=== PATIENT | female | born 2000 | race Caucasian/White ===

== ENCOUNTER 2021-04-12 18:26 | Emergency (ER) | payer OTHER, SELFPAY ==
[2021-04-12 18:43] VITALS: BP 138/94; PULSE 104; RESP 18; TEMP 37.1; O2SAT 100; BMI 45.7
[2021-04-12 19:12] LABS: Glucose Urine UA NEG (NEG); Leukocyte Esterase Urine NEG (NEG); Nitrite Urine NEG (NEG); Specific Gravity - Urine >= 1.030 (1.005-1.025); UACC Culture Trigger NO; Urine Blood 1+ (NEG); Urine Ketones NEG (NEG); Urine Protein NEG (NEG-TRACE)
[2021-04-12 19:13] LABS: Appearance Urine CLEAR; Color Urine YELLOW
[2021-04-12 19:19] LABS: Bacteria Urine 1+ /LPF; RBC Urine 0-2 /HPF (0); Squamous Epithelial Cell Urine 1+ /LPF; WBC Urine 0 /HPF (0-4)
[2021-04-12 21:01] VITALS: BP 130/96; PULSE 105; RESP 20; TEMP 37.3; O2SAT 99
--- NOTE | 2021-04-12 21:04 | ED.ABDPAIN ---
HPI - Abdominal Pain General Chief Complaint: Abdominal Pain Stated Complaint: nausea, stomach pain, dizziness Time Seen by Provider: 04/12/21 20:45 Source: patient Mode of arrival: ambulatory Limitations: no limitations History of Present Illness HPI narrative: 21-year-old female who presents emergency department for evaluation of abdominal pain, nausea and diarrhea. The patient's symptoms started 3 days prior. She states she has a constant aching pain in her upper abdomen with an intermittent stabbing pain. She states that the pain is 5/10 at its worst. The patient has had constant nausea with no vomiting. She states that she has had multiple episodes of diarrheal stool per day with having up to 12 episodes of diarrhea today. She states that the diarrhea is knee on yellow colored with mucus and occasional blood when she wipes. She has had associated chills but no fever. She feels lightheaded, dizzy and weak. The patient has not traveled out of the country, she has not gone camping and she has not been on antibiotics recently. She states that she had similar symptoms in the past and was worked up approximately 1 year prior by Gastroenterology and was diagnosed with IBS. 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 The patient has not had a COVID-19 infection during this pandemic. She was vaccinated with the 2 shot Pfizer vaccine with her last vaccination being in October 2020 Related Data Allergies Allergy/AdvReac Type Severity Reaction Status Date / Time latex [LATEX] Allergy Severe SWELLING/HI Verified 04/12/21 18:43 VES banana [BANANA] Allergy Intermediate ANAPHYLAXIS Verified 04/12/21 18:43 cefuroxime [From CEFTIN] Allergy Intermediate HIVES Verified 04/12/21 18:43 Sulfa (Sulfonamide Allergy Intermediate HIVES Verified 04/12/21 18:43 Antibiotics) [SULFA (SULFONAMIDE ANTIBIOTICS)] sulfacetamide Allergy Intermediate Hives Verified 04/12/21 18:43 Review of Systems Review of Systems Yes all other systems are reviewed and are negative Physical Exam Vital Signs: Vital Signs: Last Vital Signs Temp 98.2 F 04/12/21 22:30 Pulse 98 04/12/21 22:30 Resp 16 04/12/21 22:30 BP 130/81 04/12/21 22:30 Pulse Ox 100 04/12/21 22:30 Body Mass Index 45.7 Const: Other: Very pleasant, cooperative female, does not appear to be in distress , answers all questions appropriately HENMT: Head: Yes normal to inspection, Yes normocephalic and Yes atraumatic Ears: external ears normal General nose exam: Normal external nose present Face and sinus: Yes normal facial exam Mouth: Normal oral and palatal mucosa present Throat: Yes posterior oropharynx normal Eyes: Periorbital: periorbital findings normal Eyelids: Yes eyelids normal Conjunctivae: conjunctivae normal Sclerae: sclerae normal Corneas: corneas normal Pupils: Equal, round and reactive pupils present Direct Ophthalmoscopy: normal light reflex Neck: Neck: Yes full ROM, Yes no lymphadenopathy, Yes no meningeal signs, Yes trachea midline and Yes supple Chest: Chest palpation & inspection: normal inspection of the chest and normal palpation of entire chest wall Resp: Effort & Inspection: normal respiratory effort and able to speak in complete sentences Auscultation: clear to auscultation bilaterally Cardio: Rate: regular rate Rhythm: regular rhythm Heart sounds: S1 normal heart sound present, S2 normal heart sound present and no murmurs GI: Inspection: Yes normal to inspection Palpation (GI): Soft to palpation, Tenderness to palpation present (GI) in the epigastrum (Moderate), no guarding, not rigid and No hepatosplenomegaly present : General: Yes no CVA tenderness Back/Spine/Pelvis: Back: no CVA tenderness Cervical Spine: normal cervical lordosis Thoracic/Lumbar Spine: thoracic and lumbar spine normal to inspection Skin: Lesions: no lesions Rashes: no rashes Wounds: no wounds Neuro: General: no meningeal signs Cranial nerves: Yes CN's II-XII intact bilaterally and Yes Equal, round and reactive pupils present Cognition (Neuro): normal cognition Motor exam (neuro): 5/5 motor strength present throughout Extrem: General: Yes normal to inspection and Yes full ROM Psych: Appearance: well kempt Mental Status: mental status grossly normal Speech and movement: Normal speech and movement present Affect: normal affect Attitude: cooperative Thought process: Normal thought process present Thought content: Normal thought content present Course Course Course Narrative: 21-year-old female who presents emergency department for evaluation of epigastric abdominal pain, nausea, diarrhea x3 days. Vital signs revealed elevated blood pressure of 138/94 and tachycardia with a pulse of 108 otherwise were unremarkable. Examination did reveal tenderness with palpation of the epigastric area of her abdomen otherwise was unremarkable. I did order a CBC, CMP, lipase, urinalysis, urine test, COVID-19. Patient will be treated with normal saline IV x2 L, Zofran 4 mg IV for nausea and Toradol 15 mg IV for pain. I will obtain a stool sample for C diff and stool culture. 2357: The patient's laboratory evaluation was unremarkable. The patient did get significant improvement with the above treatment. She was able to eat saltine crackers and drink 10 drill without vomiting. The patient will be discharged home with a prescription for Zofran 4 mg every 6-8 hours as needed for nausea and vomiting. Patient is scheduled to follow-up with her professor of social work for further evaluation and treatment of her IBS. MDM - Abdominal Pain Lab Data Result diagrams: 04/12/21 21:26 04/12/21 23:21 Labs: Lab Results 04/12/21 04/12/21 04/12/21 Range/Units 18:58 21:26 21:26 WBC 11.3 H (4.8-10.8) X10*3/uL RBC 5.15 (4.20-5.50) X10*6/uL Hgb 13.3 (12.0-16.0) g/dl Hct 40.1 (37-47) % MCV 77.9 L (80-98) fL MCH 25.8 L (27.0-33.0) pg MCHC 33.2 (31.0-35.0) g/dl RDW 14.5 (11.0-16.0) % Plt Count 373 (160-400) X10*3/uL MPV 8.7 L (9.4-12.3) fL Immature Gran % (Auto) 0.4 (0.0-0.4) % Neut % (Auto) 54.5 (45-73) % Lymph % (Auto) 34.8 (20-40) % [place] % (Auto) 9.1 (2-11) % Eos % (Auto) 0.8 (0-4) % Baso % (Auto) 0.4 (0-2) % Lymph # (Auto) 3.9 (1.2-4.9) X10*3/uL [place] # (Auto) 1.0 (0.1-1.2) X10*3/uL Eos # (Auto) 0.1 (0.0-0.4) X10*3/uL Baso # (Auto) 0.0 (0.0-0.2) X10*3/uL Abs Immat Gran (auto) 0.04 H (0.00-0.03) X10*3/uL Absolute Neuts (auto) 6.1 (2.0-8.3) X10*3/uL Absolute Nucleated RBC 0.000 (0.0-0.012) X10*3/uL Nucleated RBC % (auto) 0.0 (0.0-0.2) /100WBC Sodium (135-145) mmol/L Potassium (3.3-5.1) mmol/L Chloride (96-108) mmol/L Carbon Dioxide (22-29) mmol/L Anion Gap (12-20) BUN (9-16) mg/dL Creatinine (0.5-1.4) mg/dL Estim Creat Clear Calc Estimated GFR Random Glucose (60-115) mg/dL Calcium (8.4-10.2) mg/dL Total Bilirubin (0.0-1.0) mg/dL AST (5-31) U/L ALT (0-31) U/L Alkaline Phosphatase (39-117) U/L Total Protein (6.5-8.0) g/dL Albumin (3.5-5.0) g/dL Lipase (8-78) U/L Urine Color YELLOW Urine Appearance CLEAR Urine pH 6.0 (5.0-8.0) Ur Specific [place] >= 1.030 H (1.005-1.025) Urine Protein NEG (NEG-TRACE) MG/DL Urine Glucose (UA) NEG (NEG) MG/DL Urine Ketones NEG (NEG) MG/DL Urine Blood 1+ H (NEG) Urine Nitrite NEG (NEG) Ur Leukocyte Esterase NEG (NEG) Urine RBC 0-2 (0) /HPF Urine WBC 0 (0-4) /HPF Ur Squamous Epith Cells 1+ /LPF Urine Bacteria 1+ /LPF COVID-19 ([facility]) Negative (Negative) COVID-19 Clin Com See Note 04/12/21 Range/Units 23:21 WBC (4.8-10.8) X10*3/uL RBC (4.20-5.50) X10*6/uL Hgb (12.0-16.0) g/dl Hct (37-47) % MCV (80-98) fL MCH (27.0-33.0) pg MCHC (31.0-35.0) g/dl RDW (11.0-16.0) % Plt Count (160-400) X10*3/uL MPV (9.4-12.3) fL Immature Gran % (Auto) (0.0-0.4) % Neut % (Auto) (45-73) % Lymph % (Auto) (20-40) % [place] % (Auto) (2-11) % Eos % (Auto) (0-4) % Baso % (Auto) (0-2) % Lymph # (Auto) (1.2-4.9) X10*3/uL [place] # (Auto) (0.1-1.2) X10*3/uL Eos # (Auto) (0.0-0.4) X10*3/uL Baso # (Auto) (0.0-0.2) X10*3/uL Abs Immat Gran (auto) (0.00-0.03) X10*3/uL Absolute Neuts (auto) (2.0-8.3) X10*3/uL Absolute Nucleated RBC (0.0-0.012) X10*3/uL Nucleated RBC % (auto) (0.0-0.2) /100WBC Sodium 140 (135-145) mmol/L Potassium 4.8 (3.3-5.1) mmol/L Chloride 110 H (96-108) mmol/L Carbon Dioxide 21 L (22-29) mmol/L Anion Gap 14 (12-20) BUN 7 L (9-16) mg/dL Creatinine 0.66 (0.5-1.4) mg/dL Estim Creat Clear Calc 159.1 Estimated GFR > 60 Random Glucose 87 (60-115) mg/dL Calcium 8.5 (8.4-10.2) mg/dL Total Bilirubin < 0.2 (0.0-1.0) mg/dL AST 35 H (5-31) U/L ALT 23 (0-31) U/L Alkaline Phosphatase 67 (39-117) U/L Total Protein 6.6 (6.5-8.0) g/dL Albumin 3.4 L (3.5-5.0) g/dL Lipase 24 (8-78) U/L Urine Color Urine Appearance Urine pH (5.0-8.0) Ur Specific [place] (1.005-1.025) Urine Protein (NEG-TRACE) MG/DL Urine Glucose (UA) (NEG) MG/DL Urine Ketones (NEG) MG/DL Urine Blood (NEG) Urine Nitrite (NEG) Ur Leukocyte Esterase (NEG) Urine RBC (0) /HPF Urine WBC (0-4) /HPF Ur Squamous Epith Cells /LPF Urine Bacteria /LPF COVID-19 ([facility]) (Negative) COVID-19 Clin Com Discharge Plan Discharge Clinical Impression: Nausea Abdominal pain Qualifiers: Abdominal location: epigastric Qualified Code(s): R10.13 - Epigastric pain Irritable bowel syndrome Qualifiers: Irritable bowel syndrome type: with diarrhea Qualified Code(s): K58.0 - Irritable bowel syndrome with diarrhea Diarrhea Qualifiers: Diarrhea type: unspecified type Qualified Code(s): R19.7 - Diarrhea, unspecified Patient Disposition: Home, Self-Care Additional Instructions: Your laboratory evaluation was unremarkable, this is reassuring. Your symptoms are consistent with either a viral infection or your your double bowel syndrome. For nausea or vomiting take Zofran (ondansetron) oral dissolvable tablets, 1 pill dissolved in your mouth every 6-8 hours as needed. Take ibuprofen 200 mg pills, 3 pills every 6 hours as needed for pain. Take Tylenol (acetaminophen) 500 mg pills, 2 pills every 4 to 6 hours as needed for pain. Take Imodium AC 2 mg pills, 1 pill every 2 hours up to 4 pills a day as needed for diarrhea. Follow-up with your doctor in 2 days. Please return to the emergency department if your symptoms get worse or if you develop any symptoms that are concerning to you. [facility] Past Medical History [facility] Narrative: Past surgical history: The patient had a cholecystectomy 04/2019. Social history: The patient denies tobacco use, she occasionally drinks alcohol, she denies drug use. Medical History Airway malacia Anxiety Costochondritis Depression GERD (gastroesophageal reflux disease) OCD (obsessive compulsive disorder) Vocal cord dysfunction Surgical History H/O adenoidectomy History of tonsillectomy Previous back surgery Social History Social History Advance Directives: No Advance Directives Information Provided: Yes Patient : No
[2021-04-12] MEDS: Ketorolac Tromethamine 15 MG/ML VIAL IVPUSH (21:32)
[2021-04-12] MEDS: 0.9 % Sodium Chloride 1,000 ML 999 ML IV ×2 (21:32)
[2021-04-12 21:41] LABS: MANUAL DIFF FLAG NO
[2021-04-12 21:44] LABS: Basophils Percent Auto 0.4 % (0-2); Eosinophils Absolute Auto 0.1 X10*3/uL (0.0-0.4); Eosinophils Percent Auto 0.8 % (0-4); Hematocrit 40.1 % (37-47); Hemoglobin 13.3 g/dl (12.0-16.0); Imm Gran Abs Auto 0.04 X10*3/uL (0.00-0.03); Imm Gran Pct Auto 0.4 % (0.0-0.4); Lymphocytes Absolute Auto 3.9 X10*3/uL (1.2-4.9); Lymphocytes Percent Auto 34.8 % (20-40); Mean Corpuscular HGB Conc 33.2 g/dl (31.0-35.0); Mean Corpuscular Hemoglobin 25.8 pg (27.0-33.0); Mean Corpuscular Volume 77.9 fL (80-98); Mean Platelet Volume 8.7 fL (9.4-12.3); Monocytes Percent Auto 9.1 % (2-11); Neutrophils Absolute Auto 6.1 X10*3/uL (2.0-8.3); Neutrophils Percent Auto 54.5 % (45-73); Platelet Count 373 X10*3/uL (160-400); Red Blood Count 5.15 X10*6/uL (4.20-5.50); Red Cell Distribution Width 14.5 % (11.0-16.0); White Blood Count 11.3 X10*3/uL (4.8-10.8)
[2021-04-12 21:56] LABS: COVID-19 Test Negative (Negative); IDNOW Serial# 9DD0AD1C
[2021-04-12 22:30] VITALS: BP 130/81; PULSE 98; RESP 16; TEMP 36.8; O2SAT 100
[2021-04-12 23:50] LABS: Alanine Aminotransferase 23 U/L (0-31); Albumin Level 3.4 g/dL (3.5-5.0); Alkaline Phosphatase 67 U/L (39-117); Anion Gap 14 (12-20); Aspartate Amino Transferase 35 U/L (5-31); Bilirubin Total < 0.2 mg/dL (0.0-1.0); Blood Urea Nitrogen 7 mg/dL (9-16); Calcium 8.5 mg/dL (8.4-10.2); Carbon Dioxide 21 mmol/L (22-29); Chloride 110 mmol/L (96-108); Creatinine Clr Calc Pharmacy 159.1; Estimated Glomerular Filt Rate > 60; Glucose Random 87 mg/dL (60-115); Lipase 24 U/L (8-78); Potassium 4.8 mmol/L (3.3-5.1); Sodium 140 mmol/L (135-145); Total Protein 6.6 g/dL (6.5-8.0)
== END 2021-04-13 00:14 | disposition home or self-care (01) ==
PROVIDERS: Emergency Provider Emergency Medicine Emergency Medical Services; PCP Internal Medicine
DX: K58.0 Irritable bowel syndrome with diarrhea (principal); R10.13 Epigastric pain; Z20.822 Contact with and (suspected) exposure to COVID-19; R53.1 Weakness
CPT/HCPCS: 36415; 80053; 81001; 83690; 85025; 87635; 96361; 96374; 96375; 99284; J1885; J2405

== ENCOUNTER 2021-05-08 13:26 | Outpatient (REF) | payer OTHER, SELFPAY ==
--- NOTE | ~2021-05-08 | CT_ITS ---
EXAMINATION: CT ENTEROGRAPHY ABDOMEN AND PELVIS WITH CONTRAST CLINICAL INFORMATION: Periumbilical pain COMPARISON: Previous CT of the abdomen and pelvis October 2019 TECHNIQUE: Study performed with oral VoLumen (1350 mL) and 480 mL of water to distend the abdomen. The patient was injected with 85 mL Omnipaque 350 intravenous contrast which was administered without adverse effect. Coronal and sagittal reformatted images were obtained at the technologist's workstation. This CT examination was performed using dose optimization techniques as appropriate, variously including the following: *Automated exposure control *Adjustment of mA and/or kV according to patient size (this includes techniques or standardized protocols for targeted exams where dose is matched to indication/reason for exam; i.e. extremities or head) *Use of iterative reconstruction technique DLP: 1118 mGy-cm FINDINGS: GASTROINTESTINAL FINDINGS: Stomach: Well-distended and normal in appearance. Small intestine: Satisfactorily distended and normal in appearance. Large intestine: Well-distended and normal in appearance. No perirectal changes demonstrated. The appendix is normal. Additional findings: No abnormal enhancement of the vasa recta or significant mesenteric or retroperitoneal lymphadenopathy is seen. No abdominal abscess or fistulous tract demonstrated. ABDOMINAL AND PELVIC CT FINDINGS: Liver, gallbladder, biliary tract: Fatty liver. Postcholecystectomy. No focal liver lesion or biliary duct dilatation. Pancreas: Normal Spleen: Normal Adrenal glands and kidneys: Normal Ureters and bladder: Normal Lymphovascular structures: Normal Pelvic structures: Normal Small umbilical hernia containing fat. Bones: Normal Lung bases: Normal CT/CT enterography IMPRESSION: Small umbilical hernia containing fat otherwise unremarkable exam.
[2021-05-08] MEDS: iohexoL 350 MG/ML 100 ML INFUS..BTL IV (15:44)
[2021-05-08] MEDS: Sorbitol/Mannit/Xanth Imaging 500 ML LIQUID 1500 ML PO (15:45)
== END 2021-05-08 13:27 | disposition home or self-care (01) ==
LOC: HO.US 13:26
PROVIDERS: PCP Internal Medicine; Visit Provider Internal Medicine Gastroenterology
DX: R10.33 Periumbilical pain (principal)
CPT/HCPCS: 74177; Q9967

== ENCOUNTER → 2021-06-12 13:49 | Outpatient (BNVA) | payer OTHER, SELFPAY | PROVIDERS: PCP Internal Medicine; Visit Provider Internal Medicine Gastroenterology ==

== ENCOUNTER → 2021-08-14 07:44 | Outpatient (REF) | payer OTHER, SELFPAY ==
--- NOTE | ~2021-08-14 | NM_ITS ---
EXAMINATION: MN RADIONUCLIDE SOLID FOOD GASTRIC EMPTYING 4-HOUR STUDY CLINICAL INFORMATION: Early satiety. COMPARISON: None TECHNIQUE: A standard meal consisting of 4 oz of Egg Beaters brand tagged with 0.699 microcuries Tc-99m Sulfur Colloid, 8 oz water and 2 slices of toast with jelly was administered orally to the patient. Images were obtained using a dual head gamma camera in the anterior and posterior projections over of the stomach immediately post ingestion and at hourly intervals up to 4 hours post ingestion. The anterior and posterior counts at each time interval were averaged using the geometric mean and expressed as percentage of the immediate post ingestion counts. FINDINGS: There is good visualization of activity in the stomach immediately post ingestion. As the study progresses, there is good clearance of activity from the stomach and visualization of progressively increasing small bowel activity. By the end of the study, there is almost no retention noted in the stomach. Retention in the stomach at each time interval was: 1 hour 75% (normal 37%-90%) 2 hours 52% (normal 30%-60%) 3 hours 37% 4 hours 12% (normal 0%-10%) MN/MN gastric emptying study IMPRESSION: Abnormal 4-hour solid food gastric emptying study with 12% retention.
== END ==
LOC: HO.NUCMED 07:44
PROVIDERS: PCP Internal Medicine; Visit Provider Internal Medicine Gastroenterology
DX: R10.13 Epigastric pain (principal); R68.81 Early satiety
CPT/HCPCS: 78264; A9541

== ENCOUNTER → 2021-09-19 10:10 | Outpatient (BNVA) | payer OTHER, SELFPAY | PROVIDERS: PCP Internal Medicine; Visit Provider Physician Assistant Medical | DX: M54.42 Lumbago with sciatica, left side (principal); Z91.81 History of falling | CPT/HCPCS: 99202 ==

== ENCOUNTER 2021-09-19 23:04 | Emergency (ER) | payer OTHER, SELFPAY ==
[2021-09-19 23:54] VITALS: BP 151/100; PULSE 128; RESP 18; TEMP 36.5; O2SAT 98; BMI 48.8
--- NOTE | 2021-09-20 00:17 | ED.FALL ---
HPI - Fall General Chief Complaint: Fall Stated Complaint: fall @ work, lower back and L foot pain Time Seen by Provider: 09/20/21 00:16 Source: patient Mode of arrival: ambulatory Limitations: no limitations History of Present Illness HPI Narrative: 21 y/o female with history of obesity, gastroparesis, and history of L4-L5 discectomy in January 2018 who presents to the ER with left lower back pain after a fall this morning. Patient works as a [employer] and fell while walking up the stairs today. She reports she had immediate pain in her left lower back that radiates down into the buttock and left lower leg. She reports her left foot being numb. She went to work connection was prescribed Valium. She has taken the medication twice with minimal relief. She states the pain is severe and shooting. She denies any bladder or bowel incontinence. She denies any saddle paresthesias. She reports the pain is worse when she lifts her leg up off the bed and when she tries to walk. She denies any fevers. She denies falling onto her buttocks and there was no direct trauma to her back. Her diskectomy was in the setting of being slammed into a door frame and a traumatic disc bulge. Her neurosurgeon is at [facility]. complaint: fall Onset (ago): hour(s) Fall from: standing Fall witnessed: no Place fall occurred: work Prolonged down time: no Symptoms prior to fall: none Context: tripped/slipped Severity: severe Severity scale (1-10): 9 Quality: sharp and stabbing Associated symptoms (after fall): denies Related Data Home Medications Medication Instructions Recorded Confirmed cholecalciferol (vitamin D3) 50 50 mcg PO DAILY 06/12/21 mcg (2,000 unit) capsule duloxetine 60 mg capsule,delayed 60 mg PO DAILY 06/12/21 release norethindrone 1 mg-ethinyl 1 tab PO DAILY 06/12/21 estradiol 35 mcg tablet (Nortrel) sumatriptan succinate 100 mg tablet 100 mg PO DIRECTED 06/12/21 Previous Rx's Medication Instructions Recorded omeprazole 40 mg capsule,delayed 40 mg PO DAILY #60 cap 06/12/21 release dicyclomine 10 mg capsule 10 mg PO BID #60 cap 08/07/21 budesonide 3 mg 9 mg PO DAILY 30 Days #90 ea 08/21/21 capsule,delayed,extended release ondansetron 4 mg disintegrating 4 mg PO Q8H PRN #30 tab 08/23/21 tablet colesevelam 625 mg tablet 1,250 mg PO BID #60 tab 09/11/21 ibuprofen 800 mg tablet 800 mg PO Q8H PRN #20 tab 09/20/21 oxycodone 5 mg tablet 5 mg PO Q6H PRN #10 tab 09/20/21 prednisone 20 mg tablet 40 mg PO DAILY #10 tab 09/20/21 Allergies Allergy/AdvReac Type Severity Reaction Status Date / Time latex [LATEX] Allergy Severe SWELLING/HI Verified 04/12/21 18:43 VES banana [BANANA] Allergy Intermediate ANAPHYLAXIS Verified 04/12/21 18:43 cefuroxime [From CEFTIN] Allergy Intermediate HIVES Verified 04/12/21 18:43 Sulfa (Sulfonamide Allergy Intermediate HIVES Verified 04/12/21 18:43 Antibiotics) [SULFA (SULFONAMIDE ANTIBIOTICS)] sulfacetamide Allergy Intermediate Hives Verified 04/12/21 18:43 Review of Systems Review of Systems: Constitutional: No Fever, No Chills Cardiovascular: No Chest Pain, No SOB Gastrointestinal: No Nausea, No Vomiting, No Diarrhea, No abdominal Pain Genitourinary: No Dysuria, No Urinary Frequency, No Hematuria Musculoskeletal: + joint pain, No Myalgias Skin: No Skin Lesions, No rash Neuro: No Weakness, + Numbness, No Dizziness, No Headache Psych: No Anxiety/Panic, No Depression Heme/Lymph: No Bruising PMFSH Past Medical History Medical History (Updated 09/20/21 @ 00:54 by BOYD Griffin) Airway malacia Anxiety Costochondritis Depression GERD (gastroesophageal reflux disease) OCD (obsessive compulsive disorder) Vocal cord dysfunction Surgical History (Updated 06/12/21 @ 13:52 by ESEQUIEL Mackey) H/O adenoidectomy History of esophagogastroduodenoscopy (EGD) History of tonsillectomy Hx of colonoscopy Previous back surgery Social History Social History Advance Directives: No Patient : No Physical Exam Vital Signs: Vital Signs: Last Vital Signs Temp 98.8 F 09/20/21 00:20 Pulse 117 H 09/20/21 00:20 Resp 18 09/20/21 00:20 BP 132/87 09/20/21 00:20 Pulse Ox 98 09/20/21 00:20 BMI result Body Mass Index 48.8 Appearance: Alert. Oriented X3. No acute distress. HEENT: normal inspection CVS: Normal heart rate and rhythm. Pulses normal. Respiratory: No respiratory distress. Skin: Skin warm and dry. Normal skin color. Normal skin turgor. No rashes. Back: tenderness of the left low lumbar area and SI joint, +straight leg raise at 30 degrees Extremities: atraumatic x4, normal ROM. Neuro: Oriented X 3. No motor deficit. No sensory deficit. Ambulates with slow but steady gait Course Course Course Narrative: 21-year-old female with history of traumatic disc bulge back in 2018 with a diskectomy of L4-L5 who presents to the ER with left low back pain that radiates into her left buttock and down her left leg that started after a fall this morning. Pain is worse with movement and palpation. Minimal relief with muscle relaxer. She has no red flag symptoms of low back pain. Her exam and clinical presentation are consistent with compression of the sciatic nerve and sciatica. She also probably has lumbar strain and spasm. Will treat with p.o. oxycodone and IM Toradol and reassess. Reevaluation(s) Reevaluation #1: Patient's pain is improved. At this time she is stable for discharge home with pain control and follow-up with her neurosurgeon at [facility]. If her symptoms persist she will need an MRI. No need for emergent MRI at this time. Discharge Plan Discharge Clinical Impression: Sciatica of left side, Acute lumbar myofascial strain Patient Disposition: Home, Self-Care Instructions: Sciatica (ED), Acute Low Back Pain (ED) Additional Instructions: No bending, lifting or twisting. Use ice several times per day for 20 minutes at a time for the next 48 hours and then change to heat. Take medications as prescribed to help with pain and discomfort. Follow up with your Primary Care Doctor this week. If your pain worsens, if you develop new numbness, tingling, weakness, loss of function or incontinence call 911 or come back to the ER right away for evaluation. Prescriptions: New oxycodone 5 mg tablet 5 mg PO Q6H PRN (Reason: pain) Qty: 10 RF: 0 ibuprofen 800 mg tablet 800 mg PO Q8H PRN (Reason: pain) Qty: 20 RF: 0 prednisone 20 mg tablet 40 mg PO DAILY Qty: 10 RF: 0 No Action dicyclomine 10 mg capsule 10 mg PO BID Qty: 60 RF: 0 budesonide 3 mg capsule,delayed,extend.release 9 mg PO DAILY 30 Days Qty: 90 RF: 2 ondansetron 4 mg tablet,disintegrating 4 mg PO Q8H PRN (Reason: nausea and vomiting) Qty: 30 RF: 0 colesevelam 625 mg tablet 1,250 mg PO BID Qty: 60 RF: 0 Nortrel 1/35 (28) 1-35 mg-mcg tablet 1 tab PO DAILY RF: 0 duloxetine 60 mg capsule,delayed release(DR/EC) 60 mg PO DAILY RF: 0 sumatriptan succinate 100 mg tablet 100 mg PO DIRECTED RF: 0 cholecalciferol (vitamin D3) 50 mcg (2,000 unit) capsule 50 mcg PO DAILY RF: 0 omeprazole 40 mg capsule,delayed release(DR/EC) 40 mg PO DAILY Qty: 60 RF: 1 Referrals: Kailey Camacho MD [Primary Care Provider] - 2 days (Low back pain consistent with sciatica.) Stand Alone Forms: Work/School Release
[2021-09-20 00:20] VITALS: BP 132/87; PULSE 117; RESP 18; TEMP 37.1; O2SAT 98
[2021-09-20] MEDS: predniSONE 10 MG TABLET 50 MG PO (00:34)
[2021-09-20] MEDS: oxyCODONE HCl Immed Release 5 MG TABLET PO (00:34)
[2021-09-20] MEDS: Ketorolac Tromethamine 30 MG/ML VIAL IM (00:34)
== END 2021-09-20 01:16 | disposition home or self-care (01) ==
PROVIDERS: Emergency Provider Emergency Medicine Emergency Medical Services; PCP Internal Medicine
DX: S39.012A Strain of muscle, fascia and tendon of lower back, initial encounter (principal); M54.32 Sciatica, left side; W10.9XXA Fall (on) (from) unspecified stairs and steps, initial encounter; Y93.9 Activity, unspecified; Y92.89 Other specified places as the place of occurrence of the external cause; Y99.0 Civilian activity done for income or pay
CPT/HCPCS: 96372; 99284; J1885

== ENCOUNTER 2021-09-24 06:27 | Emergency (ER) | payer OTHER, SELFPAY ==
--- NOTE | ~2021-09-24 | US_ITS ---
EXAMINATION: LEFT LOWER EXTREMITY DEEP VENOUS ULTRASOUND CLINICAL INFORMATION: Left lower extremity pain. Calf tenderness. COMPARISON: None. TECHNIQUE: Duplex Doppler imaging with compression maneuvers were performed of the left lower extremity deep venous system. Today's examination is limited secondary to patient body habitus. FINDINGS: The visualized common femoral, femoral and popliteal veins demonstrate normal compressibility and color flow without evidence of venous thrombosis. Visualized portions of the calf veins demonstrate normal color fill-in suggesting patency. There is no evidence of a Camacho's cyst. US/US venous duplex LE LT IMPRESSION: No evidence of deep venous thrombosis involving the left lower extremity.
[2021-09-24 06:46] VITALS: BP 167/104; PULSE 130; RESP 20; TEMP 36.7; O2SAT 97; BMI 48.8
--- NOTE | 2021-09-24 09:26 | ED.GENADULT ---
HPI - General Adult General Chief complaint: General Medical Stated complaint: unable to move foot Time Seen by Provider: 09/24/21 09:26 Source: patient Mode of arrival: ambulatory Limitations: no limitations History of Present Illness HPI narrative: 21-year-old female no known medical history presents to the emergency department with complaints of lower back pain and numbness and tingling to her left foot she also complains of left calf pain X4 days . She tells me she had a fall on September 16, 2021 at work she landed on all fours on her hands in her knees, she she has a workman's comp case on this, she was seen by the were connection who prescribed her Valium and Tylenol for pain/discomfort she tells me this is not helping. She tells me that the paperwork told her to return with new or worsening symptoms so she is here today to be re-evaluated because her pain meds are not working. She reports that her foot feels like it has been sitting and snow for a few days. . Patient tells me she is unable to walk however she ambulated from the waiting room to her bed. Patient is not an IV drug user. She has had previous back surgery on L4-L5. Onset (ago): day(s) (4) Location: back Radiation: other (left lower extremity) Severity: severe Quality: burning, aching and constant Pain Consistency: constant Relieving factors: immobilization Exacerbating factors: movement Associated symptoms: denies other symptoms Treatments prior to arrival: other (Valium and Tylenol without relief) Related Data Home Medications Medication Instructions Recorded Confirmed cholecalciferol (vitamin D3) 50 50 mcg PO DAILY 06/12/21 mcg (2,000 unit) capsule duloxetine 60 mg capsule,delayed 60 mg PO DAILY 06/12/21 release norethindrone 1 mg-ethinyl 1 tab PO DAILY 06/12/21 estradiol 35 mcg tablet (Nortrel) sumatriptan succinate 100 mg tablet 100 mg PO DIRECTED 06/12/21 Previous Rx's Medication Instructions Recorded omeprazole 40 mg capsule,delayed 40 mg PO DAILY #60 cap 06/12/21 release dicyclomine 10 mg capsule 10 mg PO BID #60 cap 08/07/21 budesonide 3 mg 9 mg PO DAILY 30 Days #90 ea 08/21/21 capsule,delayed,extended release ondansetron 4 mg disintegrating 4 mg PO Q8H PRN #30 tab 08/23/21 tablet colesevelam 625 mg tablet 1,250 mg PO BID #60 tab 09/11/21 ibuprofen 800 mg tablet 800 mg PO Q8H PRN #20 tab 09/20/21 oxycodone 5 mg tablet 5 mg PO Q6H PRN #10 tab 09/20/21 prednisone 20 mg tablet 40 mg PO DAILY #10 tab 09/20/21 lidocaine 5 % topical patch 1 patch TOPICAL DAILY PRN #15 ea 09/24/21 Allergies Allergy/AdvReac Type Severity Reaction Status Date / Time latex [LATEX] Allergy Severe SWELLING/HI Verified 04/12/21 18:43 VES banana [BANANA] Allergy Intermediate ANAPHYLAXIS Verified 04/12/21 18:43 cefuroxime [From CEFTIN] Allergy Intermediate HIVES Verified 04/12/21 18:43 Sulfa (Sulfonamide Allergy Intermediate HIVES Verified 04/12/21 18:43 Antibiotics) [SULFA (SULFONAMIDE ANTIBIOTICS)] sulfacetamide Allergy Intermediate Hives Verified 04/12/21 18:43 Review of Systems Review of Systems: Constitutional : No Weight loss, No Fever, No Chills, No Fatigue, No Malaise ENT/Mouth : No sore throat, No Rhinorrhea Eyes: No Eye Pain, No Swelling, No Redness Cardiovascular : No Chest Pain, No SOB, No Dyspnea on Exertion, No Orthopnea, No Edema, No Palpitations Respiratory : No Cough, No Sputum, No Wheezing Gastrointestinal : No Nausea, No Vomiting, No Diarrhea, No Constipation, No abdominal Pain, No Hematochezia, No Melena Genitourinary : No Dysuria, No Urinary Frequency, No Hematuria, Musculoskeletal : No joint pain, No Myalgias, No Joint Swelling, + calf pain, +back pain Skin : No Skin Lesions, No rash Neuro : No Weakness, No Numbness, No Dizziness, No Headache Psych : No Anxiety/Panic, No Depression All other systems reviewed and are negative Yes all other systems are reviewed and are negative [facility] Past Medical History Attestation statement: The following information was validated with the patient. Source: old records reviewed and nursing notes reviewed Medical History (Updated 09/24/21 @ 09:46 by BOYD Yates) Airway malacia Anxiety Costochondritis Depression GERD (gastroesophageal reflux disease) OCD (obsessive compulsive disorder) Vocal cord dysfunction Surgical History (Updated 06/12/21 @ 13:52 by ESEQUIEL Mackey) H/O adenoidectomy History of esophagogastroduodenoscopy (EGD) History of tonsillectomy Hx of colonoscopy Previous back surgery Social History Social History Advance Directives: No Advance Directives Information Provided: Yes Physical Exam Vital Signs: Vital Signs: Last Vital Signs Temp 98.0 F 09/24/21 06:46 Pulse 130 H 09/24/21 06:46 Resp 20 09/24/21 06:46 BP 167/104 H 09/24/21 06:46 Pulse Ox 97 09/24/21 06:46 BMI result Body Mass Index 48.8 Patient is noted to be hypertensive and tachycardic will repeat vitals at a later time Appearance: Alert.? Oriented X3.? No acute distress.? Head: Normocephalic, atraumatic, no step-offs or deformities Eyes: Pupils equal, round and reactive to light.? ENT: Pharynx normal.? Neck: Normal inspection.? Neck supple.? CVS: Normal heart rate and rhythm.? Pulses normal.? Respiratory: No respiratory distress.? Breath sounds normal.? Abdomen: Soft and nontender.? Skin: Skin warm and dry.? Normal skin color.? Normal skin turgor.? Extremities: No lower extremity edema.? + calf ttp to left negative on right. 5/5 strength to bilateral upper and lower extremities. Bilateral lower extremities with 2+ pulses equal bilateral, verified with the Doppler at the bedside. 2+ reflex equal and b/l to lower extremities (patellar) Back: No midline tenderness, no C-spine tenderness, full range of motion, no CVA tenderness bilaterally Neuro: Oriented X 3.? No motor deficit.? No sensory deficit. Ambulating with a steady gait. No saddle paresthesia sensory and motor intact upper and lower extremities. Proprioception intact to bilateral lower extremities to point extinction intact in bilateral lower extremities. Course Reevaluation(s) Reevaluation #1: Us negative for DVT patient reports pain still will give toradol. I have advised her to follow-up with or connection. Comfortable with discharge home no DVT. No shortness of breath. Vital signs improved from initial Time: 10:24 Medical Decision Making MDM Narrative Medical decision making narrative: [id number] 21 yo F presents to the ED w/ back pain since 09/19/2021 s/p falling going up the stairs at work, currently followed by work connection. Reports pain to lower back radiating to left leg also reprots left calf tendernss. No red flag symptoms no saddle paresthesia, no sensory or motor deficit,no midline tenderness,no weakness, no urinary/bowel incontinence or retention. PE Benign. Plan LLE US. Based off patient history and physical examination this is likely sciatic all or lumbar radiculopathy. Unlikely epidural abscess or cauda equina. Unlikely a blood clot however patient would like an ultrasound done to confirm. Unlikely arterial occlusion bilateral lower extremities free of pain, pallor normal proprioception, sensory and motor intact normal capillary refill. Medical Records Medical records reviewed: Yes I reviewed the patient's medical records. Lab Data Lab results reviewed: Yes I reviewed the patient's lab results. Critical Care Time Critical Care Time Critical Care Time: No Discharge Plan Discharge Clinical Impression: Lumbar radiculopathy Patient Disposition: Home, Self-Care Instructions: Lumbar Radiculopathy (ED) Additional Instructions: Take your medications as prescribed. If you were prescribed antibiotics today, it is important that you take your medication to their entirety, do not skip any doses, do not finish them early. Follow-up with your primary care provider this week. Return to the emergency department with new or worsening symptoms. Such as urinary/bowel incontinence, fevers, chills, nausea, vomiting, weakness. In case of emergency call 911 Prescriptions: New lidocaine 5 % adhesive patch,medicated 1 patch topical DAILY PRN (Reason: pain) Qty: 15 RF: 0 No Action dicyclomine 10 mg capsule 10 mg PO BID Qty: 60 RF: 0 budesonide 3 mg capsule,delayed,extend.release 9 mg PO DAILY 30 Days Qty: 90 RF: 2 ondansetron 4 mg tablet,disintegrating 4 mg PO Q8H PRN (Reason: nausea and vomiting) Qty: 30 RF: 0 colesevelam 625 mg tablet 1,250 mg PO BID Qty: 60 RF: 0 oxycodone 5 mg tablet 5 mg PO Q6H PRN (Reason: pain) Qty: 10 RF: 0 ibuprofen 800 mg tablet 800 mg PO Q8H PRN (Reason: pain) Qty: 20 RF: 0 prednisone 20 mg tablet 40 mg PO DAILY Qty: 10 RF: 0 Nortrel 1/35 (28) 1-35 mg-mcg tablet 1 tab PO DAILY RF: 0 duloxetine 60 mg capsule,delayed release(DR/EC) 60 mg PO DAILY RF: 0 sumatriptan succinate 100 mg tablet 100 mg PO DIRECTED RF: 0 cholecalciferol (vitamin D3) 50 mcg (2,000 unit) capsule 50 mcg PO DAILY RF: 0 omeprazole 40 mg capsule,delayed release(DR/EC) 40 mg PO DAILY Qty: 60 RF: 1 Referrals: Kailey Camacho MD [Primary Care Provider] - 2 days
[2021-09-24 10:26] VITALS: BP 148/105; PULSE 118; RESP 16; O2SAT 96
[2021-09-24] MEDS: Ketorolac Tromethamine 30 MG/ML VIAL IM (10:31)
== END 2021-09-24 10:39 | disposition home or self-care (01) ==
PROVIDERS: Emergency Provider Internal Medicine; PCP Internal Medicine
DX: M54.16 Radiculopathy, lumbar region (principal); R60.0 Localized edema; Z79.899 Other long term (current) drug therapy
CPT/HCPCS: 93971; 96372; 99284; J1885

== ENCOUNTER → 2021-09-28 07:56 | Outpatient (BNVA) | payer OTHER, SELFPAY | PROVIDERS: PCP Internal Medicine; Visit Provider Internal Medicine | DX: M54.42 Lumbago with sciatica, left side (principal) | CPT/HCPCS: 99213 ==

== ENCOUNTER → 2021-10-03 08:50 | Outpatient (BNVA) | payer OTHER, SELFPAY | PROVIDERS: PCP Internal Medicine; Visit Provider Internal Medicine | DX: M54.42 Lumbago with sciatica, left side (principal) | CPT/HCPCS: 99213 ==

== ENCOUNTER → 2021-12-22 10:17 | Outpatient (BNVA) | payer OTHER, SELFPAY | PROVIDERS: PCP Internal Medicine; Visit Provider Internal Medicine Gastroenterology | DX: Z13.89 Encounter for screening for other disorder (principal) ==

== ENCOUNTER 2022-06-18 10:51 | Outpatient (REF) | payer OTHER, SELFPAY ==
[2022-06-18 11:36] LABS: MANUAL DIFF FLAG NO
[2022-06-18 11:59] LABS: Basophils Absolute Auto 0.1 X10*3/uL (0.0-0.2); Basophils Percent Auto 0.4 % (0-2); Eosinophils Absolute Auto 0.1 X10*3/uL (0.0-0.4); Eosinophils Percent Auto 1.1 % (0-4); Hematocrit 40.9 % (37.0-47.0); Hemoglobin 12.9 g/dl (12.0-16.0); Imm Gran Abs Auto 0.07 X10*3/uL (0.00-0.03); Imm Gran Pct Auto 0.6 % (0.0-0.4); Lymphocytes Absolute Auto 2.9 X10*3/uL (1.2-4.9); Lymphocytes Percent Auto 23.6 % (20-40); Mean Corpuscular HGB Conc 31.5 g/dl (31.0-35.0); Mean Corpuscular Hemoglobin 24.4 pg (27.0-33.0); Mean Corpuscular Volume 77.3 fL (80.0-98.0); Mean Platelet Volume 8.6 fL (9.4-12.3); Monocytes Absolute Auto 0.7 X10*3/uL (0.1-1.2); Monocytes Percent Auto 5.4 % (2-11); Neutrophils Absolute Auto 8.5 x10*3/uL (2.0-8.3); Neutrophils Percent Auto 68.9 % (45-73); Platelet Count 464 X10*3/uL (160-400); Red Blood Count 5.29 X10*6/uL (4.20-5.50); Red Cell Distribution Width 15.3 % (11.0-16.0); White Blood Count 12.4 X10*3/uL (4.8-10.8)
[2022-06-18 12:46] LABS: Alanine Aminotransferase 49 U/L (0-31); Albumin Level 4.1 g/dL (3.5-5.0); Alkaline Phosphatase 105 U/L (39-117); Anion Gap 15 (12-20); Aspartate Amino Transferase 35 U/L (5-31); Bilirubin Total 0.3 mg/dL (0.0-1.0); Blood Urea Nitrogen 10 mg/dL (9-16); C Reactive Protein 4.25 mg/dL (< or = 0.50); Calcium 9.9 mg/dL (8.4-10.2); Carbon Dioxide 26 mmol/L (22-29); Chloride 103 mmol/L (96-108); Estimated Glomerular Filt Rate > 60; Glucose Random 106 mg/dL (60-115); Potassium 4.4 mmol/L (3.3-5.1); Sodium 140 mmol/L (135-145)
== END 2022-06-18 10:52 | disposition home or self-care (01) ==
LOC: HO.LAB 10:51
PROVIDERS: PCP Internal Medicine; Visit Provider Internal Medicine Gastroenterology
DX: K75.81 Nonalcoholic steatohepatitis (NASH) (principal); R10.13 Epigastric pain; R19.7 Diarrhea, unspecified
CPT/HCPCS: 36415; 80053; 85025; 86140

== ENCOUNTER → 2022-10-19 08:56 | Outpatient (BNVA) | payer OTHER, SELFPAY | PROVIDERS: PCP Internal Medicine; Visit Provider Internal Medicine Gastroenterology | DX: Z13.89 Encounter for screening for other disorder (principal) ==

== ENCOUNTER 2023-01-24 11:16 | Outpatient (REF) | payer OTHER, SELFPAY ==
[2023-01-24 11:27] LABS: MANUAL DIFF FLAG NO
[2023-01-24 12:37] LABS: Basophils Absolute Auto 0.1 X10*3/uL (0.0-0.2); Basophils Percent Auto 0.4 % (0-2); Eosinophils Absolute Auto 0.2 X10*3/uL (0.0-0.4); Eosinophils Percent Auto 1.3 % (0-4); Hemoglobin 12.8 g/dl (12.0-16.0); Imm Gran Abs Auto 0.08 X10*3/uL (0.00-0.03); Imm Gran Pct Auto 0.5 % (0.0-0.4); Lymphocytes Absolute Auto 4.1 X10*3/uL (1.2-4.9); Lymphocytes Percent Auto 26.4 % (20-40); Mean Corpuscular HGB Conc 31.2 g/dl (31.0-35.0); Mean Corpuscular Volume 73.6 fL (80.0-98.0); Mean Platelet Volume 8.7 fL (9.4-12.3); Monocytes Absolute Auto 0.8 X10*3/uL (0.1-1.2); Monocytes Percent Auto 4.9 % (2-11); Neutrophils Absolute Auto 10.4 x10*3/uL (2.0-8.3); Neutrophils Percent Auto 66.5 % (45-73); Platelet Count 506 X10*3/uL (160-400); Red Blood Count 5.57 X10*6/uL (4.20-5.50); Red Cell Distribution Width 16.8 % (11.0-16.0); White Blood Count 15.6 X10*3/uL (4.8-10.8)
[2023-01-24 13:16] LABS: Alanine Aminotransferase 44 U/L (0-31); Albumin Level 3.8 g/dL (3.5-5.0); Alkaline Phosphatase 120 U/L (39-117); Anion Gap 12 (12-20); Aspartate Amino Transferase 23 U/L (5-31); Bilirubin Total 0.3 mg/dL (0.0-1.0); Blood Urea Nitrogen 8 mg/dL (9-16); C Reactive Protein 5.28 mg/dL (< or = 0.50); Calcium 9.6 mg/dL (8.4-10.2); Carbon Dioxide 28 mmol/L (22-29); Chloride 104 mmol/L (96-108); Estimated Glomerular Filt Rate > 60; Glucose Random 125 mg/dL (60-115); Potassium 4.2 mmol/L (3.3-5.1); Sodium 140 mmol/L (135-145); Total Protein 6.9 g/dL (6.5-8.0)
== END 2023-01-24 11:17 | disposition home or self-care (01) ==
LOC: HO.LAB 11:16
PROVIDERS: PCP Internal Medicine; Visit Provider Internal Medicine Gastroenterology
DX: R10.13 Epigastric pain (principal); K75.81 Nonalcoholic steatohepatitis (NASH); R19.7 Diarrhea, unspecified
CPT/HCPCS: 36415; 80053; 85025; 86140

== ENCOUNTER → 2023-02-18 09:05 | Outpatient (BNVA) | payer OTHER, SELFPAY | PROVIDERS: PCP Internal Medicine; Visit Provider Internal Medicine Gastroenterology ==

== ENCOUNTER 2023-02-26 12:13 | Outpatient (REF) | payer OTHER, SELFPAY ==
[2023-02-26 12:30] LABS: MANUAL DIFF FLAG NO
[2023-02-26 13:02] LABS: Basophils Absolute Auto 0.1 X10*3/uL (0.0-0.2); Basophils Percent Auto 0.3 % (0-2); Eosinophils Absolute Auto 0.2 X10*3/uL (0.0-0.4); Eosinophils Percent Auto 1.1 % (0-4); Hematocrit 38.5 % (37.0-47.0); Hemoglobin 12.1 g/dl (12.0-16.0); Imm Gran Abs Auto 0.07 X10*3/uL (0.00-0.03); Imm Gran Pct Auto 0.5 % (0.0-0.4); Lymphocytes Absolute Auto 3.5 X10*3/uL (1.2-4.9); Mean Corpuscular HGB Conc 31.4 g/dl (31.0-35.0); Mean Corpuscular Volume 73.3 fL (80.0-98.0); Mean Platelet Volume 8.6 fL (9.4-12.3); Monocytes Absolute Auto 0.6 X10*3/uL (0.1-1.2); Monocytes Percent Auto 4.3 % (2-11); Neutrophils Absolute Auto 10.6 x10*3/uL (2.0-8.3); Neutrophils Percent Auto 70.8 % (45-73); Platelet Count 516 X10*3/uL (160-400); Red Blood Count 5.25 X10*6/uL (4.20-5.50); Red Cell Distribution Width 17.2 % (11.0-16.0)
[2023-02-26 13:42] LABS: Erythrocyte Sedimentation Rate 40 MM/HR (0-20)
[2023-02-26 13:48] LABS: Alanine Aminotransferase 34 U/L (0-31); Albumin Level 3.8 g/dL (3.5-5.0); Alkaline Phosphatase 90 U/L (39-117); Anion Gap 15 (12-20); Aspartate Amino Transferase 22 U/L (5-31); Bilirubin Total 0.4 mg/dL (0.0-1.0); Blood Urea Nitrogen 9 mg/dL (9-16); C Reactive Protein 4.43 mg/dL (< or = 0.50); Calcium 9.5 mg/dL (8.4-10.2); Carbon Dioxide 23 mmol/L (22-29); Chloride 105 mmol/L (96-108); Estimated Glomerular Filt Rate > 60; Glucose Random 98 mg/dL (60-115); Sodium 139 mmol/L (135-145); Total Protein 7.3 g/dL (6.5-8.0)
[2023-02-26 14:08] LABS: Ferritin 25 ng/mL (10-122); Vitamin D 25-OH Total 43.1 ng/mL (>30)
[2023-02-26 14:15] LABS: Folate 11.9 ng/mL (> or = 4.0); Vitamin B12 289 pg/mL (200-900)
[2023-02-27 07:52] LABS: HBS Num1 > 1000.00 mIU/mL (0-7.99); HBc Num1 0.09 S/CO (0.00-0.79); HBsAGNum1 0.24 S/CO (0.00-0.99); Hepatitis A Antibody IgM 0.18 Index (0-0.79); Hepatitis B Core Antibody Nonreactive (Nonreactive); Hepatitis B Surface Antigen Negative (Negative); ~HepC Num1 0.06 S/CO (0.00-0.79); ~Hepatitis A Antibody IgM Nonreactive (Nonreactive); ~Hepatitis B Surface Antibody REACTIVE (Nonreactive); ~Hepatitis C Antibody Nonreactive (Nonreactive)
[2023-02-28 23:38] LABS: TS Negative Control Passed; TS Panel A 0; TS Panel B 0; TS Positive Control Passed; TSpotTB Negative (Negative)
[2023-03-01 11:43] LABS: Mitochondrial Antibodies NEGATIVE (NEGATIVE)
[2023-03-02 05:47] LABS: Alk.Phos Iso. Macrohepatic 0 % (<=0); Alk.Phos Isoenzymes Bone 39 % (28-66); Alk.Phos Isoenzymes Intest 10 % (1-24); Alk.Phos Isoenzymes Liver 51 % (25-69); Alk.Phos Isoenzymes Placental 0 % (<=0); Alk.Phos Isoenzymes Total 82 U/L (31-125)
== END 2023-02-26 12:14 | disposition home or self-care (01) ==
LOC: HO.LAB 12:13
PROVIDERS: PCP Internal Medicine; Visit Provider Internal Medicine Gastroenterology
DX: K50.90 Crohn's disease, unspecified, without complications (principal); R10.13 Epigastric pain; R19.7 Diarrhea, unspecified; R74.8 Abnormal levels of other serum enzymes; R79.89 Other specified abnormal findings of blood chemistry; E83.52 Hypercalcemia; K75.81 Nonalcoholic steatohepatitis (NASH)
CPT/HCPCS: 36415; 80053; 82306; 82550; 82607; 82728; 82746; 84080; 84590; 85025; 85652; 86140; 86255; 86256; 86481; 86704; 86706; 86709; 86803; 87340

== ENCOUNTER 2023-02-28 10:51 | Outpatient (REF) | payer OTHER, SELFPAY ==
[2023-03-06 01:49] LABS: Vitamin A 60 mcg/dL (38-98)
== END 2023-02-28 10:52 | disposition home or self-care (01) ==
LOC: HO.LAB 10:51
PROVIDERS: Internal Medicine Gastroenterology; PCP Internal Medicine; Visit Provider Student in an Organized Health Care Education/Training Program
DX: R10.13 Epigastric pain (principal); R19.7 Diarrhea, unspecified; R74.8 Abnormal levels of other serum enzymes; K50.90 Crohn's disease, unspecified, without complications
CPT/HCPCS: 36415; 84590

== ENCOUNTER 2023-03-07 09:29 | Outpatient (REF) | payer OTHER, SELFPAY ==
--- NOTE | ~2023-03-07 | US_ITS ---
EXAMINATION: US ABDOMEN LIMITED WITH LIVER ELASTOGRAPHY CLINICAL INFORMATION: Fatty liver COMPARISON: Previous CT of the abdomen and pelvis April 2021 TECHNIQUE: Real-time imaging of the abdominal viscera. Noninvasive ultrasound liver fibrosis assessment is performed using Jennifer ElastPQ point quantification shear wave elastography (2D-SWE) with a C5-2 MHz transducer. Multiple elastography samples are obtained. FINDINGS: PANCREAS: The head of the pancreas is normal-appearing. The remainder of the pancreas is obscured from visualization by the overlying bowel gas. LIVER: Liver echotexture is increased probably representing fatty infiltration. There are 2 hypoechoic areas measuring 1 cm and 0.9 x 1.3 x 1 cm in the left lobe of the liver and one hypoechoic lesion in the right lobe measuring 1.1 x 0.8 x 1.1 cm. Appearance is questionable for areas of focal fatty sparing versus a true liver lesion. No focal liver lesion is appreciated on CT of the abdomen and pelvis April 2021. Liver contour is normal. The liver is slightly enlarged. There is no biliary duct dilatation. The right lobe measures 19 cm in length. The left lobe measures 14 cm in length. Portal flow is normal/hepatopedal Shear wave liver elastography median stiffness is 1.8 m/s (reference: normal median stiffness is 1.3 m/s or less). IQR/median stiffness to assess sampling precision is 0.8 (reference: good quality data set is IQR/median stiffness of 0.15 or less). GALLBLADDER: Surgically removed COMMON BILE DUCT: Normal in caliber measuring 0.6 cm in diameter. RIGHT KIDNEY: Normal. No hydronephrosis. No renal calculi or focal parenchymal lesions. The kidney measures 11.4 cm in maximum dimension. FREE FLUID: None. US/US abdomen valenzuela w elastography IMPRESSION: 1. Impression largest echogenic liver suggestive of fatty infiltration. 3 hypoechoic areas liver questionable for areas of focal fatty sparing versus liver lesion. Follow-up liver MRI recommended. Limited visualization of the pancreas. 2. Liver elastography: Adequate liver sampling. Increased liver stiffness suggestive of compensated advanced chronic liver disease but need further test for confirmation. REFERENCE: Society of Radiologists in Ultrasound Liver Stiffness Thresholds (2020): LIVER STIFFNESS THRESHOLDS: *Liver Stiffness equal or less than 1.3 m/s: High probability of being normal. *Liver Stiffness less than 1.7 m/s: In the absence of other known clinical signs, rules out compensated advanced chronic liver disease. *Liver Stiffness 1.7-2.1 m/s: Suggestive of compensated advanced chronic liver disease but need further test for confirmation. *Liver Stiffness over 2.1 m/s: Rules in compensated advanced chronic liver disease. *Liver Stiffness over 2.4 m/s: Suggestive of clinically significant portal hypertension. QUALITY OF DATA SET: *IQR/Median value equal or less than 0.15 implies a quality data set. *IQR/Median value over 0.15 implies a poor quality data set. SIGNIFICANT CHANGE FROM PRIOR EXAM: Significant change if liver stiffness measurement is 10% or greater from prior exam. OTHER CONSIDERATIONS: The stage of liver fibrosis may be overestimated in the setting of acute hepatitis, liver inflammation, elevated liver function tests, hepatic vascular congestion, obstructive cholestasis, non-fasting state, and infiltrative diseases such as amyloidosis and lymphoma. In some patients with NAFLD, the liver stiffness thresholds for compensated advanced chronic liver disease may be lower. In causes other than viral hepatitis and NAFLD, liver stiffness thresholds are not well established.
== END 2023-03-07 09:30 | disposition home or self-care (01) ==
LOC: HO.US 09:29
PROVIDERS: PCP Internal Medicine; Visit Provider Internal Medicine Gastroenterology
DX: K50.90 Crohn's disease, unspecified, without complications (principal); K74.60 Unspecified cirrhosis of liver; K75.81 Nonalcoholic steatohepatitis (NASH); R10.13 Epigastric pain; R19.7 Diarrhea, unspecified; R74.8 Abnormal levels of other serum enzymes
CPT/HCPCS: 76705; 76981

== ENCOUNTER 2023-04-15 17:00 | Outpatient (REF) | payer OTHER, SELFPAY ==
--- NOTE | ~2023-04-15 | MR_ITS ---
EXAMINATION: MR ABDOMEN WITHOUT AND WITH CONTRAST CLINICAL INFORMATION: Liver disease COMPARISON: Abdominal ultrasound 03/07/2023 TECHNIQUE: MRI of the abdomen before and after the IV administration of 10 mL of Gadavist was obtained using routine sequences. FINDINGS: LUNG BASES: The visualized lung bases are unremarkable. KIDNEYS AND URETERS: Unremarkable. GALLBLADDER: Status post cholecystectomy. LIVER AND BILIARY TREE: Liver is enlarged measuring 20.6 cm in span. Heterogeneous loss of signal on opposed phase imaging compatible with hepatic steatosis. A 6 mm arterially hyperenhancing liver lesion in the hepatic dome too small to definitively characterize. No intra or extrahepatic biliary duct dilatation. PANCREAS: Unremarkable SPLEEN: Unremarkable ADRENAL GLANDS: Unremarkable GASTROINTESTINAL TRACT: Unremarkable. LYMPH NODES: No lymphadenopathy. VASCULAR: Unremarkable ABDOMINAL WALL: Unremarkable. OSSEOUS STRUCTURES: Unremarkable. MR/MR abdomen wo/w con IMPRESSION: Hepatomegaly and hepatic steatosis. A 6 mm arterially hyperenhancing liver lesion in the hepatic dome too small to definitively characterize, possibly a small FNH or flash filling hemangioma. Given background of liver disease, recommend 3-6 month follow-up MR to assess stability.
== END 2023-04-15 17:01 | disposition home or self-care (01) ==
LOC: HO.MRI 17:00
PROVIDERS: PCP Internal Medicine; Visit Provider Internal Medicine Gastroenterology
DX: K76.9 Liver disease, unspecified (principal)
CPT/HCPCS: 74183; A9585

== ENCOUNTER 2023-07-12 10:37 | Emergency (ER) | payer OTHER, SELFPAY ==
--- NOTE | ~2023-07-12 | CT_ITS ---
EXAMINATION: CT ABDOMEN AND PELVIS WITH CONTRAST CLINICAL INFORMATION: Right lower quadrant pain. COMPARISON: 11/11/2019. TECHNIQUE: Multidetector volumetric images were obtained from the superior aspect of the liver through the pubic symphysis following administration 85 mL of Omnipaque 350 intravenous contrast. Sagittal and coronal reformatted images were obtained on the technologist's workstation. Oral contrast: No This CT examination was performed using dose optimization techniques as appropriate, variously including the following: *Automated exposure control *Adjustment of mA and/or kV according to patient size (this includes techniques or standardized protocols for targeted exams where dose is matched to indication/reason for exam; i.e. extremities or head) *Use of iterative reconstruction technique DLP: 1189 mGy-cm FINDINGS: LUNG BASES: The visualized lung bases are unremarkable. LIVER, GALLBLADDER, AND BILIARY TREE: The liver is of diminished attenuation. No focal liver lesions are seen. There is no intrahepatic biliary duct dilatation. There has been a prior cholecystectomy. PANCREAS: Unremarkable. SPLEEN: Unremarkable. ADRENAL GLANDS: Unremarkable. KIDNEYS AND URETERS: The kidneys are normal in size, shape, and attenuation. No hydronephrosis, hydroureter, or calculi seen. No perinephric stranding. BLADDER: Unremarkable. GASTROINTESTINAL TRACT: The small and large bowel are unremarkable. The appendix is grossly within normal limits. ABDOMINAL WALL: No significant hernia is appreciated. LYMPH NODES: Normal. VASCULAR: Unremarkable. PELVIC VISCERA: Unremarkable. OSSEOUS STRUCTURES: There appears to be a central L4-L5 disc herniation narrowing the spinal canal. There is mild L4-L5 disc degenerative change with loss of disc space, endplate change and posterior osteophytes. CT/CT abdomen pelvis w IV con IMPRESSION: The appendix is visualized and appears to be within normal limits. Fatty infiltration of the liver. L4-L5 disc degenerative change with an apparent central disc herniation. Correlation for significance is needed. Fleischner guidelines were followed.
[2023-07-12 10:42] VITALS: BP 157/101; PULSE 128; RESP 22; TEMP 35.6; O2SAT 98; BMI 50.0
--- NOTE | 2023-07-12 10:55 | ED_ITS ---
HPI - Abdominal Pain General Chief Complaint: Abdominal Pain Stated Complaint: Sever pain on right side, referred by Dr Kauffman Seen by Provider: 07/12/23 10:47 Source: patient Mode of arrival: ambulatory Limitations: no limitations History of Present Illness HPI narrative: 23 yo female with history of Crohn's disease on Entyvio, history of morbid obesity, fatty liver, history of cholecystectomy who presents to the ER for evaluation of acute onset of abdominal pain that started at 4am today. She states the pain started in her suprapubic area, she went to urinate and had no pain w/ urination and no blood. She immediately started to get dizzy and had tunnel vision. She laid on the floor and reports passing out. When she came to she had ongoing abdominal pain, it had migrated to the RLQ. She reports dry heaving several times. Last BM last night and had fatty residue which she has had all week. She had her Entyvio infusion 07/04 and follows w/ Dr. Monteiro. Pain remains 5/10 and she feels foggy. No history of syncopal events in the past. No chest pain or SOB. MD elicited complaint: abdominal pain Pertinent past history: other (IBD) Onset (ago): hour(s) (7) Pain Consistency: constant Location: RLQ Severity: moderate Pain scale (0-10): 5 Quality: stabbing Radiation: RUQ and suprapubic Migration to: RLQ Exacerbating factors: nothing Relieving factors: nothing Associated symptoms: nausea Related Data Home Medications Medication Instructions Recorded Confirmed cholecalciferol (vitamin D3) 50 50 mcg PO DAILY 06/12/21 mcg (2,000 unit) capsule duloxetine 60 mg capsule,delayed 60 mg PO DAILY 06/12/21 release levonorgestrel 0.15 mg-ethinyl 1 tab PO DAILY 06/18/22 estradiol 30 mcg tablets,3 mos pack(91) Previous Rx's Medication Instructions Recorded ibuprofen 800 mg tablet 800 mg PO Q8H PRN pain #20 tabs 09/20/21 dicyclomine 10 mg capsule 10 mg PO BID #60 caps 12/22/21 ondansetron 4 mg disintegrating 4 mg PO Q8H PRN nausea and 06/18/22 tablet vomiting #30 tabs budesonide 3 mg 9 mg (3 x 3 mg) PO DAILY 30 days 10/17/22 capsule,delayed,extended release #90 ea vedolizumab 300 mg intravenous 300 mg IV Q8W #1 ea 03/06/23 solution (Entyvio) colesevelam 625 mg tablet 1,250 mg (2 x 625 mg) PO BID #360 05/16/23 tabs omeprazole 40 mg capsule,delayed 40 mg PO DAILY #90 caps 06/17/23 release dicyclomine 10 mg capsule 10 mg PO QID PRN abdominal pain 07/12/23 #14 caps nitrofurantoin 100 mg PO Q12H 5 days #10 caps 07/12/23 monohydrate/macrocrystals 100 mg capsule (Macrobid) ondansetron 4 mg disintegrating 4 mg PO Q8H PRN nausea and 07/12/23 tablet vomiting #7 tabs Allergies Allergy/AdvReac Type Severity Reaction Status Date / Time latex [LATEX] Allergy Severe SWELLING/HI Verified 10/19/22 09:02 VES banana [BANANA] Allergy Intermediate ANAPHYLAXIS Verified 10/19/22 09:02 cefuroxime [From CEFTIN] Allergy Intermediate HIVES Verified 10/19/22 09:02 Sulfa (Sulfonamide Allergy Intermediate HIVES Verified 10/19/22 09:02 Antibiotics) [SULFA (SULFONAMIDE ANTIBIOTICS)] sulfacetamide Allergy Intermediate Hives Verified 10/19/22 09:02 Review of Systems Review of Systems Yes all other systems are reviewed and are negative PMFSH Past Medical History Medical History Airway malacia Anxiety Costochondritis Depression GERD (gastroesophageal reflux disease) OCD (obsessive compulsive disorder) Vocal cord dysfunction Surgical History H/O adenoidectomy History of back surgery History of esophagogastroduodenoscopy (EGD) History of tonsillectomy Hx of colonoscopy Previous back surgery Social History Social History Smoked in Last 30 Days: No Advance Directives: Yes Advance Directives Information Provided: Yes Advance Directives on File: No Physical Exam ED Vital Signs: Vital Signs - 24 hr 07/12/23 10:42 07/12/23 11:13 07/12/23 12:37 Temperature 96.0 F L Pulse Rate 128 H 120 H 110 H Respiratory Rate 22 H 20 26 H Blood Pressure 157/101 H 146/90 H 130/77 Pulse Oximetry 98 95 99 Oxygen Delivery Method Room Air Room Air Room Air 07/12/23 13:47 07/12/23 15:41 Temperature 98.2 F Pulse Rate 108 H 110 H Respiratory Rate 16 16 Blood Pressure 109/67 111/71 Pulse Oximetry 98 98 Oxygen Delivery Method Room Air Room Air BMI result Body Mass Index 50.0 Appearance: Alert. Oriented X3. pale, appears uncomfortable Head: normocephalic, atraumatic. Eyes: Pupils equal, round and reactive to light. ENT: Pharynx normal. No tonsillar swelling or exudate. Neck: Normal inspection. Neck supple. CVS: Normal heart rate and rhythm. Pulses normal. Respiratory: No respiratory distress. Breath sounds normal. Abdomen: morbily obese, Soft with RLQ tenderness and guarding, no rebound, decreased but present +BS x4 Skin: Skin warm and dry. Normal skin color. Normal skin turgor. No rashes. Extremities: No lower extremity edema. No joint swelling. Neuro/psych: Oriented X 3. No motor deficit. No sensory deficit. CN II-XII intact. Normal speech and cognition. Medical Decision Making Medical Decision Making MDM Narrative: 23 yo female with history of Crohn's disease on Entyvio, history of morbid obesity, fatty liver, history of cholecystectomy who presents to the ER for evaluation of acute onset of RLQ abdominal pain that started at 4am today and a syncopal event. Tachycardic and in pain on arrival. Tender RLQ on exam so CT scan was done which was unremarkable for any acute findings. UA with possible infection. Labs showing a leukocytosis but this appears to be chronic. She was given 2L IVF, 2 doses of morphine with improvement in her pain, minimal upon re-evaluation. Case d/w Dr. Monteiro - question treating the +UA. she has no urinary symptoms however her pain started in the suprapubic area. will start PO abx, zofran, bentyl. she is tolerating PO and feeling better comfortable w/ discharge home. we discussed results, plan and return precautions. Differential Diagnosis Differential Diagnoses: The differential diagnosis associated with the presentation includes Crohn's flare, acute appendicitis, colitis, TOA, ovarian cyst, ovarian torsion, kidney stone Admission/Observation Consideration of admission/observation: Escalation of care including admission/observation considered Consult Healthcare Provider Management of the patient was discussed with: Agricultural Adviser Dr. Monteiro Lab Data MDM Lab Attestation statement: I reviewed the patient's lab results. leukocytosis, chronic appearing. 07/12/23 11:07 07/12/23 11:07 Labs: Lab Results 07/12/23 07/12/23 Range/Units 11:07 12:39 WBC 17.7 H (4.8-10.8) X10*3/uL RBC 5.15 (4.20-5.50) X10*6/uL Hgb 11.8 L (12.0-16.0) g/dl Hct 37.3 (37.0-47.0) % MCV 72.4 L (80.0-98.0) fL MCH 22.9 L (27.0-33.0) pg MCHC 31.6 (31.0-35.0) g/dl RDW 16.9 H (11.0-16.0) % Plt Count 483 H (160-400) X10*3/uL MPV 8.4 L (9.4-12.3) fL Immature Gran % (Auto) 0.4 (0.0-0.4) % Neut % (Auto) 75.4 H (45-73) % Lymph % (Auto) 20.2 (20-40) % Arthur % (Auto) 3.2 (2-11) % Eos % (Auto) 0.6 (0-4) % Baso % (Auto) 0.2 (0-2) % Lymph # (Auto) 3.6 (1.2-4.9) X10*3/uL Arthur # (Auto) 0.6 (0.1-1.2) X10*3/uL Eos # (Auto) 0.1 (0.0-0.4) X10*3/uL Baso # (Auto) 0.0 (0.0-0.2) X10*3/uL Abs Immat Gran (auto) 0.07 H (0.00-0.03) X10*3/uL Absolute Neuts (auto) 13.3 H (2.0-8.3) x10*3/uL Absolute Nucleated RBC 0.000 (0.0-0.012) X10*3/uL Nucleated RBC % (auto) 0.0 (0.0-0.2) /100WBC Sodium 136 (135-145) mmol/L Potassium 3.7 (3.3-5.1) mmol/L Chloride 105 (96-108) mmol/L Carbon Dioxide 20 L (22-29) mmol/L Anion Gap 15 (12-20) BUN 8 L (9-16) mg/dL Creatinine 0.65 (0.5-1.4) mg/dL Estim Creat Clear Calc 174.1 Estimated GFR > 60 Random Glucose 154 H (60-115) mg/dL Calcium 9.7 (8.4-10.2) mg/dL Magnesium 2.1 (1.6-2.6) mg/dL Total Bilirubin 0.3 (0.0-1.0) mg/dL Direct Bilirubin 0.1 (0.0-0.5) mg/dL AST 30 (5-31) U/L ALT 39 H (0-31) U/L Alkaline Phosphatase 96 (39-117) U/L Total Protein 7.3 (6.5-8.0) g/dL Albumin 3.8 (3.5-5.0) g/dL Lipase 13 (8-78) U/L Urine Color Yellow Urine Appearance Clear Urine pH 6.0 (5.0-9.0) Ur Specific Doucette 1.015 (1.005-1.025) Urine Protein Negative (Neg-Trace) mg/dL Urine Glucose (UA) Negative (Negative) mg/dL Urine Ketones Negative (Negative) mg/dL Urine Blood Moderate (2+) H (Negative) Urine Nitrite Negative (Negative) Ur Leukocyte Esterase Small (1+) H (Negative) Urine RBC 3-5 H (0-2) /HPF Urine WBC 6-10 H (0-5) /HPF Ur Squamous Epith Cells 6-10 (0-2) /HPF Urine Bacteria Trace (None Seen) Hyaline Casts 0-2 (0-2) /LPF Urine Test NEGATIVE (NEGATIVE) Independent Interpretation I performed an independent interpretation of an: EKG and CT Scan Interpretation: ekg w/ sinus tachycardia, HR 119, normal MS interval and QRS, no ST segment elevations or depressions CT scan without acute appendicitis, no bowel obstructive pattern, no colonic stranding or inflammation appreciated - agree w/ radiology read Radiology Impression Discussion of test interpretation with radiology: I have reviewed the radiologist's reading. Radiologist Impression: EXAMINATION: CT ABDOMEN AND PELVIS WITH CONTRAST CLINICAL INFORMATION: Right lower quadrant pain. COMPARISON: 11/11/2019. TECHNIQUE: Multidetector volumetric images were obtained from the superior aspect of the liver through the pubic symphysis following administration 85 mL of Omnipaque 350 intravenous contrast. Sagittal and coronal reformatted images were obtained on the technologist's workstation. Oral contrast: No This CT examination was performed using dose optimization techniques as appropriate, variously including the following: *Automated exposure control *Adjustment of mA and/or kV according to patient size (this includes techniques or standardized protocols for targeted exams where dose is matched to indication/reason for exam; i.e. extremities or head) *Use of iterative reconstruction technique DLP: 1189 mGy-cm FINDINGS: LUNG BASES: The visualized lung bases are unremarkable. LIVER, GALLBLADDER, AND BILIARY TREE: The liver is of diminished attenuation. No focal liver lesions are seen. There is no intrahepatic biliary duct dilatation. There has been a prior cholecystectomy. PANCREAS: Unremarkable. SPLEEN: Unremarkable. ADRENAL GLANDS: Unremarkable. KIDNEYS AND URETERS: The kidneys are normal in size, shape, and attenuation. No hydronephrosis, hydroureter, or calculi seen. No perinephric stranding. BLADDER: Unremarkable. GASTROINTESTINAL TRACT: The small and large bowel are unremarkable. The appendix is grossly within normal limits. ABDOMINAL WALL: No significant hernia is appreciated. LYMPH NODES: Normal. VASCULAR: Unremarkable. PELVIC VISCERA: Unremarkable. OSSEOUS STRUCTURES: There appears to be a central L4-L5 disc herniation narrowing the spinal canal. There is mild L4-L5 disc degenerative change with loss of disc space, endplate change and posterior osteophytes. CT/CT abdomen pelvis w IV con IMPRESSION: The appendix is visualized and appears to be within normal limits. Fatty infiltration of the liver. L4-L5 disc degenerative change with an apparent central disc herniation. Correlation for significance is needed. Independent Historian Clinical information obtained from an independent historian. History obtained from or confirmed by: Spouse External Record Review External record reviewed: Office record, Outpatient record, Prior outpatient labs and Prior outpatient radiology Prescription Management I considered prescription management with: Pain Medication Chronic Conditions Patient?s care impacted by: Other (Crohn's) Medications Administered Discontinued Medications Generic Name Dose Route Start Last Admin Trade Name Alessandro PRN Reason Stop Dose Admin Sodium Chloride 1,000 mls @ 999 mls/hr 07/12/23 11:15 07/12/23 12:33 Ns IVCONT 07/12/23 12:15 Infused .Q1H1M DULCE MARIA Infusion Sodium Chloride 1,000 mls @ 999 mls/hr 07/12/23 13:45 07/12/23 14:52 Ns IV 07/12/23 14:45 Infused .Q1H1M DULCE MARIA Infusion Iohexol 100 ml 07/12/23 13:17 07/12/23 13:17 Iohexol 350 Mg/Ml 100 Ml Infus..Btl IV 07/12/23 13:18 85 ml ONCE ONE Administration Morphine Sulfate 4 mg 07/12/23 11:06 07/12/23 11:14 Morphine Sulfate 4 Mg/Ml Cartridge IVPUSH 07/12/23 11:07 4 mg ONCE ONE Administration Protocol Morphine Sulfate 4 mg 07/12/23 13:35 07/12/23 13:54 Morphine Sulfate 4 Mg/Ml Cartridge IVPUSH 07/12/23 13:36 4 mg ONCE ONE Administration Protocol Ondansetron HCl 4 mg 07/12/23 11:06 07/12/23 11:14 Ondansetron Hcl 4 Mg/2 Ml Vial IVPUSH 07/12/23 11:07 4 mg ONCE ONE Administration Critical Care Time Critical Care Time Critical Care Time: Yes Total Critical Care Time: 32 Attestation: I have personally provided critical care time exclusive of time spent on separately billable procedures. Time includes review of lab data, radiology results, discussion with consultants, reevaluation of VS and cardiopulmonary status after multiple doses of IV narcotics and monitoring for potential decompensation. Intervention performed as documented. Discharge Plan Discharge Clinical Impression: Abdominal pain Qualifiers: Abdominal location: right lower quadrant Qualified Code(s): R10.31 - Right lower quadrant pain Patient Disposition: Home, Self-Care Instructions: Abdominal Pain (ED) Additional Instructions: Your lab workup today was reassuring Your CT scan did not show any acute abnormalities Your urine test may show an early UTI. Take the prescribed antibiotics as directed, complete the entire course and do not miss any doses Take the prescribed medications as directed Follow up with your doctor and your GI provider If you develop new or worsening symptoms call 911 or come back to the ER for further evaluation. Prescriptions: New ondansetron 4 mg tablet,disintegrating 4 mg PO Q8H PRN (Reason: nausea and vomiting) Qty: 7 0RF dicyclomine 10 mg capsule 10 mg PO QID PRN (Reason: abdominal pain) Qty: 14 0RF nitrofurantoin monohyd/m-cryst [Macrobid] 100 mg capsule 100 mg PO Q12H 5 Days Qty: 10 0RF Rx Instructions: must administer with a meal/food No Action budesonide 3 mg capsule,delayed,extend.release 9 mg PO DAILY 30 Days Qty: 90 2RF Entyvio 300 mg recon soln 300 mg IV Q8W Qty: 1 7RF Rx Instructions: administer 300mg IV at week 0, 2 and 6 and every 8 weeks thereafter administer over 30 mins colesevelam 625 mg tablet 1,250 mg PO BID Qty: 360 1RF omeprazole 40 mg capsule,delayed release(DR/EC) 40 mg PO DAILY Qty: 90 3RF ibuprofen 800 mg tablet 800 mg PO Q8H PRN (Reason: pain) Qty: 20 0RF duloxetine 60 mg capsule,delayed release(DR/EC) 60 mg PO DAILY cholecalciferol (vitamin D3) 50 mcg (2,000 unit) capsule 50 mcg PO DAILY dicyclomine 10 mg capsule 10 mg PO BID Qty: 60 0RF levonorgestrel-ethinyl estrad 0.15 mg-30 mcg (91) tablets,dose pack,3 month 1 tab PO DAILY ondansetron 4 mg tablet,disintegrating 4 mg PO Q8H PRN (Reason: nausea and vomiting) Qty: 30 2RF [place] [facility] [place] [facility] [place]] Kailey Camacho MD [Primary Care Provider] -
--- NOTE | 2023-07-12 11:06 | ECG_ITS ---
Test Reason : syncope Blood Pressure : / mmHG Vent. Rate : 119 BPM Atrial Rate : 119 BPM P-R Int : 140 ms QRS Dur : 080 ms QT Int : 338 ms P-R-T Axes : 039 012 023 degrees QTc Int : 475 ms Sinus tachycardia Minimal voltage criteria for LVH, may be normal variant ( R in aVL ) Nonspecific T wave abnormality Abnormal ECG No previous ECGs available Referred By: Alejandra Valles Electronically Signed By:SUNDAY CASANOVA MD
[2023-07-12 11:10] LABS: MANUAL DIFF FLAG NO
[2023-07-12 11:12] LABS: Basophils Percent Auto 0.2 % (0-2); Eosinophils Absolute Auto 0.1 X10*3/uL (0.0-0.4); Eosinophils Percent Auto 0.6 % (0-4); Hematocrit 37.3 % (37.0-47.0); Hemoglobin 11.8 g/dl (12.0-16.0); Imm Gran Abs Auto 0.07 X10*3/uL (0.00-0.03); Imm Gran Pct Auto 0.4 % (0.0-0.4); Lymphocytes Absolute Auto 3.6 X10*3/uL (1.2-4.9); Lymphocytes Percent Auto 20.2 % (20-40); Mean Corpuscular HGB Conc 31.6 g/dl (31.0-35.0); Mean Corpuscular Hemoglobin 22.9 pg (27.0-33.0); Mean Corpuscular Volume 72.4 fL (80.0-98.0); Mean Platelet Volume 8.4 fL (9.4-12.3); Monocytes Absolute Auto 0.6 X10*3/uL (0.1-1.2); Monocytes Percent Auto 3.2 % (2-11); Neutrophils Absolute Auto 13.3 x10*3/uL (2.0-8.3); Neutrophils Percent Auto 75.4 % (45-73); Platelet Count 483 X10*3/uL (160-400); Red Blood Count 5.15 X10*6/uL (4.20-5.50); Red Cell Distribution Width 16.9 % (11.0-16.0); White Blood Count 17.7 X10*3/uL (4.8-10.8)
[2023-07-12 11:13] VITALS: BP 146/90; PULSE 120; RESP 20; O2SAT 95
[2023-07-12] MEDS: ondansetron HCL 4 MG/2 ML VIAL IVPUSH (11:14)
[2023-07-12] MEDS: 0.9 % Sodium Chloride 1,000 ML 999 ML IVCONT (11:14)
[2023-07-12] MEDS: Morphine Sulfate 4 MG/ML CARTRIDGE IVPUSH ×2 (11:14→13:54)
[2023-07-12 11:28] LABS: Alanine Aminotransferase 39 U/L (0-31); Albumin Level 3.8 g/dL (3.5-5.0); Alkaline Phosphatase 96 U/L (39-117); Anion Gap 15 (12-20); Aspartate Amino Transferase 30 U/L (5-31); Bilirubin Direct 0.1 mg/dL (0.0-0.5); Bilirubin Total 0.3 mg/dL (0.0-1.0); Blood Urea Nitrogen 8 mg/dL (9-16); Calcium 9.7 mg/dL (8.4-10.2); Carbon Dioxide 20 mmol/L (22-29); Chloride 105 mmol/L (96-108); Creatinine Clr Calc Pharmacy 174.1; Estimated Glomerular Filt Rate > 60; Glucose Random 154 mg/dL (60-115); Lipase 13 U/L (8-78); Magnesium 2.1 mg/dL (1.6-2.6); Potassium 3.7 mmol/L (3.3-5.1); Sodium 136 mmol/L (135-145); Total Protein 7.3 g/dL (6.5-8.0)
[2023-07-12 12:37] VITALS: BP 130/77; PULSE 110; RESP 26; O2SAT 99
[2023-07-12 12:50] LABS: Appearance Urine Clear; Color Urine Yellow; Glucose Urine UA Negative (Negative); Leukocyte Esterase Urine Small (1+) (Negative); Nitrite Urine Negative (Negative); Specific Gravity - Urine 1.015 (1.005-1.025); UMIC TRIGGER UACC YES; Urine Blood Moderate (2+) (Negative); Urine Ketones Negative (Negative); Urine Protein Negative (Neg-Trace)
[2023-07-12 12:52] LABS: UPreg QC Valid YES; Urine Pregnancy NEGATIVE (NEGATIVE)
[2023-07-12 13:01] LABS: Bacteria Urine Trace (None Seen); Hyaline Casts Urine 0-2 /LPF (0-2); UACC Culture Trigger YES
[2023-07-12] MEDS: iohexoL 350 MG/ML 100 ML INFUS..BTL IV (13:17)
[2023-07-12 13:47] VITALS: BP 109/67; PULSE 108; RESP 16; O2SAT 98
[2023-07-12] MEDS: 0.9 % Sodium Chloride 1,000 ML 999 ML IV (13:54)
[2023-07-12 15:41] VITALS: BP 111/71; PULSE 110; RESP 16; TEMP 36.8; O2SAT 98
--- NOTE | 2023-07-12 15:42 | PC.NURSE ---
pt reports that her abdominal pain is coming back, ambulating to bathroom at this time
[2023-07-12] MEDS: Magnesium Hydrox/Alum Hydrox 30 ML ORAL.SUSP PO (16:37)
[2023-07-12] MEDS: PHENobarb/Hyoscy/Atropine/Scop 10 ML ELIXIR PO (16:37)
[2023-07-12] MEDS: Lidocaine HCl Viscous 2 % 15 ML SOLUTION MUCOUS MEM (16:38)
[2023-07-18 23:58] LABS: Porphyrins, Total Plasma 1.6 mcg/L (1.0-5.6)
== END 2023-07-12 16:48 | disposition home or self-care (01) ==
PROVIDERS: Internal Medicine Gastroenterology; Physician Assistant; Emergency Provider Emergency Medicine Emergency Medical Services; PCP Internal Medicine
DX: R10.31 Right lower quadrant pain (principal); K76.0 Fatty (change of) liver, not elsewhere classified; K50.90 Crohn's disease, unspecified, without complications; E66.01 Morbid (severe) obesity due to excess calories; Z68.43 Body mass index [BMI] 50.0-59.9, adult; Z90.49 Acquired absence of other specified parts of digestive tract; Z79.899 Other long term (current) drug therapy
CPT/HCPCS: 36415; 74177; 80048; 80076; 81001; 81025; 82542; 83690; 83735; 84120; 85025; 87086; 93005; 96361; 96374; 96375; 96376; 99284; 99285; J2270; J2405; Q9967

== ENCOUNTER 2023-07-14 11:48 | Emergency (ER) | payer OTHER, SELFPAY ==
--- NOTE | ~2023-07-14 | CT_ITS ---
EXAMINATION: CT ABDOMEN AND PELVIS WITH CONTRAST CLINICAL INFORMATION: Abdominal pain. History of Crohn disease. COMPARISON: Abdomen CT from 07/12/2023. Abdomen MRI from 0 04/15 2023. TECHNIQUE: Multidetector volumetric images were obtained from the superior aspect of the liver through the pubic symphysis following administration 100 mL of Omnipaque 350 intravenous contrast. Sagittal and coronal reformatted images were obtained on the technologist's workstation. Oral contrast is given. This CT examination was performed using dose optimization techniques as appropriate, variously including the following: *Automated exposure control *Adjustment of mA and/or kV according to patient size (this includes techniques or standardized protocols for targeted exams where dose is matched to indication/reason for exam; i.e. extremities or head) *Use of iterative reconstruction technique DLP: 1315 mGy-cm FINDINGS: LOCALIZER IMAGES: Obese body habitus. Cholecystectomy clips in right upper quadrant of abdomen. Normal bowel gas pattern. LUNG BASES: Normal. No pulmonary consolidation or pleural effusion. HEPATOBILIARY: Again noted is hepatomegaly and diffuse hepatic steatosis. Gallbladder is surgically absent. No dilated bile ducts. PANCREAS: Normal. No edema, pancreatic ductal dilatation or mass. SPLEEN: Normal. ADRENAL GLANDS: Normal. KIDNEYS AND URETERS: The kidneys have normal size and cortical thickness. No perinephric fluid collection. No urolithiasis or hydroureteronephrosis. BLADDER: Normal. No calculi or wall thickening. BOWEL AND PERITONEUM: Stomach and small bowel, including terminal ileum, have a normal appearance. No dilated loops of bowel. The appendix is normal. No overt bowel wall thickening or mesenteric fat stranding. No free fluid or pneumoperitoneum. ABDOMINAL WALL: Obese body habitus. Minimal herniation of fat into the umbilicus. VASCULATURE: Normal. LYMPH NODES: No pathologic sized lymph nodes in the abdomen or pelvis. No inguinal lymphadenopathy. PELVIC VISCERA: No evidence of uterine or adnexal mass. No pelvic free fluid. MUSCULOSKELETAL: Small osteophytes, mild degenerative narrowing of disc space and vacuum disc phenomenon at L4-L5. No suspicious bone lesions. CT/CT abdomen pelvis w IV con IMPRESSION: * No acute imaging abnormalities in the abdomen or pelvis compared to 07/12/2023. * No evidence of inflammatory bowel disease. * Obese body habitus with hepatosplenomegaly and diffuse hepatic steatosis.
[2023-07-14 11:58] VITALS: BP 141/86; PULSE 113; RESP 19; TEMP 36.6; O2SAT 98; BMI 51.4
--- NOTE | 2023-07-14 11:58 | ED.GENADULT ---
HPI - General Adult General Chief complaint: Abdominal Pain Stated complaint: abd pain Time Seen by Provider: 07/14/23 16:10 Source: patient Mode of arrival: ambulatory Limitations: no limitations History of Present Illness HPI narrative: Patient is a 23-year-old female who presents emergency department for evaluation of persistent abdominal pain. She was seen in the emergency department 2 days ago 07/12/2023 for evaluation of abdominal pain that was reportedly initially suprapubic in nature, she states that she had a CT scan done which was normal, and was advised that she may have a urinary tract infection and was given a prescription for Macrobid and Bentyl. She states in the past Bentyl has typically been helpful in managing abdominal pain associated with her Crohn's flares. She states that since being discharged pain has radiated to the right lower quadrant and moved upwards to the right upper, epigastric, and left upper quadrant. She has associated nausea and poor p.o. intake but no vomiting. She has been experiencing increased loose stools with fatty residue that has been ongoing for the past week. Overall she does feel as though this is consistent with her prior Crohn's flares, but typically does not radiate to the upper regions. She is not having any genitourinary symptoms, she states she is currently spotting, she on OCP, denies pelvic pain, abnormal vaginal discharge, or concern for STI, denies possibility of . Related Data Home Medications Medication Instructions Recorded Confirmed cholecalciferol (vitamin D3) 50 50 mcg PO DAILY 06/12/21 mcg (2,000 unit) capsule duloxetine 60 mg capsule,delayed 60 mg PO DAILY 06/12/21 release levonorgestrel 0.15 mg-ethinyl 1 tab PO DAILY 06/18/22 estradiol 30 mcg tablets,3 mos pack(91) Previous Rx's Medication Instructions Recorded ibuprofen 800 mg tablet 800 mg PO Q8H PRN pain #20 tabs 09/20/21 dicyclomine 10 mg capsule 10 mg PO BID #60 caps 12/22/21 ondansetron 4 mg disintegrating 4 mg PO Q8H PRN nausea and 06/18/22 tablet vomiting #30 tabs budesonide 3 mg 9 mg (3 x 3 mg) PO DAILY 30 days 10/17/22 capsule,delayed,extended release #90 ea vedolizumab 300 mg intravenous 300 mg IV Q8W #1 ea 03/06/23 solution (Entyvio) colesevelam 625 mg tablet 1,250 mg (2 x 625 mg) PO BID #360 05/16/23 tabs omeprazole 40 mg capsule,delayed 40 mg PO DAILY #90 caps 06/17/23 release dicyclomine 10 mg capsule 10 mg PO QID PRN abdominal pain 07/12/23 #14 caps nitrofurantoin 100 mg PO Q12H 5 days #10 caps 07/12/23 monohydrate/macrocrystals 100 mg capsule (Macrobid) ondansetron 4 mg disintegrating 4 mg PO Q8H PRN nausea and 07/12/23 tablet vomiting #7 tabs Allergies Allergy/AdvReac Type Severity Reaction Status Date / Time latex [LATEX] Allergy Severe SWELLING/HI Verified 07/14/23 11:58 VES banana [BANANA] Allergy Intermediate ANAPHYLAXIS Verified 07/14/23 11:58 cefuroxime [From CEFTIN] Allergy Intermediate HIVES Verified 07/14/23 11:58 Sulfa (Sulfonamide Allergy Intermediate HIVES Verified 07/14/23 11:58 Antibiotics) [SULFA (SULFONAMIDE ANTIBIOTICS)] sulfacetamide Allergy Intermediate Hives Verified 07/14/23 11:58 Review of Systems Review of Systems: Yes all other systems are reviewed and are negative PMFSH Past Medical History Attestation statement: The following information was validated with the patient. Source: old records reviewed Medical History GERD (gastroesophageal reflux disease) Depression OCD (obsessive compulsive disorder) Anxiety Costochondritis Vocal cord dysfunction Airway malacia Surgical History History of back surgery Hx of colonoscopy History of esophagogastroduodenoscopy (EGD) Previous back surgery H/O adenoidectomy History of tonsillectomy Social History Social History Smoked in Last 30 Days: No Use of substances other than those prescribed or required for medical reasons: No Advance Directives: No Advance Directives Information Provided: No Patient : No Physical Exam ED Vital Signs: Vital Signs - 24 hr 07/14/23 15:59 07/14/23 18:00 07/14/23 20:06 Temperature 98.1 F 98.3 F Pulse Rate 109 H 100 100 Respiratory Rate 18 16 17 Blood Pressure 143/97 H 152/97 H 156/81 H Pulse Oximetry 100 98 99 Oxygen Delivery Method Room Air Room Air Room Air BMI result Body Mass Index 51.4 Appearance: Alert.?Oriented to person, place and time. No acute distress.?Normal affect. Eyes: Pupils equal, round and reactive to light.? ENT: Pharynx normal.?? Neck: Normal inspection.? Neck supple.?? CVS: Heart sounds normal. Normal heart rate and rhythm.? Pulses normal.?? Respiratory: No respiratory distress.? Lung sounds clear to auscultation bilaterally?? Abdomen: Soft with notable tenderness upon palpation around the umbilicus, right lower quadrant tenderness as well but no guarding, upper abdomen is without tenderness upon palpation. No distention. No rebound tenderness. Normoactive bowel sounds. No pulsatile mass.?? Skin: Skin warm and dry.? Normal skin color.? Extremities: No lower extremity edema.? Neuro: Moves all extremities spontaneously. Sensation intact bilaterally. Ambulates with normal steady gait. Course Course Course Narrative: This is an RME: Additional HPI, ROS, PE not included below will be deferred to primary provider. 23 yo female with history of Crohn's disease on Entyvio, history of morbid obesity, fatty liver, history of cholecystectomy who presents to the ER for evaluation of abd pain X 1 week worsening. Recently dx w/ UTI per patient. Now having R flank pain, nausea as well. No fevers, chills, cp, sob, changes in bowel habits. Plan- labs, urine. Patient was seen here on 07/12/23 per chart review at that time ? UTI normal CT Reevaluation(s) Reevaluation #1: CT reveals no acute intra-abdominal abnormality, no evidence of inflammatory bowel disease. I reviewed these findings with patient. Tolerating oral intake. Recommended outpatient follow-up with PCP/Gastroenterology. Discussed worrisome signs and symptoms that would warrant re-evaluation emergency department. All questions were answered. At this time she is stable for discharge. Time: 22:09 Medications Administered Discontinued Medications Generic Name Dose Route Start Last Admin Trade Name Freq PRN Reason Stop Dose Admin Diatrizoate Meglum/Diatrizoate Sod 30 ml 07/14/23 20:15 07/14/23 20:16 Diatrizoate Meglumine, Sodium 30 Ml Solution PO 07/14/23 20:16 30 ml ONCE ONE Administration Dicyclomine HCl 20 mg 07/14/23 19:55 07/14/23 20:03 Dicyclomine Hcl 10 Mg Capsule PO 07/14/23 19:56 20 mg ONCE ONE Administration Sodium Chloride 1,000 mls @ 999 mls/hr 07/14/23 17:00 07/14/23 18:10 Ns IV 07/14/23 18:00 Infused .Q1H1M DULCE MARIA Infusion Iohexol 100 ml 07/14/23 20:15 07/14/23 20:15 Iohexol 350 Mg/Ml 100 Ml Infus..Btl IV 07/14/23 20:16 100 ml ONCE ONE Administration Lorazepam 0.5 mg 07/14/23 19:55 07/14/23 20:03 Lorazepam 2 Mg/Ml Vial IVPUSH 07/14/23 19:56 0.5 mg ONCE ONE Administration Morphine Sulfate 4 mg 07/14/23 16:49 07/14/23 17:06 Morphine Sulfate 4 Mg/Ml Cartridge IVPUSH 07/14/23 16:50 4 mg ONCE ONE Administration Protocol Ondansetron HCl 4 mg 07/14/23 16:49 07/14/23 17:06 Ondansetron Hcl 4 Mg/2 Ml Vial IVPUSH 07/14/23 16:50 4 mg ONCE ONE Administration Medical Decision Making Medical Decision Making MDM Narrative: Patient is a 23-year-old female with past medical history of Crohn's disease on Entyvio, morbid obesity, fatty liver, history of cholecystectomy presenting to emergency department for evaluation of persistent abdominal pain, primarily right lower quadrant radiating diffusely across the upper abdomen, nausea without vomiting, poor p.o. tolerance, notable periumbilical tenderness upon palpation in right lower quadrant tenderness upon palpation. She was evaluated in the emergency department on 07/12/2023, she had similar symptoms at that time, CT of the abdomen and pelvis was unremarkable for acute etiology, case was discussed with patient's care management specialist, Dr. Gillette at that time, decision was made to treat possible early urinary tract infection for which she wrist received a prescription for Macrobid in addition to Bentyl, she reports no improvement in her symptoms. She denies dysuria, urinary frequency/hesitancy/urgency, I reviewed her urine culture which is consistent with likely urogenital contamination, hematuria is present, but she is currently spotting, and testing is negative. She had labs obtained prior to my assumption of care, leukocytosis is with improvement previously was 17.7, now down to 13.8. Elevated inflammatory markers with ESR of 44 and CRP 4.39, CMP is overall unremarkable. She is noted to be tachycardic but I think that this is secondary to pain, concern for acute Crohn's flare, lower concern for infectious etiology at this time, she is afebrile. Patient received 1 L normal saline IV fluid, morphine IV for pain, Zofran IV for nausea. I will consult with Gastroenterology for further recommendations Differential Diagnosis Differential Diagnoses: The differential diagnosis associated with the presentation includes (Crohn's flare, bowel obstruction, appendicitis, colitis, nephrolithiasis, ovarian cyst, ovarian torsion) Admission/Observation Consideration of admission/observation: Escalation of care including admission/observation considered (See course narrative for further detail) Consult Healthcare Provider Management of the patient was discussed with: Director Multimedia (Printing Sign Machine Operator; Dr. Monteiro) Lab Data MDM Lab Attestation statement: I reviewed the patient's lab results. (Seen at of above for further detail) 07/14/23 12:25 07/14/23 12:25 Labs: Lab Results 07/14/23 07/14/23 Range/Units 12:19 12:25 WBC 13.8 H (4.8-10.8) X10*3/uL RBC 5.35 (4.20-5.50) X10*6/uL Hgb 12.1 (12.0-16.0) g/dl Hct 38.8 (37.0-47.0) % MCV 72.5 L (80.0-98.0) fL MCH 22.6 L (27.0-33.0) pg MCHC 31.2 (31.0-35.0) g/dl RDW 16.8 H (11.0-16.0) % Plt Count 507 H (160-400) X10*3/uL MPV 8.3 L (9.4-12.3) fL Immature Gran % (Auto) 0.5 H (0.0-0.4) % Neut % (Auto) 64.4 (45-73) % Lymph % (Auto) 28.3 (20-40) % [place] % (Auto) 5.4 (2-11) % Eos % (Auto) 1.2 (0-4) % Baso % (Auto) 0.2 (0-2) % Lymph # (Auto) 3.9 (1.2-4.9) X10*3/uL [place] # (Auto) 0.8 (0.1-1.2) X10*3/uL Eos # (Auto) 0.2 (0.0-0.4) X10*3/uL Baso # (Auto) 0.0 (0.0-0.2) X10*3/uL Abs Immat Gran (auto) 0.07 H (0.00-0.03) X10*3/uL Absolute Neuts (auto) 8.9 H (2.0-8.3) x10*3/uL Absolute Nucleated RBC 0.000 (0.0-0.012) X10*3/uL Nucleated RBC % (auto) 0.0 (0.0-0.2) /100WBC ESR 44 H (0-20) MM/HR Sodium 138 (135-145) mmol/L Potassium 3.9 (3.3-5.1) mmol/L Chloride 105 (96-108) mmol/L Carbon Dioxide 22 (22-29) mmol/L Anion Gap 15 (12-20) BUN 7 L (9-16) mg/dL Creatinine 0.63 (0.5-1.4) mg/dL Estim Creat Clear Calc 176.1 Estimated GFR > 60 Random Glucose 101 (60-115) mg/dL Calcium 10.1 (8.4-10.2) mg/dL Magnesium 2.2 (1.6-2.6) mg/dL Total Bilirubin 0.2 (0.0-1.0) mg/dL AST 28 (5-31) U/L ALT 53 H (0-31) U/L Alkaline Phosphatase 102 (39-117) U/L C-Reactive Protein 4.39 H (< or = 0.50) mg/dL Total Protein 7.7 (6.5-8.0) g/dL Albumin 4.0 (3.5-5.0) g/dL Urine Color Dark Yellow Urine Appearance Clear Urine pH 6.0 (5.0-9.0) Ur Specific [place] 1.020 (1.005-1.025) Urine Protein Trace (Neg-Trace) mg/dL Urine Glucose (UA) Negative (Negative) mg/dL Urine Ketones Negative (Negative) mg/dL Urine Blood Large (3+) H (Negative) Urine Nitrite Negative (Negative) Ur Leukocyte Esterase Moderate (2+) H (Negative) Urine RBC >20 H (0-2) /HPF Urine WBC 21-50 H (0-5) /HPF Ur Squamous Epith Cells 11-20 (0-2) /HPF Urine Bacteria 1+ (None Seen) Hyaline Casts 0-2 (0-2) /LPF Urine Test NEGATIVE (NEGATIVE) Independent Interpretation I performed an independent interpretation of an: CT Scan Radiology Impression Discussion of test interpretation with radiology: I have reviewed the radiologist's reading. Radiologist Impression: CT/CT abdomen pelvis w IV con IMPRESSION: * No acute imaging abnormalities in the abdomen or pelvis compared to 07/12/2023. * No evidence of inflammatory bowel disease. * Obese body habitus with hepatosplenomegaly and diffuse hepatic steatosis. Independent Historian Clinical information obtained from an independent historian. History obtained from or confirmed by: Spouse (Present at bedside who confirms history) External Record Review External record reviewed: Outpatient record and Prior outpatient labs Critical Care Time Critical Care Time Critical Care Time: Yes Total Critical Care Time: 35 Attestation: I personally attest to this critical care time spent taking care of the patient exclusive of all other billable procedures was approximately 35 minutes including initial evaluation of patient, ordering tests, x-ray interpretation, EKG interpretation, medical consultation, documentation, re-evaluation. Discharge Plan Discharge Clinical Impression: Abdominal pain Patient Disposition: Home, Self-Care Instructions: Abdominal Pain (ED) Prescriptions: No Action budesonide 3 mg capsule,delayed,extend.release 9 mg PO DAILY 30 Days Qty: 90 2RF Entyvio 300 mg recon soln 300 mg IV Q8W Qty: 1 7RF Rx Instructions: administer 300mg IV at week 0, 2 and 6 and every 8 weeks thereafter administer over 30 mins colesevelam 625 mg tablet 1,250 mg PO BID Qty: 360 1RF omeprazole 40 mg capsule,delayed release(DR/EC) 40 mg PO DAILY Qty: 90 3RF ibuprofen 800 mg tablet 800 mg PO Q8H PRN (Reason: pain) Qty: 20 0RF ondansetron 4 mg tablet,disintegrating 4 mg PO Q8H PRN (Reason: nausea and vomiting) Qty: 7 0RF dicyclomine 10 mg capsule 10 mg PO QID PRN (Reason: abdominal pain) Qty: 14 0RF nitrofurantoin monohyd/m-cryst [Macrobid] 100 mg capsule 100 mg PO Q12H 5 Days Qty: 10 0RF Rx Instructions: must administer with a meal/food duloxetine 60 mg capsule,delayed release(DR/EC) 60 mg PO DAILY cholecalciferol (vitamin D3) 50 mcg (2,000 unit) capsule 50 mcg PO DAILY dicyclomine 10 mg capsule 10 mg PO BID Qty: 60 0RF levonorgestrel-ethinyl estrad 0.15 mg-30 mcg (91) tablets,dose pack,3 month 1 tab PO DAILY ondansetron 4 mg tablet,disintegrating 4 mg PO Q8H PRN (Reason: nausea and vomiting) Qty: 30 2RF Referrals: Kailey Camacho MD [Primary Care Provider] - Ephraim Monteiro MD [Physician] - Stand Alone Forms: Work/School Release Interventions: ED Discharge Assessment Last Done: 07/14/23 22:20 Discharge Date/Time: 07/14/23 22:30
[2023-07-14 12:32] LABS: MANUAL DIFF FLAG NO
[2023-07-14 12:35] LABS: Basophils Percent Auto 0.2 % (0-2); Eosinophils Absolute Auto 0.2 X10*3/uL (0.0-0.4); Eosinophils Percent Auto 1.2 % (0-4); Hematocrit 38.8 % (37.0-47.0); Hemoglobin 12.1 g/dl (12.0-16.0); Imm Gran Abs Auto 0.07 X10*3/uL (0.00-0.03); Imm Gran Pct Auto 0.5 % (0.0-0.4); Lymphocytes Absolute Auto 3.9 X10*3/uL (1.2-4.9); Lymphocytes Percent Auto 28.3 % (20-40); Mean Corpuscular HGB Conc 31.2 g/dl (31.0-35.0); Mean Corpuscular Hemoglobin 22.6 pg (27.0-33.0); Mean Corpuscular Volume 72.5 fL (80.0-98.0); Mean Platelet Volume 8.3 fL (9.4-12.3); Monocytes Absolute Auto 0.8 X10*3/uL (0.1-1.2); Monocytes Percent Auto 5.4 % (2-11); Neutrophils Absolute Auto 8.9 x10*3/uL (2.0-8.3); Neutrophils Percent Auto 64.4 % (45-73); Platelet Count 507 X10*3/uL (160-400); Red Blood Count 5.35 X10*6/uL (4.20-5.50); Red Cell Distribution Width 16.8 % (11.0-16.0); White Blood Count 13.8 X10*3/uL (4.8-10.8)
[2023-07-14 12:37] LABS: Appearance Urine Clear; Color Urine Dark Yellow; Glucose Urine UA Negative (Negative); Leukocyte Esterase Urine Moderate (2+) (Negative); Nitrite Urine Negative (Negative); UMIC TRIGGER UACC YES; UPreg QC Valid YES; Urine Blood Large (3+) (Negative); Urine Ketones Negative (Negative); Urine Pregnancy NEGATIVE (NEGATIVE); Urine Protein Trace mg/dL (Neg-Trace)
[2023-07-14 12:40] LABS: Bacteria Urine 1+ (None Seen); Hyaline Casts Urine 0-2 /LPF (0-2); RBC Urine >20 /HPF (0-2); UACC Culture Trigger YES; WBC Urine 21-50 /HPF (0-5)
[2023-07-14 12:48] LABS: Alanine Aminotransferase 53 U/L (0-31); Alkaline Phosphatase 102 U/L (39-117); Anion Gap 15 (12-20); Aspartate Amino Transferase 28 U/L (5-31); Bilirubin Total 0.2 mg/dL (0.0-1.0); Blood Urea Nitrogen 7 mg/dL (9-16); C Reactive Protein 4.39 mg/dL (< or = 0.50); Calcium 10.1 mg/dL (8.4-10.2); Carbon Dioxide 22 mmol/L (22-29); Chloride 105 mmol/L (96-108); Creatinine Clr Calc Pharmacy 176.1; Estimated Glomerular Filt Rate > 60; Glucose Random 101 mg/dL (60-115); Magnesium 2.2 mg/dL (1.6-2.6); Potassium 3.9 mmol/L (3.3-5.1); Sodium 138 mmol/L (135-145); Total Protein 7.7 g/dL (6.5-8.0)
[2023-07-14 13:14] LABS: Erythrocyte Sedimentation Rate 44 MM/HR (0-20)
[2023-07-14 15:59] VITALS: BP 143/97; PULSE 109; RESP 18; TEMP 36.7; O2SAT 100
--- NOTE | 2023-07-14 16:08 | PC.NURSE ---
a&ox3, vss and up to date aside from being tachycardic. pt had labs drawn and urine obtained in triage. pt currently c/o 5/10 sharp pain that radiates across entire abdomen. abdomen tender upon palpation. pt verbalizes nausea and loose stools for the past week. pt states she was here last week d/t same issue and returned d/t increase in pain. 20gIV placed in left AC w/o complications. respirations even and unlabored. partner bedside for support. call gannon placed within reach.
[2023-07-14] MEDS: Morphine Sulfate 4 MG/ML CARTRIDGE IVPUSH (17:06)
[2023-07-14] MEDS: ondansetron HCL 4 MG/2 ML VIAL IVPUSH (17:06)
[2023-07-14] MEDS: 0.9 % Sodium Chloride 1,000 ML 999 ML IV (17:07)
--- NOTE | 2023-07-14 17:13 | PC.NURSE ---
medication administered per provider order. will reassess pain level shortly. family bedside. call gannon placed within reach.
[2023-07-14 18:00] VITALS: BP 152/97; PULSE 100; RESP 16; TEMP 36.8; O2SAT 98
--- NOTE | 2023-07-14 18:12 | PC.NURSE ---
pt's pain level reassessed. pt states pain decreased to a 2/10 at this time. pt resting comfortably in no apparent distress/playing chess w/ partner. pt aware of plan of care at this time. respirations remain even and unlabored. call gannon placed within reach.
[2023-07-14] MEDS: Dicyclomine HCl 10 MG CAPSULE 20 MG PO (20:03)
[2023-07-14] MEDS: LORazepam 2 MG/ML VIAL 0.5 MG IVPUSH (20:03)
[2023-07-14 20:06] VITALS: BP 156/81; PULSE 100; RESP 17; O2SAT 99
[2023-07-14] MEDS: iohexoL 350 MG/ML 100 ML INFUS..BTL IV (20:15)
[2023-07-14] MEDS: Diatrizoate Meglumine, Sodium 30 ML SOLUTION PO (20:16)
== END 2023-07-14 22:30 | disposition home or self-care (01) ==
PROVIDERS: Physician Assistant; Emergency Provider Internal Medicine; PCP Internal Medicine
DX: R10.30 Lower abdominal pain, unspecified (principal); Z79.899 Other long term (current) drug therapy
CPT/HCPCS: 36415; 74177; 80053; 81001; 81025; 83735; 85025; 85652; 86140; 99284; 99285; J2060; J2270; J2405; Q9967

== ENCOUNTER 2023-08-01 13:52 | Outpatient (REF) | payer OTHER, SELFPAY ==
--- NOTE | ~2023-08-01 | US_ITS ---
EXAMINATION: US PELVIS CLINICAL INFORMATION: Pelvic pain; the last menstrual period was one week prior. COMPARISON: None available. TECHNIQUE: Ultrasound of the pelvis is performed using both transabdominal and transvaginal transducers along with Doppler. Transvaginal imaging is performed due to inadequate visualization transabdominally. FINDINGS: Uterus: The uterus is anteverted and measures 7.5 x 3.2 x 4.4 cm. The double wall endometrial thickness is 0.4 mm. The uterus is smooth in contour and has normal myometrial echogenicity. No visible fibroid. Adnexa: Both ovaries are visualized. There is normal color flow to the adnexa. There is no ovarian torsion. There is no pelvic ascites or fluid collection. Right ovary measures 2.3 x 2.4 x 2.2 cm, volume 6.5 mL. Left ovary measures 3.1 x 2.3 x 2.4 cm, volume 8.8 mL. US/US pelvic and transvaginal IMPRESSION: Unremarkable examination.
== END 2023-08-01 13:53 | disposition home or self-care (01) ==
LOC: HO.US 13:52
PROVIDERS: PCP Internal Medicine; Visit Provider Internal Medicine Gastroenterology
DX: R10.2 Pelvic and perineal pain (principal)
CPT/HCPCS: 76830; 76856

== ENCOUNTER 2023-08-02 10:26 | Outpatient (AMB) | payer OTHER, SELFPAY ==
--- NOTE | 2023-08-02 10:34 | A.OFFVIS_ITS ---
Intake Vital Signs 08/02/23 10:35 Height 5 ft 2 in Weight 280 lb BMI 51.2 BP 144/82 H Blood Pressure Location Lt brachial Position Sitting Pulse 113 H Intake Visit Reasons: abdominal pain Intake Note: Patient follow up from ED due chronic abdominal pain. Patient feeling much better no complains for today. Ent Nurse Required: No Accompanied by: Self / Same As Patient Allergies latex [LATEX] Allergy (Severe, Verified 08/02/23 10:32) SWELLING/HIVES banana [BANANA] Allergy (Intermediate, Verified 08/02/23 10:32) ANAPHYLAXIS cefuroxime [From CEFTIN] Allergy (Intermediate, Verified 08/02/23 10:32) HIVES Sulfa (Sulfonamide Antibiotics) [SULFA (SULFONAMIDE ANTIBIOTICS)] Allergy (Intermediate, Verified 08/02/23 10:32) HIVES sulfacetamide Allergy (Intermediate, Verified 08/02/23 10:32) Hives HPI abdominal pain HPI Details 23 yr old f here for f/u RECAP: Index visit? 01/2019 ? She has had nausea, diarrhea and vomiting for 1? month ? came on suddenly ? appetite poor ? non bloody? emesis, and nausea can be worse w/ any type of food ? she also has? epigastric pain, 8/10 in severity at it peak ? can go down into lower? abd as well ? diarrhea usu post prandial, no bloody stools ? weight is stable ? skin rash spots on leg which are itchy ? has been checked for c diff and neg per her ? not sexually? active ? started sertraline recently before sx started. ?she? has chronic back pain from injury, not so bad at this time ?appetite is? poor, no idea why, no taste or smell issues ?sx seems to be worse? around menstruation as before ?she has specialist physicians, and takes OCP? which has helped her abdominal cramps ?referred to rheum but no? autoimmune dx found ? she had further admsision to ED for abdominal pain she had spinal surgery 10/2021 after fall LABS: neg fecal calp, neg celiac, only pos was? persistent raised CRP , has been persistently? raised tick borne serologies neg nml bill elastase ? Other data: EGD/colonoscopy--05/13/19--essentially? normal ?cholecystectomy for symptomatic gallstones? 05/15/19 ?VCE--normal ?CT 10/2019- stable small LN, fatty? liver ?CTe--small umbilical hernia, otherwise nml, no LN seen GES: --abn 12% at 4 hrs She had a presentation to ED with severe abdominal pain, 07/12 and 07/[address] imaging whihc was neg for acute process, had CRP and WCC elevation as before, attack was also similar to prior attacks Based on this I ordered prophyria screen and sent her trial of colchicine ?INTERIM: she repsonded well to colchcine, worked almost immediately, her chronic hip pain has improved with it looking back she feels she had sx of FMF sicne childhood with random fevers, pain and aches --also her niece has the same sx as her appetite is fair weight is stable no blood in stool EXAM: GENERAL: The patient is relaxed, high bmi VITAL SIGNS:see workflow HEENT: Nonicteric sclerae, PERRLA, EOMI. Oropharynx clear. Moist mucous membranes. Conjunctivae appear well perfused. No thyroid mass. CHEST: Chest wall is nontender. HEART: Regular rate and rhythm without murmurs. LUNGS: Clear to auscultation bilaterally. ABDOMEN: Soft, positive bowel sounds, nontender, no organomegaly.no flank tenderness SKIN: No rash, no excessive bruising, petechiae, or purpura. NEUROLOGIC: Cranial nerves II-XII intact without motor/sensory deficit. 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, on treatment with entyvio for possible crohns but still has raised CRP, WCC 2/ Mild gastroparesis PLAN: 1/ recheck labs in 2 weeks and double co lchicine 2/ awaiting FMF gene testing [facility] Medical History GERD (gastroesophageal reflux disease) Depression OCD (obsessive compulsive disorder) Anxiety Costochondritis Vocal cord dysfunction Airway malacia Surgical History History of back surgery Hx of colonoscopy History of esophagogastroduodenoscopy (EGD) Previous back surgery H/O adenoidectomy History of tonsillectomy Physical Exam Vital Signs: Last Vital Signs Pulse 113 H 08/02/23 10:35 BP 144/82 H 08/02/23 10:35 BMI result Body Mass Index 51.2 Assessment & Plan Assessment & Plan (1) Crohn's disease: Code(s): K50.90 - Crohn's disease, unspecified, without complications (2) Epigastric abdominal pain: Code(s): R10.13 - Epigastric pain Orders: Orders Lactoferrin, Fecal, Quant. 2 Weeks K51.50 - Left sided colitis without complications C Reactive Protein 2 Weeks K50.90 - Crohn's disease, unspecified, without complications, R10.13 - Epigastric pain Complete Blood Count Auto Diff Today K50.90 - Crohn's disease, unspecified, without complications, R10.13 - Epigastric pain Lactoferrin, Fecal, Quant. Today K51.50 - Left sided colitis without complications Medications: Discontinued budesonide ER Discontinued Reason: Patient Completed Course 9 mg (3 x 3 mg) PO DAILY 30 days 90 ea 2RF Coding Level of Care Code Est Pt Level 3 (56970) Diagnoses Crohn's disease K50.90 Epigastric abdominal pain R10.13
[2023-08-02 10:35] VITALS: BP 144/82; PULSE 113; BMI 51.2
== END 2023-08-02 10:59 | disposition home or self-care (01) ==
PROVIDERS: PCP Internal Medicine; Visit Provider Internal Medicine Gastroenterology
DX: K50.90 Crohn's disease, unspecified, without complications (principal); R10.13 Epigastric pain
CPT/HCPCS: 99213

== ENCOUNTER → 2023-08-02 10:26 | Outpatient (BNVA) | payer OTHER, SELFPAY | PROVIDERS: PCP Internal Medicine; Visit Provider Internal Medicine Gastroenterology ==

== ENCOUNTER 2023-08-09 00:05 | Emergency (ER) | payer OTHER, SELFPAY ==
--- NOTE | 2023-08-09 00:13 | ED_ITS ---
HPI - Abdominal Pain General Chief Complaint: Abdominal Pain Stated Complaint: left upper quadrant pain Time Seen by Provider: 08/09/23 00:07 History of Present Illness HPI narrative: 23-year-old female who presents emergency department for evaluation of left lower abdominal pain. The patient states she had some slight cramping earlier in the day as if she was going to have a bowel movement but these sensations were mild. At approximately 23:00 hours she developed sudden onset of bloating sensation in her lower abdomen. She then developed severe right lower quadrant pain which she describes as a knife-like pain which was constant. The pain was 10/10 and and she was brought to the emergency department by ambulance. On presentation the patient appear to be in severe pain and was crying. Patient was ordered to get morphine 4 mg IV and Zofran 4 mg IV. Patient had significant pain relief and was able to be examined. Patient had mild to moderate right lower quadrant and mild right-sided abdominal tenderness. The patient has been having episodes of abdominal pain for months. She had 2 emergency department visits on 07/10/2023 and on 07/12/2023 for similar abdominal pain. She had CT scans of the abdomen pelvis on both of these visits which revealed no acute findings. The patient is seen by our material controller, Dr. Monteiro who has done multiple studies on the patient without a clear etiology for her pain. I reviewed his office note on 08/02/2023 and he is considering for for porphyria and Familial Mediterranean Fever (FMF) as a possible cause of her symptoms. Patient was started on colchicine she states that the cultures in dose was recently increased to 1.2 mg twice a day with some improvement of her symptoms. She states however this medication is given her diarrhea. Related Data Home Medications Medication Instructions Recorded Confirmed cholecalciferol (vitamin D3) 50 50 mcg PO DAILY 06/12/21 mcg (2,000 unit) capsule duloxetine 60 mg capsule,delayed 60 mg PO DAILY 06/12/21 release levonorgestrel 0.15 mg-ethinyl 1 tab PO DAILY 06/18/22 estradiol 30 mcg tablets,3 mos pack(91) Previous Rx's Medication Instructions Recorded ibuprofen 800 mg tablet 800 mg PO Q8H PRN pain #20 tabs 09/20/21 dicyclomine 10 mg capsule 10 mg PO BID #60 caps 12/22/21 ondansetron 4 mg disintegrating 4 mg PO Q8H PRN nausea and 06/18/22 tablet vomiting #30 tabs vedolizumab 300 mg intravenous 300 mg IV Q8W #1 ea 03/06/23 solution (Entyvio) colesevelam 625 mg tablet 1,250 mg (2 x 625 mg) PO BID #360 05/16/23 tabs omeprazole 40 mg capsule,delayed 40 mg PO DAILY #90 caps 06/17/23 release dicyclomine 10 mg capsule 10 mg PO QID PRN abdominal pain 07/12/23 #14 caps nitrofurantoin 100 mg PO Q12H 5 days #10 caps 07/12/23 monohydrate/macrocrystals 100 mg capsule (Macrobid) ondansetron 4 mg disintegrating 4 mg PO Q8H PRN nausea and 07/12/23 tablet vomiting #7 tabs colchicine (gout) 0.6 mg capsule 0.6 mg PO BID #180 caps 07/18/23 Allergies Allergy/AdvReac Type Severity Reaction Status Date / Time latex [LATEX] Allergy Severe SWELLING/HI Verified 08/02/23 10:32 VES banana [BANANA] Allergy Intermediate ANAPHYLAXIS Verified 08/02/23 10:32 cefuroxime [From CEFTIN] Allergy Intermediate HIVES Verified 08/02/23 10:32 Sulfa (Sulfonamide Allergy Intermediate HIVES Verified 08/02/23 10:32 Antibiotics) [SULFA (SULFONAMIDE ANTIBIOTICS)] sulfacetamide Allergy Intermediate Hives Verified 08/02/23 10:32 Review of Systems Review of Systems Yes all other systems are reviewed and are negative PMFSH Past Medical History Medical History GERD (gastroesophageal reflux disease) Depression OCD (obsessive compulsive disorder) Anxiety Costochondritis Vocal cord dysfunction Airway malacia Surgical History History of back surgery Hx of colonoscopy History of esophagogastroduodenoscopy (EGD) Previous back surgery H/O adenoidectomy History of tonsillectomy Social History Smoked in Last 30 Days: No Use of substances other than those prescribed or required for medical reasons: No Advance Directives: No Advance Directives Information Provided: No Patient : No Physical Exam ED Vital Signs: Vital Signs - 24 hr 08/09/23 00:15 Temperature 98.1 F Pulse Rate 113 H Respiratory Rate 19 Blood Pressure 151/98 H Pulse Oximetry 99 Oxygen Delivery Method Room Air BMI result Body Mass Index 55.8 Vital signs revealed an elevated heart rate of 113 and elevated blood pressure of 151/98 Exam: General: Initially the patient was in severe distress secondary to her pain, after being medicated she was calm cooperative and able to answer questions without difficulty. Head: Normocephalic, atraumatic EENT: PERRL, Lids normal, sclera normal, conjunctiva normal, nose normal , ears normal, throat without erythema or exudates Lung: breath sounds symmetric, no wheezing, rales or rhonchi Heart: regular rate and rhythm, normal S1, S2 no murmurs or rubs Abdomen: soft, obese, mild to moderate right upper quadrant tenderness, moderate right lower quadrant tenderness , normal bowel sounds Neuro: Awake, alert, oriented, normal speech, moves all extremities symmetrically Psych: Pleasant, cooperative Medical Decision Making Medical Decision Making MDM Narrative: 23-year-old female presents emergency department for evaluation of right-sided abdominal which began at 23:00 hours and got progressively worse. On presentation the patient's pain was 10/10 in she appeared to be in severe distress secondary to her pain. Patient has been having abdominal pain intermittently times several months and is currently being evaluated by our material controller, Dr. Monteiro. Patient had 2 recent visits to the emergency department 07/10/2023 and 07/12/[address] scans of the abdomen pelvis on both visits. Patient was recently started on colchicine b.i.d. for possible FMF disease. After the patient was medicated with morphine 4 mg IV and Zofran 4 mg IV, she felt significantly better nerve exam did reveal right upper and right lower quadrant tenderness. Following evaluation was ordered: CBC, CMP, PT/INR, PTT, CRP, ESR, lactic acid, lipase, urine test Patient was treated with morphine 4 mg IV, Zofran 4 mg IV and normal saline x1 L. 02:14 Patient's laboratory evaluation was interpreted by me as follows: Elevated WBC [id number] has had similar elevations in the past. Elevated platelets 420, 000. Elevated ALT 33. ESR normal at 7. CRP elevated 1.34. Patient's evaluation was nonspecific she has had elevated WBCs and CRP in the past At this time I do not have a clear etiology for the patient's pain, she is significantly better but did require 2nd dose of morphine 4 mg IV. Patient was discharged home with printed and verbal instructions. She was advised to continue taking her cultures in in to discuss her diarrhea with her material controller Differential Diagnosis Differential Diagnoses: The differential diagnosis associated with the presentation includes Differential diagnosis includes was not limited to perforation, bowel obstruction, appendicitis, electrolyte abnormalities, anemia Admission/Observation Consideration of admission/observation: Escalation of care including admission/observation considered Lab Data [facility] Lab Attestation statement: I reviewed the patient's lab results. See [facility] 08/09/23 00:22 08/09/23 00:22 Labs: Lab Results 08/09/23 Range/Units 00:22 WBC 19.7 H (4.8-10.8) X10*3/uL RBC 5.77 H (4.20-5.50) X10*6/uL Hgb 13.2 (12.0-16.0) g/dl Hct 42.0 (37.0-47.0) % MCV 72.8 L (80.0-98.0) fL MCH 22.9 L (27.0-33.0) pg MCHC 31.4 (31.0-35.0) g/dl RDW 17.0 H (11.0-16.0) % Plt Count 420 H (160-400) X10*3/uL MPV 8.5 L (9.4-12.3) fL Immature Gran % (Auto) 0.5 H (0.0-0.4) % Neut % (Auto) 70.1 (45-73) % Lymph % (Auto) 24.2 (20-40) % [place] % (Auto) 3.8 (2-11) % Eos % (Auto) 1.1 (0-4) % Baso % (Auto) 0.3 (0-2) % Lymph # (Auto) 4.8 (1.2-4.9) X10*3/uL [place] # (Auto) 0.8 (0.1-1.2) X10*3/uL Eos # (Auto) 0.2 (0.0-0.4) X10*3/uL Baso # (Auto) 0.1 (0.0-0.2) X10*3/uL Abs Immat Gran (auto) 0.10 H (0.00-0.03) X10*3/uL Absolute Neuts (auto) 13.8 H (2.0-8.3) x10*3/uL Absolute Nucleated RBC 0.000 (0.0-0.012) X10*3/uL Nucleated RBC % (auto) 0.0 (0.0-0.2) /100WBC ESR 7 (0-20) MM/HR PT 11.0 L (11.1-13.3) SEC INR 0.9 (0.9-1.1) APTT 31.4 (26.0-36.4) SEC Sodium 141 (135-145) mmol/L Potassium 3.6 (3.3-5.1) mmol/L Chloride 106 (96-108) mmol/L Carbon Dioxide 25 (22-29) mmol/L Anion Gap 14 (12-20) BUN 11 (9-16) mg/dL Creatinine 0.83 (0.5-1.4) mg/dL Estim Creat Clear Calc 140.9 Estimated GFR > 60 Random Glucose 112 (60-115) mg/dL Lactic Acid 1.6 (0.5-2.0) mmol/L Calcium 9.6 (8.4-10.2) mg/dL Total Bilirubin 0.3 (0.0-1.0) mg/dL AST 25 (5-31) U/L ALT 33 H (0-31) U/L Alkaline Phosphatase 108 (39-117) U/L C-Reactive Protein 1.34 H (< or = 0.50) mg/dL Total Protein 7.5 (6.5-8.0) g/dL Albumin 4.1 (3.5-5.0) g/dL Lipase 18 (8-78) U/L Independent Historian Clinical information obtained from an independent historian. History obtained from or confirmed by: Other (Significant other) Medications Administered Discontinued Medications Generic Name Dose Route Start Last Admin Trade Name Freq PRN Reason Stop Dose Admin Sodium Chloride 1,000 mls @ 999 mls/hr 08/09/23 00:11 08/09/23 01:26 Ns IV 11/24/23 01:11 Infused .Q1H1M STA Infusion Morphine Sulfate 4 mg 08/09/23 00:11 08/09/23 00:26 Morphine Sulfate 4 Mg/Ml Cartridge IVPUSH 08/09/23 00:12 4 mg ONCE STA Administration Protocol Ondansetron HCl 4 mg 08/09/23 00:11 08/09/23 00:26 Ondansetron Hcl 4 Mg/2 Ml Vial IVPUSH 08/09/23 00:12 4 mg ONCE ONE Administration Discharge Plan Discharge Clinical Impression: Abdominal pain Patient Disposition: Home, Self-Care Additional Instructions: Your blood work is consistent with your previous evaluations. You have an elevated white blood cell count and an elevated C reactive protein. C-reactive protein is less elevated than it has been previously at 1.34, be secondary to the colchicine. Continue taking your colchicine as prescribed and discuss the diarrhea with Dr. Monteiro to see if he wants to change her dose or give you any other medication for the diarrhea. Continue your other medications as prescribed Follow-up with your doctor in 2 days. Please return to the emergency department if your symptoms get worse or if you develop any symptoms that are concerning to you. Prescriptions: No Action Entyvio 300 mg recon soln 300 mg IV Q8W Qty: 1 7RF Rx Instructions: administer 300mg IV at week 0, 2 and 6 and every 8 weeks thereafter administer over 30 mins colesevelam 625 mg tablet 1,250 mg PO BID Qty: 360 1RF omeprazole 40 mg capsule,delayed release(DR/EC) 40 mg PO DAILY Qty: 90 3RF colchicine (gout) 0.6 mg capsule 0.6 mg PO BID Qty: 180 0RF ibuprofen 800 mg tablet 800 mg PO Q8H PRN (Reason: pain) Qty: 20 0RF ondansetron 4 mg tablet,disintegrating 4 mg PO Q8H PRN (Reason: nausea and vomiting) Qty: 7 0RF dicyclomine 10 mg capsule 10 mg PO QID PRN (Reason: abdominal pain) Qty: 14 0RF nitrofurantoin monohyd/m-cryst [Macrobid] 100 mg capsule 100 mg PO Q12H 5 Days Qty: 10 0RF Rx Instructions: must administer with a meal/food duloxetine 60 mg capsule,delayed release(DR/EC) 60 mg PO DAILY cholecalciferol (vitamin D3) 50 mcg (2,000 unit) capsule 50 mcg PO DAILY dicyclomine 10 mg capsule 10 mg PO BID Qty: 60 0RF levonorgestrel-ethinyl estrad 0.15 mg-30 mcg (91) tablets,dose pack,3 month 1 tab PO DAILY ondansetron 4 mg tablet,disintegrating 4 mg PO Q8H PRN (Reason: nausea and vomiting) Qty: 30 2RF
[2023-08-09 00:15] VITALS: BP 151/98; PULSE 113; RESP 19; TEMP 36.7; O2SAT 99
[2023-08-09] MEDS: 0.9 % Sodium Chloride 1,000 ML 999 ML IV (00:26)
[2023-08-09] MEDS: Morphine Sulfate 4 MG/ML CARTRIDGE IVPUSH ×2 (00:26→02:12)
[2023-08-09] MEDS: ondansetron HCL 4 MG/2 ML VIAL IVPUSH (00:26)
[2023-08-09 00:29] LABS: MANUAL DIFF FLAG NO
[2023-08-09 00:30] LABS: Basophils Absolute Auto 0.1 X10*3/uL (0.0-0.2); Basophils Percent Auto 0.3 % (0-2); Eosinophils Absolute Auto 0.2 X10*3/uL (0.0-0.4); Eosinophils Percent Auto 1.1 % (0-4); Hemoglobin 13.2 g/dl (12.0-16.0); Imm Gran Pct Auto 0.5 % (0.0-0.4); Lymphocytes Absolute Auto 4.8 X10*3/uL (1.2-4.9); Lymphocytes Percent Auto 24.2 % (20-40); Mean Corpuscular HGB Conc 31.4 g/dl (31.0-35.0); Mean Corpuscular Hemoglobin 22.9 pg (27.0-33.0); Mean Corpuscular Volume 72.8 fL (80.0-98.0); Mean Platelet Volume 8.5 fL (9.4-12.3); Monocytes Absolute Auto 0.8 X10*3/uL (0.1-1.2); Monocytes Percent Auto 3.8 % (2-11); Neutrophils Absolute Auto 13.8 x10*3/uL (2.0-8.3); Neutrophils Percent Auto 70.1 % (45-73); Platelet Count 420 X10*3/uL (160-400); Red Blood Count 5.77 X10*6/uL (4.20-5.50); White Blood Count 19.7 X10*3/uL (4.8-10.8)
[2023-08-09 00:33] VITALS: BP 142/84; PULSE 142; O2SAT 98; BMI 55.8
[2023-08-09 00:35] LABS: INTERNATIONAL NORM RATIO 0.9 (0.9-1.1)
[2023-08-09 00:38] LABS: Partial Thromboplastin Time 31.4 SEC (26.0-36.4)
--- NOTE | 2023-08-09 00:38 | PC.NURSE ---
Pt presents to ED via EMS for abd pain. Pt has hx of similar episodes and is being seen and treated. 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 Pt has been controlled on coltrazine for the past 6 months. Around 11 tonight, pt experienced 10/10 pain, worse than she has had before. Pt has had 3 bowel movements today.Pt is A&Ox4, GCS 15, with dry, cool, pale skin. Dr Hernandez at bedside to take report directly from EMS, pt, and pt's significant other. 20g IV placed in the left AC, labs have been drawn and sent. Pt waiting results at this time.
[2023-08-09 00:39] LABS: Lactic Acid 1.6 mmol/L (0.5-2.0)
[2023-08-09 00:44] LABS: Alanine Aminotransferase 33 U/L (0-31); Albumin Level 4.1 g/dL (3.5-5.0); Alkaline Phosphatase 108 U/L (39-117); Anion Gap 14 (12-20); Aspartate Amino Transferase 25 U/L (5-31); Bilirubin Total 0.3 mg/dL (0.0-1.0); Blood Urea Nitrogen 11 mg/dL (9-16); C Reactive Protein 1.34 mg/dL (< or = 0.50); Calcium 9.6 mg/dL (8.4-10.2); Carbon Dioxide 25 mmol/L (22-29); Chloride 106 mmol/L (96-108); Creatinine Clr Calc Pharmacy 140.9; Estimated Glomerular Filt Rate > 60; Glucose Random 112 mg/dL (60-115); Lipase 18 U/L (8-78); Potassium 3.6 mmol/L (3.3-5.1); Sodium 141 mmol/L (135-145); Total Protein 7.5 g/dL (6.5-8.0)
[2023-08-09 01:09] LABS: Erythrocyte Sedimentation Rate 7 MM/HR (0-20)
== END 2023-08-09 03:04 | disposition home or self-care (01) ==
PROVIDERS: Emergency Provider Emergency Medicine Emergency Medical Services; PCP Internal Medicine
DX: R10.12 Left upper quadrant pain (principal); R10.2 Pelvic and perineal pain; Z79.899 Other long term (current) drug therapy
CPT/HCPCS: 36415; 80053; 83605; 83690; 85025; 85610; 85652; 85730; 86140; 96361; 96374; 96375; 96376; 99284; 99285; J2270; J2405

== ENCOUNTER 2023-08-22 11:11 | Outpatient (REF) | payer OTHER, SELFPAY ==
[2023-08-22 11:28] LABS: MANUAL DIFF FLAG NO
[2023-08-22 12:32] LABS: Basophils Percent Auto 0.4 % (0-2); Eosinophils Absolute Auto 0.2 X10*3/uL (0.0-0.4); Eosinophils Percent Auto 2.5 % (0-4); Hemoglobin 12.8 g/dl (12.0-16.0); Imm Gran Abs Auto 0.03 X10*3/uL (0.00-0.03); Imm Gran Pct Auto 0.3 % (0.0-0.4); Lymphocytes Absolute Auto 3.5 X10*3/uL (1.2-4.9); Lymphocytes Percent Auto 38.2 % (20-40); Mean Corpuscular HGB Conc 31.2 g/dl (31.0-35.0); Mean Corpuscular Hemoglobin 22.5 pg (27.0-33.0); Mean Corpuscular Volume 72.2 fL (80.0-98.0); Mean Platelet Volume 9.1 fL (9.4-12.3); Monocytes Absolute Auto 0.5 X10*3/uL (0.1-1.2); Monocytes Percent Auto 5.5 % (2-11); Neutrophils Absolute Auto 4.8 x10*3/uL (2.0-8.3); Neutrophils Percent Auto 53.1 % (45-73); Platelet Count 472 X10*3/uL (160-400); Red Blood Count 5.68 X10*6/uL (4.20-5.50); Red Cell Distribution Width 16.5 % (11.0-16.0); White Blood Count 9.1 X10*3/uL (4.8-10.8)
[2023-08-22 13:01] LABS: C Reactive Protein 0.91 mg/dL (< or = 0.50)
[2023-08-28 22:09] LABS: Lactoferrin, Fecal, Quant. 6.32 mcg/mL (<7.25)
== END 2023-08-22 11:12 | disposition home or self-care (01) ==
LOC: HO.LAB 11:11
PROVIDERS: Visit Provider Internal Medicine Gastroenterology
DX: R10.13 Epigastric pain (principal); K51.50 Left sided colitis without complications
CPT/HCPCS: 36415; 83631; 85025; 86140

== ENCOUNTER 2023-12-02 16:41 | Emergency (ER) | payer OTHER, SELFPAY ==
[2023-12-02 17:11] VITALS: BP 127/68; PULSE 118; O2SAT 97
--- NOTE | 2023-12-02 17:19 | ED_ITS ---
HPI - General Adult General Chief complaint: General Medical Stated complaint: RLQ ABD PAIN Time Seen by Provider: 12/02/23 17:13 History of Present Illness HPI narrative: 23 y/o F patient; PMH chronic abdominal pain, GERD, depression; presents from home with report of right lower abdominal pain that began suddenly at 3pm today. Associated with nausea without vomiting or diarrhea. Denies fever or chills. The patient has been seen in this emergency department on 07/12/2023, 07/14/2023, and 08/09/2023 for similar episodes of abdominal pain in the RLQ. She has had CT Abdomen/Pelvis W IV Contrast x2 without significant findings. She has had chronically elevated CRP and WBC. She is followed by Dr. Monteiro (GI) with continued work up for possible porphyria versus familial Mediterranean fever. She was started on Colchicine with improvement in symptoms. She denies any recent exacerbations since July. She has had previous EGD and colonoscopy. She denies history of sexual activity. Related Data Home Medications Medication Instructions Recorded Confirmed cholecalciferol (vitamin D3) 50 50 mcg PO DAILY 06/12/21 mcg (2,000 unit) capsule duloxetine 60 mg capsule,delayed 60 mg PO DAILY 06/12/21 release levonorgestrel 0.15 mg-ethinyl 1 tab PO DAILY 06/18/22 estradiol 30 mcg tablets,3 mos pack(91) Previous Rx's Medication Instructions Recorded ibuprofen 800 mg tablet 800 mg PO Q8H PRN pain #20 tabs 09/20/21 dicyclomine 10 mg capsule 10 mg PO BID #60 caps 12/22/21 ondansetron 4 mg disintegrating 4 mg PO Q8H PRN nausea and 06/18/22 tablet vomiting #30 tabs vedolizumab 300 mg intravenous 300 mg IV Q8W #1 ea 03/06/23 solution (Entyvio) colesevelam 625 mg tablet 1,250 mg (2 x 625 mg) PO BID #360 05/16/23 tabs omeprazole 40 mg capsule,delayed 40 mg PO DAILY #90 caps 06/17/23 release nitrofurantoin 100 mg PO Q12H 5 days #10 caps 07/12/23 monohydrate/macrocrystals 100 mg capsule (Macrobid) ondansetron 4 mg disintegrating 4 mg PO Q8H PRN nausea and 07/12/23 tablet vomiting #7 tabs colchicine 0.6 mg capsule 1.2 mg (2 x 0.6 mg) PO BID #360 08/13/23 caps dicyclomine 10 mg capsule 10 mg PO QID PRN for abdominal 11/11/23 pain #60 caps Allergies Allergy/AdvReac Type Severity Reaction Status Date / Time latex [LATEX] Allergy Severe SWELLING/HI Verified 08/02/23 10:32 VES banana [BANANA] Allergy Intermediate ANAPHYLAXIS Verified 08/02/23 10:32 cefuroxime [From CEFTIN] Allergy Intermediate HIVES Verified 08/02/23 10:32 Sulfa (Sulfonamide Allergy Intermediate HIVES Verified 08/02/23 10:32 Antibiotics) [SULFA (SULFONAMIDE ANTIBIOTICS)] sulfacetamide Allergy Intermediate Hives Verified 08/02/23 10:32 Review of Systems 2 Review of Systems: Yes all other systems are reviewed and are negative PMFSH Past Medical History Attestation statement: The following information was validated with the patient. Source: old records reviewed Medical History GERD (gastroesophageal reflux disease) Depression OCD (obsessive compulsive disorder) Anxiety Costochondritis Vocal cord dysfunction Airway malacia Surgical History History of back surgery Hx of colonoscopy History of esophagogastroduodenoscopy (EGD) Previous back surgery H/O adenoidectomy History of tonsillectomy Social History Social History Advance Directives: No Advance Directives Information Provided: No Physical Exam ED Vital Signs: Vital Signs - 24 hr 12/02/23 17:23 Temperature 98.9 F Pulse Rate 116 H Respiratory Rate 18 Blood Pressure 140/88 H Pulse Oximetry 98 Oxygen Delivery Method Room Air BMI result Body Mass Index 33.3 Patient is afebrile, tachycardic, mildly hypertensive. Const General: cooperative HENMT Head: Yes atraumatic Eyes General: appearance normal, both eyes and all related structures Neck Neck: Yes normal visual inspection, Yes full ROM, Yes supple and No tender Chest Chest palpation & inspection: normal inspection of the chest and normal palpation of entire chest wall Resp Effort & Inspection: normal respiratory effort, able to speak in complete sentences, no cough and no respiratory distress Auscultation: clear to auscultation bilaterally Cardio Rate: regular rate Rhythm: regular rhythm Peripheral pulses: Peripheral pulses 2+ throughout GI Other: RUQ and RLQ abdominal discomfort with palpation Inspection: Yes normal to inspection, No Abdominal wall edema and No distended Palpation (GI): Soft to palpation, not firm, no guarding and not rigid Auscultation: normal bowel sounds Course Course Course Narrative: Patient is afebrile, tachycardic, mildly hypertensive. Will obtain screening labs - considering patient has a known baseline of elevated CRP and WBC. Provided pain control with Tylenol, Toradol, and Dilaudid. Provided 1L IVF. Nausea control with Zofran 4mg IV. Reevaluation(s) Reevaluation #1: Patient re-evaluated following pain control. She reports resolution of nausea and significant improvement in pain level. Labs reviewed. Improvement in CRP compared to prior. Continued leukocytosis. Discussed with patient difficulty of chronic pain associated with chronically elevated inflammatory markers when pain is predominantly right lower quadrant. Shared decision making with patient to defer CT imaging at this time. However patient is aware to have a low threshold to return to the ED for worsening pain, fever, continued nausea/vomiting. Patient has a follow up appointment scheduled with GI, she was originally scheduled to meet with GI today but had to re-schedule due to life obligations. Plan: Discharge to home with PCP and GI follow up Return precautions given Medications Administered Discontinued Medications Generic Name Dose Route Start Last Admin Trade Name Alessandro PRN Reason Stop Dose Admin Acetaminophen 975 mg 12/02/23 17:30 12/02/23 17:47 Acetaminophen 325 Mg Tablet PO 12/02/23 17:31 975 mg ONCE ONE Administration Hydromorphone HCl 0.5 mg 12/02/23 17:30 12/02/23 17:50 Hydromorphone Hcl 0.5 Mg/0.5 Ml Syringe IVPUSH 12/02/23 17:31 0.5 mg ONCE ONE Administration Protocol Sodium Chloride 1,000 mls @ 999 mls/hr 12/02/23 17:30 12/02/23 17:47 Ns IV 12/02/23 18:30 999 mls/hr .Q1H1M DULCE MARIA Administration Ketorolac Tromethamine 15 mg 12/02/23 17:39 12/02/23 17:53 Ketorolac Tromethamine 15 Mg/Ml Vial IVPUSH 12/02/23 17:40 15 mg ONCE ONE Administration Ondansetron HCl 4 mg 12/02/23 17:30 12/02/23 17:48 Ondansetron Hcl 4 Mg/2 Ml Vial IVPUSH 12/02/23 17:31 4 mg ONCE ONE Administration Medical Decision Making Lab Data 12/02/23 17:42 12/02/23 17:42 Labs: Lab Results 12/02/23 Range/Units 17:42 WBC 18.2 H (4.8-10.8) X10*3/uL RBC 5.18 (4.20-5.50) X10*6/uL Hgb 12.6 (12.0-16.0) g/dl Hct 38.8 (37.0-47.0) % MCV 74.9 L (80.0-98.0) fL MCH 24.3 L (27.0-33.0) pg MCHC 32.5 (31.0-35.0) g/dl RDW 16.7 H (11.0-16.0) % Plt Count 352 D (160-400) X10*3/uL MPV 9.2 L (9.4-12.3) fL Immature Gran % (Auto) 0.3 (0.0-0.4) % Neut % (Auto) 77.4 H (45-73) % Lymph % (Auto) 15.0 L (20-40) % [place] % (Auto) 6.5 (2-11) % Eos % (Auto) 0.5 (0-4) % Baso % (Auto) 0.3 (0-2) % Lymph # (Auto) 2.7 (1.2-4.9) X10*3/uL [place] # (Auto) 1.2 (0.1-1.2) X10*3/uL Eos # (Auto) 0.1 (0.0-0.4) X10*3/uL Baso # (Auto) 0.1 (0.0-0.2) X10*3/uL Abs Immat Gran (auto) 0.06 H (0.00-0.03) X10*3/uL Absolute Neuts (auto) 14.1 H (2.0-8.3) x10*3/uL Absolute Nucleated RBC 0.000 (0.0-0.012) X10*3/uL Nucleated RBC % (auto) 0.0 (0.0-0.2) /100WBC Sodium 137 (135-145) mmol/L Potassium 4.1 (3.3-5.1) mmol/L Chloride 106 (96-108) mmol/L Carbon Dioxide 22 (22-29) mmol/L Anion Gap 13 (12-20) BUN 9 (9-16) mg/dL Creatinine 0.67 (0.5-1.4) mg/dL Estim Creat Clear Calc 144.0 Estimated GFR > 60 Random Glucose 148 H (60-115) mg/dL Calcium 8.8 D (8.4-10.2) mg/dL Total Bilirubin 0.3 (0.0-1.0) mg/dL Direct Bilirubin 0.1 (0.0-0.5) mg/dL AST 39 H (5-31) U/L ALT 53 H (0-31) U/L Alkaline Phosphatase 91 (39-117) U/L C-Reactive Protein 2.01 H (< or = 0.50) mg/dL Total Protein 7.0 (6.5-8.0) g/dL Albumin 3.7 (3.5-5.0) g/dL Lipase 19 (8-78) U/L Beta HCG, Quant < 2 mIU/mL Discharge Plan Discharge Clinical Impression: Abdominal pain Patient Disposition: Home, Self-Care Instructions: Abdominal Pain (ED) Additional Instructions: As we discussed, you were seen today for abdominal pain and nausea. Your labs were at your baseline with an elevation in your WBC and CRP. You received 1 liter of IV fluids, Zofran for nausea, and pain medication with tylenol/toradol/dilaudid. We discussed a CT scan and decided to defer it for now unless you develop further concerning features for which you should return to the emergency department (fever, worsening pain, vomiting). Please follow up with your PCP and GI within 2 - 3 days to discuss your recent emergency department visit and for re-evaluation. Prescriptions: No Action Entyvio 300 mg recon soln 300 mg IV Q8W Qty: 1 7RF Rx Instructions: administer 300mg IV at week 0, 2 and 6 and every 8 weeks thereafter administer over 30 mins colesevelam 625 mg tablet 1,250 mg PO BID Qty: 360 1RF omeprazole 40 mg capsule,delayed release(DR/EC) 40 mg PO DAILY Qty: 90 3RF colchicine 0.6 mg capsule 1.2 mg PO BID Qty: 360 1RF dicyclomine 10 mg capsule 10 mg PO QID PRN (Reason: for abdominal pain) Qty: 60 0RF ibuprofen 800 mg tablet 800 mg PO Q8H PRN (Reason: pain) Qty: 20 0RF ondansetron 4 mg tablet,disintegrating 4 mg PO Q8H PRN (Reason: nausea and vomiting) Qty: 7 0RF nitrofurantoin monohyd/m-cryst [Macrobid] 100 mg capsule 100 mg PO Q12H 5 Days Qty: 10 0RF Rx Instructions: must administer with a meal/food duloxetine 60 mg capsule,delayed release(DR/EC) 60 mg PO DAILY cholecalciferol (vitamin D3) 50 mcg (2,000 unit) capsule 50 mcg PO DAILY dicyclomine 10 mg capsule 10 mg PO BID Qty: 60 0RF levonorgestrel-ethinyl estrad 0.15 mg-30 mcg (91) tablets,dose pack,3 month 1 tab PO DAILY ondansetron 4 mg tablet,disintegrating 4 mg PO Q8H PRN (Reason: nausea and vomiting) Qty: 30 2RF
[2023-12-02 17:23] VITALS: BP 140/88; PULSE 116; RESP 18; TEMP 37.2; O2SAT 98; BMI 33.3
[2023-12-02 17:46] LABS: MANUAL DIFF FLAG NO
[2023-12-02] MEDS: Acetaminophen 325 MG TABLET 975 MG PO (17:47)
[2023-12-02] MEDS: 0.9 % Sodium Chloride 1,000 ML 999 ML IV (17:47)
[2023-12-02] MEDS: ondansetron HCL 4 MG/2 ML VIAL IVPUSH (17:48)
[2023-12-02] MEDS: HYDROmorphone HCl 0.5 MG/0.5 ML SYRINGE IVPUSH (17:50)
[2023-12-02] MEDS: Ketorolac Tromethamine 15 MG/ML VIAL IVPUSH (17:53)
[2023-12-02 17:55] LABS: Basophils Absolute Auto 0.1 X10*3/uL (0.0-0.2); Basophils Percent Auto 0.3 % (0-2); Eosinophils Absolute Auto 0.1 X10*3/uL (0.0-0.4); Eosinophils Percent Auto 0.5 % (0-4); Hematocrit 38.8 % (37.0-47.0); Hemoglobin 12.6 g/dl (12.0-16.0); Imm Gran Abs Auto 0.06 X10*3/uL (0.00-0.03); Imm Gran Pct Auto 0.3 % (0.0-0.4); Lymphocytes Absolute Auto 2.7 X10*3/uL (1.2-4.9); Mean Corpuscular HGB Conc 32.5 g/dl (31.0-35.0); Mean Corpuscular Hemoglobin 24.3 pg (27.0-33.0); Mean Corpuscular Volume 74.9 fL (80.0-98.0); Mean Platelet Volume 9.2 fL (9.4-12.3); Monocytes Absolute Auto 1.2 X10*3/uL (0.1-1.2); Monocytes Percent Auto 6.5 % (2-11); Neutrophils Absolute Auto 14.1 x10*3/uL (2.0-8.3); Neutrophils Percent Auto 77.4 % (45-73); Platelet Count 352 X10*3/uL (160-400); Red Blood Count 5.18 X10*6/uL (4.20-5.50); Red Cell Distribution Width 16.7 % (11.0-16.0); White Blood Count 18.2 X10*3/uL (4.8-10.8)
[2023-12-02 18:05] LABS: Potassium 4.1 mmol/L (3.3-5.1)
[2023-12-02 18:06] LABS: Alanine Aminotransferase 53 U/L (0-31); Albumin Level 3.7 g/dL (3.5-5.0); Alkaline Phosphatase 91 U/L (39-117); Anion Gap 13 (12-20); Aspartate Amino Transferase 39 U/L (5-31); Bilirubin Direct 0.1 mg/dL (0.0-0.5); Bilirubin Total 0.3 mg/dL (0.0-1.0); Blood Urea Nitrogen 9 mg/dL (9-16); C Reactive Protein 2.01 mg/dL (< or = 0.50); Calcium 8.8 mg/dL (8.4-10.2); Carbon Dioxide 22 mmol/L (22-29); Chloride 106 mmol/L (96-108); Estimated Glomerular Filt Rate > 60; Glucose Random 148 mg/dL (60-115); Lipase 19 U/L (8-78); Sodium 137 mmol/L (135-145)
[2023-12-02 18:09] LABS: HCG Quantitative < 2 mIU/mL
[2023-12-02 18:59] LABS: Erythrocyte Sedimentation Rate 12 MM/HR (0-20)
[2023-12-02 19:31] VITALS: BP 143/92; PULSE 105; RESP 16; TEMP 36.4; O2SAT 99
== END 2023-12-02 20:08 | disposition home or self-care (01) ==
PROVIDERS: Emergency Provider Emergency Medicine; PCP Internal Medicine
DX: R10.31 Right lower quadrant pain (principal); D72.829 Elevated white blood cell count, unspecified
CPT/HCPCS: 36415; 80048; 80076; 83690; 84702; 85025; 85652; 86140; 96374; 99284; J1170; J1885; J2405

== ENCOUNTER 2023-12-19 14:11 | Outpatient (REF) | payer OTHER, SELFPAY ==
[2023-12-19 14:28] LABS: MANUAL DIFF FLAG NO
[2023-12-19 15:40] LABS: Basophils Absolute Auto 0.1 X10*3/uL (0.0-0.2); Basophils Percent Auto 0.5 % (0-2); Eosinophils Absolute Auto 0.1 X10*3/uL (0.0-0.4); Eosinophils Percent Auto 1.3 % (0-4); Hematocrit 39.8 % (37.0-47.0); Hemoglobin 12.2 g/dl (12.0-16.0); Imm Gran Abs Auto 0.04 X10*3/uL (0.00-0.03); Imm Gran Pct Auto 0.4 % (0.0-0.4); Lymphocytes Absolute Auto 3.9 X10*3/uL (1.2-4.9); Lymphocytes Percent Auto 36.4 % (20-40); Mean Corpuscular HGB Conc 30.7 g/dl (31.0-35.0); Mean Corpuscular Hemoglobin 23.8 pg (27.0-33.0); Mean Corpuscular Volume 77.7 fL (80.0-98.0); Monocytes Absolute Auto 0.8 X10*3/uL (0.1-1.2); Monocytes Percent Auto 7.6 % (2-11); Neutrophils Absolute Auto 5.8 x10*3/uL (2.0-8.3); Neutrophils Percent Auto 53.8 % (45-73); Platelet Count 445 X10*3/uL (160-400); Red Blood Count 5.12 X10*6/uL (4.20-5.50); Red Cell Distribution Width 16.1 % (11.0-16.0); White Blood Count 10.8 X10*3/uL (4.8-10.8)
== END 2023-12-19 14:12 | disposition home or self-care (01) ==
LOC: HO.LAB 14:11
PROVIDERS: Internal Medicine Gastroenterology; PCP Internal Medicine; Visit Provider Student in an Organized Health Care Education/Training Program
DX: K50.90 Crohn's disease, unspecified, without complications (principal)
CPT/HCPCS: 36415; 85025; 86140

== ENCOUNTER 2023-12-20 08:56 | Outpatient (AMB) | payer OTHER, SELFPAY ==
--- NOTE | 2023-12-20 08:56 | A.OFFVIS_ITS ---
Intake Intake Visit Reasons: follow up Intake Note: Lizzette presents as a video call today. CC: Been to ED - wants to discuss possible pain management because she does not want to keep going to the ER. She states after her period she gets flare ups that end up being so severe she ends up in the ED. Residential Subcontractor Required: No Allergies latex [LATEX] Allergy (Severe, Verified 12/20/23 08:56) SWELLING/HIVES banana [BANANA] Allergy (Intermediate, Verified 12/20/23 08:56) ANAPHYLAXIS cefuroxime [From CEFTIN] Allergy (Intermediate, Verified 12/20/23 08:56) HIVES Sulfa (Sulfonamide Antibiotics) [SULFA (SULFONAMIDE ANTIBIOTICS)] Allergy (Intermediate, Verified 12/20/23 08:56) HIVES sulfacetamide Allergy (Intermediate, Verified 12/20/23 08:56) Hives HPI follow up HPI Details 23 yr old f here for f/u RECAP: Index visit? 01/2019 ? She has had nausea, diarrhea and vomiting for 1? month ? came on suddenly ? appetite poor ? non bloody? emesis, and nausea can be worse w/ any type of food ? she also has? epigastric pain, 8/10 in severity at it peak ? can go down into lower? abd as well ? diarrhea usu post prandial, no bloody stools ? weight is stable ? skin rash spots on leg which are itchy ? has been checked for c diff and neg per her ? not sexually? active ? started sertraline recently before sx started. ?she? has chronic back pain from injury, not so bad at this time ?appetite is? poor, no idea why, no taste or smell issues ?sx seems to be worse? 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 which has helped her abdominal cramps ?referred to rheum but no? autoimmune dx found ? she had further admsision to ED for abdominal pain she had spinal surgery 10/2021 after fall LABS: neg fecal calp, neg celiac, only pos was? persistent raised CRP , has been persistently? raised tick borne serologies neg nml bill elastase ? Other data: EGD/colonoscopy--05/13/19--essentially? normal ?cholecystectomy for symptomatic gallstones? 05/15/19 ?VCE--normal ?CT 10/2019- stable small LN, fatty? liver ?CTe--small umbilical hernia, otherwise nml, no LN seen GES: --abn 12% at 4 hrs She had a presentation to ED with severe abdominal pain, 07/12 and 07/[address] imaging whihc was neg for acute process, had CRP and WCC elevation as before, attack was also similar to prior attacks Based on this I ordered prophyria screen and sent her trial of colchicine ?INTERIM: she feels colchicine works really well, makes her 80% better, note worse around period time no diarrhea no loose stools feels her joints are better she feels she has had all the symptoms of FMF per her reading all her life, also her niece has the same sx as her she feels the entyvio had worked for a short while but wasn;t doing anything by the time it was stopped EXAM: GENERAL: The patient is relaxed, high bmi A/P: 1/ Episodic bouts of epigastric pain, po st prandial diarrhea and nausea, possible FMF, seems to be responding well to colchicine, niece has simialr symptoms --CRP still raised but can take time to come down 2/ Mild gastroparesis PLAN: 1/ recheck labs periodically german LFT and renal fn whilst on colchicine, genetic testing for FMF 2/ if ongoign sx then refer rheumatology for assessment and check for alternative dx [facility] Medical History GERD (gastroesophageal reflux disease) Depression OCD (obsessive compulsive disorder) Anxiety Costochondritis Vocal cord dysfunction Airway malacia Surgical History History of back surgery Hx of colonoscopy History of esophagogastroduodenoscopy (EGD) Previous back surgery H/O adenoidectomy History of tonsillectomy Assessment & Plan Assessment & Plan (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 Plan: A/P: 1/ Episodic bouts of epigastric pain, post prandial diarrhea and nausea, possible FMF, seems to be responding well to colchicine, niece has simialr symptoms --CRP still raised but can take time to come down 2/ Mild gastroparesis PLAN: 1/ recheck labs periodically german LFT and renal fn whilst on colchicine, genetic testing for FMF 2/ if ongoign sx then refer rheumatology for assessment Telehealth Telehealth Location of provider rendering services: practice address Location of patient: address on file Patient Identification confirmed using: Name, : Yes Telehealth method: video Patient verbally consented to treatment: Yes Patient verbally consented to billing insurance company: Yes Patient informed of any privacy concerns related to visit: Yes Minutes spent on Phone/Video with Pt.: 11 Coding Level of Care Code Tele Est Pt Level 3 (97373) Diagnoses Familial Mediterranean fever M04.1
== END 2023-12-20 10:40 | disposition home or self-care (01) ==
LOC: HO.HGI 08:56
PROVIDERS: PCP Internal Medicine; Visit Provider Internal Medicine Gastroenterology
DX: M04.1 Periodic fever syndromes (principal)
CPT/HCPCS: 99213

== ENCOUNTER → 2023-12-20 08:56 | Outpatient (BNVA) | payer OTHER, SELFPAY | PROVIDERS: PCP Internal Medicine; Visit Provider Internal Medicine Gastroenterology ==

== ENCOUNTER 2024-03-24 19:35 | Emergency (ER) | payer OTHER, SELFPAY ==
--- NOTE | ~2024-03-24 | CT_ITS ---
EXAMINATION: CT HEAD WITHOUT CONTRAST CLINICAL INFORMATION: Headache. COMPARISON: None available. TECHNIQUE: Contiguous axial imaging was performed from the skull base to vertex without intravenous administration of contrast. This CT examination was performed using dose optimization techniques as appropriate, variously including the following: *Automated exposure control *Adjustment of mA and/or kV according to patient size (this includes techniques or standardized protocols for targeted exams where dose is matched to indication/reason for exam; i.e. extremities or head) *Use of iterative reconstruction technique DLP: 597 mGy-cm FINDINGS: There is acute intra-axial, extra-axial bleed, masses or midline shift. There is no acute infarction in evolution. There is no edema. The lateral ventricles are symmetrical in size and configuration without enlargement. Bone windows reveal no calvarial abnormality. Bilateral paranasal sinuses and mastoid air cells are well-aerated. CT/CT head/brain wo IV con IMPRESSION: No acute intracranial process seen.
--- NOTE | 2024-03-24 19:38 | ECG_ITS ---
Test Reason : CHEST PAIN Blood Pressure : / mmHG Vent. Rate : 127 BPM Atrial Rate : 127 BPM P-R Int : 136 ms QRS Dur : 076 ms QT Int : 320 ms P-R-T Axes : 030 004 016 degrees QTc Int : 465 ms Sinus tachycardia Minimal voltage criteria for LVH, may be normal variant ( R in aVL ) Borderline ECG When compared with ECG of 12-JUL-2023 11:16, No significant change was found Referred By: Generic ED Physician Electronically Signed By:Lei Marcus
--- NOTE | 2024-03-24 20:22 | ED_ITS ---
HPI - General Adult General Chief complaint: General Medical Stated complaint: chest pain/sob/body hurts Time Seen by Provider: 03/25/24 02:41 Source: patient and family () Mode of arrival: ambulatory Limitations: no limitations History of Present Illness ED Provider: Dr. Timi Hernandez HPI narrative: 24-year-old female with a history of asthma, Crohn's disease, diarrhea, familial Mediterranean fever, costochondritis, asthma, bronchomalacia who presents emergency department for evaluation of headache, chest pain, cough, shortness of breath, myalgias and arthralgias. Patient states she had a dental procedure at 09:15 hours to her left lower jaw. Patient states she received Novocain for the 1st time. She states that approximately 1 hour after the procedure she developed headache, chest pain, cough, shortness of breath, myalgias, arthralgias and fatigue. Her symptoms persisted and she was concerned that she may have had a reaction to the Novocain so she came to the emergency department for evaluation. 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 She has been fully vaccinated against COVID-19 but has never had a blackfeet COVID-19 infection. Related Data Home Medications ?Medication ?Instructions ?Recorded ?Confirmed cholecalciferol (vitamin D3) 50 50 mcg PO DAILY 06/12/21 mcg (2,000 unit) capsule duloxetine 60 mg capsule,delayed 60 mg PO DAILY 06/12/21 release levonorgestrel 0.15 mg-ethinyl 1 tab PO DAILY 06/18/22 estradiol 30 mcg tablets,3 mos pack(91) Previous Rx's ?Medication ?Instructions ?Recorded ibuprofen 800 mg tablet 800 mg PO Q8H PRN pain #20 tabs 09/20/21 vedolizumab 300 mg intravenous 300 mg IV Q8W #1 ea 03/06/23 solution (Entyvio) colesevelam 625 mg tablet 1,250 mg (2 x 625 mg) PO BID #360 05/16/23 tabs omeprazole 40 mg capsule,delayed 40 mg PO DAILY #90 caps 06/17/23 release nitrofurantoin 100 mg PO Q12H 5 days #10 caps 07/12/23 monohydrate/macrocrystals 100 mg capsule (Macrobid) ondansetron 4 mg disintegrating 4 mg PO Q8H PRN nausea and 07/12/23 tablet vomiting #7 tabs colchicine 0.6 mg capsule 1.2 mg (2 x 0.6 mg) PO BID #360 08/13/23 caps dicyclomine 10 mg capsule 10 mg PO QID PRN for abdominal 01/07/24 pain #60 caps morphine 15 mg immediate release 15 mg PO Q6H PRN pain #10 tabs 03/25/24 tablet Allergies Allergy/AdvReac Type Severity Reaction Status Date / Time latex [LATEX] Allergy Severe SWELLING/HI Verified 03/24/24 20:26 VES banana [BANANA] Allergy Intermediate ANAPHYLAXIS Verified 03/24/24 20:26 cefuroxime [From CEFTIN] Allergy Intermediate HIVES Verified 03/24/24 20:26 Sulfa (Sulfonamide Allergy Intermediate HIVES Verified 03/24/24 20:26 Antibiotics) [SULFA (SULFONAMIDE ANTIBIOTICS)] sulfacetamide Allergy Intermediate Hives Verified 03/24/24 20:26 Review of Systems 2 Review of Systems: Yes all other systems are reviewed and are negative [facility] Past Medical History [facility] Narrative: Social history: She denies tobacco use. She occasionally drinks alcohol. She denies drug use. She is and her is here in the emergency department with her. Medical History GERD (gastroesophageal reflux disease) Depression OCD (obsessive compulsive disorder) Anxiety Costochondritis Vocal cord dysfunction Airway malacia Surgical History History of back surgery Hx of colonoscopy History of esophagogastroduodenoscopy (EGD) Previous back surgery H/O adenoidectomy History of tonsillectomy Social History Social History Advance Directives: No Advance Directives Information Provided: No Do you have a plan to hurt others: No Plan Physical Exam ED Vital Signs: Vital Signs - 24 hr 03/24/24 20:24 03/24/24 23:24 03/25/24 02:15 Temperature 99.1 F 98.3 F 99.8 F Pulse Rate 120 H 117 H 119 H Respiratory Rate 30 H 16 20 Blood Pressure 149/108 H 159/103 H 148/94 H Pulse Oximetry 100 97 97 Oxygen Delivery Method Room Air Room Air Room Air BMI result Body Mass Index 51.0 Vital signs revealed an elevated heart rate of 120, initially elevated respiratory rate of 30 but this improved to 16. O2 saturation was 100% on room air Exam: General: Awake, alert in no distress, elevated weight of 126.4 with a BMI of 51 kg per m2 Head: Normocephalic, atraumatic EENT: PERRL, Lids normal, sclera normal, conjunctiva normal, nose normal , ears normal, tympanic membranes were clear with no erythema, no loss of bony landmarks, throat without erythema or exudates Neck: Supple, no adenopathy Lung: breath sounds symmetric, no wheezing, rales or rhonchi Chest: symmetric movement, nontender Heart: regular rate and rhythm, normal S1, S2 no murmurs or rubs Abdomen: soft, non-tender, nondistended, normal bowel sounds Back: no vertebral tenderness, no CVAT Extremities: no deformities, moves all extremities symmetrically Neuro: Awake, alert, oriented, normal speech, cranial nerves intact, moves all extremities symmetrically Psych: Pleasant, cooperative Course Course Course Narrative: RME, this is a rapid medical exam performed by Laurent Jeffers please refer to primary provider for complete H&P- 24 year old female presents for evaluation of a severe headache and pain all over after having a dental procedure this morning. Her chief complaint is her headache. She complains of dizziness and feeling weak. She is tachycardic to about [address] Plan for [address] brain, viral swabs. We will treat with Fioricet in the meantime. Medications Administered Discontinued Medications Generic Name Dose Route Start Last Admin Trade Name Freq PRN Reason Stop Dose Admin Acetaminophen 975 mg 03/25/24 01:14 03/25/24 01:29 Acetaminophen 325 Mg Tablet PO 03/25/24 01:15 975 mg ONCE ONE Administration Acetaminophen/Butalbital/Caffeine 1 tab 03/24/24 20:30 03/24/24 20:33 Butalb/Acetamin/Caff 50/325/40 Tablet PO 03/24/24 20:31 1 tab ONCE ONE Administration Medical Decision Making Medical Decision Making [facility] Narrative: 24-year-old female with a history of asthma, Crohn's disease, diarrhea, familial Mediterranean fever, costochondritis, asthma, bronchomalacia who presents emergency department for evaluation of headache, chest pain, cough, shortness of breath, myalgias and arthralgias which began 1 hour after she received Novocain at the dentist office (10:15 hours). Vital signs did reveal elevated heart rate and elevated respiratory rate otherwise unremarkable. Physical examination was unremarkable. Differential diagnosis: ?Includes but is not limited to myocardial infarction, myocardial ischemia, migraine headache, intracranial bleed, viral infection, COVID-19, RSV, influenza, anemia, electrolyte abnormality Following evaluation was ordered: CBC, CMP, lipase, PT/INR, troponin, quantitative beta-hCG, COVID-19, influenza, RSV, rapid strep urinalysis Patient was initially treated with the following: Acetaminophen 975 mg orally, Fioricet 1 tablet orally, morphine 50 mg orally. The patient requests colchicine 1.2 mg orally for her familial Mediterranean fever which she takes on a regular basis. Course: 03:22 My interpretation patient's laboratory evaluation as follows: CBC was normal. CMP was normal except for an elevated AST and ALT of 7066 which is chronic. Troponin was below detectable limits. Influenza, RSV and rapid strep were negative. COVID-19 was positive. Urinalysis was positive for leukocyte esterase. Microscopic revealed 0-2 RBCs, 6-10 WBCs, 3-5 squamous cells, 1+ bacteria-the patient was asymptomatic this is most likely a non clean catch specimen. Patient's 12 EKG did reveal a tachycardia otherwise was unremarkable. CT scan of the brain was also negative. Patient's symptoms are consistent with her COVID-19 infection. Patient was advised to take Tylenol and ibuprofen for pain and for pain not relieved by these medications she was prescribed morphine 15 mg every 6 hours as needed for pain dispense 10. Patient was also given a work note for 5 days. She was given printed and verbal instructions and discharged home. Admission/Observation Consideration of admission/observation: Escalation of care including admission/observation considered Lab Data [facility] Lab Attestation statement: I reviewed the patient's lab results. 03/24/24 20:46 03/24/24 20:46 Labs: Lab Results 03/24/24 03/25/24 Range/Units 20:46 00:25 WBC 6.8 (4.8-10.8) X10*3/uL RBC 5.46 (4.20-5.50) X10*6/uL Hgb 12.8 (12.0-16.0) g/dl Hct 39.9 (37.0-47.0) % MCV 73.1 L (80.0-98.0) fL MCH 23.4 L (27.0-33.0) pg MCHC 32.1 (31.0-35.0) g/dl RDW 16.2 H (11.0-16.0) % Plt Count 370 (160-400) X10*3/uL MPV 8.4 L (9.4-12.3) fL Immature Gran % (Auto) 0.7 H (0.0-0.4) % Neut % (Auto) 78.5 H (45-73) % Lymph % (Auto) 9.9 L (20-40) % [place] % (Auto) 9.1 (2-11) % Eos % (Auto) 1.2 (0-4) % Baso % (Auto) 0.6 (0-2) % Lymph # (Auto) 0.7 L (1.2-4.9) X10*3/uL [place] # (Auto) 0.6 (0.1-1.2) X10*3/uL Eos # (Auto) 0.1 (0.0-0.4) X10*3/uL Baso # (Auto) 0.0 (0.0-0.2) X10*3/uL Abs Immat Gran (auto) 0.05 H (0.00-0.03) X10*3/uL Absolute Neuts (auto) 5.3 (2.0-8.3) x10*3/uL Absolute Nucleated RBC 0.000 (0.0-0.012) X10*3/uL Nucleated RBC % (auto) 0.0 (0.0-0.2) /100WBC PT 12.1 (11.1-13.3) SEC INR 1.0 (0.9-1.1) Sodium 137 (135-145) mmol/L Potassium 3.9 (3.3-5.1) mmol/L Chloride 103 (96-108) mmol/L Carbon Dioxide 24 (22-29) mmol/L Anion Gap 14 (12-20) BUN 8 L (9-16) mg/dL Creatinine 0.72 (0.5-1.4) mg/dL Estim Creat Clear Calc 152.0 Estimated GFR > 60 Random Glucose 107 (60-115) mg/dL Calcium 9.8 D (8.4-10.2) mg/dL Total Bilirubin 0.5 (0.0-1.0) mg/dL AST 70 H (5-31) U/L ALT 66 H (0-31) U/L Alkaline Phosphatase 106 (39-117) U/L Troponin I High Sens < 2.7 (<3.5-17.0) ng/L Total Protein 7.5 (6.5-8.0) g/dL Albumin 4.1 (3.5-5.0) g/dL Lipase 12 (8-78) U/L Beta HCG, Quant < 2 mIU/mL Urine Color Dark Yellow Urine Appearance Clear Urine pH 6.0 (5.0-9.0) Ur Specific [place] 1.025 (1.005-1.025) Urine Protein Negative (Neg-Trace) mg/dL Urine Glucose (UA) Negative (Negative) mg/dL Urine Ketones 40 (Negative) mg/dL Urine Blood Negative (Negative) Urine Nitrite Negative (Negative) Ur Leukocyte Esterase Moderate (2+) H (Negative) Urine RBC 0-2 (0-2) /HPF Urine WBC 6-10 H (0-5) /HPF Ur Squamous Epith Cells 3-5 (0-2) /HPF Urine Bacteria 1+ (None Seen) Hyaline Casts 0-2 (0-2) /LPF Influenza Type A (PCR) NEGATIVE (Negative) Influenza Type B (PCR) NEGATIVE (Negative) RSV RNA Qual (PCR) NEGATIVE (Negative) SARS-CoV-2 RNA (RT-PCR) POSITIVE A (Negative) S. pyogenes GrpA [place] Negative (Negative) Independent Interpretation I performed an independent interpretation of an: EKG Interpretation: My interpretation patient's 12 EKG done at 19:36 hours is as follows: Sinus tachycardia with a rate of 127, normal SD interval, QRS duration QTC interval, no ST segment elevation, no ST segment depression,, no PACs, no PVCs, no T-wave abnormalities Radiology Impression Discussion of test interpretation with radiology: I have reviewed the radiologist's reading. Radiologist Impression: CT head/brain wo IV con IMPRESSION: No acute intracranial process seen. Dictated By: Osmar Brooks MD Chronic Conditions Patient?s care impacted by: Other (Crohn's disease, familial Mediterranean fever) Discharge Plan Discharge Clinical Impression: COVID-19 virus infection, Headache, Myalgia Patient Disposition: Home, Self-Care Instructions: COVID-19 (Coronavirus Disease 2019) (ED) Additional Instructions: Your blood work was unremarkable. Your COVID-19 test was positive The CT scan of your brain was normal. Your EKG was unremarkable except for fast heart rate. Your symptoms are related to the COVID-19 infection Take ibuprofen 200 mg pills, 2 pills every 6 hours as needed for pain. Take Tylenol (acetaminophen) 2 pills every 6 hours as needed for pain. For pain not relieved by ibuprofen or Tylenol take morphine 15 mg pills, 1 pill every 6 hours as needed for pain. This medication will make you sleepy, do not drive or work while taking this medication. Morphine is a narcotic medication and can be addicting. If you are concerned about addiction you can ask the pharmacist for less pills or do not get this prescription filled. Continue taking your other medications as prescribed by your providers Follow-up with your doctor in 2 days. Please return to the emergency department if your symptoms get worse or if you develop any symptoms that are concerning to you. Please see the work note Prescriptions: New morphine 15 mg tablet 15 mg PO Q6H PRN (Reason: pain) Qty: 10 0RF Rx Instructions: The patient may ask for partial fill; Partial Fill upon patient request. No Action Entyvio 300 mg recon soln 300 mg IV Q8W Qty: 1 7RF Rx Instructions: administer 300mg IV at week 0, 2 and 6 and every 8 weeks thereafter administer over 30 mins colesevelam 625 mg tablet 1,250 mg PO BID Qty: 360 1RF omeprazole 40 mg capsule,delayed release(DR/EC) 40 mg PO DAILY Qty: 90 3RF colchicine 0.6 mg capsule 1.2 mg PO BID Qty: 360 1RF dicyclomine 10 mg capsule 10 mg PO QID PRN (Reason: for abdominal pain) Qty: 60 0RF ibuprofen 800 mg tablet 800 mg PO Q8H PRN (Reason: pain) Qty: 20 0RF ondansetron 4 mg tablet,disintegrating 4 mg PO Q8H PRN (Reason: nausea and vomiting) Qty: 7 0RF nitrofurantoin monohyd/m-cryst [Macrobid] 100 mg capsule 100 mg PO Q12H 5 Days Qty: 10 0RF Rx Instructions: must administer with a meal/food duloxetine 60 mg capsule,delayed release(DR/EC) 60 mg PO DAILY cholecalciferol (vitamin D3) 50 mcg (2,000 unit) capsule 50 mcg PO DAILY levonorgestrel-ethinyl estrad 0.15 mg-30 mcg (91) tablets,dose pack,3 month 1 tab PO DAILY Stand Alone Forms: Work/School Release Print Language: Serbian
[2024-03-24 20:24] VITALS: BP 149/108; PULSE 120; RESP 30; TEMP 37.3; O2SAT 100; BMI 51.0
[2024-03-24] MEDS: Butalb/Acetamin/Caff 50/325/40 TABLET 1 TAB PO (20:33)
[2024-03-24 20:51] LABS: MANUAL DIFF FLAG NO
[2024-03-24 20:52] LABS: Basophils Percent Auto 0.6 % (0-2); Eosinophils Absolute Auto 0.1 X10*3/uL (0.0-0.4); Eosinophils Percent Auto 1.2 % (0-4); Hematocrit 39.9 % (37.0-47.0); Hemoglobin 12.8 g/dl (12.0-16.0); Imm Gran Abs Auto 0.05 X10*3/uL (0.00-0.03); Imm Gran Pct Auto 0.7 % (0.0-0.4); Lymphocytes Absolute Auto 0.7 X10*3/uL (1.2-4.9); Lymphocytes Percent Auto 9.9 % (20-40); Mean Corpuscular HGB Conc 32.1 g/dl (31.0-35.0); Mean Corpuscular Hemoglobin 23.4 pg (27.0-33.0); Mean Corpuscular Volume 73.1 fL (80.0-98.0); Mean Platelet Volume 8.4 fL (9.4-12.3); Monocytes Absolute Auto 0.6 X10*3/uL (0.1-1.2); Monocytes Percent Auto 9.1 % (2-11); Neutrophils Absolute Auto 5.3 x10*3/uL (2.0-8.3); Neutrophils Percent Auto 78.5 % (45-73); Platelet Count 370 X10*3/uL (160-400); Red Blood Count 5.46 X10*6/uL (4.20-5.50); Red Cell Distribution Width 16.2 % (11.0-16.0); White Blood Count 6.8 X10*3/uL (4.8-10.8)
[2024-03-24 21:02] LABS: IDNOW Serial# 58CA691E; Strep A Nucleic Acid Negative (Negative)
[2024-03-24 21:04] LABS: Prothrombin Time 12.1 SEC (11.1-13.3)
[2024-03-24 21:06] LABS: Alanine Aminotransferase 66 U/L (0-31); Albumin Level 4.1 g/dL (3.5-5.0); Alkaline Phosphatase 106 U/L (39-117); Anion Gap 14 (12-20); Aspartate Amino Transferase 70 U/L (5-31); Bilirubin Total 0.5 mg/dL (0.0-1.0); Blood Urea Nitrogen 8 mg/dL (9-16); Calcium 9.8 mg/dL (8.4-10.2); Carbon Dioxide 24 mmol/L (22-29); Chloride 103 mmol/L (96-108); Estimated Glomerular Filt Rate > 60; Glucose Random 107 mg/dL (60-115); Lipase 12 U/L (8-78); Potassium 3.9 mmol/L (3.3-5.1); Sodium 137 mmol/L (135-145); Total Protein 7.5 g/dL (6.5-8.0)
[2024-03-24 21:18] LABS: HCG Quantitative < 2 mIU/mL; Troponin-I High Sensitivity < 2.7 ng/L (<3.5-17.0)
[2024-03-24 21:29] LABS: Influenza A PCR NEGATIVE (Negative); Influenza B PCR NEGATIVE (Negative); Resp Syncy Virus RNA Qual PCR NEGATIVE (Negative); SARS COV2 PCR INHOUSE POSITIVE (Negative)
[2024-03-24 23:24] VITALS: BP 159/103; PULSE 117; RESP 16; TEMP 36.8; O2SAT 97
[2024-03-25 00:34] LABS: Appearance Urine Clear; Color Urine Dark Yellow; Glucose Urine UA Negative (Negative); Leukocyte Esterase Urine Moderate (2+) (Negative); Nitrite Urine Negative (Negative); Specific Gravity - Urine 1.025 (1.005-1.025); UMIC TRIGGER UACC YES; Urine Blood Negative (Negative); Urine Ketones 40 mg/dL (Negative); Urine Protein Negative (Neg-Trace)
[2024-03-25 00:36] LABS: Bacteria Urine 1+ (None Seen); Hyaline Casts Urine 0-2 /LPF (0-2); RBC Urine 0-2 /HPF (0-2); UACC Culture Trigger YES
[2024-03-25] MEDS: Acetaminophen 325 MG TABLET 975 MG PO (01:29)
--- NOTE | 2024-03-25 01:45 | PC.NURSE ---
provider is aware of pt pain level and the order is still tylenol po.
[2024-03-25 02:15] VITALS: BP 148/94; PULSE 119; RESP 20; TEMP 37.7; O2SAT 97
[2024-03-25] MEDS: Morphine Sulfate Immed Release 15 MG TABLET PO (03:25)
[2024-03-25] MEDS: Colchicine 0.6 MG TABLET 1.2 MG PO (03:31)
[2024-03-25 03:35] VITALS: BP 148/94; PULSE 119; RESP 20; TEMP 37.7
== END 2024-03-25 03:39 | disposition home or self-care (01) ==
PROVIDERS: Physician Assistant; Emergency Provider Emergency Medicine Emergency Medical Services; PCP Internal Medicine
DX: U07.1 COVID-19 (principal); R51.9 Headache, unspecified; M79.10 Myalgia, unspecified site; R07.9 Chest pain, unspecified; R05.9 Cough, unspecified; R06.02 Shortness of breath; M25.50 Pain in unspecified joint; R53.83 Other fatigue
CPT/HCPCS: 0241U; 36415; 70450; 80053; 81001; 83690; 84484; 84702; 85025; 85610; 87086; 87651; 93005; 99284

== ENCOUNTER → 2024-03-24 19:38 | Outpatient (BNV) | payer OTHER, SELFPAY | PROVIDERS: Emergency Provider Emergency Medicine Emergency Medical Services; PCP Internal Medicine; Visit Provider Internal Medicine Cardiovascular Disease | DX: R07.9 Chest pain, unspecified (principal); R00.0 Tachycardia, unspecified; R94.31 Abnormal electrocardiogram [ECG] [EKG] | CPT/HCPCS: 93010 ==

== ENCOUNTER 2024-10-17 14:50 | Emergency (ER) | payer OTHER, SELFPAY ==
--- NOTE | ~2024-10-17 | CT_ITS ---
CLINICAL HISTORY: diffuse abd pain and tender CT abdomen and pelvis with contrast Comparison: CT - CT ABDOMEN PELVIS W IV CON - 10/17/24 19:[address]/SR - CT ABDOMEN PELVIS W IV CON - 07/14/23 20:13 EDT Findings: No consolidation or effusion. Cholecystectomy clips are present. Liver is enlarged and demonstrates diffusely decreased density without focal mass. No bowel obstruction, pneumoperitoneum, or pneumatosis. Pelvic contents unremarkable. Normal appendix. The bones are intact. IMPRESSION: 1. No acute process. 2. Hepatic steatosis. This document has been electronically signed by: Joel Delgadillo MD on 10/17/2024 19:42:55
[2024-10-17 15:27] VITALS: BP 167/105; PULSE 111; RESP 19; TEMP 36.6; O2SAT 98; BMI 49.0
--- NOTE | 2024-10-17 15:28 | ED.ABDPAIN ---
HPI - Abdominal Pain General Chief Complaint: Abdominal Pain Stated Complaint: abd pain Time Seen by Provider: 10/17/24 16:06 History of Present Illness ED Provider: Donn Joseph MD HPI narrative: [age] female with history of Crohn's disease, MFM on colchicine with abdominal pain and malaise subjective fever for 1-2 days. No sick contacts no recent antibiotics. Denies urinary symptoms. No head trauma Related Data Home Medications ?Medication ?Instructions ?Recorded ?Confirmed cholecalciferol (vitamin D3) 50 50 mcg PO DAILY 06/12/21 mcg (2,000 unit) capsule duloxetine 60 mg capsule,delayed 60 mg PO DAILY 06/12/21 release levonorgestrel 0.15 mg-ethinyl 1 tab PO DAILY 06/18/22 estradiol 30 mcg tablets,3 mos pack(91) Previous Rx's ?Medication ?Instructions ?Recorded ibuprofen 800 mg tablet 800 mg PO Q8H PRN pain #20 tabs 09/20/21 vedolizumab 300 mg intravenous 300 mg IV Q8W #1 ea 03/06/23 solution (Entyvio) nitrofurantoin 100 mg PO Q12H 5 days #10 caps 07/12/23 monohydrate/macrocrystals 100 mg capsule (Macrobid) dicyclomine 10 mg capsule 10 mg PO QID PRN for abdominal 01/07/24 pain #60 caps morphine 15 mg immediate release 15 mg PO Q6H PRN pain #10 tabs 03/25/24 tablet colesevelam 625 mg tablet 1,250 mg (2 x 625 mg) PO BID #360 08/25/24 tabs ondansetron 4 mg disintegrating 4 mg PO Q8H PRN nausea and 09/11/24 tablet vomiting #30 tabs colchicine 0.6 mg capsule 1.2 mg (2 x 0.6 mg) PO BID #360 09/28/24 caps omeprazole 40 mg capsule,delayed 40 mg PO DAILY #90 caps 10/15/24 release Allergies Allergy/AdvReac Type Severity Reaction Status Date / Time latex [LATEX] Allergy Severe SWELLING/HI Verified 10/17/24 15:28 VES banana [BANANA] Allergy Intermediate ANAPHYLAXIS Verified 10/17/24 15:28 cefuroxime [From CEFTIN] Allergy Intermediate HIVES Verified 10/17/24 15:28 Sulfa (Sulfonamide Allergy Intermediate HIVES Verified 10/17/24 15:28 Antibiotics) [SULFA (SULFONAMIDE ANTIBIOTICS)] sulfacetamide Allergy Intermediate Hives Verified 10/17/24 15:28 PMFSH Past Medical History Medical History GERD (gastroesophageal reflux disease) Depression OCD (obsessive compulsive disorder) Anxiety Costochondritis Vocal cord dysfunction Airway malacia Surgical History History of back surgery Hx of colonoscopy History of esophagogastroduodenoscopy (EGD) Previous back surgery H/O adenoidectomy History of tonsillectomy Physical Exam ED Vital Signs: Vital Signs - 24 hr 10/17/24 15:27 10/17/24 18:33 10/17/24 19:00 Temperature 98 F 98.2 F Pulse Rate 111 H 109 H Respiratory Rate 19 13 18 Blood Pressure 167/105 H 150/111 H Pulse Oximetry 98 97 Oxygen Delivery Method Room Air Room Air 10/17/24 21:12 10/17/24 21:14 Temperature 98.9 F 98.9 F Pulse Rate 98 98 Respiratory Rate 20 20 Blood Pressure 148/90 H 148/90 H Pulse Oximetry 100 100 Oxygen Delivery Method Room Air Room Air BMI result Body Mass Index 49.0 Const Other: EXAM: Gen: Alert, awake, well appearing, well hydrated. Head: Atraumatic Eyes: Anicteric, Normal conjunctiva. ENT: Moist mucosa, no pallor. Neck: Supple. Respiratory: Breathing comfortably, No distress.Clear to auscultation bilaterally, symmetric chest expansion, No wheeze, rales, ronchi. Cardiovascular: Regular rate and rhythm. No murmurs or rub. Well perfused periphery, warm extremities. No edema. Abdominal: Soft, no objective distension. No palpable masses or obvious organomegaly. obese, mild diffuse tenderness, no guarding, no rebound tenderness or other peritoneal findings. : No flank tenderness. Neuro: Alert. Gross movement of all extremities intact. Vital signs: See flowsheet Course Course Course Narrative: This is a Rapid Medical Exam performed in triage by Teresa Rodriguez PA-C. Full HPI, ROS and PE to be performed by primary ED provider. 24 yo F w/pmhx GERD, OCD, anxiety, presenting to the ED c/o lower abd pain w/N/V x yesterday. 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 She is afebrile she looks unwell but not ill or toxic. Her lab work is reassuring given her limited abdominal exam given habitus and vomiting and underlying MFM and colchicine use I will scan the abdomen. Lab Data [facility] Lab Attestation statement: I reviewed the patient's lab results. 10/17/24 16:05 10/17/24 16:05 Labs: Lab Results 10/17/24 10/17/24 Range/Units 16:04 16:05 WBC 10.8 (4.8-10.8) X10*3/uL RBC 5.70 H (4.20-5.50) X10*6/uL Hgb 13.3 (12.0-16.0) g/dl Hct 41.2 (37.0-47.0) % MCV 72.3 L (80.0-98.0) fL MCH 23.3 L (27.0-33.0) pg MCHC 32.3 (31.0-35.0) g/dl RDW 16.1 H (11.0-16.0) % Plt Count 496 H D (160-400) X10*3/uL MPV 8.9 L (9.4-12.3) fL Immature Gran % (Auto) 0.4 (0.0-0.4) % Neut % (Auto) 58.4 (45-73) % Lymph % (Auto) 32.7 (20-40) % [place]eadle % (Auto) 6.7 (2-11) % Eos % (Auto) 1.3 (0-4) % Baso % (Auto) 0.5 (0-2) % Lymph # (Auto) 3.5 (1.2-4.9) X10*3/uL [place] # (Auto) 0.7 (0.1-1.2) X10*3/uL Eos # (Auto) 0.1 (0.0-0.4) X10*3/uL Baso # (Auto) 0.1 (0.0-0.2) X10*3/uL Abs Immat Gran (auto) 0.04 H (0.00-0.03) X10*3/uL Absolute Neuts (auto) 6.3 (2.0-8.3) x10*3/uL Absolute Nucleated RBC 0.000 (0.0-0.012) X10*3/uL Nucleated RBC % (auto) 0.0 (0.0-0.2) /100WBC Sodium 138 (135-145) mmol/L Potassium 3.7 (3.3-5.1) mmol/L Chloride 107 (96-108) mmol/L Carbon Dioxide 22 (22-29) mmol/L Anion Gap 13 (12-20) BUN 10 (9-16) mg/dL Creatinine 0.63 (0.5-1.4) mg/dL Estim Creat Clear Calc 169.5 Estimated GFR > 60 Random Glucose 127 H (60-115) mg/dL Calcium 9.5 (8.4-10.2) mg/dL Magnesium 2.0 (1.6-2.6) mg/dL Total Bilirubin 0.3 (0.0-1.0) mg/dL Direct Bilirubin 0.1 (0.0-0.5) mg/dL AST 42 H (5-31) U/L ALT 39 H (0-31) U/L Alkaline Phosphatase 102 (39-117) U/L Total Protein 7.9 (6.5-8.0) g/dL Albumin 4.1 (3.5-5.0) g/dL Lipase 19 (8-78) U/L Urine Color Yellow Urine Appearance Cloudy Urine pH 5.5 (5.0-9.0) Ur Specific [place] 1.020 (1.005-1.025) Urine Protein Negative (Neg-Trace) mg/dL Urine Glucose (UA) Negative (Negative) mg/dL Urine Ketones Negative (Negative) mg/dL Urine Blood Moderate (2+) H (Negative) Urine Nitrite Negative (Negative) Ur Leukocyte Esterase Small (1+) H (Negative) Urine RBC 0-2 (0-2) /HPF Urine WBC 6-10 H (0-5) /HPF Ur Squamous Epith Cells 3-5 (0-2) /HPF Urine Bacteria Trace (None Seen) Hyaline Casts 0-2 (0-2) /LPF Urine Test NEGATIVE (NEGATIVE) Medications Administered Discontinued Medications Generic Name Dose Route Start Last Admin Trade Name Alessandro PRN Reason Stop Dose Admin Sodium Chloride 1,000 mls @ 999 mls/hr 10/17/24 19:00 10/17/24 21:11 Ns IV 10/17/24 20:00 Infused .Q1H1M DULCE MARIA Infusion Iohexol 100 ml 10/17/24 19:14 10/17/24 19:15 Iohexol 350 Mg/Ml 100 Ml Infus..Btl IV 10/17/24 19:15 100 ml ONCE ONE Administration Morphine Sulfate 6 mg 10/17/24 18:49 10/17/24 19:00 Morphine Sulfate 10 Mg/Ml Cartridge IVPUSH 10/17/24 18:50 6 mg ONCE ONE Administration Protocol Ondansetron HCl 4 mg 10/17/24 18:49 10/17/24 19:00 Ondansetron Hcl 4 Mg/2 Ml Vial IVPUSH 10/17/24 18:50 4 mg ONCE ONE Administration Discharge Plan Discharge Clinical Impression: Abdominal pain Patient Disposition: Home, Self-Care Instructions: Abdominal Pain (ED) Additional Instructions: DISCHARGE DIAGNOSES: abdominal pain, nausea unclear cause HISTORY OF PRESENTATION: nausea, abdominal pain 1-2 days EMERGENCY DEPARTMENT COURSE,TESTS, TREATMENTS: While in the ED today you have received intravenous fluid, intravenous analgesic medicine had lab work which was generally reassuring and a CT abdomen without any acute findings DISCHARGE MEDICATIONS: [We have made no changes to your regular medication regimen] FOLLOW-UP: Call your primary or general physician soon as possible to discuss your symptoms, your ED visit and to discuss follow up plans call your primary doctor follow up as soon as possible INSTRUCTIONS & RETURN PRECAUTIONS: If any symptoms change first call your primary physician, if it is after-hours your primary doctors office should have a provider ground nuclear weapons assembly officer you can speak with. If the symptoms are severe or very concerning to you then call 911 or return to the ED. return for severe worsening symptoms intractable vomiting persistent high fevers blood in the stool or vomit or any other symptoms as we discussed Donn Joseph MD Emergency Physician [facility] Prescriptions: No Action Entyvio 300 mg recon soln 300 mg IV Q8W Qty: 1 7RF Rx Instructions: administer 300mg IV at week 0, 2 and 6 and every 8 weeks thereafter administer over 30 mins dicyclomine 10 mg capsule 10 mg PO QID PRN (Reason: for abdominal pain) Qty: 60 0RF colesevelam 625 mg tablet 1,250 mg PO BID Qty: 360 0RF ondansetron 4 mg tablet,disintegrating 4 mg PO Q8H PRN (Reason: nausea and vomiting) Qty: 30 0RF colchicine 0.6 mg capsule 1.2 mg PO BID Qty: 360 0RF omeprazole 40 mg capsule,delayed release(DR/EC) 40 mg PO DAILY Qty: 90 2RF ibuprofen 800 mg tablet 800 mg PO Q8H PRN (Reason: pain) Qty: 20 0RF nitrofurantoin monohyd/m-cryst [Macrobid] 100 mg capsule 100 mg PO Q12H 5 Days Qty: 10 0RF Rx Instructions: must administer with a meal/food morphine 15 mg tablet 15 mg PO Q6H PRN (Reason: pain) Qty: 10 0RF Rx Instructions: The patient may ask for partial fill; Partial Fill upon patient request. duloxetine 60 mg capsule,delayed release(DR/EC) 60 mg PO DAILY cholecalciferol (vitamin D3) 50 mcg (2,000 unit) capsule 50 mcg PO DAILY levonorgestrel-ethinyl estrad 0.15 mg-30 mcg (91) tablets,dose pack,3 month 1 tab PO DAILY Stand Alone Forms: Work/School Release Interventions: ED Discharge Assessment Last Done: 10/17/24 21:14 Discharge Date/Time: 10/17/24 21:15 Print Language: Beninese
[2024-10-17 16:09] LABS: MANUAL DIFF FLAG NO
[2024-10-17 16:21] LABS: Basophils Absolute Auto 0.1 X10*3/uL (0.0-0.2); Basophils Percent Auto 0.5 % (0-2); Eosinophils Absolute Auto 0.1 X10*3/uL (0.0-0.4); Eosinophils Percent Auto 1.3 % (0-4); Hematocrit 41.2 % (37.0-47.0); Hemoglobin 13.3 g/dl (12.0-16.0); Imm Gran Abs Auto 0.04 X10*3/uL (0.00-0.03); Imm Gran Pct Auto 0.4 % (0.0-0.4); Lymphocytes Absolute Auto 3.5 X10*3/uL (1.2-4.9); Lymphocytes Percent Auto 32.7 % (20-40); Mean Corpuscular HGB Conc 32.3 g/dl (31.0-35.0); Mean Corpuscular Hemoglobin 23.3 pg (27.0-33.0); Mean Corpuscular Volume 72.3 fL (80.0-98.0); Mean Platelet Volume 8.9 fL (9.4-12.3); Monocytes Absolute Auto 0.7 X10*3/uL (0.1-1.2); Monocytes Percent Auto 6.7 % (2-11); Neutrophils Absolute Auto 6.3 x10*3/uL (2.0-8.3); Neutrophils Percent Auto 58.4 % (45-73); Platelet Count 496 X10*3/uL (160-400); Red Cell Distribution Width 16.1 % (11.0-16.0); White Blood Count 10.8 X10*3/uL (4.8-10.8)
[2024-10-17 16:22] LABS: Appearance Urine Cloudy; Color Urine Yellow; Glucose Urine UA Negative (Negative); Leukocyte Esterase Urine Small (1+) (Negative); Nitrite Urine Negative (Negative); PH 5.5 (5.0-9.0); UMIC TRIGGER UACC YES; Urine Blood Moderate (2+) (Negative); Urine Ketones Negative (Negative); Urine Protein Negative (Neg-Trace)
[2024-10-17 16:25] LABS: UPreg QC Valid YES; Urine Pregnancy NEGATIVE (NEGATIVE)
[2024-10-17 17:08] LABS: Alanine Aminotransferase 39 U/L (0-31); Albumin Level 4.1 g/dL (3.5-5.0); Alkaline Phosphatase 102 U/L (39-117); Anion Gap 13 (12-20); Aspartate Amino Transferase 42 U/L (5-31); Bilirubin Direct 0.1 mg/dL (0.0-0.5); Bilirubin Total 0.3 mg/dL (0.0-1.0); Blood Urea Nitrogen 10 mg/dL (9-16); Calcium 9.5 mg/dL (8.4-10.2); Carbon Dioxide 22 mmol/L (22-29); Chloride 107 mmol/L (96-108); Creatinine Clr Calc Pharmacy 169.5; Estimated Glomerular Filt Rate > 60; Glucose Random 127 mg/dL (60-115); Lipase 19 U/L (8-78); Potassium 3.7 mmol/L (3.3-5.1); Sodium 138 mmol/L (135-145); Total Protein 7.9 g/dL (6.5-8.0)
[2024-10-17 18:05] LABS: Bacteria Urine Trace (None Seen); Hyaline Casts Urine 0-2 /LPF (0-2); RBC Urine 0-2 /HPF (0-2); UACC Culture Trigger YES
[2024-10-17 18:33] VITALS: BP 150/111; PULSE 109; RESP 13; TEMP 36.8; O2SAT 97
[2024-10-17 19:00] VITALS: RESP 18
[2024-10-17] MEDS: Morphine Sulfate 10 MG/ML CARTRIDGE 6 MG IVPUSH (19:00)
[2024-10-17] MEDS: ondansetron HCL 4 MG/2 ML VIAL IVPUSH (19:00)
[2024-10-17] MEDS: 0.9 % Sodium Chloride 1,000 ML 999 ML IV (19:01)
--- NOTE | 2024-10-17 19:04 | PC.NURSE ---
this rn assumed care of pt, pt a&ox4, respirations even and unlabored. pt reporting 04/25 all over abdominal pain, pt medicated per nov. tegaderm on IV noted to be peeling, new tegaderm placed at this time, lights dimmed. iv fluids administering.
[2024-10-17] MEDS: iohexoL 350 MG/ML 100 ML INFUS..BTL IV (19:15)
--- NOTE | 2024-10-17 20:23 | PC.NURSE ---
pt ambulatory to bathroom with steady gait at this time, pt denies pain.
[2024-10-17 21:12] VITALS: BP 148/90; PULSE 98; RESP 20; TEMP 37.2; O2SAT 100
[2024-10-17 21:14] VITALS: BP 148/90; PULSE 98; RESP 20; TEMP 37.2; O2SAT 100
== END 2024-10-17 21:15 | disposition home or self-care (01) ==
PROVIDERS: Physician Assistant; Emergency Provider Emergency Medicine; PCP Nurse Practitioner Family
DX: R10.9 Unspecified abdominal pain (principal); R50.9 Fever, unspecified
CPT/HCPCS: 36415; 74177; 80048; 80076; 81001; 81025; 83690; 83735; 85025; 87086; 96361; 96374; 96375; 99284; 99285; J2270; J2405; Q9967

== ENCOUNTER → 2024-10-17 18:49 | Outpatient (BNV) | payer OTHER, SELFPAY | PROVIDERS: Emergency Provider Emergency Medicine; PCP Nurse Practitioner Family; Visit Provider Radiology Diagnostic Radiology | DX: K76.0 Fatty (change of) liver, not elsewhere classified (principal) | CPT/HCPCS: 74177 ==

== ENCOUNTER 2024-11-10 15:33 | Emergency (ER) | payer OTHER, SELFPAY ==
--- NOTE | ~2024-11-10 | US_ITS ---
CLINICAL HISTORY: abd pain; elevated LFT US abdomen limited Comparison: CT/SR - CT ABDOMEN PELVIS W IV CON - 10/17/24 19:11 EST Findings: Moderate hepatomegaly and severe hepatic steatosis noted. No focal hepatic mass demonstrated. No biliary ductal dilatation. Cholecystectomy. Right kidney normal. Pancreas obscured by bowel gas. IMPRESSION: Severe hepatic steatosis with hepatomegaly. This document has been electronically signed by: Jordon Ferrell MD on 11/10/2024 23:54:43
[2024-11-10 16:23] VITALS: BP 143/101; PULSE 106; RESP 18; TEMP 36.6; O2SAT 100; BMI 48.0
--- NOTE | 2024-11-10 16:27 | ED.GENADULT ---
HPI - General Adult General Chief complaint: Nausea/Vomiting/Diarrhea Stated complaint: Diarrhea Time Seen by Provider: 11/10/24 22:20 Source: patient Mode of arrival: ambulatory Limitations: no limitations History of Present Illness ED Provider: Anahi WALLACE narrative: 24-year-old female with past medical history of Crohn's disease, familial Mediterranean fever, liver lesions presents for nausea, vomiting and diarrhea. Patient has been experiencing symptoms for 3 days. She denies suspicious food intake. Prior to onset of symptoms her was sick with strep however she has no URI symptoms Or fever/chills. She does endorse poor p.o. intake and abdominal pain Related Data Home Medications ?Medication ?Instructions ?Recorded ?Confirmed cholecalciferol (vitamin D3) 50 50 mcg PO DAILY 06/12/21 11/10/24 mcg (2,000 unit) capsule duloxetine 60 mg capsule,delayed 60 mg PO DAILY 06/12/21 11/10/24 release levonorgestrel 0.15 mg-ethinyl 1 tab PO DAILY 06/18/22 11/10/24 estradiol 30 mcg tablets,3 mos pack(91) albuterol sulfate 90 mcg/actuation 2 puff inhalation Q4-6H PRN asthma 11/10/24 11/10/24 aerosol inhaler Previous Rx's ?Medication ?Instructions ?Recorded morphine 15 mg immediate release 15 mg PO Q6H PRN pain #10 tabs 03/25/24 tablet colesevelam 625 mg tablet 1,250 mg (2 x 625 mg) PO BID #360 08/25/24 tabs ondansetron 4 mg disintegrating 4 mg PO Q8H PRN nausea and 09/11/24 tablet vomiting #30 tabs colchicine 0.6 mg capsule 1.2 mg (2 x 0.6 mg) PO BID #360 09/28/24 caps omeprazole 40 mg capsule,delayed 40 mg PO DAILY #90 caps 10/15/24 release Allergies Allergy/AdvReac Type Severity Reaction Status Date / Time latex [LATEX] Allergy Severe SWELLING/HI Verified 11/10/24 16:26 VES banana [BANANA] Allergy Intermediate ANAPHYLAXIS Verified 11/10/24 16:26 cefuroxime [From CEFTIN] Allergy Intermediate HIVES Verified 11/10/24 16:26 Sulfa (Sulfonamide Allergy Intermediate HIVES Verified 02/25/25 16:26 Antibiotics) [SULFA (SULFONAMIDE ANTIBIOTICS)] sulfacetamide Allergy Intermediate Hives Verified 11/10/24 16:26 Review of Systems Review of Systems: nausea, vomiting, diarrhea, abdominal pain Yes all other systems are reviewed and are negative [facility] Past Medical History Attestation statement: The following information was validated with the patient. [facility] Narrative: Crohn's disease, familial Mediterranean fever Source: old records reviewed Medical History GERD (gastroesophageal reflux disease) Depression OCD (obsessive compulsive disorder) Anxiety Costochondritis Vocal cord dysfunction Airway malacia Surgical History History of back surgery Hx of colonoscopy History of esophagogastroduodenoscopy (EGD) Previous back surgery H/O adenoidectomy History of tonsillectomy Social History Social History Alcohol intake: never Smoked in Last 30 Days: No Use of substances other than those prescribed or required for medical reasons: No Advance Directives: No Advance Directives Information Provided: No Do you have a plan to hurt others: No Plan Patient : No Physical Exam ED Vital Signs: Vital Signs - 24 hr 11/10/24 16:23 11/10/24 20:59 11/10/24 23:37 Temperature 97.8 F 98.8 F 98.6 F Pulse Rate 106 H 96 98 Respiratory Rate 18 18 18 Blood Pressure 143/101 H 122/74 135/84 Pulse Oximetry 100 98 97 Oxygen Delivery Method Room Air Room Air Room Air BMI result Body Mass Index 48.0 Well-appearing female in no acute distress Alert and oriented x4; no focal neurologic deficits appreciated Lungs clear to auscultation bilaterally Normal S1-S2 regular rhythm Abdomen is soft nontender nondistended No CVA tenderness Course Course Course Narrative: This is a rapid medical exam performed by Rayray Castañeda NP: Additional HPI, ROS, PE not included below will be deferred to primary provider. Patient is a 24-year-old female presenting with complaint of nausea, vomiting and diarrhea since midnight on Saturday. Taking immodium and zofran. Referred to ED by GI. currently being treated for strep. Plan; strep and viral swabs, labs, ua Medications Administered Discontinued Medications Generic Name Dose Route Start Last Admin Trade Name Alessandro PRN Reason Stop Dose Admin Sodium Chloride 1,000 mls @ 999 mls/hr 11/10/24 22:30 11/10/24 23:34 Ns IV 11/10/24 23:30 999 mls/hr .Q1H1M DULCE MARIA Administration Ondansetron HCl 4 mg 11/10/24 23:57 11/11/24 00:04 Ondansetron Hcl 4 Mg/2 Ml Vial IVPUSH 11/10/24 23:58 4 mg ONCE ONE Administration Medical Decision Making Medical Decision Making MDM Narrative: 24-year-old female presenting for nausea, vomiting and diarrhea - I am concerned for gastroenteritis however I am also considering pancreatitis, biliary disease - labs and imaging studies ordered Labs and imaging interpretation: - no signs of ischemia on ecg - normal wbc, stable h&H, elevated LFT, negative hcg - negative viral swabs and strep - US --> Severe hepatic steatosis with hepatomegaly - UA appears contaminated On reassessment patient reports improvement of symptoms. She states she feels much better after IV fluids. I recommended she discontinue Imodium as if this is gastroenteritis the diarrhea will help clear her system. I gave her home care and followup instructions. Specifically repeating lfts in 48 hrs. I also have her return precautions. Lab Data 11/10/24 16:51 11/10/24 16:51 Labs: Lab Results 11/10/24 11/11/24 Range/Units 16:51 00:11 WBC 8.1 (4.8-10.8) X10*3/uL RBC 5.34 (4.20-5.50) X10*6/uL Hgb 12.5 (12.0-16.0) g/dl Hct 39.8 (37.0-47.0) % MCV 74.5 L (80.0-98.0) fL MCH 23.4 L (27.0-33.0) pg MCHC 31.4 (31.0-35.0) g/dl RDW 17.2 H (11.0-16.0) % Plt Count 379 (160-400) X10*3/uL MPV 8.5 L (9.4-12.3) fL Immature Gran % (Auto) 0.2 (0.0-0.4) % Neut % (Auto) 45.1 (45-73) % Lymph % (Auto) 42.4 H (20-40) % Mcdonald % (Auto) 10.5 (2-11) % Eos % (Auto) 1.4 (0-4) % Baso % (Auto) 0.4 (0-2) % Lymph # (Auto) 3.4 (1.2-4.9) X10*3/uL [place] # (Auto) 0.9 (0.1-1.2) X10*3/uL Eos # (Auto) 0.1 (0.0-0.4) X10*3/uL Baso # (Auto) 0.0 (0.0-0.2) X10*3/uL Abs Immat Gran (auto) 0.02 (0.00-0.03) X10*3/uL Absolute Neuts (auto) 3.6 (2.0-8.3) x10*3/uL Absolute Nucleated RBC 0.000 (0.0-0.012) X10*3/uL Nucleated RBC % (auto) 0.0 (0.0-0.2) /100WBC Sodium 141 (135-145) mmol/L Potassium 3.2 L (3.3-5.1) mmol/L Chloride 105 (96-108) mmol/L Carbon Dioxide 26 (22-29) mmol/L Anion Gap 13 (12-20) BUN 5 L (9-16) mg/dL Creatinine 0.61 (0.5-1.4) mg/dL Estim Creat Clear Calc 179.4 Estimated GFR > 60 Random Glucose 136 H (60-115) mg/dL Calcium 9.2 (8.4-10.2) mg/dL Phosphorus 2.9 (2.7-4.5) mg/dL Magnesium 2.0 (1.6-2.6) mg/dL Total Bilirubin 0.4 (0.0-1.0) mg/dL AST 101 H (5-31) U/L ALT 105 H (0-31) U/L Alkaline Phosphatase 157 H (39-117) U/L Total Protein 7.6 (6.5-8.0) g/dL Albumin 3.8 (3.5-5.0) g/dL Lipase 24 (8-78) U/L Beta HCG, Quant < 2 mIU/mL Urine Color Dark Yellow Urine Appearance Cloudy Urine pH 6.0 (5.0-9.0) Ur Specific [place] 1.025 (1.005-1.025) Urine Protein 30 (1+) H (Neg-Trace) mg/dL Urine Glucose (UA) Negative (Negative) mg/dL Urine Ketones Trace (Negative) mg/dL Urine Blood Negative (Negative) Urine Nitrite Negative (Negative) Ur Leukocyte Esterase Moderate (2+) H (Negative) Urine RBC 0-2 (0-2) /HPF Urine WBC 11-20 (0-5) /HPF Ur Squamous Epith Cells 6-10 (0-2) /HPF Urine Bacteria 3+ (None Seen) Hyaline Casts 0-2 (0-2) /LPF Influenza Type A (PCR) NEGATIVE (Negative) Influenza Type B (PCR) NEGATIVE (Negative) RSV RNA Qual (PCR) NEGATIVE (Negative) SARS-CoV-2 RNA (RT-PCR) NEGATIVE (Negative) S. pyogenes GrpA CLIFFORD Negative (Negative) Discharge Plan Discharge Clinical Impression: Diarrhea Qualifiers: Diarrhea type: presumed infectious Qualified Code(s): R19.7 - Diarrhea, unspecified Nausea & vomiting Qualifiers: Vomiting type: unspecified Qualified Code(s): R11.2 - Nausea with vomiting, unspecified Patient Disposition: Home, Self-Care Instructions: Gastroenteritis (DC) Additional Instructions: Please ensure that you remain well hydrated. Please follow up with your PCP and/or coil assembler for repeat lab work in 24-48 hours. If you develop any new or worsening symptoms please return to emergency department Prescriptions: No Action colesevelam 625 mg tablet 1,250 mg PO BID Qty: 360 0RF ondansetron 4 mg tablet,disintegrating 4 mg PO Q8H PRN (Reason: nausea and vomiting) Qty: 30 0RF colchicine 0.6 mg capsule 1.2 mg PO BID Qty: 360 0RF omeprazole 40 mg capsule,delayed release(DR/EC) 40 mg PO DAILY Qty: 90 2RF morphine 15 mg tablet 15 mg PO Q6H PRN (Reason: pain) Qty: 10 0RF Rx Instructions: The patient may ask for partial fill; Partial Fill upon patient request. albuterol sulfate 90 mcg/actuation HFA aerosol inhaler 2 puff INHALATION Q4-6H PRN (Reason: asthma) duloxetine 60 mg capsule,delayed release(DR/EC) 60 mg PO DAILY cholecalciferol (vitamin D3) 50 mcg (2,000 unit) capsule 50 mcg PO DAILY levonorgestrel-ethinyl estrad 0.15 mg-30 mcg (91) tablets,dose pack,3 month 1 tab PO DAILY Print Language: German
--- NOTE | 2024-11-10 16:29 | ECG_ITS ---
Test Reason : DIZZINESS Blood Pressure : */* mmHG Vent. Rate : 109 BPM Atrial Rate : 109 BPM P-R Int : 140 ms QRS Dur : 86 ms QT Int : 346 ms P-R-T Axes : 30 5 17 degrees QTcB Int : 465 ms Sinus tachycardia Possible Left atrial enlargement Minimal voltage criteria for LVH, may be normal variant ( R in aVL ) Borderline ECG When compared with ECG of 24-Mar-2024 19:36, No significant change was found Referred By: Petra Castañeda Electronically Signed By: Lei Marcus
[2024-11-10 16:56] LABS: MANUAL DIFF FLAG NO
[2024-11-10 16:58] LABS: Basophils Percent Auto 0.4 % (0-2); Eosinophils Absolute Auto 0.1 X10*3/uL (0.0-0.4); Eosinophils Percent Auto 1.4 % (0-4); Hematocrit 39.8 % (37.0-47.0); Hemoglobin 12.5 g/dl (12.0-16.0); Imm Gran Abs Auto 0.02 X10*3/uL (0.00-0.03); Imm Gran Pct Auto 0.2 % (0.0-0.4); Lymphocytes Absolute Auto 3.4 X10*3/uL (1.2-4.9); Lymphocytes Percent Auto 42.4 % (20-40); Mean Corpuscular HGB Conc 31.4 g/dl (31.0-35.0); Mean Corpuscular Hemoglobin 23.4 pg (27.0-33.0); Mean Corpuscular Volume 74.5 fL (80.0-98.0); Mean Platelet Volume 8.5 fL (9.4-12.3); Monocytes Absolute Auto 0.9 X10*3/uL (0.1-1.2); Monocytes Percent Auto 10.5 % (2-11); Neutrophils Absolute Auto 3.6 x10*3/uL (2.0-8.3); Neutrophils Percent Auto 45.1 % (45-73); Platelet Count 379 X10*3/uL (160-400); Red Blood Count 5.34 X10*6/uL (4.20-5.50); Red Cell Distribution Width 17.2 % (11.0-16.0); White Blood Count 8.1 X10*3/uL (4.8-10.8)
[2024-11-10 17:06] LABS: IDNOW Serial# 08D9AD1C; Strep A Nucleic Acid Negative (Negative)
[2024-11-10 17:21] LABS: Alanine Aminotransferase 105 U/L (0-31); Albumin Level 3.8 g/dL (3.5-5.0); Alkaline Phosphatase 157 U/L (39-117); Anion Gap 13 (12-20); Aspartate Amino Transferase 101 U/L (5-31); Bilirubin Total 0.4 mg/dL (0.0-1.0); Blood Urea Nitrogen 5 mg/dL (9-16); Calcium 9.2 mg/dL (8.4-10.2); Carbon Dioxide 26 mmol/L (22-29); Chloride 105 mmol/L (96-108); Creatinine Clr Calc Pharmacy 179.4; Estimated Glomerular Filt Rate > 60; Glucose Random 136 mg/dL (60-115); Potassium 3.2 mmol/L (3.3-5.1); Sodium 141 mmol/L (135-145); Total Protein 7.6 g/dL (6.5-8.0)
[2024-11-10 17:23] LABS: HCG Quantitative < 2 mIU/mL
[2024-11-10 17:37] LABS: Influenza A PCR NEGATIVE (Negative); Influenza B PCR NEGATIVE (Negative); Resp Syncy Virus RNA Qual PCR NEGATIVE (Negative); SARS COV2 PCR INHOUSE NEGATIVE (Negative)
[2024-11-10 20:59] VITALS: BP 122/74; PULSE 96; RESP 18; TEMP 37.1; O2SAT 98
[2024-11-10 22:46] LABS: Lipase 24 U/L (8-78); Phosphorus 2.9 mg/dL (2.7-4.5)
--- NOTE | 2024-11-10 23:11 | PC.NURSE ---
Patient away for ultrasound. Plan to obtain IV access and administer IV fluids upon return.
[2024-11-10] MEDS: 0.9 % Sodium Chloride 1,000 ML 999 ML IV (23:34)
[2024-11-10 23:37] VITALS: BP 135/84; PULSE 98; RESP 18; TEMP 37; O2SAT 97
--- NOTE | 2024-11-10 23:50 | PC.NURSE ---
22g IV access established by this RN to left hand. Normal Saline 0.9% infusing as ordered (1 Liter). Awaiting ED provider evaluation. Ultrasound completed, awaiting review/results. Ambulates steadily. Call gannon within reach. RN to RN report given to ANNETTE Manuel.
[2024-11-11] MEDS: ondansetron HCL 4 MG/2 ML VIAL IVPUSH (00:04)
--- NOTE | 2024-11-11 00:15 | PC.NURSE ---
pt back from ultra sound, pt oob to bathroom with a steady gait, medicated per nov.
[2024-11-11 00:17] LABS: Appearance Urine Cloudy; Color Urine Dark Yellow; Glucose Urine UA Negative (Negative); Leukocyte Esterase Urine Moderate (2+) (Negative); Nitrite Urine Negative (Negative); Specific Gravity - Urine 1.025 (1.005-1.025); UMIC TRIGGER UACC YES; Urine Blood Negative (Negative); Urine Ketones Trace mg/dL (Negative); Urine Protein 30 (1+) mg/dL (Neg-Trace)
[2024-11-11 00:40] LABS: Bacteria Urine 3+ (None Seen); Hyaline Casts Urine 0-2 /LPF (0-2); RBC Urine 0-2 /HPF (0-2); UACC Culture Trigger YES
[2024-11-11 01:52] VITALS: BP 135/84; PULSE 98; RESP 18; TEMP 37; O2SAT 97
== END 2024-11-11 01:52 | disposition home or self-care (01) ==
PROVIDERS: Registered Nurse Emergency; Emergency Provider Student in an Organized Health Care Education/Training Program; PCP Nurse Practitioner Family
DX: R11.2 Nausea with vomiting, unspecified (principal); R19.7 Diarrhea, unspecified; R00.0 Tachycardia, unspecified; R10.2 Pelvic and perineal pain; Z03.818 Encounter for observation for suspected exposure to other biological agents ruled out; Z79.899 Other long term (current) drug therapy
CPT/HCPCS: 0241U; 36415; 76705; 80053; 81001; 83690; 83735; 84100; 84702; 85025; 87086; 87651; 93005; 96374; 99284; 99285; J2405

== ENCOUNTER → 2024-11-10 16:29 | Outpatient (BNV) | payer OTHER, SELFPAY | PROVIDERS: Emergency Provider Student in an Organized Health Care Education/Training Program; PCP Nurse Practitioner Family; Visit Provider Internal Medicine Cardiovascular Disease | DX: R00.0 Tachycardia, unspecified (principal) | CPT/HCPCS: 93010 ==

== ENCOUNTER → 2024-11-10 22:24 | Outpatient (BNV) | payer OTHER, SELFPAY | PROVIDERS: Emergency Provider Student in an Organized Health Care Education/Training Program; PCP Nurse Practitioner Family; Visit Provider Radiology Diagnostic Radiology | DX: K76.0 Fatty (change of) liver, not elsewhere classified (principal); R16.0 Hepatomegaly, not elsewhere classified | CPT/HCPCS: 76705 ==

== ENCOUNTER 2024-12-07 12:14 | Outpatient (AMB) | payer OTHER, SELFPAY ==
--- NOTE | 2024-12-07 12:28 | A.OFFVIS_ITS ---
Vital Signs 12/07/24 12:35 Height 5 ft 3 in Weight 271 lb 9.752 oz BMI 48.1 BP 140/88 H Blood Pressure Location Rt brachial Position Sitting Pulse 118 H Pulse Source Pulse Oximeter Pulse Oximetry (%) 98 Oxygen Delivery Method Room Air Intake Visit Reasons: ED f/u ?genetic testing Intake Note: ESTABLISHED PATIENT for ED FUV. Chief Complaint; C/O worsening reflux, nausea (responsive to zofran), no vomiting since ED, previous diarrhea but none since ED. No additional concerns at this time. 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 01/2019 ? She has had nausea, diarrhea and vomiting for 1? month ? came on suddenly ? appetite poor ? non bloody? emesis, and nausea can be worse w/ any type of food ? she also has? epigastric pain, 8/10 in severity at it peak ? can go down into lower? abd as well ? diarrhea usu post prandial, no bloody stools ? weight is stable ? skin rash spots on leg which are itchy ? has been checked for c diff and neg per her ? not sexually? active ? started sertraline recently before sx started. ?she? has chronic back pain from injury, not so bad at this time ?appetite is? poor, no idea why, no taste or smell issues ?sx seems to be worse? 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 which has helped her abdominal cramps ?referred to rheum but no? autoimmune dx found ? she had further admsision to ED for abdominal pain she had spinal surgery 10/2021 after fall LABS: neg fecal calp, neg celiac, only pos was? persistent raised CRP , has been persistently? raised tick borne serologies neg nml bill elastase ? Other data: EGD/colonoscopy--05/13/19--essentially? normal ?cholecystectomy for symptomatic gallstones? 05/15/19 ?VCE--normal ?CT 10/2019- stable small LN, fatty? liver ?CTe--small umbilical hernia, otherwise nml, no LN seen GES: --abn 12% at 4 hrs She had a presentation to ED with severe abdominal pain, 07/12 and 07/[address] imaging whihc was neg for acute process, had CRP and WCC elevation as before, attack was also similar to prior attacks Based on this I ordered prophyria screen and sent her trial of colchicine ?INTERIM: she had a 3 d spell of diarrhea and heartburn with mild nausea 11/10--went to ED US was done with severe steatosis in the ED heartburn still persists she is still feeling a benefit from the colchicine she is still on omeprazole but feels it is not working EXAM: GENERAL: The patient is well developed and nontoxic. VITAL SIGNS:see workflow HEENT: Nonicteric sclerae, PERRLA, EOMI. Oropharynx clear. Moist mucous membranes. Conjunctivae appear well perfused. No thyroid mass. CHEST: Chest wall is nontender. HEART: Regular rate and rhythm without murmurs. LUNGS: Clear to auscultation bilaterally. ABDOMEN: Soft, positive bowel sounds, nontender, no organomegaly.no flank tenderness SKIN: bruising on thighs from colchicine possibly NEUROLOGIC: Cranial nerves II-XII intact without motor/sensory deficit. Psych: normal affect A/P: 1/ Episodic bouts of epigastric pain, post prandial diarrhea and nausea, possible FMF, seems to be responding well to colchicine, 2/ Mild gastroparesis 3/ severe MASH PLAN: 1/ genetic testing for FMF 2/ commence ozempic for weight loss and MASH 3/ cont with PPI for the moment PFSH Medical History GERD (gastroesophageal reflux disease) Depression OCD (obsessive compulsive disorder) Anxiety Costochondritis Vocal cord dysfunction Airway malacia Surgical History History of back surgery Hx of colonoscopy History of esophagogastroduodenoscopy (EGD) Previous back surgery H/O adenoidectomy History of tonsillectomy Social History Alcohol intake: never Physical Exam Vital Signs: Last Vital Signs Pulse 118 H 12/07/24 12:35 BP 140/88 H 12/07/24 12:35 Pulse Ox 98 12/07/24 12:35 Oxygen Delivery Method Room Air 12/07/24 12:35 BMI result Body Mass Index 48.1 Assessment & Plan Assessment & Plan (1) Obesity: Code(s): E66.9 - Obesity, unspecified Category: Medical Plan: as above (2) Metabolic dysfunction-associated steatohepatitis (MASH): Code(s): K75.81 - Nonalcoholic steatohepatitis (FRENCH) Category: Medical Plan: as above Orders: Referrals Cook Italian [employer] Food Nutrition Referral E66.9 - Obesity, unspecified Medications: New semaglutide (Ozempic) 0.25 mg (0.368 mL) subcut QWEEK 4 weeks 1.472 mL 0RF Coding Level of Care Code Est Pt Level 4 (96951) Diagnoses Obesity E66.9 Metabolic dysfunction-associated steatohepatitis (MASH) K75.81
[2024-12-07 12:35] VITALS: BP 140/88; PULSE 118; O2SAT 98; BMI 48.1
== END 2024-12-07 13:10 | disposition home or self-care (01) ==
LOC: HO.HGI 12:15
PROVIDERS: PCP Nurse Practitioner Family; Visit Provider Internal Medicine Gastroenterology
DX: E66.9 Obesity, unspecified (principal); K75.81 Nonalcoholic steatohepatitis (NASH)
CPT/HCPCS: 99214

== ENCOUNTER → 2024-12-07 12:14 | Outpatient (BNVA) | payer OTHER, SELFPAY | PROVIDERS: PCP Nurse Practitioner Family; Visit Provider Internal Medicine Gastroenterology ==

== ENCOUNTER → 2025-02-16 07:59 | Outpatient (BNVA) | payer OTHER, SELFPAY | PROVIDERS: PCP Nurse Practitioner Family; Visit Provider Physician Assistant Surgical ==

== ENCOUNTER 2025-03-15 08:20 | Outpatient (AMB) | payer OTHER, SELFPAY ==
--- NOTE | 2025-03-15 09:08 | A.OFFVIS_ITS ---
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 [facility] Allergies latex (LATEX) Allergy (Severe, Verified 03/15/25 09:08) SWELLING/HIVES banana (BANANA) Allergy (Intermediate, Verified 03/15/25 09:08) ANAPHYLAXIS cefuroxime (From CEFTIN) Allergy (Intermediate, Verified 03/15/25 09:08) HIVES Sulfa (Sulfonamide Antibiotics) (SULFA (SULFONAMIDE ANTIBIOTICS)) Allergy (Intermediate, Verified 03/15/25 09:08) HIVES sulfacetamide Allergy (Intermediate, Verified 03/15/25 09:08) Hives Medication List - Last Reconciled 03/15/25 by Dar Paiz MD albuterol sulfate 90 mcg/actuation 2 puffs inhalation Q4-6H PRN cholecalciferol (vitamin D3) 50 mcg PO DAILY colchicine 1.2 mg (2 x 0.6 mg) PO BID colesevelam 1,250 mg (2 x 625 mg) PO BID cyclobenzaprine 5 mg PO BEDTIME duloxetine 90 mg PO DAILY fluticasone propionate 250 mcg/actuation (Flovent Diskus) 1 inh inhalation BID ketorolac 10 mg PO Q6H PRN morphine 15 mg PO Q6H PRN norethindrone (contraceptive) (Lizzette) 0.35 mg PO DAILY olmesartan 20 mg PO DAILY omeprazole 40 mg PO DAILY ondansetron 4 mg PO Q8H PRN HPI HPI 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 [facility]: Details: Start time: 9.03am, End time: 9.55am ?I spent 47 minutes speaking with the patient on the phone plus an additional 5 minutes reviewing and updating records for a total of 52 minutes HPI Comments Details: Previous weight loss efforts: WW, Lose-IT george 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) Breakfast: none Lunch: skips Dinner: 6.30pm (chicken, vegetables) Snacks: 3am ([place] or premade meal, or liquid Premier shake, 2-3 other snacks (crackers, fruits etc) Exercise: gym in her apartment building Beverages: Coffee: (24oz/d with cream and caramel flavoring), Tea: none, Soda: Gingerale or Root beer (1/wk), Juice: 1/wk, ETOH: 3-4/yr [facility] Medical History (Updated 03/15/25 @ 09:18 by Dar Paiz MD) Asthma DJD (degenerative joint disease) Migraines Hypertension Morbid obesity GERD (gastroesophageal reflux disease) Depression OCD (obsessive compulsive disorder) Anxiety Costochondritis Vocal cord dysfunction Airway malacia Surgical History (Updated 03/15/25 @ 09:18 by Dar Paiz MD) History of laparoscopic cholecystectomy History of back surgery Hx of colonoscopy History of esophagogastroduodenoscopy (EGD) Previous back surgery H/O adenoidectomy History of tonsillectomy Family History (Updated 02/16/25 @ 08:24 by Tori Rocha CMA) Mother Hypoactive thyroid Hypertension High cholesterol Father Hypertension Blocked artery Social History (Updated 02/16/25 @ 08:24 by Tori Rocha CMA) Alcohol intake: current Alcohol intake frequency: holidays/special occasions only Patient Tobacco Use Status: Never used Tobacco Telehealth Telehealth Telehealth Platform: Telephone Location of provider rendering services: practice address Location of patient: address on file Patient Identification confirmed using: Name, : Yes Telehealth method: voice only Patient verbally consented to treatment: Yes Patient verbally consented to billing insurance company: Yes Patient informed of any privacy concerns related to visit: Yes Minutes spent on Phone/Video with Pt.: 52 Assessment & Plan Assessment & Plan (1) Morbid obesity: Code(s): E66.01 - Morbid (severe) obesity due to excess calories Category: Medical Plan: 1. We discussed in detail the available therapeutic options: 1) our lifestyle intervention program that has an average weight loss of 10% in 3 months.? 2) Weight loss medications. We also discussed that you can self pay for the first 3 months and the cost is $399 for the first month and $499 for any other month thereafter. 3) We also discussed about the lap sleeve gastrectomy. I emphasized the importance of close follow-up, adherence to instructions and good communication. The surgery does not replace the need to change your lifestlyle which is the cause of the obesity problem. The surgery provides the motivation to try again to change your lifestyle, it reduces the appetite and make the transition to a better lifestyle easier and doubles the amount of weight you would lose compared to doing the lifestyle change without the surgery. You will need to be on a liquid diet with protein shakes for 2 weeks before surgery to maximize weight loss and boost your nutritional status to recover better from surgery and also for the first two weeks after surgery to let the stomach heal before we introduce other foods. After the first 2 weeks we will introduce protein bars and soft foods like scrambled eggs, cottage cheese and yogurt and after the 6th week will introduce meat, fish and cooked vegetables in small amounts. Over time you should be able to eat everything in small amounts. Side effects like nausea, vomiting, heartburn or abdominal pain are not common in the practice unless you are not following in the practice. This operation requires lifetime commitment to following in our practice and communication with me. You will much less weight and experience side effects if you don?t communicate or not following in the practice. Complications are rare and in our practice is about 1/10 of the national average. The patient would like to discuss these options with her spouse and get back to me. 2. You will receive a link of our software george to generate an individualized nutritional and exercise plan specific for you. Please send me a screenshot of the plans you will generate Meal to include lean meat (beef, fish, pork, turkey, chicken), or tristanian yogurt, or egg whites, or beans with a salad with olive oil and fruits (berries, pears, apples, kiwi). Avoid salt, breads, potatoes, rice, pasta, desserts. ?3. If you choose shakes, each shake would be drunk slowly, like coffee in a period of 2 hours. ?4. If you choose bars, cut each bar in 4 pieces and eat each piece in 30min ?to make each bar last 2 hours. ?5. I emphasized the importance of measuring accurately the food portion and measure it when serving the food in plate ?6. The meal portions include a specific number of forks of meat and salad. You always eat the meat portion but you can replace up to half of salad/vegetables portion with rice, potatoes or pasta, or a fruit ?if you like. The less you do it the better weight loss will be. ?7. One full-size fork is what it can be scooped on the fork without falling aside and not what can be bit with the fork. Use regular forks like those you find in a typical restaurant. ?8.? Please buy the body composition scale we discussed and send me weight measurements as soon as possible and then once a week. Always include your diet and exercise plan. 9. The best exercise choice would be to use your treadmill at your apartment building that can track calories. You can create and exercise plan with the [employer] george. ?10.?It is important of avoiding and for at least 18 months postoperatively and has been discussed at the infosession. ?11. Goal is to lose at least 1.5-2lbs per week ?12. Goal to lose at least 10% of your weight, which is about 28lbs. Minimum weight goal: 245lbs 13. Please follow the diet plan exactly without any change. If you don't like so mething about the plan or you feel hungry you need to communicate with me so I can help you revise the plan. You should not change the plan yourself.
[2025-03-15 09:30] VITALS: BMI 48.4
== END 2025-03-15 09:56 | disposition home or self-care (01) ==
LOC: HO.HBS 08:20
PROVIDERS: PCP Nurse Practitioner Family; Visit Provider Surgery
DX: E66.01 Morbid (severe) obesity due to excess calories (principal)
CPT/HCPCS: 99204

== ENCOUNTER → 2025-04-27 13:57 | Outpatient (REF) | payer OTHER, SELFPAY ==
--- NOTE | 2025-04-27 14:00 | ECG_ITS ---
Test Reason : MOR OBESITY Blood Pressure : */* mmHG Vent. Rate : 86 BPM Atrial Rate : 86 BPM P-R Int : 134 ms QRS Dur : 82 ms QT Int : 358 ms P-R-T Axes : 35 18 15 degrees QTcB Int : 428 ms Normal sinus rhythm Normal ECG When compared with ECG of 10-Nov-2024 16:46, No significant change was found Referred By: Dar Paiz Electronically Signed By: Lei Marcus
[2025-04-27 14:09] LABS: MANUAL DIFF FLAG NO
[2025-04-27 14:23] LABS: Hematocrit 38.9 % (37.0-47.0); Hemoglobin 12.2 g/dl (12.0-16.0); Imm Gran Abs Auto 0.02 X10*3/uL (0.00-0.03); Imm Gran Pct Auto 0.2 % (0.0-0.4); Lymphocytes Absolute Auto 3.0 X10*3/uL (1.2-4.9); Mean Corpuscular HGB Conc 31.4 g/dl (31.0-35.0); Mean Corpuscular Hemoglobin 24.2 pg (27.0-33.0); Mean Corpuscular Volume 77.2 fL (80.0-98.0); NRBC Abs Auto 0.000 X10*3/uL (0.0-0.012); NRBC Pct Auto 0.0 /100WBC (0.0-0.2); Platelet Count 424 X10*3/uL (160-400); Red Blood Count 5.04 X10*6/uL (4.20-5.50); White Blood Count 8.1 X10*3/uL (4.8-10.8)
[2025-04-27 14:43] LABS: Hemoglobin A1C 160.4913 umol/L; Total Hemoglobin (HGBA1C) 4174.1507 umol/L
--- OUTSIDE RECORDS SUMMARY | 2025-04-27 14:59 | XMS_ITS | Encounter Summary ---
Author Organization [facility] Address [address] [place] [address] [place] [id number] Phone Care Team Providers Care Pediatric Ophthalmologist Name Role Phone Kailey Camacho MD Unavailable [phone] Pranav Gandhi MD Unavailable [phone] Kailey Camacho MD Primary Care Provider Encounter Details Date Type Department Care Team (Latest Contact Info) Description 01/10/2019 Transcribe Orders [facility] [address] [place] [address] Leticia Hurtado PA [address] [place] [address] [place] [address] Screening for unspecified condition (Primary Dx) Social History Tobacco Use Types Packs/Day Years Used Date Smoking Tobacco: Never Smokeless Tobacco: Never Alcohol Use Standard Drinks/Week Comments No 0 (1 standard drink = 0.6 oz pur e alcohol) Comments No Sex and Gender Information Value Date Recorded Sex Assigned at Female 07/13/2018 8:39 PM EDT Legal Sex Female 8:47 PM EDT Gender Identity Female 07/13/2018 8:39 PM EDT Sexual Orientation Straight 07/13/2018 8: 39 PM EDT Occupation Industry Job Start Date Job 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 coli O157:H7 culture Microbiology Routine Screening for unspecified condition 01/10/2019 9:59 AM EDT Cryptosporidium antigen, stool Microbiology Routine Screening for unspecified condition 01/10/2019 9:59 AM EDT Fecal leukocyte examination Microbiology Routine Screening for unspecified condition 01/10/2019 9:59 AM EDT documented as of this encounter Results * Ova and parasites, stool (01/10/2019 9:59 AM EDT) Specimen Source/ Description STOOL STOOL STOOL [facility] Special Requests None [facility] DIRECT EXAM NO PARASITES FOUND BY DIRECT OR CONCENTRATION METHODS [facility] DIRECT EXAM No parasites found by Trichrome Stain [facility] Report Status 01/13/2019 FINAL [facility] Stool (Stool) 01/10/2019 9:5 9 AM EDT 01/10/2019 10:21 AM EDT us Leticia [facility]IX MICROBIOLOGY - GENERA L ORDERABLES Final Result Performing Organization Address City/State/[facility] Co de Phone Number [facility] [address] [place] [address] documented in this encounter Visit Diagnoses Diagnosis Screening for unspecified condition- Primary documented in this encounter Additional Health Concerns Infection Onset Date Last Indicated Resolved Time CoV-Risk 07/27/2021 07/27/2021 08/06/2021 1:22 AM EST CoV-Risk 10/04/2021 10/04/2021 10/14/2021 1:23 AM EST documented as of this encounter Care Teams Pediatric Ophthalmologist Relationship Specialty Start Date End Date Kailey Camacho MD [address] [place] [address] [email or web address] PCP - General Internal Medicine 07/20/17 Kailey Camacho MD [address] [place] [address] Historical LMR Provider 07/04/17 Pranav Gandhi MD [address] [place] [address] Historical LMR Provider 07/04/17 2 documented as of this encounter Additional Source Comments The information contained in this document represents components of the legal health record. It is not the complete legal health record.[facility]
[2025-04-27 15:00] LABS: Alanine Aminotransferase 60 U/L (0-31); Albumin Level 4.4 g/dL (3.5-5.0); Alkaline Phosphatase 102 U/L (39-117); Anion Gap 13 (12-20); Aspartate Amino Transferase 36 U/L (5-31); Blood Urea Nitrogen 19 mg/dL (9-16); Calcium 9.3 mg/dL (8.4-10.2); Carbon Dioxide 24 mmol/L (22-29); Chloride 108 mmol/L (96-108); Cholesterol 174 mg/dL (<200); Estimated Glomerular Filt Rate > 60; HDL Cholesterol 29 mg/dL (>40); Iron 39 mcg/dL (30-160); Percent Iron Saturation 10 % (15-50); Potassium 4.0 mmol/L (3.3-5.1); Sodium 141 mmol/L (135-145); Total Iron Binding Capacity 404 mcg/dL (228-428); Total Protein 7.2 g/dL (6.5-8.0); Triglycerides 186 mg/dL (<150); Unsaturated Iron Binding 365 ug/dL
[2025-04-27 15:03] LABS: Ferritin 19 ng/mL (10-122)
[2025-04-27 15:19] LABS: Folate 5.8 ng/mL (> or = 4.0); Vitamin B12 425 pg/mL (200-900)
== END ==
LOC: HO.CARD 13:57
PROVIDERS: PCP Nurse Practitioner Family; Visit Provider Surgery
DX: E66.01 Morbid (severe) obesity due to excess calories (principal); Z13.29 Encounter for screening for other suspected endocrine disorder
CPT/HCPCS: 36415; 80053; 80061; 82306; 82607; 82728; 82746; 83036; 83525; 83540; 84425; 84443; 84590; 84630; 85025; 86140; 93005

== ENCOUNTER → 2025-04-27 14:00 | Outpatient (BNV) | payer OTHER, SELFPAY | PROVIDERS: PCP Nurse Practitioner Family; Visit Provider Internal Medicine Cardiovascular Disease | DX: E66.01 Morbid (severe) obesity due to excess calories (principal) | CPT/HCPCS: 93010 ==

== ENCOUNTER 2025-05-07 08:30 | Outpatient (AMB) | payer OTHER, SELFPAY ==
--- NOTE | 2025-05-07 09:07 | A.OFFWM_ITS ---
Intake Intake Visit Reasons: OV BH Intake Allergies latex (LATEX) Allergy (Severe, Verified 05/13/25 11:37) SWELLING/HIVES banana (BANANA) Allergy (Intermediate, Verified 05/13/25 11:37) ANAPHYLAXIS cefuroxime (From CEFTIN) Allergy (Intermediate, Verified 05/13/25 11:37) HIVES Sulfa (Sulfonamide Antibiotics) (SULFA (SULFONAMIDE ANTIBIOTICS)) Allergy (Intermediate, Verified 05/13/25 11:37) HIVES sulfacetamide Allergy (Intermediate, Verified 05/13/25 11:37) Hives PFSH Medical History Fatty liver Familial Mediterranean fever Asthma DJD (degenerative joint disease) Migraines Hypertension Morbid obesity GERD (gastroesophageal reflux disease) Depression OCD (obsessive compulsive disorder) Anxiety Costochondritis Vocal cord dysfunction Airway malacia Surgical History History of laparoscopic cholecystectomy History of back surgery Hx of colonoscopy History of esophagogastroduodenoscopy (EGD) H/O adenoidectomy History of tonsillectomy Family History Mother Hypoactive thyroid Hypertension High cholesterol Father Hypertension Blocked artery Social History Alcohol intake: current Alcohol intake frequency: holidays/special occasions only Patient Tobacco Use Status: Never used Tobacco Behavioral Health Assessment Weight Management Therapy Therapy Notes Details PT is a 25 years old female who presents for a visit to start BH assessment as part of surgical weight loss program. PT reports she was refereed to this program by her GI dr (Dr Hou) but she has also been interested for a while. Presenting Concerns Referral Source WMP-Provider Reason for referral Completion of behavioral health assessment as part of process for weight-loss surgery. Precipitating Event Obesity. Living Situation Current Living Situation Rent At risk of losing current housing? No Satisfied with current living situation? Yes Comments PT lives with her and their pets (2 cats) Food/Weight/Diet History/Relationship with weight [id number] dealing with GI issues, dumpin g syndrome, dealing w/ family issues and she was also in school, during this time she gained a lot of weigh. History/Relationship with dieting weight watchers Social History Family history and relationship PT is . 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 Developmental history and status Accommodations while in school due to MH issues. Social support , parents. Mental Health and Addiction Treatment Psychiatric history PT reports she's not in therapy currently but she is looking into start as she has a diagnosis of OCD since childhood, social anxiety, DARINEL and depression and her Anxiety and OCD Sx have been increasing; leading to her medication to be increased couple months ago. She currently takes duloxetine 90mg for depression and anxiety, prescribed by her PCP. She was initially diagnosed with OCD in elementary school and received BH services trough the school and with her director media for medication management. She started formal BH services in 2018, she did outpatient counseling with a provider in private practice. She has been out pf counseling since 2020. PT denies ever been hospitalized for MH, in crisis. She dealt with SI back in 2017 (age 17) after she injured her back, had to stop working and was going trough a depressive episode. But denies any SA, self-harming or other harm. In the last year she has been stable with depression and denies experiencing safety concerns. Current concerns are related to anxiety and active OCD Sx. PT currently have 2 cats as emotional support pets. Questionnaires PHQ-9 Over the last 2 weeks, how often have you been bothered by any of the following problems? 1. Little interest or pleasure in doing things: not at all 2. Feeling down, depressed, or hopeless: more than half the days 3. Trouble falling or staying asleep, or sleeping too much: more than half the days 4. Feeling tired or having little energy: more than half the days 5. Poor appetite or overeating: more than half the days 6. Feeling bad about yourself - or that you are a failure or have let yourself or your family down: nearly every day 7. Trouble concentrating on things, such as reading the newspaper or watching television: not at all 8. Moving or speaking so slowly that other people could have noticed. Or the opposite - being so fidgety or restless that you have been moving around a lot more than usual: not at all 9. Thoughts that you would be better off or of hurting yourself in some way: several days Total score: 12 Depression Screening Interpretation: Positive (From new PT pack completed on 02/16/25.) Depression Screening Done: Yes Source: Developed by Drs. Sonny Richter, Jovana Garza, Yasir Driscoll and colleagues, with an educational vidhya from [employer]. Binge Eating Scale Group 1 A. I don't feel self-conscious about my wt. or body size when I'm with others. B. I feel concerned about how I look to others, but it normally does not make me fell disappointed with myself C. I do get self-conscious about my appearance and wt. which makes me feel disappointed in myself. D. I feel very self-conscious about my wt. and frequently I feel intense shame and disgust for myself. I try to avoid social contacts because of my self- consciousness. Response Group 1: D Group 2 A. I don't have any difficulty eating slowly in the proper manner. B. Although I seem to gobble down foods, I don't end up feeling stuffed because of eating to much. C. At times, I tend to eat quickly and then, I feel uncomfortably full afterwards. D. I have the habit of bolting down my food, without really chewing it. When this happens I usually feel uncomfortably stuffed because I've eaten to much. Response Group 2: A Group 3 A. I feel capable to control my eating urges when I want to. B. I feel like I have failed to control my eating more than the average person. C. I feel utterly helpless when it comes to feeling in control of my eating urges. D. Because I feel so helpless about controlling my eating I have become very desperate about trying to get control. Response Group 3: A Group 4 A. I don't have the habit of eating when I'm bored. B. I sometimes eat when I'm bored, but often I'm able to get busy and get my mind off food. C. I have a regular habit of eating when I'm bored, but occasionally, I can use some other activity to get my mind off eating. D. I have a strong habit of eating when I'm bored. Nothing seems to help me breath the habit. Response Group 4: C Group 5 A. I'm usually physically hungry when I eat something. B. Occasionally, I eat something on impulse even though I really am not hungry. C. I have the regular habit of eating foods, that I might not really enjoy, to satisfy a hungry feeling even though physically, I don't need the food. D. Although I'm not physically hungry, I get a hungry feeling in my mouth that only seems to be satisfied when I eat a food, like sandwich, that fills my mouth. Sometimes, when I eat the food to satisfy my mouth hunger, I then spit the food out so I won't gain weight. Response Group 5: B Group 6 A. I don't feel any guilt or self-hate after I overeat. B. After I overeat, occasionally I feel guilt or self-hate. C. Almost all the time I experience strong guilt or self-hate after I overeat. Response Group 6: B Group 7 A. I don't lose total control of my eating when dieting even after periods when I overeat. B. Sometimes when I eat a forbidden food on a diet, I feel like I blew it and eat even more. C. Frequently, I have the habit of saying to myself, I've blown it now, why not go all the way, when I overeat on a diet. When that happens I eat more. D. I have a regular habit of starting a strict diets for myself but I break the diets by going on an eating binge. My life seems to be either a feast or famine. Response Group 7: B Group 8 A. I rarely eat so much food that I feel uncomfortably stuffed afterwards. B. Usually about once a month, I each such a quantity of food, I end up feeling very stuffed. C. I have regular periods during the month when I eat large amounts of food, either at mealtime or at snacks. D. I eat so much food that I regularly feel quite uncomfortable after eating and sometimes a bit nauseous. Response Group 8: A Group 9 A. My level of calorie intake does not go up very high or go down very low on a regular basis. B. Sometimes after I overeat, I will try to reduce my caloric intake to almost nothing to compensate for the excess calories I've eaten. C. I have a regular habit of overeating during the night. It seems that my routine is not to be hungry in the morning but overeat in the evening. D. In my adult years, I have had week-long periods where I practically starve myself. This follows periods when I overeat. It seems I live a life of either feast or famine. Response Group 9: A Group 10 A. I usually am able to stop eating when I want to. I know when enough is enough. B. Every so often, I experience a compulsion to eat which I can't seem to control. C. Frequently, I experience strong urges to eat which I seem unable to control, but at other times I can control my eating urges. D. I feel incapable of controlling urges to eat. I have a fear of not being able to stop eating voluntarily. Response Group 10: A Group 11 A. I don't have any problem stopping eating when I feel full. B. I usually can stop eating when I feel full but occasionally overeat leaving me feeling uncomfortably stuffed. C. I have a problem stopping eating once I start and usually I feel uncomfortably stuffed after I eat a meal. D. Because I have a problem not being able to stop eating when I want, I sometimes have to induce vomiting to relieve my stuffed feeling. Response Group 11: B Group 12 A. I seem to eat just as much when I'm with others, Family social gatherings as when I'm by myself. B. Sometimes, when I'm with other persons, I don't eat as much as I want to eat because I'm self-conscious about my eating. C. Frequently, I eat only a small amount of food when others are present, because I'm very embarrassed about my eating. D. I feel so ashamed about overeating that I pick times to overeat when I know no one will see me. I feel like a closet eater. Response Group 12: A Group 13 A. I eat three meals a day with only an occasional between meal snack. B. I eat 3 meals a day, but I also normally snack between meals. C. When I am snacking heavily, I get in the habit of skipping regular meals. D. There are regular periods when I seem to be continually eating, with no planned meals. Response Group 13: A Group 14 A. I don't think much about trying to control unwanted eating urges. B. At least some of the time, I feel my thoughts are pre-occupied with trying to control my eating urges. C. I feel that frequently I spend much time thinking about how much I ate or about trying not to eat anymore. D. It seems to me that most of my waking hours are pre-occupied by thoughts about eating or not eating. I feel like I'm constantly struggling not to eat. Response Group 14: A Group 15 A. I don't think about food a great deal. B. I have strong craving for food but they last only for brief periods of time. C. I have days when I can't seem to think about anything else but food. D. Most of my days seem to be pre-occupied with thoughts about food. I feel like I live to eat. Response Group 15: B Group 16 A. I usually know whether or not I'm physically hungry. I take the right portion of food to satisfy me. B. Occasionally, I feel uncertain about knowing whether or not I'm physically hungry. A these times it's hard to know how much food I should take to satisfy me. C. Even though I might know how many calories I should eat, I don't have any idea what is a normal amount of food for me. Response Group 16: B Binge Eating Score: 11 Score less than 17 Minimal Risk Score between 18-26 Moderate Risk Score between 27-46 High Risk Assessment & Plan Assessment & Plan (1) Depression: Code(s): F32.9 - Major depressive disorder, single episode, unspecified Qualifiers: Major depression episode severity: unspecified Major depression recurrence: unspecified whether recurrent (2) DARINEL (generalized anxiety disorder): Code(s): F41.1 - Generalized anxiety disorder (3) OCD (obsessive compulsive disorder): Code(s): F42.9 - Obsessive-compulsive disorder, unspecified Qualifiers: Obsessive-compulsive disorder type: mixed obsessional thoughts and acts Qualified Code(s): F42.2 - Mixed obsessional thoughts and acts Plan The patient was not cleared today as the assessment was not completed. The patient will return in 2-4 weeks to continue the evaluation. Next appointment: 06/04/2025 at 9am, OV Coding Level of Care Code New Pt Psy Diag Eval (18097) Patient Type New Diagnoses Depression F32.9 Major depression episode severity: unspecified Major depression recurrence: unspecified whether recurrent DARINEL (generalized anxiety disorder) F41.1 Mixed obsessional thoughts and acts F42.2 Obsessive-compulsive disorder type: mixed obsessional thoughts and acts Time Spent (min) 60
== END 2025-05-07 10:06 | disposition home or self-care (01) ==
LOC: HO.HBST 08:31
PROVIDERS: PCP Nurse Practitioner Family; Visit Provider Counselor Mental Health
DX: F32.9 Major depressive disorder, single episode, unspecified (principal); F41.1 Generalized anxiety disorder; F42.2 Mixed obsessional thoughts and acts
CPT/HCPCS: 90791

== ENCOUNTER 2025-05-11 09:12 | Outpatient (REF) | payer OTHER, SELFPAY ==
--- NOTE | ~2025-05-11 | XR_ITS ---
EXAMINATION: XR CHEST 2 VIEWS HISTORY: E66.01 - Morbid (severe) obesity due to excess calories COMPARISON: There are no prior studies available for comparison. FINDINGS: PA and lateral views of the chest are submitted. The lungs are expanded and clear. There is no pleural effusion, pneumothorax, or pulmonary vascular congestion. The heart is normal in size. The bones are intact. XR/XR chest 2V IMPRESSION: Normal examination of the chest. Electronically signed by: Sonny Chu MD 05/11/2025 09:53 AM EDT
--- OUTSIDE RECORDS SUMMARY | 2025-05-11 09:34 | XMS_ITS | Encounter Summary ---
Author Organization [facility] Address [address] [place] [address] [place] [id number] Phone Care Team Providers Care Director Emergency Department Name Role Phone Kailey Camacho MD Unavailable Pranav Gandhi MD Unavailable [phone] Kailey Camacho MD Primary Care Provider [phone] Encounter Details Date Type Department Care Team (Late st Contact Info) Description 07/30/2017 Ancillary Orders [facility], X-Ray - [address] [address] aKla Jarrell PA [address] [place], [place] [id number] [email or web address] Right hip pain Social History Tobacco Use Types Packs/Day Years Used Date Smoking Tobacco: Never Assessed Comments Unknown Sex and Gender Information Value Date Recorded Sex Assigned at Female 07/13/2018 8:39 PM EDT Legal Sex Female 8:47 PM EDT Gender Identity Female 07/13/2018 8:39 PM EDT Sexual Orientation Straight 07/13/2018 8: 39 PM EDT documented as of this encounter Plan of Treatment Not on file documented as of this encounter Results * XR HIP 2 VW RIGHT PLUS PELVIS (07/30/2017 4:17 PM EST) Anatomical Region Laterality Modality Hip, Pelvis Radiographic Letty ging 07/30/2017 5:14 PM EST Impressions 07/30/2017 5:16 PM EST No explanation for pain. POS - [id number] Narrative 07/30/2017 5:16 PM EST HISTORY: Pain COMPARISON: None. FINDINGS: AP view the pelvis and AP and lateral views of the right hip. No evidence of fractures or dislocations. Hip joint spaces well-maintained. No suspicious lucencies or areas of sclerosis within the bones. No evidence of flattening of the femoral heads. SI joints appear normal. No suspicious soft tissue calcifications. Procedure Note Maximo Rowland MD - 07/30/2017 HISTORY: Pain COMPARISON: None. FINDINGS: AP view the pelvis and AP and lateral views of the right hip. No evidence of fractures or dislocations. Hip joint spaceswell-maintained. No suspicious lucencies or areas of sclerosis within thebones. No evidence of flattening of the femoral heads. SI joints appearnormal. No suspicious soft tissue calcifications. IMPRESSION: No explanation for pain. POS - [id number] Kala NIX IMG XR PELVIS Final Result documented in this encounter Visit Diagnoses Diagnosis Right hip pain Pain in joint, pelvic region and thigh Right hip pain Pain in joint, pelvic region and thigh documented in this encounter Additional Health Concerns Infection Onset Date Last Indicated Resolved Time CoV-Risk 07/27/2021 07/27/2021 08/06/2021 1:22 AM EST CoV-Risk 10/04/2021 10/04/2021 10/14/2021 1:23 AM EST documented as of this encounter Care Teams Director Emergency Department Relationship Specialty Start Date End Date Kailey Camacho MD [address] [place] [address] [email or web address] PCP - General Internal Medicine 07/20/17 Kailey Camacho MD [address] [place] [address] [email or web address] Historical LMR Provider 07/04/17 Pranav Gandhi MD [address] [place] [id number] Historical LMR Provider 07/04/17 2 documented as of this encounter Additional Source Comments The information contained in this document represents components of the legal health record. It is not the complete legal health record.[facility]
--- OUTSIDE RECORDS SUMMARY | 2025-05-11 09:34 | XMS_ITS | Clinical Summary ---
Author Organization [facility] Address [address] [place] [address] Phone Care Team Providers Care Sandblaster Glass Name Role Phone Kailey Camacho MD Unavailable Kailey Camacho MD Primary Care Provider Allergies Active Allergy Reactions Criticality Noted Date Comments Banana Anaphylaxis High 02/12/2018 Cefuroxime Axetil Rash Low 05/15/2017 Lactose Nausea and/or Vomiting 09/11/2017 Latex, Natural Rubber Hives,Swelling 09/11/2017 Sulfa (Sulfonamide Antibiotics) Hives 09/11/2017 Tuberculin Ppd Hives 01/08/2019 Medications albuterol 2.5 mg /3 mL (0.083 %) nebulizer solution Take 2.5 mg by nebulization every 4 (four) hours as needed. Active albuterol 90 mcg/actuation inhaler Inhale 2 puffs into the lungs every 4 (four) hours as needed for wheezing. Active fluticasone (FLOVENT DISKUS) 250 mcg/actuation DsDv Inhale 2 puffs into the lungs once as needed. Active fluticasone propionate (FLONASE) 50 mcg/actuation nasal spray 2 sprays by Nasal route 2 (two) times a day. Active ondansetron (ZOFRAN) 4 MG tablet Take 4 mg by mouth every 8 (eight) hours as needed for nausea. Active cholecalciferol , vitamin D3, 25 mcg (1,000 unit) capsule Take 2,000 Units by mouth daily. Active colesevelam (WELCHOL) 625 mg tablet Take 1,250 mg by mouth daily. 1 Active ibuprofen (ADVIL,MOTRIN) 800 MG tablet Take 800 mg by mouth every 8 (eight) hours as needed. 2 Active omeprazole (PRILOSEC) 40 MG capsule Take 40 mg by mouth daily. 1 Active COLCHICINE, CARDIAC, ORAL Take by mouth. A ctive olmesartan (BENICAR) 20 mg tablet Take 20 mg by mouth. 5 Active ketorolac (TORADOL) 10 mg tablet 10 mg. 5 Active cyclobenzaprine (FLEXERIL) 5 MG tablet take 1 tablet by mouth three times daily for 7 days 5 Active DULoxetine (CYMBALTA) 30 MG capsule daily. 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 Denies visual aura. 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 Palpitations 10/09/2021 Assessment & Plan (10/09/2021 3:12 PM EST): I suspect her sinus tachycardia is reactive to her recent pulmonary infection as well as possible steroid withdrawal. I noted the other possibilities that this could be either an atrial tachycardia or inappropriate sinus tachycardia. We will plan on performing a 1 week monitor to document whether her average heart rate is above 100 bpm and to see if she is consistently at 133 bpm as she is currently. I discussed with her that unless the tachycardia is either bothersome or is affecting her cardiac function on echocardiogram, we do not need to do any intervention. We will plan on echocardiogram as well to rule out structural heart disease Chest pain 10/09/2021 Other chest pain 10/09/2021 Assessment & Plan (10/09/2021 3:13 PM EST): Her chest pain is nonexertional, reproducible brought on by coughing. She notes she does not have this chest pain with activity such as climbing stairs. This is likely costochondritis from her recent pulmonary infection and does not require any further testing Class 3 severe obesity in adult 03/15/2020 Dysmenorrhea 07/04/2018 Herniated nucleus pulposus, lumbar 02/13/2018 Radiculopathy 02/12/2018 Encounters Date Type Department Care Team Description 04/22/2025 3:50 PM EDT Office Visit [facility] [address] [place] [address] Eliel Valles MD Negative test (Primary Dx); Nexplanon insertion 04/07/2025 3:30 PM EDT Office Visit [facility] [address] [place] [address] Eliel Valles MD Encounter for gynecological examination without abnormal finding (Primary Dx) from Last 3 Months Immunizations Immunization Administration Dates Next Due DTaP 03/26/2003, 0,1999,07/11,1999 [id number] FORMULATION 07/20/2009 HPV,quadrivalent 07/21/2014,07/03/2013 HPV9 08/26/2015 Hepatitis B 03/08/2000,1999,1999 Hepatitis B Adult 06/25/2019,01/10/2019,12/09/19 19 Hib,PRP-T 06/14/2000, 9,1999,05/09 INFLUENZA, SPLIT VIRUS, TRIV ALENT W/ PRESERVATIVE IM 05/17/2021,06/24/2012,06/12/2011,06/19 IPV 03/26/2003, 0,1999,05/09 Influenza Quadrivalent Intranasal 07/03/2013 Influenza Quadrivalent Prese rvative Free IM 06/09/2020,06/01/2019,07/07/2016,07/07,07/21/2014 Influenza, Unspecified Formulation 06/09,08/12/2009,07/24/2008,07/19,08/09/2006,08/24/2003,07/27/2003 MMR 03/28/2004,06/14/2000 Meningococcal MCV4P 07/01/2018,06/19/2010 Pneumococcal conjugate, PCV 7 08/23/2000, 000 Tdap 06/01/2019,06/19/2010 Varicella 03/24/2007,03/08/2000 Family History Medical History Relation Comments Hypertension Father artery blockage in the heart Father Diabetes mellitus Maternal Grandfather Hypertension Mother Diabetes mellitus Paternal Grandfather Heart failure Paternal Grandfather Hypertension Paternal Grandfather Kidney failure Paternal Grandfather Relation Status Comments Father Alive Maternal Grandfather Mother Alive Paternal Grandfather Social History Tobacco Use Types Packs/Day Years Used Date Smoking Tobacco: Never Smokeless Tobacco: Never Alcohol Use Standard Drinks/Week Comments Yes 0 (1 standard drink = 0.6 oz pur e alcohol) OCC Education Answer Date Recorded Are you interested in more education? Not on hailey e 01/11/2023 Are you concerned about learning? Not on file 01/11/2023 No 01/11/2023 No 01/11/2023 Digital Access Answer Date Recorded No 02/08/2023 No 02/08/2023 Reliable internet access at home? Not on file 02/08/2023 Device with a working camera? Not on file Intimate Partner Violence Answer Date R ecorded Are you denied basic needs s uch as food, clothing, or medical care? No 06/10/2023 In the past 12 months have y ou been in a relationship with a person who hurts, threatens, or tries to control you? No 06/10/2023 Are you denied basic needs s uch as food, clothing, or medical care? No 06/10/2023 In the past 12 months have y ou been in a relationship with a person who hurts, threatens, or tries to control you? 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 Not on file Not on file Last Filed Vital Signs Vital Sign Reading Time Taken Comments Blood Pressure 98/60 04/22/2025 4:13 PM EDT Pulse 106 06/11/2023 1:06 AM EDT Temperature 36.4 C (97.5 F) 06/11/2023 1:06 AM EDT Respiratory Rate 19 06/11/2023 1:06 AM EDT Oxygen Saturation 100% 06/11/2023 1:06 AM EDT Inhaled Oxygen Concentration - - Weight 117 kg (258 lb) 04/22/2025 4:13 PM EDT Height 160 cm (5' 3 ) 04/07/2025 3:26 PM EDT Body Mass Index 45.7 04/07/2025 3:26 PM EDT Plan of Treatment Health Maintenance Due Date Last Done Comments DEPRESSION SCREENING 2011 HEPATITIS C SCREENING 2017 HIV ONE-TIME SCREENING (18-65 YEARS) 2017 COVID-19 VACCINE ( season) 2024 10/07/2023, 08/03/2022, 11/13/2021, Additional history exists CREATININE LEVEL 06/10/2024 06/10/2023, , 03/22/2022, Additional history exists POTASSIUM LEVEL 06/10/2024 06/10/2023, 07/17, 03/22/2022, Additional history exists PAP SMEAR 01/15/2027 01/16/2024, 09/20/2020 Contraceptive Implant 04/22/2028 04/22/2025 Adult Td,Tdap Booster 06/01/2029 06/01/2019, 010 HIB VACCINES Completed 06/14/2000, 12/0 03/1999, 1999, Additional history exists PNEUMOCOCCAL VACCINES (0-49 years) Aged Out 08/23/2000, 06/14/2000 No longer eligibl e based on patient's age to complete this topic HPV VACCINES Completed 08/26/2015, 01/2014, 07/03/2013 MENINGOCOCCAL VACCINES (ACWY) Aged Out 07/01/2018, 06/19/2010 No longer eligibl e based on patient's age to complete this topic SMOKING STATUS SCREENING (Once After 26 Yrs) Completed 04/22/2025 HEPATITIS A VACCINES Aged Out No long er eligible based on patient's age to complete this topic MENINGOCOCCAL VACCINES (B) Aged Out N o longer eligible based on patient's age to complete this topic Medical Devices Not on file Procedures Procedure Name Priority Date/Time Associated Diagnosis Comments POCT URINE HCG Routine 04/26/2025 5:36 PM EDT Negative test PAP TEST Routine 01/16/2024 12:00 AM EDT BASIC METABOLIC PANEL STAT 06/10/2023 7:28 PM EDT from Last 3 Months or Most Recently Relevant to Health Maintenance Results * Poct Urine HCG (04/26/2025 5:36 PM EDT) HCG, urine Negative, Internal QCs acceptable Negative [facility] Other 04/26/2025 5:36 PM EDT Eliel Valles MD POINT OF CARE TEST ORDERABLES Fi nal Result Performing Organization Address City/State/[facility] Co de Phone Number [address] [address], [facility] * Pap Test (01/16/2024 12:00 AM EDT) 01/16/2024 01/20/2024 11: 40 AM EDT Narrative SEE NARRATIVE - 01/23/2024 4:57 PM EDT [address] [address] Inpatient Services Rn: Elli Best MD [employer] Cytology Report FINAL DIAGNOSIS A. PAP SMEAR (THIN PREP) CE: SPECIMEN ADEQUACY: Satisfactory for evaluation; transformation zone present. Limited by blood INTERPRETATION: NEGATIVE FOR INTRAEPITHELIAL LESION OR MALIGNANCY. Electronically Signed Out By: BRIONNA Sun(ASCP) The Pap test is a screening test primarily for squamous cancers and precursors and has associated false-negative and false-positive results. New technologies such as liquid-based preparations may decrease but will not eliminate all false-negative results. Regular sampling and follow-up of unexplained clinical signs and symptoms are recommended to minimize false negative results. CLINICAL HISTORY Date of Last Menstrual Period: Not Provided Menstrual History: Unknown Contraceptive History: BCPs Other Clinical Conditions: Screening Pap SPECIMEN SOURCE A: PAP SMEAR (THIN PREP) CE Patient Name: LIZZETTE HATCH : 2000 (Age: 23) Sex: F Institution: [facility] Location: [facility] Date of Collection: 01/16/2024 Date of Reported: 01/23/2024 16:57 Results to: Eliel Valles MD Eliel Valles MD CYTOLOGY ORDERABLES Final Result SEE NARRATIVE * (ABNORMAL) Basic metabolic panel (06/10/2023 7:28 PM EDT) SODIUM 138 133 - 146 mmol/L [facility] CHLORIDE 102 96 - 108 mmol/L [facility] POTASSIUM 3.9 3.3 - 5.1 mmol/L [facility] CO2 23 21 - 35 mmol/L [facility] BUN 8 6 - 19 mg/dL [facility] CREATININE 0.60 0.5 - 1.5 mg/dL [facility] GLUCOSE 110(H) 70 - 99 mg/dL [facility] CALCIUM 9.6 8.4 - 10.3 mg/dL [facility] EGFR >120 >59 mL/min/1.7 3m2 [facility] Comment:Estimated glomerular filtration rate calculated using the CKD-EPI refit equation. ANION GAP 17 10 - 20 mmol/L [facility] Blood 06/10/2023 7:28 PM EDT 06/10/2023 7:30 PM EDT us Clayton Mitchell MD LAB BLOOD ORDERABLES Final Result [address] [address] from Last 3 Months or Most Recently Relevant to Health Maintenance Insurance [facility] Advance Directives For more information, please contact: [phone] (9AM - 5PM [facility], Saturday-Saturday) Documents on File Type Date Recorded Patient Radius Corner Machine Operator Expl anation Healthcare Proxy 02/14/2018 12:07 PM * Full Code (Presumed) (Latest Code Status on File) Date Activated Date Inactivated Comments 02/12/2018 3:21 PM 02/13/2018 1:38 PM Care Teams Sandblaster Glass Relationship Specialty Start Date End Date Kailey Camacho MD [address] [place] [address] PCP - General Internal Medicine 07/20/17 Kailey Camacho MD [address] [place] [address] [email or web address] Historical LMR Provider 07/04/17 Additional Source Comments The information contained in this document represents components of the legal health record. It is not the complete legal health record.[facility]
--- OUTSIDE RECORDS SUMMARY | 2025-05-11 09:34 | XMS_ITS | Encounter Summary ---
Author Organization [facility] Address [address] [place] [address] [place] [address] Phone Care Team Providers Care Form Press Operator Name Role Phone Kailey Camacho MD Unavailable [phone] Pranav Gandhi MD Unavailable [phone] Kailey Camacho MD Primary Care Provider [phone] Encounter Details Date Type Department Care Team (Latest Contact Info) Description 01/10/2019 Transcribe Orders [facility] Laboratory [address] [place] [address] Leticia Hurtado PA [address] [place] [address] [place] [address] Screening for unspecified condition (Primary Dx) Social [...] EDT) Specimen Source/ Description STOOL STOOL STOOL [facility] Special Requests None [facility] DIRECT EXAM NO PARASITES FOUND BY DIRECT OR CONCENTRATION METHODS [facility] DIRECT EXAM No parasites found by Trichrome Stain [facility] Report Status 01/13/2019 FINAL [facility] Stool (Stool) 01/10/2019 9:5 9 AM EDT 01/10/2019 10:21 AM EDT us Leticia NIX MICROBIOLOGY - GENERA L ORDERABLES Final Result Performing Organization Address City/State/[facility] Co de Phone Number [facility] [address] [place] [address] documented in this encounter Visit Diagnoses Diagnosis Screening for unspecified condition- Primary documented in this encounter Additional Health Concerns Infection Onset Date Last Indicated Resolved Time CoV-Risk 07/27/2021 07/27/2021 08/06/2021 1:22 AM EST CoV-Risk 10/04/2021 10/04/2021 10/14/2021 1:23 AM EST documented as of this encounter Care Teams Form Press Operator Relationship Specialty Start Date End Date Kailey Camacho MD [address] [place] [address] [email or web address] PCP - General Internal Medicine 07/20/17 Kailey Camacho MD [address] [place] [address] [email or web address] Historical LMR Provider 07/04/17 Pranav Gandhi MD [address] [place] [address] Historical LMR Provider 07/04/17 2 documented as of this encounter Additional Source Comments The information contained in this document represents components of the legal health record. It is not the complete legal health record.[facility]
--- OUTSIDE RECORDS SUMMARY | 2025-05-11 09:35 | XMS_ITS | Encounter Summary ---
Author Organization [facility] Address [address] [place] [address] [place] [address] Phone Care Team Providers Care Director Of Career Resources Name Role Phone Kailey Camacho MD Unavailable [phone] Pranav Gandhi MD Unavailable [phone] Kailey Camacho MD Primary Care Provider Encounter Details Date Type Department Care Team (Late st Contact Info) Description 07/26/2017 Transcribe Orders [facility] [address] [place] [address] Kailey Camacho MD [address] [place] [address] [email or web address] Asymptomatic microscopic hematuria (Primary Dx) Social History Tobacco Use Types [...] on file documented as of this encounter Procedures Procedure Name Priority Date/Time Associated Diagnosis Comments URINE CULTURE Routine 07/26/2017 3:29 PM EST Asymptomatic microscopic hematuria URINE SEDIMENT Routine 07/26/2017 3:29 PM EST URINALYSIS Routine 07/26/2017 3:29 PM EST Asymptomatic microscopic hematuria documented in this encounter Results * (ABNORMAL) Urine sediment (07/26/2017 3:29 PM EST) WBC 5-10(A) NONE SEEN /hpf [facility] RBC 0-2(A) NONE SEEN /hpf [facility] URINE EPITHELIAL 5-10(A) NONE SEEN [facility] MUCUS NONE SEEN NONE SEEN /hpf [facility] BACTERIA 2+(A) NONE SEEN [facility] 07/26/2017 3:29 PM EST 07/26/2017 3:31 PM EST Kailey Camacho MD URINE ORDERABLES Final Resu lt Performing Organization Address [facility]/ZIP Co de Phone Number [address] [address] * Urine culture (07/26/2017 3:29 PM EST) Specimen Source/ Description URINE CLEAN CATCH URINE URINE [facility] Special Requests None [facility] GRAM STAIN Few GRAM POSITIVE RODS [facility] Culture/Test >100,000 colony forming units per ml MIXED CARLENE (3 OR MORE COLONY TYPES) Culture indicates contamination . Please resubmit if necessary. [facility] Report Status 07/27/2017 FINAL [facility] Urine (Urine) 07/26/2017 3:2 9 PM EST 07/26/2017 3:31 PM EST Kailey Camacho MD MICROBIOLOGY - GENERAL ORDE [facility] Final Result Performing Organization Address [facility]/ZIP Co de Phone Number [address] [address] * (ABNORMAL) Urinalysis (07/26/2017 3:29 PM EST) COLOR Yellow Yellow [facility] CLARITY Clear [facility] GLUCOSE Negative Negative [facility] BILI Negative Negative [facility] KETONES Negative Negative [facility] SPECIFIC GRAVITY >1.030 1.005 - 1.030 [facility] BLOOD Negative Negative [facility] PH 5.5 5.0 - 8.0 [facility] Protein-UA Negative Negative [facility] NITRITE Negative Negative [facility] Leukocyte esterase, ur Trace(A) Negative [facility] Urine (Urine) 07/26/2017 3:2 9 PM EST 07/26/2017 3:31 PM EST Kailey Camacho MD URINE ORDERABLES Final Resu lt [facility] [address] [place] [address] documented in this encounter Visit Diagnoses Diagnosis Asymptomatic microscopic hematuria- Primary documented in this encounter Additional Health Concerns Infection Onset Date Last Indicated Resolved Time CoV-Risk 07/27/2021 07/27/2021 08/06/2021 1:22 AM EST CoV-Risk 10/04/2021 10/04/2021 10/14/2021 1:23 AM EST documented as of this encounter Care Teams Director Of Career Resources Relationship Specialty Start Date End Date Kailey Camacho MD [address] [place] [address] [email or web address] PCP - General Internal Medicine 07/20/17 Kailey Camacho MD [address] [place] [address] [email or web address] Historical LMR Provider 07/04/17 Pranav Gandhi MD [address] [place] [address] Historical LMR Provider 07/04/17 2 documented as of this encounter Additional Source Comments The information contained in this document represents components of the legal health record. It is not the complete legal health record.[facility]
--- OUTSIDE RECORDS SUMMARY | 2025-05-11 09:35 | XMS_ITS | Encounter Summary ---
Author Organization [facility] Address [address] [place] [address] [place] [address] Phone Care Team Providers Care Vessel Scrapper Name Role Phone Kailey Camacho MD Unavailable Pranav Gandhi MD Unavailable [phone] Kailey Camacho MD Primary Care Provider Encounter Details Date Type Department Care Team (Latest Contact Info) Description 07/27/2021 Transcribe Orders Virtual Department [address] [place] [address] Kala Jarrell PA [address] [place], [place] [id number] [email or web address] Encounter for laboratory testing for COVID-19 virus (Primary Dx) Social History Tobacco Use Types [...] documented as of this encounter Results * COVID-19 PCR Order (07/27/2021 12:57 PM EST) COVID Testing Status Specimen received in analyzing lab. Results should be available within 24 to 48 hrs. [facility] Symptomatic? YES [facility] Other 07/27/2021 12:5 7 PM EST 07/27/2021 5:45 PM EST Kailey Camacho MD BODY FLUIDS AND STOOLS PRO DESAI Final Result [facility] [address] [place] [address] [facility] [address] [place] [address] documented in this encounter Visit Diagnoses Diagnosis Encounter for laboratory testing for COVID-19 virus- Primary documented in this encounter Additional Health Concerns Infection Onset Date Last Indicated Resolved Time CoV-Risk 07/27/2021 07/27/2021 08/06/2021 1:22 AM EST CoV-Risk 10/04/2021 10/04/2021 10/14/2021 1:23 AM EST documented as of this encounter Care Teams Vessel Scrapper Relationship Specialty Start Date End Date Kailey Camacho MD [address] [place] [address] [email or web address] PCP - General Internal Medicine 07/20/17 Kailey Camacho MD [address] [place] [email or web address] Historical LMR Provider 07/04/17 Pranav Gandhi MD [address] [place] [address] Historical LMR Provider 07/04/17//2 2 documented as of this encounter Additional Source Comments The information contained in this document represents components of the legal health record. It is not the complete legal health record.[facility]
--- OUTSIDE RECORDS SUMMARY | 2025-05-11 09:35 | XMS_ITS | Encounter Summary ---
Author Organization [facility] Address [address] [place] [address] [place] [address] Phone Care Team Providers Care Tablet Repair Name Role Phone Kailey Camacho MD Unavailable [phone] Kailey Camacho MD Primary Care Provider [phone] Encounter Details Date Type Department Care Team (Latest Contact Info) Description 02/28/2022 Transcribe Orders Virtual Department [address] [place] [address] Kala Jarrell PA [address] [place] [address] [email or web address] Pain and swelling of left ankle (Primary Dx) Social History Tobacco Use Types [...] on file documented as of this encounter Visit Diagnoses Diagnosis Pain and swelling of left ankle- Primary documented in this encounter Care Teams Tablet Repair Relationship Specialty Start Date End Date Kailey Camacho MD [address] [place] [address] [email or web address] PCP - General Internal Medicine 07/20/17 Kailey Camacho MD [address] [place] [address] [email or web address] Historical LMR Provider 07/04/17 documented as of this encounter Additional Source Comments The information contained in this document represents components of the legal health record. It is not the complete legal health record.[facility]
--- OUTSIDE RECORDS SUMMARY | 2025-05-11 09:35 | XMS_ITS | Encounter Summary ---
Author Organization [facility] Address [address] [place] [address] [place] [address] Phone Care Team Providers Care Knurling Machine Operator Name Role Phone Kailey Camacho MD Unavailable Pranav Gandhi MD Unavailable [phone] Kailey Camacho MD Primary Care Provider Encounter Details Date Type Department Care Team (Late st Contact Info) Description 04/01/2019 Transcribe Orders [facility] Laboratory [address] [place] [address] Kailey Camacho MD [address] [place] [address] [id number] [email or web address] Delinquent immunization status (Primary Dx) Social History Tobacco Use Types [...] documented as of this encounter Results * Hepatitis B surface antigen (04/01/2019 2:38 PM EDT) HBV SURFACE ANTIGEN Negative Negative [facility] Blood 04/01/2019 2:38 PM EDT 04/01/2019 2:42 PM EDT Kailey Camacho MD LAB BLOOD ORDERABLES Final Result Performing Organization Address City/[facility]/ZIP Co de Phone Number [address] [address] * Hepatitis B surface antibody (04/01/2019 2:38 PM EDT) HBV SURFACE ANTIBODY Positive [facility] Comment: Unvaccinated: Negative Vaccinated: Positive Blood 04/01/2019 2:38 PM EDT 04/01/2019 2:42 PM EDT Kailey Camacho MD LAB BLOOD ORDERABLES Final Result Performing Organization Address [facility] Co de Phone Number [address] [address] documented in this encounter Visit Diagnoses Diagnosis Delinquent immunization status- Primary Personal history of underimmunization status documented in this encounter Additional Health Concerns Infection Onset Date Last Indicated Resolved Time CoV-Risk 07/27/2021 07/27/2021 08/06/2021 1:22 AM EST CoV-Risk 10/04/2021 10/04/2021 10/14/2021 1:23 AM EST documented as of this encounter Care Teams Knurling Machine Operator Relationship Specialty Start Date End Date Kailey Camacho MD [address] [place] [address] PCP - General Internal Medicine 07/20/17 Kailey Camacho MD [address] [place] [address] Historical LMR Provider 07/04/17 Pranav Gandhi MD [address] [place] [address] Historical LMR Provider 07/04/17 2 documented as of this encounter Additional Source Comments The information contained in this document represents components of the legal health record. It is not the complete legal health record.[facility]
--- OUTSIDE RECORDS SUMMARY | 2025-05-11 09:35 | XMS_ITS | Encounter Summary ---
Author Organization [facility] Address [address] [place] [address] Phone Care Team Providers Care Floor Grinder Name Role Phone Kailey Camacho MD Unavailable [phone] Kailey Camacho MD Primary Care Provider [phone] Reason for Referral * - Closed Specialty Diagnoses / Procedures Referred By Contsam t Referred To Contact Diagnoses Palpitations Procedures MCT (Mobile Cardiac Telemetry) En Winn MD Phone: tel: fax: mailto:[email or web address] Referral ID Status Reason Start Date Expiration Date Visits Re quested Visits Authorized [id number] Closed 10/17/2021 10/17/2022 1 1 Encounter Details Date Type Department Care Team (Late st Contact Info) Description 10/17/2021 Ancillary Orders [facility] [address] Floor, [address] [place] [address] En Winn MD [address] [facility] [address] [place] [address] [email or web address] Palpitations Social History Tobacco Use Types Packs/Day Years [...] as of this encounter Plan of Treatment Scheduled Orders Name Type Priority Associated Diagnoses Orde r Schedule MCT (Mobile Cardiac Telemetry) Cardiac Monitors Routine Palpitations Expected: 10/09/2021, Expires: 01/07/2022 documented as of this encounter Visit Diagnoses Diagnosis Palpitations documented in this encounter Care Teams Floor Grinder Relationship Specialty Start Date End Date Kailey Camacho MD [address] [place] [address] PCP - General Internal Medicine 07/20/17 Kailey Camacho MD [address] [place] [address] [email or web address] Historical LMR Provider 07/04/17 documented as of this encounter Additional Source Comments The information contained in this document represents components of the legal health record. It is not the complete legal health record.[facility]
--- OUTSIDE RECORDS SUMMARY | 2025-05-11 09:35 | XMS_ITS | Encounter Summary ---
Author Organization [facility] Address [address] [place] [address] [place] [address] Phone Care Team Providers Care Supervisor Mold Construction Name Role Phone Kailey Camacho MD Unavailable [phone] Kailey Camacho MD Primary Care Provider [phone] Encounter Details Date Type Department Care Team (Late st Contact Info) Description 10/09/2021 Procedure Pass [facility] [address] [place] [address] Social History Tobacco Use Types Packs/Day Years [...] documented as of this encounter Visit Diagnoses Not on filedocumented in this encounter Additional Health Concerns Infection Onset Date Last Indicated Resolved Time CoV-Risk 10/04/2021 10/04/2021 10/14/2021 1:23 AM EST documented as of this encounter Care Teams Supervisor Mold Construction Relationship Specialty Start Date End Date Kailey Camacho MD [address] [place] [address] [email or web address] PCP - General Internal Medicine 07/20/17 Kailey Camacho MD [address] [place] [address] [email or web address] Historical LMR Provider 07/04/17 documented as of this encounter Additional Source Comments The information contained in this document represents components of the legal health record. It is not the complete legal health record.[facility]
--- OUTSIDE RECORDS SUMMARY | 2025-05-11 09:36 | XMS_ITS | Encounter Summary ---
Author Organization [facility] Address [address] [place] [address] [place] [address] Phone Care Team Providers Care Repulping Supervisor Name Role Phone Kailey Camacho MD Unavailable [phone] Pranav Gandhi MD Unavailable [phone] Kailey Camacho MD Primary Care Provider Encounter Details Date Type Department Care Team (Late st Contact Info) Description 08/05/2017 Procedure Pass [facility], [address] [address] Social History Tobacco Use Types Packs/Day Years [...] documented as of this encounter Care Teams Repulping Supervisor Relationship Specialty Start Date End Date Kailey Camacho MD [address] [place] [address] [email or web address] PCP - General Internal Medicine 07/20/17 Kailey Camacho MD [address] [place] [address] [email or web address] Historical LMR Provider 07/04/17 Pranav Gandhi MD [address] [place] [address] Historical LMR Provider 07/04/17 2 documented as of this encounter Additional Source Comments The information contained in this document represents components of the legal health record. It is not the complete legal health record.[facility]
--- OUTSIDE RECORDS SUMMARY | 2025-05-11 09:36 | XMS_ITS | Encounter Summary ---
Author Organization [facility] Address [address] [place] [address] [place] [address] Phone Care Team Providers Care Sock Lining Examiner Name Role Phone Kailey Camacho MD Unavailable [phone] Pranav Gandhi MD Unavailable [phone] Kailey Camacho MD Primary Care Provider [phone] Encounter Details Date Type Department Care Team (Latest Contact Info) Description 04/24/[address]cribe [address] [facility] Laboratory [address] [place] [address] Kala Jarrell PA [address] [place], [place] [id number] [email or web address] Nausea (Primary Dx); Diarrhea, unspecified type; Cloudy urine Social History Tobacco Use Types Packs/Day Years Used Date Smoking Tobacco: Never Smokeless Tobacco: Never Alcohol Use Standard Drinks/Week Comments No 0 (1 standard drink = 0.6 oz pur e alcohol) Comments Unknown Sex and Gender Information Value Date Recorded Sex Assigned at Female 07/13/2018 8:39 PM EDT Legal Sex Female 8:47 PM EDT Gender Identity Female 07/13/2018 8:39 PM EDT Sexual Orientation Straight 07/13/2018 8: 39 PM EDT documented as of this encounter Plan of Treatment Not on file documented as of this encounter Results * (ABNORMAL) Urinalysis with sediment (04/24/2018 12:27 PM EDT) WBC 0-4(A) NONE SEEN /hpf [facility] RBC NONE SEEN NONE SEEN /hpf [facility] URINE EPITHELIAL 0-4(A) NONE SEEN [facility] MUCUS NONE SEEN NONE SEEN /hpf [facility] BACTERIA Trace(A) NONE SEEN [facility] CRYSTALS 3+ [facility] Comment:AMORPHOUS COLOR Yellow Yellow [facility] CLARITY TURBID [facility] GLUCOSE Negative Negative [facility] BILI Negative Negative [facility] KETONES Negative Negative [facility] SPECIFIC GRAVITY 1.020 1.005 - 1.030 [facility] BLOOD Negative Negative [facility] PH 6.0 5.0 - 8.0 [facility] Protein-UA Negative Negative [facility] NITRITE Negative Negative [facility] Leukocyte esterase, ur 1+(A) Negative [facility] Urine (Urine) 04/24/2018 12: 27 PM EDT 04/24/2018 12:31 PM EDT Kala [facility] URINE ORDERABLES Final Result Performing Organization Address City/[facility]/ZIP Co de Phone Number [address] [address] * Urine culture (04/24/2018 12:27 PM EDT) Specimen Source/ Description URINE URINE URINE [facility] Special Requests None [facility] GRAM STAIN Rare GRAM POSITIVE RODS [facility] Culture/Test >100,000 colony forming units per ml MIXED CARLENE (3 OR MORE COLONY TYPES) Culture indicates contamination . Please resubmit if necessary. [facility] Report Status 04/25/2018 FINAL [facility] Urine (Urine) 04/24/2018 12: 27 PM EDT 04/24/2018 12:32 PM EDT Kala [facility] MICROBIOLOGY - GENERAL ORDERABL ES Final Result Performing Organization Address City/[facility]/ZIP Co de Phone Number [address] [address] * (ABNORMAL) CBC and differential (04/24/2018 12:27 PM EDT) WBC 9.34 3.40 - 11.20 K/uL [facility] RBC 5.21(H) 3.80 - 4.80 M/uL [facility] HGB 13.9 12.0 - 15.0 g/dL [facility] HCT 42.5 36.0 - 46.0 % [facility] PLT 376 130 - 400 K/uL [facility] MCV 81.6 79.0 - 98.0 fL [facility] MCH 26.7(L) 27.0 - 34.8 pg [facility] MCHC 32.7 31.5 - 36.0 g/dL [facility] RDW 13.8 10.8 - 14.6 % [facility] MPV 9.1(L) 9.4 - 12.4 fl [facility] NRBC 0.00 /100 WBCs [facility] ABSOLUTE NRBC 0.00 K/uL [facility] DIFF METHOD Auto [facility] NEUTS 58.6 45.30 - 77.70 % [facility] LYMPHS 32.5 12.30 - 39.70 % [facility] MONOS 7.3 4.10 - 12.80 % [facility] EOS 0.9 0 - 7.2 % [facility] BASOS 0.5 0 - 2.80 % [facility] Granulocytes, immature (%) 0.2 0.0 - 0.9 % [facility] ABSOLUTE NEUTS 5.47 1.40 - 7.70 K/uL [facility] ABSOLUTE LYMPHS 3.04 0.60 - 3.20 K/uL [facility] ABSOLUTE MONOS 0.68(H) 0.11 - 0.59 K/uL [facility] ABSOLUTE EOS 0.08 0.01 - 0.50 K/uL [facility] ABSOLUTE BASOS 0.05 0.00 - 0.08 K/uL [facility] Granulocytes, immature 0.02 0.00 - 0.05 K/uL [facility] Blood 04/24/2018 12:2 7 PM EDT 04/24/2018 12:31 PM EDT us Kala [facility] LAB BLOOD ORDERABLES Final Resu lt [address] [address] * Comprehensive metabolic panel (04/24/2018 12:27 PM EDT) SODIUM 139 133 - 146 mmol/L [facility] POTASSIUM 3.8 3.3 - 5.1 mmol/L [facility] CHLORIDE 101 96 - 108 mmol/L [facility] CO2 25 21 - 35 mmol/L [facility] BUN 11 6 - 19 mg/dL [facility] CREATININE 0.50 0.5 - 1.5 mg/dL [facility] GLUCOSE 83 70 - 99 mg/dL [facility] ALBUMIN 4.1 3.9 - 4.8 g/dL [facility] TOTAL PROTEIN 7.8 6.5 - 8.0 g/dL [facility] CALCIUM 9.1 8.4 - 10.3 mg/dL [facility] ALKALINE PHOSPHATASE 58 39 - 117 U/L [facility] TOTAL BILIRUBIN 0.2 0.0 - 1.2 mg/dL [facility] AST 12 0 - 37 U/L [facility] ALT 9 0 - 40 U/L [facility] GLOBULIN 3.7 1 - 4.8 g/dL [facility] EGFR >120 >59 mL/min/1.7 3m2 [facility] Comment:If patient is black, multiply result by 1.159. Estimated glomerular filtration rate calculated using the CKD-EPI equation. ANION GAP 17 10 - 20 mmol/L [facility] Blood 04/24/2018 12:2 7 PM EDT 04/24/2018 12:31 PM EDT Kala NIX LAB BLOOD ORDERABLES Final Resu lt [address] [address] documented in this encounter Visit Diagnoses Diagnosis Nausea- Primary Nausea alone Diarrhea, unspecified type Cloudy urine documented in this encounter Additional Health Concerns Infection Onset Date Last Indicated Resolved Time CoV-Risk 07/27/2021 07/27/2021 08/06/2021 1:22 AM EST CoV-Risk 10/04/2021 10/04/2021 10/14/2021 1:23 AM EST documented as of this encounter Care Teams Sock Lining Examiner Relationship Specialty Start Date End Date Kailey Camacho MD [address] [place] [address] [email or web address] PCP - General Internal Medicine 07/20/17 Kailey Camacho MD [address] [place] [address] [email or web address] Historical LMR Provider 07/04/17 Pranav Gandhi MD [address] [place] [address] Historical LMR Provider 07/04/17 2 documented as of this encounter Additional Source Comments The information contained in this document represents components of the legal health record. It is not the complete legal health record.[facility]
--- OUTSIDE RECORDS SUMMARY | 2025-05-11 09:36 | XMS_ITS | Encounter Summary ---
Author Organization [facility] Address [address] [place] [address] [place] [address] Phone Care Team Providers Care Slot Router Name Role Phone Kailey Camacho MD Unavailable [phone] Pranav Gandhi MD Unavailable [phone] Kailey Camacho MD Primary Care Provider Encounter Details Date Type Department Care Team (Late st Contact Info) Description 02/12/2018 Procedure Pass [place] Admitting Dept - Virtual Department [address] [place] [address] Social History Tobacco Use Types Packs/Day Years [...] documented as of this encounter Care Teams Slot Router Relationship Specialty Start Date End Date Kailey Camacho MD [address] [place] [address] [email or web address] PCP - General Internal Medicine 07/20/17 Kailey Camacho MD [address] [place] [address] [email or web address] Historical LMR Provider 07/04/17 Pranav Gandhi MD [address] [place] [address] Historical LMR Provider 07/04/17 2 documented as of this encounter Additional Source Comments The information contained in this document represents components of the legal health record. It is not the complete legal health record.[facility]
--- OUTSIDE RECORDS SUMMARY | 2025-05-11 09:36 | XMS_ITS | Encounter Summary ---
Author Organization [facility] Address [address] [place] [address] Phone Care Team Providers Care Long Chain Beamer Name Role Phone Kailey Camacho MD Unavailable [phone] Pranav Gandhi MD Unavailable [phone] Kailey Camacho MD Primary Care Provider Encounter Details Date Type Department Care Team (Late st Contact Info) Description 11/12/2020 Procedure Pass [facility], Ct Scan - [address] [address] Social History Tobacco Use Types Packs/Day Years [...] on file documented as of this encounter Functional Status * Calculated C-SSRS Risk Score (Lifetime/Recent) Answer Date of Assessment Author No Risk Indicated 11/12/2020 10:01 AM Brie Cox RN * [place] Suicide Severity Rating Scale (Screener/Recent Self-Report) Question Answer Date of Assessment Author 1. Wish to be (Past 1 Month) No 021 10:01 AM EST Brie Kramer RN documented as of this encounter Plan of Treatment Not on file documented as of this encounter Visit Diagnoses Not on filedocumented in this encounter Additional Health Concerns Infection Onset Date Last Indicated Resolved Time CoV-Risk 07/27/2021 07/27/2021 08/06/2021 1:22 AM EST CoV-Risk 10/04/2021 10/04/2021 10/14/2021 1:23 AM EST documented as of this encounter Care Teams Long Chain Beamer Relationship Specialty Start Date End Date Kailey Camacho MD [address] [place] [address] [email or web address] PCP - General Internal Medicine 07/20/17 Kailey Camacho MD [address] [place] [address] [email or web address] Historical LMR Provider 07/04/17 Pranav Gandhi MD [address] [place] [address] Historical LMR Provider 07/04/17 2 documented as of this encounter Additional Source Comments The information contained in this document represents components of the legal health record. It is not the complete legal health record.[facility]
--- OUTSIDE RECORDS SUMMARY | 2025-05-11 09:36 | XMS_ITS | Encounter Summary ---
Author Organization [facility] Address [address] [place] [address] Phone Care Team Providers Care Bread And Pastry Baker Name Role Phone Kailey Camacho MD Unavailable [phone] Pranav Gandhi MD Unavailable [phone] Kailey Camacho MD Primary Care Provider Encounter Details Date Type Department Care Team (Latest Contact Info) Description 12/09/2017 Transcribe Orders [facility] Laboratory [address] [place] [address] Kala Jarrell PA [address] [place], [place] [id number] [email or web address] Dizziness (Primary Dx) Social History Tobacco Use Types [...] documented as of this encounter Results * Urine culture (12/09/2017 3:06 PM EDT) Specimen Source/ Description URINE CLEAN CATCH URINE URINE [facility] Special Requests None [facility] GRAM STAIN NO ORGANISMS SEEN [facility] Culture/Test >100,000 colony forming units per ml MIXED CARLENE (3 OR MORE COLONY TYPES) Culture indicates contamination . Please resubmit if necessary. [facility] Report Status 12/10/2017 FINAL [facility] Urine (Urine) 12/09/2017 3:0 6 PM EDT 12/09/2017 3:12 PM EDT [facility] MICROBIOLOGY - GENERAL ORDERABL ES Final Result Performing Organization Address City/[facility]/ZIP Co de Phone Number [address] [address] * (ABNORMAL) Urinalysis with sediment (12/09/2017 3:06 PM EDT) WBC 0-4(A) NONE SEEN /hpf [facility] RBC NONE SEEN NONE SEEN /hpf [facility] URINE EPITHELIAL NONE SEEN NONE SEEN [facility] MUCUS NONE SEEN NONE SEEN /hpf [facility] BACTERIA Trace(A) NONE SEEN [facility] COLOR Yellow Yellow [facility] CLARITY Clear [facility] GLUCOSE Negative Negative [facility] BILI Negative Negative [facility] KETONES Negative Negative [facility] SPECIFIC GRAVITY 1.015 1.005 - 1.030 [facility] BLOOD Negative Negative [facility] PH 5.5 5.0 - 8.0 [facility] Protein-UA Negative Negative [facility] NITRITE Negative Negative [facility] Leukocyte esterase, ur Negative Negative [facility] Urine (Urine) 12/09/2017 3:0 6 PM EDT 12/09/2017 3:11 PM EDT Kala NIX URINE ORDERABLES Final Result Performing Organization Address [facility]/ZIP Co de Phone Number [address] [address] * (ABNORMAL) CBC and differential (12/09/2017 3:06 PM EDT) WBC 8.19 3.40 - 11.20 K/uL [facility] RBC 4.95(H) 3.80 - 4.80 M/uL [facility] HGB 13.7 12.0 - 15.0 g/dL [facility] HCT 40.1 36.0 - 46.0 % [facility] PLT 295 130 - 400 K/uL [facility] MCV 81.0 79.0 - 98.0 fL [facility] MCH 27.7 27.0 - 34.8 pg [facility] MCHC 34.2 31.5 - 36.0 g/dL [facility] RDW 14.1 10.8 - 14.6 % [facility] MPV 9.8 9.4 - 12.4 fl [facility] NRBC 0.00 /100 WBCs [facility] ABSOLUTE NRBC 0.00 K/uL [facility] DIFF METHOD Auto [facility] NEUTS 51.3 45.30 - 77.70 % [facility] LYMPHS 41.0(H) 12.30 - 39.70 % [facility] MONOS 6.6 4.10 - 12.80 % [facility] EOS 0.5 0 - 7.2 % [facility] BASOS 0.4 0 - 2.80 % [facility] Granulocytes, immature (%) 0.2 0.0 - 0.9 % [facility] ABSOLUTE NEUTS 4.20 1.40 - 7.70 K/uL [facility] ABSOLUTE LYMPHS 3.36(H) 0.60 - 3.20 K/uL [facility] ABSOLUTE MONOS 0.54 0.11 - 0.59 K/uL [facility] ABSOLUTE EOS 0.04 0.01 - 0.50 K/uL [facility] ABSOLUTE BASOS 0.03 0.00 - 0.08 K/uL [facility] Granulocytes, immature 0.02 0.00 - 0.05 K/uL [facility] Blood 12/09/2017 3:06 PM EDT 12/09/2017 3:11 PM EDT us Kala [facility] LAB BLOOD ORDERABLES Final Resu lt [facility] [address] [place] [address] * TSH with reflex (12/09/2017 3:06 PM EDT) TSH 2.42 0.27 - 4.20 uIU/mL [facility] Blood 12/09/2017 3:06 PM EDT 12/09/2017 3:11 PM EDT us Kala NIX LAB BLOOD ORDERABLES Final Resu lt [facility] [address] [place] [address] * Comprehensive metabolic panel (12/09/2017 3:06 PM EDT) SODIUM 140 133 - 146 mmol/L [facility] POTASSIUM 3.7 3.3 - 5.1 mmol/L [facility] CHLORIDE 102 96 - 108 mmol/L [facility] CO2 22 21 - 35 mmol/L [facility] BUN 11 6 - 19 mg/dL [facility] CREATININE 0.60 0.5 - 1.5 mg/dL [facility] GLUCOSE 82 70 - 99 mg/dL [facility] ALBUMIN 4.1 3.9 - 4.8 g/dL [facility] TOTAL PROTEIN 7.6 6.5 - 8.0 g/dL [facility] CALCIUM 9.5 8.4 - 10.3 mg/dL [facility] ALKALINE PHOSPHATASE 54 39 - 117 U/L [facility] TOTAL BILIRUBIN 0.3 0.0 - 1.2 mg/dL [facility] AST 21 0 - 37 U/L [facility] ALT 35 0 - 40 U/L [facility] GLOBULIN 3.5 1 - 4.8 g/dL [facility] EGFR >120 >59 mL/min/1.7 3m2 [facility] Comment:If patient is black, multiply result by 1.159. The eGFR calculation has changed from the MDRD equation to the CKD-EPI equation as of November 19, 2017. ANION GAP 20 10 - 20 mmol/L [facility] Blood 12/09/2017 3:06 PM EDT 12/09/2017 3:11 PM EDT us Kala [facility] LAB BLOOD ORDERABLES Final Resu lt [facility] [address] [place] [address] documented in this encounter Visit Diagnoses Diagnosis Dizziness- Primary Dizziness and giddiness documented in this encounter Additional Health Concerns Infection Onset Date Last Indicated Resolved Time CoV-Risk 07/27/2021 07/27/2021 08/06/2021 1:22 AM EST CoV-Risk 10/04/2021 10/04/2021 10/14/2021 1:23 AM EST documented as of this encounter Care Teams Bread And Pastry Baker Relationship Specialty Start Date End Date Kailey Camacho MD [address] [place] [address] [email or web address] PCP - General Internal Medicine 07/20/17 Kailey Camacho MD [address] [place] [address] Historical LMR Provider 07/04/17 Pranav Gandhi MD [address] [place] [address] Historical LMR Provider 07/04/17 2 documented as of this encounter Additional Source Comments The information contained in this document represents components of the legal health record. It is not the complete legal health record.[facility]
--- OUTSIDE RECORDS SUMMARY | 2025-05-11 09:36 | XMS_ITS | Encounter Summary ---
Author Organization [facility] Address [address] [place] [address] Phone Care Team Providers Care Academic Support Director Name Role Phone Kailey Camacho MD Unavailable [phone] Pranav Gandhi MD Unavailable [phone] Kailey Camacho MD Primary Care Provider Encounter Details Date Type Department Care Team (Latest Contact Info) Description 01/10/2019 Transcribe Orders [facility] Laboratory [address] [place] [address] Leticia Hurtado PA [address] [place] [address] [place] [address] Screening for unspecified condition (Primary Dx) Social [...] as of this encounter Visit Diagnoses Diagnosis Screening for unspecified condition- Primary documented in this encounter Additional Health Concerns Infection Onset Date Last Indicated Resolved Time CoV-Risk 07/27/2021 07/27/2021 08/06/2021 1:22 AM EST CoV-Risk 10/04/2021 10/04/2021 10/14/2021 1:23 AM EST documented as of this encounter Care Teams Academic Support Director Relationship Specialty Start Date End Date Kailey Camacho MD [address] [place] [address] [email or web address] PCP - General Internal Medicine 07/20/17 Kailey Camacho MD [address] [place] [address] [email or web address] Historical LMR Provider 07/04/17 Pranav Gandhi MD [address] [place] [address] Historical LMR Provider 07/04/17 2 documented as of this encounter Additional Source Comments The information contained in this document represents components of the legal health record. It is not the complete legal health record.[facility]
--- OUTSIDE RECORDS SUMMARY | 2025-05-11 09:36 | XMS_ITS | Encounter Summary ---
Author Organization [facility] Address [address] [place] [address] Phone Care Team Providers Care Bus Girl Name Role Phone Kailey Camacho MD Unavailable [phone] Pranav Gandhi MD Unavailable [phone] Kailey Camacho MD Primary Care Provider Encounter Details Date Type Department Care Team (Late st Contact Info) Description 11/12/2020 Procedure Pass [facility], Ct Scan - [address] [address] Social History Tobacco Use Types Packs/Day Years [...] 11/12/2020 10:01 AM Brie Cox RN * [place] Suicide Severity Rating Scale (Screener/Recent Self-Report) Question [...] documented as of this encounter Care Teams Bus Girl Relationship Specialty Start Date End Date Kailey Camacho MD [address] [place] [address] [email or web address] PCP - General Internal Medicine 07/20/17 Kailey Camacho MD [address] [place] [address] Historical LMR Provider 07/04/17 Pranav Gandhi MD [address] [place] [address] Historical LMR Provider 07/04/17 2 documented as of this encounter Additional Source Comments The information contained in this document represents components of the legal health record. It is not the complete legal health record.[facility]
--- OUTSIDE RECORDS SUMMARY | 2025-05-11 09:36 | XMS_ITS | Encounter Summary ---
Author Organization [facility] Address [address] [place] [address] Phone Care Team Providers Care River Pilot Name Role Phone Kailey Camacho MD Unavailable [phone] Pranav Gandhi MD Unavailable [phone] Kailey Camacho MD Primary Care Provider Encounter Details Date Type Department Care Team (Late st Contact Info) Description 11/17/2020 Procedure Pass [facility], Ct Scan - [address] [address] Social History Tobacco Use Types Packs/Day Years [...] Date of Assessment Author No Risk Indicated 11/17/2020 9:43 PM Emelia Barksdale, ANNETTE * [place] Suicide Severity Rating Scale (Screener/Recent Self-Report) Question Answer Date of Assessment Author 1. Wish to be (Past 1 Month) No 021 9:43 PM Emelia Barksdale, ANNETTE 2. Non-Specific Active Suici yaz Thoughts (Past 1 Month) No 11/17/2020 9:43 PM Emelia Barksdale , ANNETTE 6. Suicidal Behavior (Lifetime) No 9:43 PM Emelia Barksdale, ANNETTE documented as of this encounter Plan of Treatment Not on file documented as of this encounter Visit Diagnoses Not on filedocumented in this encounter Additional Health Concerns Infection Onset Date Last Indicated Resolved Time CoV-Risk 07/27/2021 07/27/2021 08/06/2021 1:22 AM EST CoV-Risk 10/04/2021 10/04/2021 10/14/2021 1:23 AM EST documented as of this encounter Care Teams River Pilot Relationship Specialty Start Date End Date Kailey Camacho MD [address] [place] [address] [email or web address] PCP - General Internal Medicine 07/20/17 Kailey Camacho MD [address] [place] [address] [email or web address] Historical LMR Provider 07/04/17 Pranav Gandhi MD [address] [place] [address] Historical LMR Provider 07/04/17 2 documented as of this encounter Additional Source Comments The information contained in this document represents components of the legal health record. It is not the complete legal health record.[facility]
--- OUTSIDE RECORDS SUMMARY | 2025-05-11 09:36 | XMS_ITS | Encounter Summary ---
Author Organization [facility] Address [address] [place] [address] [place] [address] Phone Care Team Providers Care Family Development Extension Specialist Name Role Phone Kailey Camacho MD Unavailable Pranav Gandhi MD Unavailable [phone] Kailey Camacho MD Primary Care Provider [phone] Encounter Details Date Type Department Care Team (Latest Contact Info) Description 07/23/2017 Ancillary Orders [facility], X-Ray - [address] [address] Kala Jarrell PA [address] [place], [place] [id number] [email or web address] Lumbar radiculopathy Social History Tobacco Use Types Packs/Day Years [...] as of this encounter Results * XR LUMBOSACRAL SPINE 4 OR MORE VIEWS (07/23/2017 4:14 PM EST) Anatomical Region Laterality Modality L-spine Radiographic Letty ging 07/23/2017 4:16 PM EST Impressions 07/23/2017 4:17 PM EST No source of pain detected. POS - [id number] Narrative 07/23/2017 4:17 PM EST Five view lumbar spine series obtained. No prior. There are five lumbar elements. No spondylolysis or spondylolisthesis. Vertebral body height and disc height appear maintained. No bony lesions. Mineralization normal. No SI joint abnormality apparent. Procedure Note Laure Nash MD - 07/23/2017 Five view lumbar spine series obtained. No prior. There are five lumbarelements. No spondylolysis or spondylolisthesis. Vertebral body height anddisc height appear maintained. No bony lesions. Mineralization normal. NoSI joint abnormality apparent. IMPRESSION: No source of pain detected. POS - [id number] [facility]ala [facility]IX IMG XR SPINE Final Result documented in this encounter Visit Diagnoses Diagnosis Lumbar radiculopathy Thoracic or lumbosacral neuritis or radiculitis, unspecified Lumbar radiculopathy Thoracic or lumbosacral neuritis or radiculitis, unspecified documented in this encounter Additional Health Concerns Infection Onset Date Last Indicated Resolved Time CoV-Risk 07/27/2021 07/27/2021 08/06/2021 1:22 AM EST CoV-Risk 10/04/2021 10/04/2021 10/14/2021 1:23 AM EST documented as of this encounter Care Teams Family Development Extension Specialist Relationship Specialty Start Date End Date Kailey Camacho MD [address] [place] [address] PCP - General Internal Medicine 07/20/17 Kailey Camacho MD [address] [place] [address] Historical LMR Provider 07/04/17 Pranav Gandhi MD [address] [place] [address] Historical LMR Provider 07/04/17 2 documented as of this encounter Additional Source Comments The information contained in this document represents components of the legal health record. It is not the complete legal health record.[facility]
--- OUTSIDE RECORDS SUMMARY | 2025-05-11 09:36 | XMS_ITS | Encounter Summary ---
Author Organization [facility] Address [address] [place] [address] [place] [address] Phone Care Team Providers Care Stenotype Machine Operator Name Role Phone Kailey Camacho MD Unavailable Pranav Gandhi MD Unavailable [phone] Kailey Camacho MD Primary Care Provider Encounter Details Date Type Department Care Team (Latest Contact Info) Description 08/05/2017 Ancillary Orders Virtual Department [address] [place] [address] Kala Jarrell PA [address] [place], [place] [id number] [email or web address] Lumbar radiculopathy Social History Tobacco Use Types [...] documented as of this encounter Results * MRI LUMBAR SPINE (NEURO) WITHOUT CONTRAST (08/14/2017 8:56 AM EST) Anatomical Region Laterality Modality L-spine Magnetic Resonan ce 08/14/2017 12:2 6 PM EST Impressions 08/14/2017 12:36 PM EST 1. Moderate-large right paracentral disc protrusion at L4-L5. This moderately displaces the nerve root in the right lateral recess posteriorly. There is disc desiccation at L4-L5. 2. Small left paracentral disc protrusion at L1-L2. POS - [id number] Narrative 08/14/2017 12:36 PM EST HISTORY: Lower back pain on right radiating to right hip and leg for one month. Numbness in right foot. COMPARISON: Lumbar spine x-rays 07/23/2017. TECHNIQUE: Exam performed on a 1.5 Jonna high-field MRI scanner. Sagittal T1, T2 and STIR, axial T1 and T2 sequences were obtained. FINDINGS: Conus medullaris: Normal. L1-L2: Small left paracentral disc protrusion. No other significant abnormalities. L2-L3: No significant abnormalities. L3-L4: No significant abnormalities. L4-L5: Loss of T2 signal within the disc. Moderate-large right paracentral disc protrusion mild to moderately effacing the thecal sac and moderately displacing the nerve root in the right lateral recess posteriorly. L5-S1: Minimal broad-based bulging of the disc. Mild bilateral facet arthropathy. No other significant abnormalities. Soft tissues: No evidence of paravertebral masses. Vertebral bodies: No compression fractures or subluxations. Marrow signal: No definite marrow signal abnormality. Procedure Note Maximo Rowland MD - 08/14/2017 HISTORY: Lower back pain on right radiating to right hip and leg for onemonth. Numbness in right foot. COMPARISON: Lumbar spine x-rays 07/23/2017. TECHNIQUE: Exam performed on a 1.5 Jonna high-field MRI scanner. SagittalT1, T2 and STIR, axial T1 and T2 sequences were obtained. FINDINGS: Conus medullaris: Normal. L1-L2: Small left paracentral disc protrusion. No other significantabnormalities. L2-L3: No significant abnormalities. L3-L4: No significant abnormalities. L4-L5: Loss of T2 signal within the disc. Moderate-large rightparacentral disc protrusion mild to moderately effacing the thecal sac andmoderately displacing the nerve root in the right lateral recessposteriorly. L5-S1: Minimal broad-based bulging of the disc. Mild bilateral facetarthropathy. No other significant abnormalities. Soft tissues: No evidence of paravertebral masses. Vertebral bodies: No compression fractures or subluxations. Marrow signal: No definite marrow signal abnormality. IMPRESSION: 1. Moderate-large right paracentral disc protrusion at L4-L5. Thismoderately displaces the nerve root in the right lateral recessposteriorly. There is disc desiccation at L4-L5. 2. Small left paracentral disc protrusion at L1-L2. POS - [id number] [facility]ala [facility] [place] XSPECIALTY Final Result documented in this encounter Visit Diagnoses Diagnosis Lumbar radiculopathy Thoracic or lumbosacral neuritis or radiculitis, unspecified Lumbar radiculopathy Thoracic or lumbosacral neuritis or radiculitis, unspecified documented in this encounter Additional Health Concerns Infection Onset Date Last Indicated Resolved Time CoV-Risk 07/27/2021 07/27/2021 08/06/2021 1:22 AM EST CoV-Risk 10/04/2021 10/04/2021 10/14/2021 1:23 AM EST documented as of this encounter Care Teams Stenotype Machine Operator Relationship Specialty Start Date End Date Kailey Camacho MD [address] [place] [address] PCP - General Internal Medicine 07/20/17 Kailey Camacho MD [address] [place] [address] Historical LMR Provider 07/04/17 Pranav Gandhi MD [address] [place] [address] Historical LMR Provider 07/04/17 2 documented as of this encounter Additional Source Comments The information contained in this document represents components of the legal health record. It is not the complete legal health record.[facility]
[2025-05-11 10:05] LABS: Hematocrit 37.4 % (37.0-47.0); Hemoglobin 11.6 g/dl (12.0-16.0); Imm Gran Abs Auto 0.04 X10*3/uL (0.00-0.03); Imm Gran Pct Auto 0.3 % (0.0-0.4); Lymphocytes Absolute Auto 5.2 X10*3/uL (1.2-4.9); MANUAL DIFF FLAG SCAN; Mean Corpuscular HGB Conc 31.0 g/dl (31.0-35.0); Mean Corpuscular Hemoglobin 24.2 pg (27.0-33.0); Mean Corpuscular Volume 77.9 fL (80.0-98.0); NRBC Abs Auto 0.000 X10*3/uL (0.0-0.012); NRBC Pct Auto 0.0 /100WBC (0.0-0.2); Platelet Count 369 X10*3/uL (160-400); Red Blood Count 4.80 X10*6/uL (4.20-5.50); SCAN SMEAR FLAG 1; White Blood Count 12.9 X10*3/uL (4.8-10.8)
[2025-05-11 10:47] LABS: Alanine Aminotransferase 69 U/L (0-31); Albumin Level 4.3 g/dL (3.5-5.0); Alkaline Phosphatase 106 U/L (39-117); Anion Gap 14 (12-20); Aspartate Amino Transferase 35 U/L (5-31); Blood Urea Nitrogen 16 mg/dL (9-16); Calcium 9.3 mg/dL (8.4-10.2); Carbon Dioxide 21 mmol/L (22-29); Chloride 105 mmol/L (96-108); Estimated Glomerular Filt Rate > 60; Potassium 3.2 mmol/L (3.3-5.1); Sodium 137 mmol/L (135-145); Total Protein 7.1 g/dL (6.5-8.0)
== END 2025-05-11 09:13 | disposition home or self-care (01) ==
LOC: HO.XRAY 09:12
PROVIDERS: Absent Provider Surgery; PCP Nurse Practitioner Family; Visit Provider Internal Medicine Gastroenterology
DX: K75.81 Nonalcoholic steatohepatitis (NASH) (principal); M04.1 Periodic fever syndromes; R74.8 Abnormal levels of other serum enzymes; E66.01 Morbid (severe) obesity due to excess calories
CPT/HCPCS: 36415; 71046; 80053; 85025; 86140

== ENCOUNTER → 2025-05-11 09:35 | Outpatient (BNV) | payer OTHER, SELFPAY | PROVIDERS: Absent Provider Surgery; PCP Nurse Practitioner Family; Visit Provider Radiology Diagnostic Radiology | DX: E66.01 Morbid (severe) obesity due to excess calories (principal) | CPT/HCPCS: 71046 ==

== ENCOUNTER 2025-05-13 10:52 | Day surgery (SDC) | payer OTHER, SELFPAY ==
[2025-05-11 07:11] VITALS: BMI 48.4
--- NOTE | 2025-05-12 10:15 | HO.ANESPROP2 ---
HPI - Anesthesia Eval Consult details Narrative: 25yo F for Upper Endoscopy Vocal cord dysfunction and airway malacia per hx. Pt reports 1 x hx of possible DI with tonsils at age 12. Easy ETT 2018 and 2021 per anesthesia records from [facility] and [facility] BMI 48.4 PMFSH Active Problems Active Problems: All Active Problems Asthma (Acute) DJD (degenerative joint disease) (Acute) Migraines (Acute) Depression (Acute) Anxiety (Acute) Hypertension (Acute) GERD (gastroesophageal reflux disease) (Acute) Morbid obesity (Acute) Metabolic dysfunction-associated steatohepatitis (MASH) (Acute) Obesity (Acute) COVID-19 virus infection (Acute) Familial Mediterranean fever (Acute) Suprapubic pain (Acute) Liver lesion (Acute) Alkaline phosphatase raised (Acute) Crohn's disease (Acute) Diarrhea (Acute) Epigastric abdominal pain (Acute) Past Medical History Medical History Fatty liver Familial Mediterranean fever Asthma DJD (degenerative joint disease) Migraines Hypertension Morbid obesity GERD (gastroesophageal reflux disease) Depression OCD (obsessive compulsive disorder) Anxiety Costochondritis Vocal cord dysfunction Airway malacia Family History Family History Mother Hypoactive thyroid Hypertension High cholesterol Father Hypertension Blocked artery Surgical History Surgical History History of laparoscopic cholecystectomy History of back surgery Hx of colonoscopy History of esophagogastroduodenoscopy (EGD) H/O adenoidectomy History of tonsillectomy Social History Social History Alcohol intake: current Alcohol intake frequency: holidays/special occasions only Patient Tobacco Use Status: Never used Tobacco Meds Allergies Allergy/AdvReac Type Severity Reaction Status Date / Time latex (LATEX) Allergy Severe SWELLING/HI Verified 05/13/25 11:37 VES banana (BANANA) Allergy Intermediate ANAPHYLAXIS Verified 05/13/25 11:37 cefuroxime (From CEFTIN) Allergy Intermediate HIVES Verified 05/13/25 11:37 Sulfa (Sulfonamide Allergy Intermediate HIVES Verified 05/13/25 11:37 Antibiotics) (SULFA (SULFONAMIDE ANTIBIOTICS)) sulfacetamide Allergy Intermediate Hives Verified 05/13/25 11:37 Home Medications ?Medication ?Instructions ?Recorded ?Confirmed ?Last Taken ?Type cholecalciferol (vitamin D3) 50 50 mcg PO DAILY 06/12/21 05/13/25 11/10/24 History mcg (2,000 unit) capsule albuterol sulfate 90 mcg/actuation 2 puff inhalation Q4-6H PRN asthma 11/10/24 05/13/25 Unknown History aerosol inhaler olmesartan 20 mg tablet 20 mg PO DAILY 12/07/24 05/13/25 Unknown History cyclobenzaprine 5 mg tablet 5 mg PO BEDTIME PRN Spasms 02/16/25 05/13/25 Unknown History duloxetine 60 mg capsule,delayed 90 mg PO DAILY 02/16/25 05/13/25 Unknown History release fluticasone propionate 250 1 inh inhalation BID 02/16/25 05/13/25 Unknown History mcg/actuation blister powder for inhalation (Flovent Diskus) ketorolac 10 mg tablet 10 mg PO Q6H PRN Pain 02/16/25 05/13/25 Unknown History Exam Height,Weight and Vital Signs: Height 5 ft 3 in Weight 123.831 kg Pertinent Lab Results Pertinent Lab Results: Laboratory Tests 05/11/25 09:32 WBC 12.9 H Hgb 11.6 L Hct 37.4 Plt Count 369 Sodium 137 Potassium 3.2 L Chloride 105 Carbon Dioxide 21 L BUN 16 Creatinine 0.64 Narrative Narrative: EKG 04/2025 Vent. Rate : 86 BPM Atrial Rate : 86 BPM P-R Int : 134 ms QRS Dur : 82 ms QT Int : 358 ms P-R-T Axes : 35 18 15 degrees QTcB Int : 428 ms Normal sinus rhythm Normal ECG When compared with ECG of 10-Nov-2024 16:46, No significant change was found Assessment and Plan Assessment Anesthesia Assessment: Chart Reviewed
[2025-05-13 11:16] LABS: UPreg QC Valid YES
[2025-05-13 11:17] VITALS: BMI 44.4
[2025-05-13 11:35] VITALS: BP 107/70; PULSE 98; RESP 15; TEMP 36.7; O2SAT 99
[2025-05-13] MEDS: Lactated Ringers 1,000 ML 100 ML IVCONT (11:36)
--- NOTE | 2025-05-13 13:11 | MHC.SHP ---
Pre-Procedural Eval Section A - 24 Hr Update-Section A only Date of Service: 05/13/25 The patient is an INPATIENT: No The patient has been examined within 24 hours of the surgical procedure. The History & Physical has been completed within 30 days and I have reviewed it.: Yes Section B - Complete if H&P > 30 days Chief Complaint: Morbid (severe) obesity due to excess calories Details of Present Illness: GERD Relevant Family History (Specify if Yes): No Relevant Social History: None Present Medications: None Medical History: No relevant PMH History of Previous Operations: No relevant previous surgery Allergies: Allergies Allergy/AdvReac Type Severity Reaction Status Date / Time latex (LATEX) Allergy Severe SWELLING/HI Verified 05/13/25 11:37 VES banana (BANANA) Allergy Intermediate ANAPHYLAXIS Verified 05/13/25 11:37 cefuroxime (From CEFTIN) Allergy Intermediate HIVES Verified 05/13/25 11:37 Sulfa (Sulfonamide Allergy Intermediate HIVES Verified 05/13/25 11:37 Antibiotics) (SULFA (SULFONAMIDE ANTIBIOTICS)) sulfacetamide Allergy Intermediate Hives Verified 05/13/25 11:37 Review of Systems Sugical H&P ROS: Negative: Constitution, Cardiovascular, Respiratory, Neurological, Psychiatric, Hem-Onc, Allergic/Immunologic, Gastrointestinal, Genitourinary, Musculoskeletal, Integumentary, Endocrine and Eyes/Ears/Nose/Throat Exam Surgical H&P Exam: Normal: HEENT, Normal: Heart, Normal: Lungs, Normal: Extremities, Normal: Abdomen, Normal: Skin and Normal: Neurological Plan Diagnosis/Plan: Unchanged (EGD to assess etiology of GERD. Risks of bleeding and perforation were discussed with the patient and she is in agreement with the plan.) I have reviewed the history and physical and performed a pertinent physical examination on my patient. No changes have occurred unless specified. Time Spent With Patient Time: Total time managing care of this patient today ____ minutes.
--- NOTE | 2025-05-13 13:13 | PM.OP ---
Brief Operative Note Date of Service: 05/13/25 Pre-op diagnosis: GERD Post-op diagnosis: same Procedure: PROCEDURE DATE: 05/13/2025 PREOPERATIVE DIAGNOSIS: GERD POSTOPERATIVE DIAGNOSIS: ?Same as above. Normal endoscopy PROCEDURE: Damdblzv-nrttjf-vfaxdjvihhjh with biopsies Surgeon: Tawana Paiz M.D.. Ph.D. Accounting Systems Analyst: None ? Anesthesia: IV sedation Estimated blood loss: ?Minimal FINDINGS AND PROCEDURE: ? OPERATIVE INDICATIONS: ?The patient is a 25 year old female known to me who is interested in bariatric surgery. The patient has GERD. Based on this information I recommended an upper endoscopy to evaluate the patient's symptoms. Risks and complications of the surgery were discussed with the patient in advance particularly the possibility of perforation or bleeding that may require surgical intervention. The patient understood the risks and was in agreement with the plan. ? PROCEDURE: After informed consent was obtained by the patient, the patient was ?transferred to the Operating Room and was placed in the supine position.? After successful induction of IV sedation, a mouth block was inserted and the patient was placed in the left lateral decubitus position. An upper endoscopy was performed next, the oropharynx and esophagus appeared within the normal limits. There was no hiatal hernia. The z-line was smooth. Two biopsies were obtained from the distal esophagus 2-3 cm proximal to the GE junction and two additional biopsies from the GE junction. The stomach was entered and it appeared to be of normal size. There was no gastritis. There was no stricture or ulcer. A biopsy was obtained from the gastric fundus and the antrum. No significant bleeding was noted from any of the biopsy sites. Retroflexion of the scope confirmed a normal GE junction. The scope was then advanced into the duodenum which appeared to be normal as well. At that point the duodenum ?and the stomach were decompressed and the scope was withdrawn from the patient's mouth. The patient extubated and was transferred in stable condition to the Recovery Room for further care. I was present and performed all steps of the procedure. There were no residents to assist with this case. Hector Paiz M.D., Ph.D. Surgeon: Dar Paiz MD Anesthesia: MAC Was an Accounting Systems Analyst used for this Procedure?: No Estimated blood loss (mL): 0 IV fluids (mL): 400 Urine output (mL): 0 (No [place] to record output) Pathology: other (1) antrum x1, 2) fundus x1, 3) GE junction x2, 4) distal esophagus x2) Condition: stable Disposition: PACU
--- NOTE | 2025-05-13 13:44 | HO.ANESPROP2 ---
FORMERLY [facility], [facility] Active Problems Active Problems: All Active Problems (Updated 05/13/25 @ 11:14 by Gretchen Mcbride RN) Metabolic dysfunction-associated steatohepatitis (MASH) (Acute) Obesity (Acute) COVID-19 virus infection (Acute) Familial Mediterranean fever (Acute) Suprapubic pain (Acute) Liver lesion (Acute) Alkaline phosphatase raised (Acute) Crohn's disease (Acute) Diarrhea (Acute) Epigastric abdominal pain (Acute) Asthma (Acute) DJD (degenerative joint disease) (Acute) Migraines (Acute) Depression (Acute) Anxiety (Acute) Hypertension (Acute) GERD (gastroesophageal reflux disease) (Acute) Morbid obesity (Acute) Past Medical History Medical History Fatty liver Familial Mediterranean fever Asthma DJD (degenerative joint disease) Migraines Hypertension Morbid obesity GERD (gastroesophageal reflux disease) Depression OCD (obsessive compulsive disorder) Anxiety Costochondritis Vocal cord dysfunction Airway malacia Functional capacity: independent ambulation Patient : No Family History Family History Mother Hypoactive thyroid Hypertension High cholesterol Father Hypertension Blocked artery Family history of problems with anesthesia: No Surgical History Surgical History History of laparoscopic cholecystectomy History of back surgery Hx of colonoscopy History of esophagogastroduodenoscopy (EGD) H/O adenoidectomy History of tonsillectomy History of Problems with Anesthesia: No Social History Social History Alcohol intake: current Alcohol intake frequency: holidays/special occasions only Patient Tobacco Use Status: Never used Tobacco Use of substances other than those prescribed or required for medical reasons: No Are you DNR?: No Advance Directives: No Advance Directives Information Provided: Yes Meds Allergies Allergy/AdvReac Type Severity Reaction Status Date / Time latex (LATEX) Allergy Severe SWELLING/HI Verified 05/13/25 11:37 VES banana (BANANA) Allergy Intermediate ANAPHYLAXIS Verified 05/13/25 11:37 cefuroxime (From CEFTIN) Allergy Intermediate HIVES Verified 05/13/25 11:37 Sulfa (Sulfonamide Allergy Intermediate HIVES Verified 05/13/25 11:37 Antibiotics) (SULFA (SULFONAMIDE ANTIBIOTICS)) sulfacetamide Allergy Intermediate Hives Verified 05/13/25 11:37 Active Medications: Current Medications Albuterol Sulfate (Albuterol Sulfate (0.083%) 2.5 Mg/3 Ml Vial.Neb) 2.5 mg INHALE ONCE PRN PRN Reason: Shortness of Breath/Wheezing Lactated Ringer's (Lr) 1,000 mls @ 80 mls/hr IVCONT .[id number] DULCE MARIA Lactated Ringer's (Lr) 1,000 mls @ 100 mls/hr IVCONT .Q10H DULCE MARIA Last Admin: 05/13/25 11:36 Dose: 100 mls/hr Home Medications ?Medication ?Instructions ?Recorded ?Confirmed ?Last Taken ?Type cholecalciferol (vitamin D3) 50 50 mcg PO DAILY 06/12/21 05/13/25 11/10/24 History mcg (2,000 unit) capsule albuterol sulfate 90 mcg/actuation 2 puff inhalation Q4-6H PRN asthma 11/10/24 05/13/25 Unknown History aerosol inhaler olmesartan 20 mg tablet 20 mg PO DAILY 12/07/24 05/13/25 Unknown History cyclobenzaprine 5 mg tablet 5 mg PO BEDTIME PRN Spasms 02/16/25 05/13/25 Unknown History duloxetine 60 mg capsule,delayed 90 mg PO DAILY 02/16/25 05/13/25 Unknown History release fluticasone propionate 250 1 inh inhalation BID 02/16/25 05/13/25 Unknown History mcg/actuation blister powder for inhalation (Flovent Diskus) ketorolac 10 mg tablet 10 mg PO Q6H PRN Pain 02/16/25 05/13/25 Unknown History Exam Height,Weight and Vital Signs: Height 5 ft 3 in Weight 113.67 kg Last Vital Signs Temp 98.0 F 05/13/25 11:35 Pulse 98 05/13/25 11:35 Resp 15 05/13/25 11:35 BP 107/70 05/13/25 11:35 Pulse Ox 99 05/13/25 11:35 O2 Del Method Room Air 05/13/25 11:35 Pertinent Lab Results Pertinent Lab Results: Laboratory Tests 05/13/25 11:05 Urine Test NEGATIVE Airway Mallampati Class: III TM Dist: >3cm Neck ROM: Full Heart: RRR Lungs: CTA Assessment and Plan Assessment Anesthesia Assessment: Anesthesia Plan Discussed Final Anesthetic Review Family History of Problems with Anesthesia: No History of Problems with Anesthesia: No NPO: Yes ASA Class: III Final Preanesthetic Review: Meds/Allgs Chart Reviewed, Consent Obtained/Reviewed and Anes Risks/Benef Reviewed Patient Risk: Intermediate Procedure Risk: Low Anesthetic Plan Anesthetic Plan: MAC: Disposition: Standard PACU
[2025-05-13 14:08] VITALS: BP 95/53; PULSE 87; RESP 12; TEMP 36.6; O2SAT 100
[2025-05-13 14:13] VITALS: BP 112/66; PULSE 82; RESP 12; O2SAT 98
[2025-05-13 14:23] VITALS: BP 111/67; PULSE 90; RESP 20; O2SAT 100
[2025-05-13 14:38] VITALS: BP 104/71; PULSE 84; RESP 15; TEMP 36.6; O2SAT 100
--- NOTE | 2025-05-13 16:18 | HO.POSTANES ---
Post Anesthesia Evaluation Post Anesthesia Evaluation Date of Service: 05/13/25 Vital Signs: Vital Signs Temp Pulse Resp BP Pulse Ox O2 Del Method O2 Flow Rate 05/13/25 14:38 97.8 F 84 15 104/71 100 Room Air 05/13/25 14:23 90 20 111/67 100 Room Air 05/13/25 14:13 82 12 112/66 98 Room Air 05/13/25 14:08 98 F 87 12 95/53 L 100 Nasal Cannula 3 05/13/25 11:35 98.0 F 98 15 107/70 99 Room Air Anesthesia: Monitored Mental Status: Awake Pain Control: Satisfactory Nausea/Vomiting: None Hydration: Adequate Anesthesia-Related Issues: No Anes. Related Issues
== END 2025-05-13 14:57 | disposition home or self-care (01) ==
PROVIDERS: Nurse Practitioner; PCP Nurse Practitioner Family; Visit Provider Surgery
PROC: 0DJ08ZZ Inspection of Upper Intestinal Tract, Via Natural or Artificial Opening Endoscopic (ICD-10-PCS; CPT 43235; principal; 2025-05-13 13:10)
DX: K21.9 Gastro-esophageal reflux disease without esophagitis (principal); E66.01 Morbid (severe) obesity due to excess calories; Z68.42 Body mass index [BMI] 45.0-49.9, adult; K29.50 Unspecified chronic gastritis without bleeding; K20.80 Other esophagitis without bleeding; I10 Essential (primary) hypertension; J45.909 Unspecified asthma, uncomplicated; F32.A Depression, unspecified; F42.9 Obsessive-compulsive disorder, unspecified; F41.9 Anxiety disorder, unspecified; J38.3 Other diseases of vocal cords; Z79.899 Other long term (current) drug therapy; Z79.51 Long term (current) use of inhaled steroids; Z79.891 Long term (current) use of opiate analgesic; Z91.040 Latex allergy status; Z88.1 Allergy status to other antibiotic agents; Z88.2 Allergy status to sulfonamides; Z98.890 Other specified postprocedural states
CPT/HCPCS: 43239; 81025; 88305; 88313; 88342; J1100; J2003; J2250; J2405; J2704

== ENCOUNTER → 2025-05-13 10:52 | Outpatient (BNV) | payer OTHER, SELFPAY | PROVIDERS: PCP Nurse Practitioner Family; Visit Provider Surgery | DX: K21.9 Gastro-esophageal reflux disease without esophagitis (principal) | CPT/HCPCS: 43239 ==

== ENCOUNTER 2025-05-26 10:08 | Outpatient (REF) | payer OTHER, SELFPAY ==
--- NOTE | ~2025-05-26 | US_ITS ---
EXAMINATION: US ABDOMEN COMPLETE WITH LIVER ELASTOGRAPHY HISTORY: E66.01 - Morbid (severe) obesity due to excess calories TECHNIQUE: Real-time grayscale ultrasound imaging of the abdomen was performed and images were reviewed. COMPARISON: Comparison is made with the prior examination dated 11/10/2024. FINDINGS: Liver: The right lobe of the liver measures 13.9 cm in size. The left lobe of the liver measures 9.7 cm in size. The liver demonstrates normal homogeneous echotexture. No focal mass or intrahepatic biliary ductal dilatation is identified. There is normal hepatopedal flow in the portal vein. Ultrasound elastography of the liver was performed with 10 separate measurements of the liver parenchyma with the patient in the supine position. Measurements were obtained approximately 2 cm below Kevin's capsule and perpendicular to the capsule. The median shear wave velocity is 1.53 m/s. The interquartile range/median (IQR/median) is 0.05. Gallbladder and biliary tree: The gallbladder is surgically absent. The common bile duct is normal in caliber measuring 3 mm. Kidneys: The right kidney measures 9.4 cm in length. The left kidney measures 10.5 cm in length. The kidneys are unremarkable, without evidence of masses, hydronephrosis, or calculi. Pancreas: There is limited visualization of the pancreas. Spleen: The spleen is normal in size and contour, measuring 10.2 cm in length. Abdominal aorta and inferior vena cava: The visualized portions of the abdominal aorta and inferior vena cava are normal in caliber. There is no free fluid in the abdomen. US/US abdomen comp w elastography IMPRESSION: Limited visualization of the pancreas. Otherwise unremarkable abdominal ultrasound. The median shear wave velocity in the liver is 1.53 m/s, corresponding to a median liver stiffness of 7.20 kPa. The IQR/median value is 0.05. This is indicative of a quality data set. Findings are indicative of a low elastography value which rules out advanced chronic liver disease in asymptomatic patients. REFERENCE: Society of Radiologists in Ultrasound Liver Stiffness Thresholds (2020): LIVER STIFFNESS THRESHOLDS: *Shear wave velocity less than 1.3 m/s (Liver Stiffness equal or less than 5 kPa): High probability of being normal. *Shear wave velocity less than 1.7 m/s (Liver Stiffness less than 9 kPa): In the absence of other known clinical signs, rules out compensated advanced chronic liver disease. *Shear wave velocity between 1.7-2.1 m/s (Liver Stiffness 9-13 kPa): Suggestive of compensated advanced chronic liver disease but need further test for confirmation. *Shear wave velocity between 2.1-2.4 m/s (Liver Stiffness 13-17 kPa): Rules in compensated advanced chronic liver disease. *Shear wave velocity greater than 2.4 m/s (Liver Stiffness over 17 kPa): Suggestive of clinically significant portal hypertension. QUALITY OF DATA SET: *IQR/Median value equal or less than 0.15 implies a quality data set. *IQR/Median value over 0.15 implies a poor quality data set. SIGNIFICANT CHANGE FROM PRIOR EXAM: Significant change if liver stiffness measurement is 10% or greater from prior exam. OTHER CONSIDERATIONS: The stage of liver fibrosis may be overestimated in the setting of acute hepatitis, liver inflammation, elevated liver function tests, hepatic vascular congestion, obstructive cholestasis, non-fasting state, and infiltrative diseases such as amyloidosis and lymphoma. In some patients with NAFLD, the liver stiffness thresholds for compensated advanced chronic liver disease may be lower. In causes other than viral hepatitis and NAFLD, liver stiffness thresholds are not well established. Electronically signed by: Sonny Chu MD 05/26/2025 10:58 AM EDT
--- OUTSIDE RECORDS SUMMARY | 2025-05-26 12:20 | XMS_ITS | Encounter Summary ---
Author Organization [facility] Address [address] [place] [address] [place] [address] Phone Care Team Providers Care Marketing Senior Recruiter Name Role Phone Kailey Camacho MD Unavailable Pranav Gandhi MD Unavailable [phone] Kailey Camacho MD Primary Care Provider [phone] Encounter Details Date Type Department Care Team (Latest Contact Info) Description 07/27/2021 Transcribe Orders Virtual Department [address] [place] [address] Kala Jarrell PA [address] [place], [place] [id number] [email or web address] Encounter for laboratory testing for COVID-19 virus [...] be available within 24 to 48 hrs. [facility] Symptomatic? YES [facility] Other 07/27/2021 12:5 7 PM EST 07/27/2021 5:45 PM EST Kailey Camacho MD BODY FLUIDS AND STOOLS PRO DESAI Final Result [facility] [address] [place] [address] [facility] [address] [place] [address] documented in this encounter Visit Diagnoses Diagnosis Encounter for laboratory testing for COVID-19 virus- Primary documented in this encounter Additional Health Concerns Infection Onset Date Last Indicated Resolved Time CoV-Risk 07/27/2021 07/27/2021 08/06/2021 1:22 AM EST CoV-Risk 10/04/2021 10/04/2021 10/14/2021 1:23 AM EST documented as of this encounter Care Teams Marketing Senior Recruiter Relationship Specialty Start Date End Date Kailey Camacho MD [address] [place] [address] [email or web address] PCP - General Internal Medicine 07/20/17 Kailey Camacho MD [address] [place] [address] Historical LMR Provider 07/04/17 Pranav Gandhi MD [address] [place] [address] Historical LMR Provider 07/04/17//2 2 documented as of this encounter Additional Source Comments The information contained in this document represents components of the legal health record. It is not the complete legal health record.[facility]
--- OUTSIDE RECORDS SUMMARY | 2025-05-26 12:20 | XMS_ITS | Clinical Summary ---
Author Organization Located [facility] Address [address] [place] [address] Phone Care Team Providers Care Aluminum Boat Assembly Supervisor Name Role Phone Kailey Camacho MD [...] Visit [facility] [address] [place] [address] Eliel Valles MD Negative test (Primary Dx); Nexplanon insertion 04/07/2025 3:30 PM EDT Office Visit [facility] [address] [place] [address] Eliel Valles MD Encounter for gynecological examination without abnormal finding (Primary Dx) from Last 3 Months Immunizations Immunization Administration Dates Next Due DTaP 03/26/2003, 0,1999,07/11,1999 [id number] FORMULATION 07/20/2009 HPV,quadrivalent 07/21/2014,07/03/2013 HPV9 08/26/2015 Hepatitis [...] 2017 HIV ONE-TIME SCREENING (18-65 YEARS) 2017 CREATININE LEVEL 06/10/2024 06/10/2023, , 03/22/2022, Additional history exists POTASSIUM LEVEL 06/10/2024 06/10/2023, 07/17, 03/22/2022, Additional history exists INFLUENZA VACCINE (#1) 2025 , 05/17/2021, 06/09/2020, Additional history exists COVID-19 VACCINE ( season) 2025 10/07/2023, 08/03/2022, 11/13/2021, Additional history exists PAP SMEAR 01/15/2027 01/16/2024, 09/20/2020 Contraceptive Implant 04/22/2028 04/22/2025 Adult Td,Tdap Booster 06/01/2029 06/01/2019, 010 HIB VACCINES Completed 06/14/2000, 03/1999, 1999, Additional history exists PNEUMOCOCCAL VACCINES [...] HCG, urine Negative, Internal QCs acceptable Negative [facility] Other 04/26/2025 5:36 PM EDT Eliel Valles MD POINT OF CARE TEST ORDERABLES Fi nal Result [address] [address], [facility] * Pap Test (01/16/2024 12:00 AM EDT) 01/16/2024 01/20/2024 11: 40 AM EDT Narrative SEE NARRATIVE - 01/23/2024 4:57 PM EDT [address] [address] Hardware Sales Assistant: Elli Best MD HOSPICE HOME HEALTH AIDE Cytology Report FINAL DIAGNOSIS A. PAP SMEAR [...] : 2000 (Age: 23) Sex: F Institution: [facility] Location: [facility] Date of Collection: 01/16/2024 Date of Reported: 01/23/2024 16:57 Results to: Eliel Valles MD Eliel Valles MD CYTOLOGY ORDERABLES Final Result SEE NARRATIVE * (ABNORMAL) Basic metabolic panel (06/10/2023 7:28 PM EDT) SODIUM 138 133 - 146 mmol/L [facility] CHLORIDE 102 96 - 108 mmol/L [facility] POTASSIUM 3.9 3.3 - 5.1 mmol/L [facility] CO2 23 21 - 35 mmol/L [facility] BUN 8 6 - 19 mg/dL [facility] CREATININE 0.60 0.5 - 1.5 mg/dL [facility] GLUCOSE 110(H) 70 - 99 mg/dL [facility] CALCIUM 9.6 8.4 - 10.3 mg/dL [facility] EGFR >120 >59 mL/min/1.7 3m2 [facility] Comment:Estimated glomerular filtration rate calculated using the CKD-EPI refit equation. ANION GAP 17 10 - 20 mmol/L [facility] Blood 06/10/2023 7:28 PM EDT 06/10/2023 7:30 PM EDT us Clayton Mitchell MD LAB BLOOD ORDERABLES Final Result [facility] [address] [place] [address] from Last 3 Months or Most Recently Relevant to Health Maintenance Insurance [address] [place] [address] [place] [address] [place] [address] Advance Directives For more information, please contact: [phone] (9AM - 5PM [facility], Saturday-Saturday) Documents on File Type Date Recorded 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 It is not the complete legal health record.[facility]
--- OUTSIDE RECORDS SUMMARY | 2025-05-26 12:20 | XMS_ITS | Encounter Summary ---
Author Organization [facility] Address [address] [place] [address] [place] [address] Phone Care Team Providers Care Optics Technical Officer Name Role Phone Kailey Camacho MD Unavailable Pranav Gandhi MD Unavailable [phone] Kailey Camacho MD Primary Care Provider Encounter Details Date Type Department Care Team (Late st Contact Info) Description 07/30/2017 Ancillary Orders [facility], X-Ray - [address] [address] Kala Jarrell PA [address] [place], [place] [id number] [email or web address] Right hip pain Social History Tobacco [...] EST No explanation for pain. POS - [id number] Narrative 07/30/2017 5:16 PM EST HISTORY: Pain [...] IMPRESSION: No explanation for pain. POS - [id number] Kala NIX IMG XR PELVIS Final Result [...] documented as of this encounter Care Teams Optics Technical Officer Relationship Specialty Start Date End Date Kailey Camacho MD [address] [place] [address] [email or web address] PCP - General Internal Medicine 07/20/17 Kailey Camacho MD [address] [place] [address] [email or web address] Historical LMR Provider 07/04/17 Pranav Gandhi MD [address] [place] [address] Historical LMR Provider 07/04/17 2 documented as of this encounter Additional Source Comments The information contained in this document represents components of the legal health record. It is not the complete legal health record.[facility]
--- OUTSIDE RECORDS SUMMARY | 2025-05-26 12:20 | XMS_ITS | Encounter Summary ---
Author Organization [facility] Address [address] [place] [address] [place] [address] Phone Care Team Providers Care Child Life Specialist Name Role Phone Kailey Camacho MD Unavailable [phone] Pranav Gandhi MD Unavailable [phone] Kailey Camacho MD Primary Care Provider Encounter Details Date Type Department Care Team (Latest Contact Info) Description 01/10/2019 Transcribe Orders [facility] Laboratory [address] [place] [address] Leticia Hurtado PA [address] [place] [address] [place] [address] Screening for unspecified condition (Primary Dx) Social [...] EDT) Specimen Source/ Description STOOL STOOL STOOL [facility] Special Requests None [facility] DIRECT EXAM NO PARASITES FOUND BY DIRECT OR CONCENTRATION METHODS [facility] DIRECT EXAM No parasites found by Trichrome Stain [facility] Report Status 01/13/2019 FINAL [facility] Stool (Stool) 01/10/2019 9:5 9 AM EDT 01/10/2019 10:21 AM EDT us Leticia NIX MICROBIOLOGY - GENERA L ORDERABLES Final Result Performing Organization Address City/State/[facility] Co de Phone Number [facility] [address] [place] [address] documented in this encounter Visit Diagnoses Diagnosis Screening for unspecified condition- Primary documented in this encounter Additional Health Concerns Infection Onset Date Last Indicated Resolved Time CoV-Risk 07/27/2021 07/27/2021 08/06/2021 1:22 AM EST CoV-Risk 10/04/2021 10/04/2021 10/14/2021 1:23 AM EST documented as of this encounter Care Teams Child Life Specialist Relationship Specialty Start Date End Date Kailey Camacho MD [address] [place] [address] PCP - General Internal Medicine 07/20/17 Kailey Camacho MD [address] [place] [address] Historical LMR Provider 07/04/17 Pranav Gandhi MD [address] [place] [address] Historical LMR Provider 07/04/17 2 documented as of this encounter Additional Source Comments The information contained in this document represents components of the legal health record. It is not the complete legal health record.[facility]
--- OUTSIDE RECORDS SUMMARY | 2025-05-26 12:21 | XMS_ITS | Encounter Summary ---
Author Organization [facility] Address [address] [place] [address] [place] [address] Phone Care Team Providers Care Rn Home Care Name Role Phone Kailey Camacho MD Unavailable [phone] Kailey Camacho MD Primary Care Provider [phone] Encounter Details Date Type Department Care Team (Late st Contact Info) Description 10/09/2021 Procedure Pass Echo [facility] [address] [place] [address] Social History Tobacco Use Types Packs/Day Years [...] documented as of this encounter Care Teams Rn Home Care Relationship Specialty Start Date End Date Kailey Camacho MD [address] [place] [address] [email or web address] PCP - General Internal Medicine 07/20/17 Kailey Camacho MD [address] [place] [address] [email or web address] Historical LMR Provider 07/04/17 documented as of this encounter Additional Source Comments The information contained in this document represents components of the legal health record. It is not the complete legal health record.[facility]
--- OUTSIDE RECORDS SUMMARY | 2025-05-26 12:21 | XMS_ITS | Encounter Summary ---
Author Organization [facility] Address [address] [facility] [address] [place] [address] Phone Care Team Providers Care Barrel Tester And Drainer Name Role Phone Kailey Camacho MD Unavailable [phone] Pranav Gandhi MD Unavailable [phone] Kailey Camacho MD Primary Care Provider Encounter Details Date Type Department Care Team (Late st Contact Info) Description 11/17/2020 Procedure Pass [facility], Ct Scan - [address] [address] Social History Tobacco Use Types Packs/Day Years [...] 11/17/2020 9:43 PM Emelia Barksdale, ANNETTE * [place] Suicide Severity Rating Scale (Screener/Recent Self-Report) Question [...] documented as of this encounter Care Teams Barrel Tester And Drainer Relationship Specialty Start Date End Date Kailey Camacho MD [address] [place] [address] [email or web address] PCP - General Internal Medicine 07/20/17 Kailey Camacho MD [address] [place] [address] [email or web address] Historical LMR Provider 07/04/17 Pranav Gandhi MD [address] [place] [address] Historical LMR Provider 07/04/17 2 documented as of this encounter Additional Source Comments The information contained in this document represents components of the legal health record. It is not the complete legal health record.[facility]
--- OUTSIDE RECORDS SUMMARY | 2025-05-26 12:21 | XMS_ITS | Encounter Summary ---
Author Organization [facility] Address [address] [place] [address] [place] [address] Phone Care Team Providers Care Telemarketing Sales Representative Name Role Phone Kailey Camacho MD Unavailable Pranav Gandhi MD Unavailable [phone] Kailey Camacho MD Primary Care Provider [phone] Encounter Details Date Type Department Care Team (Latest Contact Info) Description 08/05/2017 Ancillary Orders Virtual Department [address] [place] [address] Kala Jarrell PA [address] [place], [place] [id number] [email or web address] Lumbar radiculopathy Social History Tobacco Use Types [...] paracentral disc protrusion at L1-L2. POS - [id number] Narrative 08/14/2017 12:36 PM EST HISTORY: Lower [...] paracentral disc protrusion at L1-L2. POS - [id number] Kala NIX [facility] MR XSPECIALTY Final Result documented in this [...] documented as of this encounter Care Teams Telemarketing Sales Representative Relationship Specialty Start Date End Date Kailey Camacho MD [address] [place] [address] PCP - General Internal Medicine 07/20/17 Kailey Camacho MD [address] [place] [address] Historical LMR Provider 07/04/17 Pranav Gandhi MD [address] [place] [address] Historical LMR Provider 07/04/17 2 documented as of this encounter Additional Source Comments The information contained in this document represents components of the legal health record. It is not the complete legal health record.[facility]
--- OUTSIDE RECORDS SUMMARY | 2025-05-26 12:21 | XMS_ITS | Encounter Summary ---
Author Organization [facility] Address [address] [place] [address] [place] [address] Phone Care Team Providers Care Ice Guard Skating Rink Name Role Phone Kailey Camacho MD Unavailable [phone] Kailey Camacho MD Primary Care Provider [phone] Encounter Details Date Type Department Care Team (Latest Contact Info) Description 02/28/2022 Transcribe Orders Virtual Department 30 [place] [address] Kala Jarrell PA [address] [place] [address] [email or web address] Pain and swelling of left ankle (Primary [...] Primary documented in this encounter Care Teams Ice Guard Skating Rink Relationship Specialty Start Date End Date Kailey Camacho MD 15 [place] [address] [email or web address] PCP - General Internal Medicine 07/20/17 Kailey Camacho MD 15 [place] [address] [email or web address] Historical LMR Provider 07/04/17 documented as of this encounter Additional Source Comments The information contained in this document represents components of the legal health record. It is not the complete legal health record.[facility]
--- OUTSIDE RECORDS SUMMARY | 2025-05-26 12:21 | XMS_ITS | Encounter Summary ---
Author Organization [facility] Address [address] [place] [address] [place] [address] Phone Care Team Providers Care Business Team Leader Name Role Phone Kailey Camacho MD Unavailable [phone] Pranav Gandhi MD Unavailable [phone] Kailey Camacho MD Primary Care Provider Encounter Details Date Type Department Care Team (Late st Contact Info) Description 07/20/2017 Transcribe Orders [facility]lebotomy 30 [place] [address] Kailey Camacho MD [address] [place] [address] [phone] [email or web address] Routine general medical examination at a health care facility (Primary Dx); Fatigue, unspecified type Social History Tobacco Use Types Packs/Day Years [...] Name Priority Date/Time Associated Diagnosis Comments URINE SEDIMENT Routine 07/20/2017 10:14 AM EDT URINALYSIS Routine 07/20/2017 10:14 AM EDT Routine general medical examination at a health care facility Fatigue, unspecified type CBC Routine 07/20/2017 10:14 AM EDT Routine general medical examination at a health care facility Fatigue, unspecified type TSH Routine 07/20/2017 10:14 AM EDT Routine general medical examination at a health care facility Fatigue, unspecified type LIPID PANEL Routine 07/20/2017 10:14 AM EDT Routine general medical examination at a health care facility Fatigue, unspecified type documented in this encounter Results * (ABNORMAL) Urine sediment (07/20/2017 10:14 AM EDT) WBC 50-100(A) NONE SEEN /hpf [facility] RBC 6-10(A) NONE SEEN /hpf [facility] URINE EPITHELIAL 11-20(A) NONE SEEN [facility] MUCUS 1+(A) NONE SEEN /hpf [facility] BACTERIA 1+(A) NONE SEEN [facility] CRYSTALS 3+ [facility] Comment:AMORPHOUS 07/20/2017 10:1 4 AM EDT 07/20/2017 10:18 AM EDT us Kailey Camacho MD URINE ORDERABLES Final Resu lt Performing Organization Address City/State/[facility] Co de Phone Number [address] [phone] * (ABNORMAL) Urinalysis (07/20/2017 10:14 AM EDT) COLOR Yellow Yellow [facility] CLARITY TURBID [facility] GLUCOSE Negative Negative [facility] BILI Negative Negative [facility] KETONES Negative Negative [facility] SPECIFIC GRAVITY >1.030 1.005 - 1.030 [facility] BLOOD 3+(A) Negative [facility] PH 5.5 5.0 - 8.0 [facility] Protein-UA Negative Negative [facility] NITRITE Negative Negative [facility] Leukocyte esterase, ur 2+(A) Negative [facility] Urine (Urine) 07/20/2017 10: 14 AM EDT 07/20/2017 10:18 AM EDT us Kailey Camacho MD URINE ORDERABLES Final Resu lt Performing Organization Address City/[facility]/ZIP Co de Phone Number [address] [address] * TSH (07/20/2017 10:14 AM EDT) TSH 3.02 0.27 - 4.20 uIU/mL [facility] Blood 07/20/2017 10:1 4 AM EDT 07/20/2017 10:19 AM EDT Kailey Camacho MD LAB BLOOD ORDERABLES Final Result Performing Organization Address [facility] Co de Phone Number [address] [address] * (ABNORMAL) CBC (07/20/2017 10:14 AM EDT) WBC 8.91 3.40 - 11.20 K/uL [facility] RBC 4.77 3.80 - 4.80 M/uL [facility] HGB 13.1 12.0 - 15.0 g/dL [facility] HCT 38.8 36.0 - 46.0 % [facility] PLT 304 130 - 400 K/uL [facility] MCV 81.3 79.0 - 98.0 [facility] MCH 27.5 27.0 - 34.8 pg [facility] MCHC 33.8 31.5 - 36.0 g/dL [facility] RDW 14.0 10.8 - 14.6 % [facility] MPV 9.2(L) 9.4 - 12.4 [facility] NRBC 0.00 /100 WBCs [facility] ABSOLUTE NRBC 0.00 K/uL [facility] Blood 07/20/2017 10:1 4 AM EDT 07/20/2017 10:19 AM EDT us Kailey Camacho MD LAB BLOOD ORDERABLES Final Result Performing Organization Address [facility] Co de Phone Number [address] [address] * Lipid panel (07/20/2017 10:14 AM EDT) HDL 49 mg/dL [facility] Comment: Interpretation: Risk Level Females Decreased >55mg/dL Average 50-55 mg/dL Increased <50 mg/dL CHOLESTEROL 201 0 - 240 mg/dL [facility] Comment: Pediatric Reference Ranges for 2 to 18 years Acceptable: Less than 170 mg/dL Borderline: 170 - 199 mg/dL High: Greater than or equal to 200 mg/dL TRIGLYCERIDES 119 30 - 160 mg/dL [facility] LDL 128 50 - 129 mg/dL [facility] Comment: LDL levels in terms of risk for coronary heart disease: <100 mg/dL: Optimal 100-129 mg/dL: Near or above optimal 130-159 mg/dL: Borderline high 160-189 mg/dL: High >190 mg/dL: Very High CARDIAC RISK RATIO 4.1 3.3 - 4.4 C [facility] Blood 07/20/2017 10:1 4 AM EDT 07/20/2017 10:19 AM EDT us Kailey Camacho MD LAB BLOOD ORDERABLES Final Result Performing Organization Address [facility] Co de Phone Number [address] [address] documented in this encounter Visit Diagnoses Diagnosis Routine general medical examination at a health care facility- Primary Fatigue, unspecified type documented in this encounter Additional Health Concerns Infection Onset Date Last Indicated Resolved Time CoV-Risk 07/27/2021 07/27/2021 08/06/2021 1:22 AM EST CoV-Risk 10/04/2021 10/04/2021 10/14/2021 1:23 AM EST documented as of this encounter Care Teams Business Team Leader Relationship Specialty Start Date End Date Kailey Camacho MD [address] [place] [address] [email or web address] PCP - General Internal Medicine 07/20/17 Kailey Camacho MD [address] [place] [address] [email or web address] Historical LMR Provider 07/04/17 Pranav Gandhi MD [address] [place] [address] Historical LMR Provider 07/04/17 2 documented as of this encounter Additional Source Comments The information contained in this document represents components of the legal health record. It is not the complete legal health record.[facility]
--- OUTSIDE RECORDS SUMMARY | 2025-05-26 12:21 | XMS_ITS | Encounter Summary ---
Author Organization [facility] Address [address] [place] [address] Phone Care Team Providers Care Dispatcher Maintenance Name Role Phone Kailey Camacho MD Unavailable [phone] Kailey Camacho MD Primary Care Provider [phone] Reason for Referral * - Closed Specialty Diagnoses / Procedures Referred By Contsam t Referred To Contact Diagnoses Palpitations Procedures MCT (Mobile Cardiac Telemetry) En Winn MD Phone: tel: fax: mailto:[email or web address] Referral ID Status Reason Start Date Expiration Date Visits Re quested Visits Authorized [id number] Closed 10/17/2021 10/17/2022 1 1 Encounter Details Date Type Department Care Team (Late st Contact Info) Description 10/17/2021 Ancillary Orders [facility] [address], [address] [place] [address] En Winn MD [address] [facility] [address] [place] [address] [email or web address] Palpitations Social History Tobacco Use Types Packs/Day [...] Palpitations documented in this encounter Care Teams Dispatcher Maintenance Relationship Specialty Start Date End Date Kailey Camacho MD 15 [place] [address] PCP - General Internal Medicine 07/20/17 Kailey Camacho MD 15 [place] [address] [email or web address] Historical LMR Provider 07/04/17 documented as of this encounter Additional Source Comments The information contained in this document represents components of the legal health record. It is not the complete legal health record.[facility]
--- OUTSIDE RECORDS SUMMARY | 2025-05-26 12:21 | XMS_ITS | Encounter Summary ---
Author Organization [facility] Address [address] [place] [address] [place] [address] Phone Care Team Providers Care Saw Superintendent Name Role Phone Kailey Camacho MD Unavailable [phone] Pranav Gandhi MD Unavailable [phone] Kailey Camacho MD Primary Care Provider Encounter Details Date Type Department Care Team (Late st Contact Info) Description 08/05/2017 Procedure Pass [facility], [address] [address] Social History Tobacco Use Types Packs/Day Years [...] documented as of this encounter Care Teams Saw Superintendent Relationship Specialty Start Date End Date Kailey Camacho MD 15 [place] [address] [email or web address] PCP - General Internal Medicine 07/20/17 Kailey Camacho MD [address] [place] [address] [email or web address] Historical LMR Provider 07/04/17 Pranav Gandhi MD [address] [place] [address] Historical LMR Provider 07/04/17 2 documented as of this encounter Additional Source Comments The information contained in this document represents components of the legal health record. It is not the complete legal health record.[facility]
--- OUTSIDE RECORDS SUMMARY | 2025-05-26 12:21 | XMS_ITS | Encounter Summary ---
Author Organization [facility] Address [address] [address] [place] [address] Phone Care Team Providers Care Potline Monitor Name Role Phone Kailey Camacho MD Unavailable [phone] Pranav Gandhi MD Unavailable [phone] Kailey Camacho MD Primary Care Provider Encounter Details Date Type Department Care Team (Late st Contact Info) Description 11/12/2020 Procedure Pass [facility], Ct Scan - [address] [address] Social History Tobacco Use Types Packs/Day Years [...] 11/12/2020 10:01 AM Brie Cox RN * [place] Suicide Severity Rating Scale (Screener/Recent Self-Report) Question [...] documented as of this encounter Care Teams Potline Monitor Relationship Specialty Start Date End Date Kailey Camacho MD 15 [place] [address] [email or web address] PCP - General Internal Medicine 07/20/17 Kailey Camacho MD 15 [place] [address] Historical LMR Provider 07/04/17 Pranav Gandhi MD [address] [place] [address] Historical LMR Provider 07/04/17 2 documented as of this encounter Additional Source Comments The information contained in this document represents components of the legal health record. It is not the complete legal health record.[facility]
--- OUTSIDE RECORDS SUMMARY | 2025-05-26 12:21 | XMS_ITS | Encounter Summary ---
Author Organization [facility] Address [address] [place] [address] [place] [address] Phone Care Team Providers Care Coal Drier Operator Name Role Phone Kailey Camacho MD Unavailable Pranav Gandhi MD Unavailable [phone] Kailey Camacho MD Primary Care Provider Encounter Details Date Type Department Care Team (Late st Contact Info) Description 07/26/2017 Transcribe Orders [facility] Laboratory 30 [place] [address] Kailey Camacho MD [address] [place] [address] [phone] [email or web address] Asymptomatic microscopic hematuria (Primary Dx) [...] PM EST) WBC 5-10(A) NONE SEEN /hpf [facility] RBC 0-2(A) NONE SEEN /hpf [facility] URINE EPITHELIAL 5-10(A) NONE SEEN [facility] MUCUS NONE SEEN NONE SEEN /hpf [facility] BACTERIA 2+(A) NONE SEEN [facility] 07/26/2017 3:29 PM EST 07/26/2017 3:31 PM EST Kailey Camacho MD URINE ORDERABLES Final Resu lt Performing Organization Address [facility]/ZIP Co de Phone Number [address] [address] * Urine culture (07/26/2017 3:29 PM EST) Specimen Source/ Description URINE CLEAN CATCH URINE URINE [facility] Special Requests None [facility] GRAM STAIN Few GRAM POSITIVE RODS [facility] Culture/Test >100,000 colony forming units per ml MIXED CARLENE (3 OR MORE COLONY TYPES) Culture indicates contamination . Please resubmit if necessary. [facility] Report Status 07/27/2017 FINAL [facility] Urine (Urine) 07/26/2017 3:2 9 PM EST 07/26/2017 3:31 PM EST Kailey Camacho MD MICROBIOLOGY - GENERAL ORDE [facility] Final Result Performing Organization Address [facility]/ZIP Co de Phone Number [address] [address] * (ABNORMAL) Urinalysis (07/26/2017 3:29 PM EST) COLOR Yellow Yellow [facility] CLARITY Clear [facility] GLUCOSE Negative Negative [facility] BILI Negative Negative [facility] KETONES Negative Negative [facility] SPECIFIC GRAVITY >1.030 1.005 - 1.030 [facility] BLOOD Negative Negative [facility] PH 5.5 5.0 - 8.0 [facility] Protein-UA Negative Negative [facility] NITRITE Negative Negative [facility] Leukocyte esterase, ur Trace(A) Negative [facility] Urine (Urine) 07/26/2017 3:2 9 PM EST 07/26/2017 3:31 PM EST Kailey Camacho MD URINE ORDERABLES Final Resu lt [facility] 30 [place] [address] documented in this encounter Visit Diagnoses Diagnosis Asymptomatic microscopic hematuria- Primary documented in this encounter Additional Health Concerns Infection Onset Date Last Indicated Resolved Time CoV-Risk 07/27/2021 07/27/2021 08/06/2021 1:22 AM EST CoV-Risk 10/04/2021 10/04/2021 10/14/2021 1:23 AM EST documented as of this encounter Care Teams Coal Drier Operator Relationship Specialty Start Date End Date Kailey Camacho MD 15 [place] [address] [email or web address] PCP - General Internal Medicine 07/20/17 Kailey Camacho MD 15 [place] [address] [email or web address] Historical LMR Provider 07/04/17 Pranav Gandhi MD [address] [place] [address] Historical LMR Provider 07/04/17 2 documented as of this encounter Additional Source Comments The information contained in this document represents components of the legal health record. It is not the complete legal health record.[facility]
--- OUTSIDE RECORDS SUMMARY | 2025-05-26 12:21 | XMS_ITS | Encounter Summary ---
Author Organization [facility] Address [address] [place] [address] Phone Care Team Providers Care Portfolio Accountant Name Role Phone Kailey Camacho MD Unavailable [phone] Pranav Gandhi MD Unavailable [phone] Kailey Camacho MD Primary Care Provider Encounter Details Date Type Department Care Team (Latest Contact Info) Description 01/10/2019 Transcribe Orders [facility] 30 [place] [address] Leticia Hurtado PA [address] [place] [address] [place] [address] Screening for unspecified condition (Primary Dx) Social [...] documented as of this encounter Care Teams Portfolio Accountant Relationship Specialty Start Date End Date Kailey Camacho MD 15 [place] [address] [email or web address] PCP - General Internal Medicine 07/20/17 Kailey Camacho MD 15 [place] [address] [email or web address] Historical LMR Provider 07/04/17 Pranav Gandhi MD [address] [place] [address] Historical LMR Provider 07/04/17 2 documented as of this encounter Additional Source Comments The information contained in this document represents components of the legal health record. It is not the complete legal health record.[facility]
--- OUTSIDE RECORDS SUMMARY | 2025-05-26 12:21 | XMS_ITS | Encounter Summary ---
Author Organization [facility] Address [address] [place] [address] [place] [address] Phone Care Team Providers Care Hospice Executive Director Name Role Phone Kailey Camacho MD Unavailable [phone] Pranav Gandhi MD Unavailable [phone] Kailey Camacho MD Primary Care Provider Encounter Details Date Type Department Care Team (Late st Contact Info) Description 02/12/2018 Procedure Pass [place] Admitting Dept - Virtual Department [address] [place] [address] Social History Tobacco Use Types Packs/Day Years [...] documented as of this encounter Care Teams Hospice Executive Director Relationship Specialty Start Date End Date Kailey Camacho MD 15 [place] [address] [email or web address] PCP - General Internal Medicine 07/20/17 Kailey Camacho MD 15 [place] [address] [email or web address] Historical LMR Provider 07/04/17 Pranav Gandhi MD [address] [place] [address] Historical LMR Provider 07/04/17 2 documented as of this encounter Additional Source Comments The information contained in this document represents components of the legal health record. It is not the complete legal health record.[facility]
--- OUTSIDE RECORDS SUMMARY | 2025-05-26 12:21 | XMS_ITS | Encounter Summary ---
Author Organization [facility] Address [address] [facility] [address] [address] [place] [address] Phone Care Team Providers Care 4Th Grade Teacher Name Role Phone Kailey Camacho MD Unavailable [phone] Pranav Gandhi MD Unavailable [phone] Kailey Camacho MD Primary Care Provider Encounter Details Date Type Department Care Team (Late st Contact Info) Description 11/12/2020 Procedure Pass [facility], Ct Scan - [address] [address] Social History Tobacco Use Types Packs/Day Years [...] 11/12/2020 10:01 AM Brie Cox RN * [place] Suicide Severity Rating Scale (Screener/Recent Self-Report) Question [...] documented as of this encounter Care Teams 4Th Grade Teacher Relationship Specialty Start Date End Date Kailey Camacho MD 15 [place] [address] [email or web address] PCP - General Internal Medicine 07/20/17 Kailey Camacho MD 15 [place] [address] Historical LMR Provider 07/04/17 Pranav Gandhi MD [address] [place] [address] Historical LMR Provider 07/04/17 2 documented as of this encounter Additional Source Comments The information contained in this document represents components of the legal health record. It is not the complete legal health record.[facility]
--- OUTSIDE RECORDS SUMMARY | 2025-05-26 12:21 | XMS_ITS | Encounter Summary ---
Author Organization [facility] Address [address] [place] [address] [place] [address] Phone Care Team Providers Care Teacher Education Instructor Name Role Phone Kailye Camacho MD Unavailable Pranav Gandhi MD Unavailable [phone] Kailey Camacho MD Primary Care Provider [phone] Encounter Details Date Type Department Care Team (Late st Contact Info) Description 04/01/2019 Transcribe Orders [facility] Laboratory [address] [place] [address] Kailey Camacho MD [address] [place] [email or web address] Delinquent immunization status (Primary Dx) Social History [...] PM EDT) HBV SURFACE ANTIGEN Negative Negative [facility] Blood 04/01/2019 2:38 PM EDT 04/01/2019 2:42 PM EDT Kailey Camacho MD LAB BLOOD ORDERABLES Final Result Performing Organization Address City/[facility]/ZIP Co de Phone Number [address] [address] * Hepatitis B surface antibody (04/01/2019 2:38 PM EDT) HBV SURFACE ANTIBODY Positive [facility] Comment: Unvaccinated: Negative Vaccinated: Positive Blood 04/01/2019 2:38 PM EDT 04/01/2019 2:42 PM EDT Kailey Camacho MD LAB BLOOD ORDERABLES Final Result Performing Organization Address [facility] Co de Phone Number [address] [address] documented in this encounter Visit Diagnoses Diagnosis Delinquent immunization status- Primary Personal history of underimmunization status documented in this encounter Additional Health Concerns Infection Onset Date Last Indicated Resolved Time CoV-Risk 07/27/2021 07/27/2021 08/06/2021 1:22 AM EST CoV-Risk 10/04/2021 10/04/2021 10/14/2021 1:23 AM EST documented as of this encounter Care Teams Teacher Education Instructor Relationship Specialty Start Date End Date Kailey Camacho MD [address] [place] [address] [email or web address] PCP - General Internal Medicine 07/20/17 Kailey Camacho MD [address] [place] [address] [email or web address] Historical LMR Provider 07/04/17 Pranav Gandhi MD [address] [place] [address] Historical LMR Provider 07/04/17 2 documented as of this encounter Additional Source Comments The information contained in this document represents components of the legal health record. It is not the complete legal health record.[facility]
--- OUTSIDE RECORDS SUMMARY | 2025-05-26 12:21 | XMS_ITS | Encounter Summary ---
Author Organization [facility] Address [address] [place] [address] Phone Care Team Providers Care Retirement Consultant Name Role Phone Kailey Camacho MD Unavailable [phone] Pranav Gandhi MD Unavailable [phone] Kailey Camacho MD Primary Care Provider [phone] Encounter Details Date Type Department Care Team (Latest Contact Info) Description 12/09/[address] [facility] Laboratory [address] [place] [address] Kala Jarrell PA [address] [place], [place] [id number] [email or web address] .[email or web address] Dizziness (Primary Dx) Social History Tobacco Use [...] Source/ Description URINE CLEAN CATCH URINE URINE [facility] Special Requests None [facility] GRAM STAIN NO ORGANISMS SEEN [facility] Culture/Test >100,000 colony forming units per ml MIXED CARLENE (3 OR MORE COLONY TYPES) Culture indicates contamination . Please resubmit if necessary. [facility] Report Status 12/10/[address] [facility] Urine (Urine) 12/09/2017 3:0 6 PM EDT 12/09/2017 3:12 PM EDT Kala NIX MICROBIOLOGY - GENERAL ORDERABL ES Final Result Performing Organization Address City/[facility]/ZIP Co de Phone Number [address] [address] * (ABNORMAL) Urinalysis with sediment (12/09/2017 3:06 PM EDT) WBC 0-4(A) NONE SEEN /hpf [facility] RBC NONE SEEN NONE SEEN /hpf [facility] URINE EPITHELIAL NONE SEEN NONE SEEN [facility] MUCUS NONE SEEN NONE SEEN /hpf [facility] BACTERIA Trace(A) NONE SEEN [facility] COLOR Yellow Yellow [facility] CLARITY Clear [facility] GLUCOSE Negative Negative [facility] BILI Negative Negative [facility] KETONES Negative Negative [facility] SPECIFIC GRAVITY 1.015 1.005 - 1.[address] [facility] BLOOD Negative Negative [facility] PH 5.5 5.0 - 8.[address] [facility] Protein-UA Negative Negative [facility] NITRITE Negative Negative [facility] Leukocyte esterase, ur Negative Negative [facility] Urine (Urine) 12/09/2017 3:0 6 PM EDT 12/09/2017 3:11 PM EDT Kala NIX URINE ORDERABLES Final Result Performing Organization Address [facility]/ZIP Co de Phone Number [address] [address] * (ABNORMAL) CBC and differential (12/09/2017 3:06 PM EDT) WBC 8.19 3.40 - 11.20 K/uL [facility] RBC 4.95(H) 3.80 - 4.80 M/uL [facility] HGB 13.7 12.0 - 15.0 g/dL [facility] HCT 40.1 36.0 - 46.0 % [facility] PLT 295 130 - 400 K/uL [facility] MCV 81.0 79.0 - 98.[address] [facility] MCH 27.7 27.0 - 34.[address] [facility] MCHC 34.2 31.5 - 36.0 g/dL [facility] RDW 14.1 10.8 - 14.6 % [facility] MPV 9.8 9.4 - 12.[address] [facility] NRBC 0.00 /[address] [facility] ABSOLUTE NRBC 0.00 K/uL [facility] DIFF METHOD Auto [facility] NEUTS 51.3 45.30 - 77.70 % [facility] LYMPHS 41.0(H) 12.30 - 39.70 % [facility] MONOS 6.6 4.10 - 12.80 % [facility] EOS 0.5 0 - 7.2 % [facility] BASOS 0.4 0 - 2.80 % [facility] Granulocytes, immature (%) 0.2 0.0 - 0.9 % [facility] ABSOLUTE NEUTS 4.20 1.40 - 7.70 K/uL [facility] ABSOLUTE LYMPHS 3.36(H) 0.60 - 3.20 K/uL [facility] ABSOLUTE MONOS 0.54 0.11 - 0.59 K/uL [facility] ABSOLUTE EOS 0.04 0.01 - 0.50 K/uL [facility] ABSOLUTE BASOS 0.03 0.00 - 0.08 K/uL [facility] Granulocytes, immature 0.02 0.00 - 0.05 K/uL [facility] Blood 12/09/2017 3:06 PM EDT 12/09/2017 3:11 PM EDT us Kala NIX LAB BLOOD ORDERABLES Final Resu lt [facility] [address] [place] [address] * TSH with reflex (12/09/2017 3:06 PM EDT) TSH 2.42 0.27 - 4.20 uIU/mL [facility] Blood 12/09/2017 3:06 PM EDT 12/09/2017 3:11 PM EDT us Kala NIX LAB BLOOD ORDERABLES Final Resu lt [facility] [address] [place] [address] * Comprehensive metabolic panel (12/09/2017 3:06 PM EDT) SODIUM 140 133 - 146 mmol/L [facility] POTASSIUM 3.7 3.3 - 5.1 mmol/L [facility] CHLORIDE 102 96 - 108 mmol/L [facility] CO2 22 21 - 35 mmol/L [facility] BUN 11 6 - 19 mg/dL [facility] CREATININE 0.60 0.5 - 1.5 mg/dL [facility] GLUCOSE 82 70 - 99 mg/dL [facility] ALBUMIN 4.1 3.9 - 4.8 g/dL [facility] TOTAL PROTEIN 7.6 6.5 - 8.0 g/dL [facility] CALCIUM 9.5 8.4 - 10.3 mg/dL [facility] ALKALINE PHOSPHATASE 54 39 - 117 U/L [facility] TOTAL BILIRUBIN 0.3 0.0 - 1.2 mg/dL [facility] AST 21 0 - 37 U/L [facility] ALT 35 0 - 40 U/L [facility] GLOBULIN 3.5 1 - 4.8 g/dL [facility] EGFR >120 >59 mL/min/1.[address] [facility] Comment:If patient is black, multiply result by 1.159. The eGFR calculation has changed from the MDRD equation to the CKD-EPI equation as of November 19, 2017. ANION GAP 20 10 - 20 mmol/L [facility] Blood 12/09/2017 3:06 PM EDT 12/09/2017 3:11 PM EDT us Kala NIX LAB BLOOD ORDERABLES Final Resu lt [facility] [address] [place] [address] documented in this encounter Visit Diagnoses Diagnosis Dizziness- Primary Dizziness and giddiness documented in this encounter Additional Health Concerns Infection Onset Date Last Indicated Resolved Time CoV-Risk 07/27/2021 07/27/2021 08/06/2021 1:22 AM EST CoV-Risk 10/04/2021 10/04/2021 10/14/2021 1:23 AM EST documented as of this encounter Care Teams Retirement Consultant Relationship Specialty Start Date End Date Kailey Camacho MD [address] [place] [address] PCP - General Internal Medicine 07/20/17 Kailey Camacho MD [address] [place] [address] Historical LMR Provider 07/04/17 Pranav Gandhi MD [address] [place] [address] Historical LMR Provider 07/04/17 2 documented as of this encounter Additional Source Comments The information contained in this document represents components of the legal health record. It is not the complete legal health record.[facility]
--- OUTSIDE RECORDS SUMMARY | 2025-05-26 12:21 | XMS_ITS | Encounter Summary ---
Author Organization [facility] Address [address] [place] [address] [place] [address] Phone Care Team Providers Care Electronics Technology Department Chair Name Role Phone Kailey Camacho MD Unavailable [phone] Pranav Gandhi MD Unavailable [phone] Kailey Camacho MD Primary Care Provider Encounter Details Date Type Department Care Team (Latest Contact Info) Description 04/24/2018 Transcribe Orders [facility] Laboratory [address] [place] [address] Kala Jarrell PA [address] [place], [place] [id number] [email or web address] Nausea (Primary Dx); Diarrhea, unspecified type; Cloudy [...] PM EDT) WBC 0-4(A) NONE SEEN /hpf [facility] RBC NONE SEEN NONE SEEN /hpf [facility] URINE EPITHELIAL 0-4(A) NONE SEEN [facility] MUCUS NONE SEEN NONE SEEN /hpf [facility] BACTERIA Trace(A) NONE SEEN [facility] CRYSTALS 3+ [facility] Comment:AMORPHOUS COLOR Yellow Yellow [facility] CLARITY TURBID [facility] GLUCOSE Negative Negative [facility] BILI Negative Negative [facility] KETONES Negative Negative [facility] SPECIFIC GRAVITY 1.020 1.005 - 1.030 [facility] BLOOD Negative Negative [facility] PH 6.0 5.0 - 8.0 [facility] Protein-UA Negative Negative [facility] NITRITE Negative Negative [facility] Leukocyte esterase, ur 1+(A) Negative [facility] Urine (Urine) 04/24/2018 12: 27 PM EDT 04/24/2018 12:31 PM EDT Kala NIX URINE ORDERABLES Final Result Performing Organization Address City/[facility]/ZIP Co de Phone Number [address] [address] * Urine culture (04/24/2018 12:27 PM EDT) Specimen Source/ Description URINE URINE URINE [facility] Special Requests None [facility] GRAM STAIN Rare GRAM POSITIVE RODS [facility] Culture/Test >100,000 colony forming units per ml MIXED CARLENE (3 OR MORE COLONY TYPES) Culture indicates contamination . Please resubmit if necessary. [facility] Report Status 04/25/2018 FINAL [facility] Urine (Urine) 04/24/2018 12: 27 PM EDT 04/24/2018 12:32 PM EDT Kala NIX MICROBIOLOGY - GENERAL ORDERABL ES Final Result Performing Organization Address City/[facility]/ZIP Co de Phone Number [address] [address] * (ABNORMAL) CBC and differential (04/24/2018 12:27 PM EDT) WBC 9.34 3.40 - 11.20 K/uL [facility] RBC 5.21(H) 3.80 - 4.80 M/uL [facility] HGB 13.9 12.0 - 15.0 g/dL [facility] HCT 42.5 36.0 - 46.0 % [facility] PLT 376 130 - 400 K/uL [facility] MCV 81.6 79.0 - 98.0 fL [facility] MCH 26.7(L) 27.0 - 34.8 pg [facility] MCHC 32.7 31.5 - 36.0 g/dL [facility] RDW 13.8 10.8 - 14.6 % [facility] MPV 9.1(L) 9.4 - 12.4 fl [facility] NRBC 0.00 /100 WBCs [facility] ABSOLUTE NRBC 0.00 K/uL [facility] DIFF METHOD Auto [facility] NEUTS 58.6 45.30 - 77.70 % [facility] LYMPHS 32.5 12.30 - 39.70 % [facility] MONOS 7.3 4.10 - 12.80 % [facility] EOS 0.9 0 - 7.2 % [facility] BASOS 0.5 0 - 2.80 % [facility] Granulocytes, immature (%) 0.2 0.0 - 0.9 % [facility] ABSOLUTE NEUTS 5.47 1.40 - 7.70 K/uL [facility] ABSOLUTE LYMPHS 3.04 0.60 - 3.20 K/uL [facility] ABSOLUTE MONOS 0.68(H) 0.11 - 0.59 K/uL [facility] ABSOLUTE EOS 0.08 0.01 - 0.50 K/uL [facility] ABSOLUTE BASOS 0.05 0.00 - 0.08 K/uL [facility] Granulocytes, immature 0.02 0.00 - 0.05 K/uL [facility] Blood 04/24/2018 12:2 7 PM EDT 04/24/2018 12:31 PM EDT us Kala NIX LAB BLOOD ORDERABLES Final Resu lt [address] [address] * Comprehensive metabolic panel (04/24/2018 12:27 PM EDT) SODIUM 139 133 - 146 mmol/L [facility] POTASSIUM 3.8 3.3 - 5.1 mmol/L [facility] CHLORIDE 101 96 - 108 mmol/L [facility] CO2 25 21 - 35 mmol/L [facility] BUN 11 6 - 19 mg/dL [facility] CREATININE 0.50 0.5 - 1.5 mg/dL [facility] GLUCOSE 83 70 - 99 mg/dL [facility] ALBUMIN 4.1 3.9 - 4.8 g/dL [facility] TOTAL PROTEIN 7.8 6.5 - 8.0 g/dL [facility] CALCIUM 9.1 8.4 - 10.3 mg/dL [facility] ALKALINE PHOSPHATASE 58 39 - 117 U/L [facility] TOTAL BILIRUBIN 0.2 0.0 - 1.2 mg/dL [facility] AST 12 0 - 37 U/L [facility] ALT 9 0 - 40 U/L [facility] GLOBULIN 3.7 1 - 4.8 g/dL [facility] EGFR >120 >59 mL/min/1.7 3m2 [facility] Comment:If patient is black, multiply result by 1.159. Estimated glomerular filtration rate calculated using the CKD-EPI equation. ANION GAP 17 10 - 20 mmol/L [facility] Blood 04/24/2018 12:2 7 PM EDT 04/24/2018 12:31 PM EDT Kala NIX LAB BLOOD ORDERABLES Final Resu lt [address] [address] documented in this encounter Visit Diagnoses Diagnosis Nausea- Primary Nausea alone Diarrhea, unspecified type Cloudy urine documented in this encounter Additional Health Concerns Infection Onset Date Last Indicated Resolved Time CoV-Risk 07/27/2021 07/27/2021 08/06/2021 1:22 AM EST CoV-Risk 10/04/2021 10/04/2021 10/14/2021 1:23 AM EST documented as of this encounter Care Teams Electronics Technology Department Chair Relationship Specialty Start Date End Date Kailey Camacho MD [address] [place] [address] [email or web address] PCP - General Internal Medicine 07/20/17 Kailey Camacho MD [address] [place] [address] [email or web address] Historical LMR Provider 07/04/17 Pranav Gandhi MD [address] [place] [address] Historical LMR Provider 07/04/17 2 documented as of this encounter Additional Source Comments The information contained in this document represents components of the legal health record. It is not the complete legal health record.[facility]
--- OUTSIDE RECORDS SUMMARY | 2025-05-26 12:21 | XMS_ITS | Encounter Summary ---
Author Organization [facility] Address [address] [place] [address] [place] [address] Phone Care Team Providers Care Manganese Breaker Name Role Phone Kailey Camacho MD Unavailable Pranav Gandhi MD Unavailable [phone] Kailey Camacho MD Primary Care Provider Encounter Details Date Type Department Care Team (Latest Contact Info) Description 07/23/2017 Ancillary Orders [facility], X-Ray - [address] [address] Kala Jarrell PA [address] [place], [place] [phone] [email or web address] Lumbar radiculopathy Social History Tobacco Use Types [...] No source of pain detected. POS - [id number] Narrative 07/23/2017 4:17 PM EST Five view [...] No source of pain detected. POS - [id number] Kala NIX IMG XR SPINE Final Result [...] documented as of this encounter Care Teams Manganese Breaker Relationship Specialty Start Date End Date Kailey Camacho MD [address] [place] [address] [email or web address] PCP - General Internal Medicine 07/20/17 Kailey Camacho MD [address] [place] [address] Historical LMR Provider 07/04/17 Pranav Gandhi MD [address] [place] [address] Historical LMR Provider 07/04/17 2 documented as of this encounter Additional Source Comments The information contained in this document represents components of the legal health record. It is not the complete legal health record.[facility]
== END 2025-05-26 10:09 | disposition home or self-care (01) ==
LOC: HO.US 10:08
PROVIDERS: PCP Nurse Practitioner Family; Visit Provider Surgery
DX: E66.01 Morbid (severe) obesity due to excess calories (principal)
CPT/HCPCS: 76700; 76981

== ENCOUNTER → 2025-05-26 10:11 | Outpatient (BNV) | payer OTHER, SELFPAY | PROVIDERS: PCP Nurse Practitioner Family; Visit Provider Radiology Diagnostic Radiology | DX: E66.01 Morbid (severe) obesity due to excess calories (principal) | CPT/HCPCS: 76700 ==

== ENCOUNTER 2025-05-31 08:11 | Outpatient (REF) | payer OTHER, SELFPAY ==
--- NOTE | ~2025-05-31 | FL_ITS ---
EXAMINATION: XR FLUOROSCOPY UPPER GI SERIES CLINICAL INFORMATION: Morbid obesity due to excess calories. Preoperative bariatric. COMPARISON: No prior. TECHNIQUE: Fluoroscopic air contrast upper GI examination was performed utilizing standard techniques with thin and thick barium and effervescent granules. Numerous spot images were obtained. Several fluoroscopic image hold cine sequences were also obtained. FINDINGS: UPPER GI SERIES: Lateral cine images of the oropharynx and hypopharynx demonstrate normal swallow mechanism with normal epiglottic inversion and soft palate elevation. No laryngeal penetration, glottic or subglottic aspiration identified. No nasopharyngeal reflux present. Hypopharyngeal structures appear normal without evidence of mass or diverticulum. There was no significant cricopharyngeal achalasia. Dual and single contrast images of the esophagus demonstrate normal caliber, contour, and mucosal pattern. No evidence of stricture, mass, or ulcerations identified. Esophageal peristalsis was normal. No evidence of hiatus hernia identified. No significant gastroesophageal reflux was seen during the course of the examination and on reflux views. Dual contrast and single contrast images of the stomach demonstrated normal contour and mucosal pattern without evidence of mass, ulceration, or other abnormality. Contrast freely passed into the gastric antrum and duodenal bulb without delay. Single and air-contrast images of the duodenal bulb demonstrate no abnormality. The duodenal sweep has a normal appearance, course, and mucosal fold appearance. Cholecystectomy clips are present. FLUOROSCOPY TIME: 2 minutes, 4 seconds Number of Spot Images:8 Number of cines obtained: 6 DOSE AREA PRODUCT: [id number] uGy-m2 (microgray-meter squared) FL/FL upper GI w air IMPRESSION: 1. Normal upper GI series. Electronically signed by: Alex Sánchez MD 05/31/2025 08:53 AM EDT
== END 2025-05-31 08:12 | disposition home or self-care (01) ==
LOC: HO.XRAY 08:11
PROVIDERS: PCP Nurse Practitioner Family; Visit Provider Surgery
DX: E66.01 Morbid (severe) obesity due to excess calories (principal)
CPT/HCPCS: 74246

== ENCOUNTER → 2025-05-31 08:12 | Outpatient (BNV) | payer OTHER, SELFPAY | PROVIDERS: PCP Nurse Practitioner Family; Visit Provider Radiology Diagnostic Radiology | DX: E66.01 Morbid (severe) obesity due to excess calories (principal); Z01.818 Encounter for other preprocedural examination | CPT/HCPCS: 74246 ==

== ENCOUNTER 2025-06-04 08:43 | Outpatient (AMB) | payer OTHER, SELFPAY ==
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
--- OUTSIDE RECORDS SUMMARY | 2025-06-04 09:18 | XMS_ITS | Encounter Summary ---
Author Organization [facility] Address [address] [place] [address] [place] [address] Phone Care Team Providers Care Pictures Editor Name Role Phone Kailey Camacho MD Unavailable Pranav Gandhi MD Unavailable [phone] Kailey Camacho MD Primary Care Provider Encounter Details Date Type Department Care Team (Latest Contact Info) Description 07/27/2021 Transcribe Orders Virtual Department [address] [place] [address] Kala Jarrell PA [address] [place], [place] [id number] [email or web address] Encounter for laboratory testing for COVID-19 virus [...] be available within 24 to 48 hrs. [facility] Symptomatic? YES [facility] Other 07/27/2021 12:5 7 PM EST 07/27/2021 5:45 PM EST Kailey Camacho MD BODY FLUIDS AND STOOLS PRO DESAI Final Result [facility] [address] [place] [address] [facility] [address] [place] [address] documented in this encounter Visit Diagnoses Diagnosis Encounter for laboratory testing for COVID-19 virus- Primary documented in this encounter Additional Health Concerns Infection Onset Date Last Indicated Resolved Time CoV-Risk 07/27/2021 07/27/2021 08/06/2021 1:22 AM EST CoV-Risk 10/04/2021 10/04/2021 10/14/2021 1:23 AM EST documented as of this encounter Care Teams Pictures Editor Relationship Specialty Start Date End Date Kailey Camacho MD [address] [place] [address] [email or web address] PCP - General Internal Medicine 07/20/17 Kailey Camacho MD [address] [place] [address] Historical LMR Provider 07/04/17 Pranav Gandhi MD [address] [place] [address] Historical LMR Provider 07/04/17//2 2 documented as of this encounter Additional Source Comments The information contained in this document represents components of the legal health record. It is not the complete legal health record.[facility]
--- OUTSIDE RECORDS SUMMARY | 2025-06-04 09:18 | XMS_ITS | Clinical Summary ---
Author Organization [facility] Address [address] [place] [address] Phone Care Team Providers Care Cardiovascular Sonographer Name Role Phone Kailey Camacho MD Unavailable [phone] Kailey Camacho MD Primary Care Provider Allergies [...] Visit [facility] [address] [place] [address] Eliel Valles MD Negative test (Primary Dx); Nexplanon insertion 04/07/2025 3:30 PM EDT Office Visit [facility] [address] [place] [address] Eliel Valles MD Encounter for gynecological examination without abnormal finding (Primary Dx) from Last 3 Months Immunizations Immunization Administration Dates Next Due DTaP 03/26/2003, 0,1999,07/11,1999 [id number] FORMULATION 07/20/2009 HPV,quadrivalent 07/21/2014,07/03/2013 HPV9 08/26/2015 Hepatitis [...] HCG, urine Negative, Internal QCs acceptable Negative [facility] Other 04/26/2025 5:36 PM EDT Eliel Valles MD POINT OF CARE TEST ORDERABLES Fi nal Result [address] [address], [facility] * Pap Test (01/16/2024 12:00 AM EDT) 01/16/2024 01/20/2024 11: 40 AM EDT Narrative SEE NARRATIVE - 01/23/2024 4:57 PM EDT [address] [address] [place] Hanger: Elli Best MD COMMERCIAL HORTICULTURE INSTRUCTOR Cytology Report FINAL DIAGNOSIS A. PAP SMEAR [...] : 2000 (Age: 23) Sex: F Institution: [facility] Location: [facility] Date of Collection: 01/16/2024 Date of Reported: 01/23/2024 16:57 Results to: Eliel Valles MD Eliel Valles MD CYTOLOGY ORDERABLES Final Result SEE NARRATIVE * (ABNORMAL) Basic metabolic panel (06/10/2023 7:28 PM EDT) SODIUM 138 133 - 146 mmol/L [facility] CHLORIDE 102 96 - 108 mmol/L [facility] POTASSIUM 3.9 3.3 - 5.1 mmol/L [facility] CO2 23 21 - 35 mmol/L [facility] BUN 8 6 - 19 mg/dL [facility] CREATININE 0.60 0.5 - 1.5 mg/dL [facility] GLUCOSE 110(H) 70 - 99 mg/dL [facility] CALCIUM 9.6 8.4 - 10.3 mg/dL [facility] EGFR >120 >59 mL/min/1.7 3m2 [facility] Comment:Estimated glomerular filtration rate calculated using the CKD-EPI refit equation. ANION GAP 17 10 - 20 mmol/L [facility] Blood 06/10/2023 7:28 PM EDT 06/10/2023 7:30 PM EDT us Clayton Mitchell MD LAB BLOOD ORDERABLES Final Result [facility] [address] [place] [address] from Last 3 Months or Most Recently Relevant to Health Maintenance Insurance [address] [place] [place] [address] [place] [place] [address] [place] [address] Advance Directives For more information, please contact: [phone] (9AM - 5PM [facility], Saturday-Saturday) Documents on File Type Date Recorded Patient Classified Advertising Clerk Expl anation Healthcare Proxy 02/14/2018 12:07 PM * Full Code (Presumed) (Latest Code Status on File) Date Activated Date Inactivated Comments 02/12/2018 3:21 PM 02/13/2018 1:38 PM Care Teams Cardiovascular Sonographer Relationship Specialty Start Date End Date Kailey Camacho MD [address] [place] [address] [email or web address] PCP - General Internal Medicine 07/20/17 Kailey Camacho MD [address] [place] [address] Historical LMR Provider 07/04/17 Additional Source Comments The information contained in this document represents components of the legal health record. It is not the complete legal health record.[facility]
--- OUTSIDE RECORDS SUMMARY | 2025-06-04 09:18 | XMS_ITS | Encounter Summary ---
Author Organization [facility] Address [address] [place] [address] [place] [address] Phone Care Team Providers Care Poultry Buyer Name Role Phone Kailey Camacho MD Unavailable [phone] Pranav Gandhi MD Unavailable [phone] Kailey Camacho MD Primary Care Provider Encounter Details Date Type Department Care Team (Late st Contact Info) Description 07/30/2017 Ancillary Orders [facility], X-Ray - [address] [address] Kala Jarrell PA [address] [place], [place] [id number] [email or web address] Trading t Right hip pain Social History Tobacco [...] EST No explanation for pain. POS - [id number] Narrative 07/30/2017 5:16 PM EST HISTORY: Pain [...] IMPRESSION: No explanation for pain. POS - [id number] Kala NIX IMG XR PELVIS Final Result [...] documented as of this encounter Care Teams Poultry Buyer Relationship Specialty Start Date End Date Kailey Camacho MD [address] [place] [address] [email or web address] PCP - General Internal Medicine 07/20/17 Kailey Camacho MD [address] [place] [address] [email or web address] Historical LMR Provider 07/04/17 Pranav Gandhi MD [address] [place] [address] Historical LMR Provider 07/04/17 2 documented as of this encounter Additional Source Comments The information contained in this document represents components of the legal health record. It is not the complete legal health record.[facility]
--- OUTSIDE RECORDS SUMMARY | 2025-06-04 09:18 | XMS_ITS | Encounter Summary ---
Author Organization [facility] Address [address] [place] [address] [place] [address] Phone Care Team Providers Care Mortgage Closer Name Role Phone Kailey Camacho MD Unavailable [phone] Pranav Gandhi MD Unavailable [phone] Kailey Camacho MD Primary Care Provider Encounter Details Date Type Department Care Team (Latest Contact Info) Description 01/10/2019 Transcribe Orders [facility] Laboratory [address] [place] [address] Leticia Hurtado PA [address] [place] [address] [place] [address] Screening for unspecified condition (Primary Dx) Social [...] EDT) Specimen Source/ Description STOOL STOOL STOOL [facility] Special Requests None [facility] DIRECT EXAM NO PARASITES FOUND BY DIRECT OR CONCENTRATION METHODS [facility] DIRECT EXAM No parasites found by Trichrome Stain [facility] Report Status 01/13/2019 FINAL [facility] Stool (Stool) 01/10/2019 9:5 9 AM EDT 01/10/2019 10:21 AM EDT us Leticia NIX MICROBIOLOGY - GENERA L ORDERABLES Final Result Performing Organization Address City/State/[facility] Co de Phone Number [facility] [address] [place] [address] documented in this encounter Visit Diagnoses Diagnosis Screening for unspecified condition- Primary documented in this encounter Additional Health Concerns Infection Onset Date Last Indicated Resolved Time CoV-Risk 07/27/2021 07/27/2021 08/06/2021 1:22 AM EST CoV-Risk 10/04/2021 10/04/2021 10/14/2021 1:23 AM EST documented as of this encounter Care Teams Mortgage Closer Relationship Specialty Start Date End Date Kailey Camacho MD [address] [place] [address] PCP - General Internal Medicine 07/20/17 Kailey Camacho MD [address] [place] [address] [email or web address] Historical LMR Provider 07/04/17 Pranav Gandhi MD [address] [place] [address] Historical LMR Provider 07/04/17 2 documented as of this encounter Additional Source Comments The information contained in this document represents components of the legal health record. It is not the complete legal health record.[facility]
--- OUTSIDE RECORDS SUMMARY | 2025-06-04 09:19 | XMS_ITS | Encounter Summary ---
Author Organization [facility] Address [address] [place] [address] [place] [address] Phone Care Team Providers Care Handbag Finisher Name Role Phone Kailey Camacho MD Unavailable [phone] Pranav Gandhi MD Unavailable [phone] Kailey Camacho MD Primary Care Provider [phone] Encounter Details Date Type Department Care Team (Late st Contact Info) Description 02/12/2018 Procedure Pass [place] Admitting Dept - Virtual Department [address] [place] [address] Social History Tobacco Use Types Packs/Day Years [...] documented as of this encounter Care Teams Handbag Finisher Relationship Specialty Start Date End Date Kailey Camacho MD [address] [place] [address] [email or web address] PCP - General Internal Medicine 07/20/17 Kailey Camacho MD [address] [place] [address] [email or web address] Historical LMR Provider 07/04/17 Pranav Gandhi MD [address] [place] [address] Historical LMR Provider 07/04/17 2 documented as of this encounter Additional Source Comments The information contained in this document represents components of the legal health record. It is not the complete legal health record.[facility]
--- OUTSIDE RECORDS SUMMARY | 2025-06-04 09:19 | XMS_ITS | Encounter Summary ---
Author Organization [facility] Address [address] [facility] [address] [place] [address] Phone Care Team Providers Care Barrel Bridge Assembler Name Role Phone Kailey Camacho MD Unavailable [phone] Pranav Gandhi MD Unavailable [phone] Kailey Camacho MD Primary Care Provider Encounter Details Date Type Department Care Team (Late st Contact Info) Description 11/17/2020 Procedure Pass [facility], Ct Scan - [address] [address] Social History Tobacco Use Types Packs/Day Years [...] 11/17/2020 9:43 PM Emelia Barksdale, ANNETTE * [place] Suicide Severity Rating Scale (Screener/Recent Self-Report) Question [...] as of this encounter Care Teams Barrel Bridge Assembler Relationship Specialty Start Date End Date Kailey Camacho MD [address] [place] [address] [email or web address] PCP - General Internal Medicine 07/20/17 Kailey Camacho MD [address] [place] [address] [email or web address] Historical LMR Provider 07/04/17 Pranav Gandhi MD [address] [place] [address] Historical LMR Provider 07/04/17 2 documented as of this encounter Additional Source Comments The information contained in this document represents components of the legal health record. It is not the complete legal health record.[facility]
--- OUTSIDE RECORDS SUMMARY | 2025-06-04 09:19 | XMS_ITS | Encounter Summary ---
Author Organization [facility] Address [address] [place] [address] Phone Care Team Providers Care Diversified Crops Farmer Name Role Phone Kailey Camacho MD Unavailable [phone] Pranav Gandhi MD Unavailable [phone] Kailey Camacho MD Primary Care Provider Encounter Details Date Type Department Care Team (Latest Contact Info) Description 12/09/[address] [facility] Laboratory [address] [place] [address] Kala Jarrell PA [address] [place], [place] [id number] [email or web address] Dizziness (Primary Dx) Social History Tobacco Use [...] Source/ Description URINE CLEAN CATCH URINE URINE [facility] Special Requests None [facility] GRAM STAIN NO ORGANISMS SEEN [facility] Culture/Test >100,000 colony forming units per ml MIXED CARLENE (3 OR MORE COLONY TYPES) Culture indicates contamination . Please resubmit if necessary. [facility] Report Status 12/10/2017 FINAL [facility] Urine (Urine) 12/09/2017 3:0 6 PM EDT 12/09/2017 3:12 PM EDT Kala NIX MICROBIOLOGY - GENERAL ORDERABL ES Final Result Performing Organization Address City/[facility]/ZIP Co de Phone Number [address] [address] * (ABNORMAL) Urinalysis with sediment (12/09/2017 3:06 PM EDT) WBC 0-4(A) NONE SEEN /hpf [facility] RBC NONE SEEN NONE SEEN /hpf [facility] URINE EPITHELIAL NONE SEEN NONE SEEN [facility] MUCUS NONE SEEN NONE SEEN /hpf [facility] BACTERIA Trace(A) NONE SEEN [facility] COLOR Yellow Yellow [facility] CLARITY Clear [facility] GLUCOSE Negative Negative [facility] BILI Negative Negative [facility] KETONES Negative Negative [facility] SPECIFIC GRAVITY 1.015 1.005 - 1.030 [facility] BLOOD Negative Negative [facility] PH 5.5 5.0 - 8.0 [facility] Protein-UA Negative Negative [facility] NITRITE Negative Negative [facility] Leukocyte esterase, ur Negative Negative [facility] Urine (Urine) 12/09/2017 3:0 6 PM EDT 12/09/2017 3:11 PM EDT Kala NIX URINE ORDERABLES Final Result Performing Organization Address [facility]/ZIP Co de Phone Number [address] [address] * (ABNORMAL) CBC and differential (12/09/2017 3:06 PM EDT) WBC 8.19 3.40 - 11.20 K/uL [facility] RBC 4.95(H) 3.80 - 4.80 M/uL [facility] HGB 13.7 12.0 - 15.0 g/dL [facility] HCT 40.1 36.0 - 46.0 % [facility] PLT 295 130 - 400 K/uL [facility] MCV 81.0 79.0 - 98.0 fL [facility] MCH 27.7 27.0 - 34.8 pg [facility] MCHC 34.2 31.5 - 36.0 g/dL [facility] RDW 14.1 10.8 - 14.6 % [facility] MPV 9.8 9.4 - 12.4 fl [facility] NRBC 0.00 /100 WBCs [facility] ABSOLUTE NRBC 0.00 K/uL [facility] DIFF METHOD Auto [facility] NEUTS 51.3 45.30 - 77.70 % [facility] LYMPHS 41.0(H) 12.30 - 39.70 % [facility] MONOS 6.6 4.10 - 12.80 % [facility] EOS 0.5 0 - 7.2 % [facility] BASOS 0.4 0 - 2.80 % [facility] Granulocytes, immature (%) 0.2 0.0 - 0.9 % [facility] ABSOLUTE NEUTS 4.20 1.40 - 7.70 K/uL [facility] ABSOLUTE LYMPHS 3.36(H) 0.60 - 3.20 K/uL [facility] ABSOLUTE MONOS 0.54 0.11 - 0.59 K/uL [facility] ABSOLUTE EOS 0.04 0.01 - 0.50 K/uL [facility] ABSOLUTE BASOS 0.03 0.00 - 0.08 K/uL [facility] Granulocytes, immature 0.02 0.00 - 0.05 K/uL [facility] Blood 12/09/2017 3:06 PM EDT 12/09/2017 3:11 PM EDT us Kala NIX LAB BLOOD ORDERABLES Final Resu lt [facility] [address] [place] [address] * TSH with reflex (12/09/2017 3:06 PM EDT) TSH 2.42 0.27 - 4.20 uIU/mL [facility] Blood 12/09/2017 3:06 PM EDT 12/09/2017 3:11 PM EDT us Kala NIX LAB BLOOD ORDERABLES Final Resu lt [facility] [address] [place] [address] * Comprehensive metabolic panel (12/09/2017 3:06 PM EDT) SODIUM 140 133 - 146 mmol/L [facility] POTASSIUM 3.7 3.3 - 5.1 mmol/L [facility] CHLORIDE 102 96 - 108 mmol/L [facility] CO2 22 21 - 35 mmol/L [facility] BUN 11 6 - 19 mg/dL [facility] CREATININE 0.60 0.5 - 1.5 mg/dL [facility] GLUCOSE 82 70 - 99 mg/dL [facility] ALBUMIN 4.1 3.9 - 4.8 g/dL [facility] TOTAL PROTEIN 7.6 6.5 - 8.0 g/dL [facility] CALCIUM 9.5 8.4 - 10.3 mg/dL [facility] ALKALINE PHOSPHATASE 54 39 - 117 U/L [facility] TOTAL BILIRUBIN 0.3 0.0 - 1.2 mg/dL [facility] AST 21 0 - 37 U/L [facility] ALT 35 0 - 40 U/L [facility] GLOBULIN 3.5 1 - 4.8 g/dL [facility] EGFR >120 >59 mL/min/1.7 3m2 [facility] Comment:If patient is black, multiply result by 1.159. The eGFR calculation has changed from the MDRD equation to the CKD-EPI equation as of November 19, 2017. ANION GAP 20 10 - 20 mmol/L [facility] Blood 12/09/2017 3:06 PM EDT 12/09/2017 3:11 PM EDT us Kala NIX LAB BLOOD ORDERABLES Final Resu lt [facility] [address] [place] [address] documented in this encounter Visit Diagnoses Diagnosis Dizziness- Primary Dizziness and giddiness documented in this encounter Additional Health Concerns Infection Onset Date Last Indicated Resolved Time CoV-Risk 07/27/2021 07/27/2021 08/06/2021 1:22 AM EST CoV-Risk 10/04/2021 10/04/2021 10/14/2021 1:23 AM EST documented as of this encounter Care Teams Diversified Crops Farmer Relationship Specialty Start Date End Date Kailey Camacho MD [address] [place] [address] [email or web address] PCP - General Internal Medicine 07/20/17 Kailey Camacho MD [address] [place] [address] [email or web address] Historical LMR Provider 07/04/17 Pranav Gandhi MD [address] [place] [address] Historical LMR Provider 07/04/17 2 documented as of this encounter Additional Source Comments The information contained in this document represents components of the legal health record. It is not the complete legal health record.[facility]
--- OUTSIDE RECORDS SUMMARY | 2025-06-04 09:19 | XMS_ITS | Encounter Summary ---
Author Organization [facility] Address [address] [place] [address] Phone Care Team Providers Care Sweatband Perforator Name Role Phone Kailey Camacho MD Unavailable [phone] Pranav Gandhi MD Unavailable [phone] Kailey Camacho MD Primary Care Provider Encounter Details Date Type Department Care Team (Late st Contact Info) Description 11/12/2020 Procedure Pass [facility], Ct Scan - [address] [address] Social History Tobacco Use Types Packs/Day Years [...] 11/12/2020 10:01 AM Brie Cox RN * Andrew Suicide Severity Rating Scale (Screener/Recent Self-Report) Question [...] documented as of this encounter Care Teams Sweatband Perforator Relationship Specialty Start Date End Date Kailey Camacho MD [address] [place] [address] [email or web address] PCP - General Internal Medicine 07/20/17 Kailey Camacho MD [address] [place] [address] [email or web address] Historical LMR Provider 07/04/17 Pranav Gandhi MD [address] [place] [address] Historical LMR Provider 07/04/17 2 documented as of this encounter Additional Source Comments The information contained in this document represents components of the legal health record. It is not the complete legal health record.[facility]
--- OUTSIDE RECORDS SUMMARY | 2025-06-04 09:19 | XMS_ITS | Encounter Summary ---
Author Organization [facility] Address [address] [place] [address] [place] [address] Phone Care Team Providers Care Sleeping Room Cleaner Name Role Phone Kailey Camacho MD Unavailable [phone] Pranav Gandhi MD Unavailable [phone] Kailey Camacho MD Primary Care Provider Encounter Details Date Type Department Care Team (Late st Contact Info) Description 04/01/[address] [facility] Laboratory [address] [place] [address] Kailey Camacho MD [address] [place] [address] [email or web address] Delinquent immunization status (Primary [...] PM EDT) HBV SURFACE ANTIGEN Negative Negative [facility] Blood 04/01/2019 2:38 PM EDT 04/01/2019 2:42 PM EDT Kailey Camacho MD LAB BLOOD ORDERABLES Final Result Performing Organization Address City/[facility]/ZIP Co de Phone Number [address] [address] * Hepatitis B surface antibody (04/01/2019 2:38 PM EDT) HBV SURFACE ANTIBODY Positive [facility] Comment: Unvaccinated: Negative Vaccinated: Positive Blood 04/01/2019 2:38 PM EDT 04/01/2019 2:42 PM EDT Kailey Camacho MD LAB BLOOD ORDERABLES Final Result Performing Organization Address [facility] Co de Phone Number [address] [address] documented in this encounter Visit Diagnoses Diagnosis Delinquent immunization status- Primary Personal history of underimmunization status documented in this encounter Additional Health Concerns Infection Onset Date Last Indicated Resolved Time CoV-Risk 07/27/2021 07/27/2021 08/06/2021 1:22 AM EST CoV-Risk 10/04/2021 10/04/2021 10/14/2021 1:23 AM EST documented as of this encounter Care Teams Sleeping Room Cleaner Relationship Specialty Start Date End Date Kailey Camacho MD [address] [place] [address] [email or web address] PCP - General Internal Medicine 07/20/17 Kailey Camacho MD [address] [place] [address] [email or web address] Historical LMR Provider 07/04/17 Pranav Gandhi MD [address] [place] [address] Historical LMR Provider 07/04/17 2 documented as of this encounter Additional Source Comments The information contained in this document represents components of the legal health record. It is not the complete legal health record.[facility]
--- OUTSIDE RECORDS SUMMARY | 2025-06-04 09:19 | XMS_ITS | Encounter Summary ---
Author Organization [facility] Address [address] [place] [address] Phone Care Team Providers Care Exercise Planner Name Role Phone Kailey Camacho MD Unavailable [phone] Pranav Gandhi MD Unavailable [phone] Kailey Camacho MD Primary Care Provider Encounter Details Date Type Department Care Team (Latest Contact Info) Description 01/10/2019 Transcribe Orders [facility] Laboratory [address] [place] [address] Leticia Hurtado PA [address] [place] [address] [place] [address] Screening for unspecified condition (Primary Dx) Social [...] documented as of this encounter Care Teams Exercise Planner Relationship Specialty Start Date End Date Kailey Camacho MD [address] [place] [address] [email or web address] PCP - General Internal Medicine 07/20/17 Kailey Camacho MD [address] [place] [address] [email or web address] Historical LMR Provider 07/04/17 Pranav Gandhi MD [address] [place] [address] Historical LMR Provider 07/04/17 2 documented as of this encounter Additional Source Comments The information contained in this document represents components of the legal health record. It is not the complete legal health record.[facility]
--- OUTSIDE RECORDS SUMMARY | 2025-06-04 09:19 | XMS_ITS | Encounter Summary ---
Author Organization [facility] Address [address] [place] [address] Phone Care Team Providers Care Singing Telegram Performer Name Role Phone Kailey Camacho MD Unavailable [phone] Kailey Camacho MD Primary Care Provider [phone] Reason for Referral * - Closed Specialty Diagnoses / Procedures Referred By Contsam t Referred To Contact Diagnoses Palpitations Procedures MCT (Mobile Cardiac Telemetry) En Winn MD Phone: tel: fax: [email or web address] Referral ID Status Reason Start Date Expiration Date Visits Re quested Visits Authorized [id number] Closed 10/17/2021 10/17/2022 1 1 Encounter Details Date Type Department Care Team (Late st Contact Info) Description 10/17/2021 Ancillary Orders [facility] [address] Floor, [address] [place] [address] En Winn MD [address] [facility] [address] [place] [address] [email or web address] Palpitations Social History Tobacco Use Types Packs/Day [...] Palpitations documented in this encounter Care Teams Singing Telegram Performer Relationship Specialty Start Date End Date Kailey Camacho MD [address] [place] [address] PCP - General Internal Medicine 07/20/17 Kailey Camacho MD [address] [place] [address] [email or web address] Historical LMR Provider 07/04/17 documented as of this encounter Additional Source Comments The information contained in this document represents components of the legal health record. It is not the complete legal health record.[facility]
--- OUTSIDE RECORDS SUMMARY | 2025-06-04 09:19 | XMS_ITS | Encounter Summary ---
Author Organization [facility] Address [address] [place] [address] [place] [address] Phone Care Team Providers Care Helpdesk Technician Name Role Phone Kailey Camacho MD Unavailable Pranav Gandhi MD Unavailable [phone] Kailey Camacho MD Primary Care Provider Encounter Details Date Type Department Care Team (Latest Contact Info) Description 04/24/2018 Transcribe Orders [facility] Laboratory [address] [place] [address] Kala Jarrell PA [address] [place], [place] [phone] [email or web address] Nausea (Primary Dx); Diarrhea, unspecified type; Cloudy [...] PM EDT) WBC 0-4(A) NONE SEEN /hpf [facility] RBC NONE SEEN NONE SEEN /hpf [facility] URINE EPITHELIAL 0-4(A) NONE SEEN [facility] MUCUS NONE SEEN NONE SEEN /hpf [facility] BACTERIA Trace(A) NONE SEEN [facility] CRYSTALS 3+ [facility] Comment:AMORPHOUS COLOR Yellow Yellow [facility] CLARITY TURBID [facility] GLUCOSE Negative Negative [facility] BILI Negative Negative [facility] KETONES Negative Negative [facility] SPECIFIC GRAVITY 1.020 1.005 - 1.030 [facility] BLOOD Negative Negative [facility] PH 6.0 5.0 - 8.0 [facility] Protein-UA Negative Negative [facility] NITRITE Negative Negative [facility] Leukocyte esterase, ur 1+(A) Negative [facility] Urine (Urine) 04/24/2018 12: 27 PM EDT 04/24/2018 12:31 PM EDT Kala NIX URINE ORDERABLES Final Result Performing Organization Address City/[facility]/ZIP Co de Phone Number [address] [address] * Urine culture (04/24/2018 12:27 PM EDT) Specimen Source/ Description URINE URINE URINE [facility] Special Requests None [facility] GRAM STAIN Rare GRAM POSITIVE RODS [facility] Culture/Test >100,000 colony forming units per ml MIXED CARLENE (3 OR MORE COLONY TYPES) Culture indicates contamination . Please resubmit if necessary. [facility] Report Status 04/25/2018 FINAL [facility] Urine (Urine) 04/24/2018 12: 27 PM EDT 04/24/2018 12:32 PM EDT Kala NIX MICROBIOLOGY - GENERAL ORDERABL ES Final Result Performing Organization Address City/[facility]/ZIP Co de Phone Number [address] [address] * (ABNORMAL) CBC and differential (04/24/2018 12:27 PM EDT) WBC 9.34 3.40 - 11.20 K/uL [facility] RBC 5.21(H) 3.80 - 4.80 M/uL [facility] HGB 13.9 12.0 - 15.0 g/dL [facility] HCT 42.5 36.0 - 46.0 % [facility] PLT 376 130 - 400 K/uL [facility] MCV 81.6 79.0 - 98.0 fL [facility] MCH 26.7(L) 27.0 - 34.8 pg [facility] MCHC 32.7 31.5 - 36.0 g/dL [facility] RDW 13.8 10.8 - 14.6 % [facility] MPV 9.1(L) 9.4 - 12.4 fl [facility] NRBC 0.00 /100 WBCs [facility] ABSOLUTE NRBC 0.00 K/uL [facility] DIFF METHOD Auto [facility] NEUTS 58.6 45.30 - 77.70 % [facility] LYMPHS 32.5 12.30 - 39.70 % [facility] MONOS 7.3 4.10 - 12.80 % [facility] EOS 0.9 0 - 7.2 % [facility] BASOS 0.5 0 - 2.80 % [facility] Granulocytes, immature (%) 0.2 0.0 - 0.9 % [facility] ABSOLUTE NEUTS 5.47 1.40 - 7.70 K/uL [facility] ABSOLUTE LYMPHS 3.04 0.60 - 3.20 K/uL [facility] ABSOLUTE MONOS 0.68(H) 0.11 - 0.59 K/uL [facility] ABSOLUTE EOS 0.08 0.01 - 0.50 K/uL [facility] ABSOLUTE BASOS 0.05 0.00 - 0.08 K/uL [facility] Granulocytes, immature 0.02 0.00 - 0.05 K/uL [facility] Blood 04/24/2018 12:2 7 PM EDT 04/24/2018 12:31 PM EDT us Kala NIX LAB BLOOD ORDERABLES Final Resu lt [address] [address] * Comprehensive metabolic panel (04/24/2018 12:27 PM EDT) SODIUM 139 133 - 146 mmol/L [facility] POTASSIUM 3.8 3.3 - 5.1 mmol/L [facility] CHLORIDE 101 96 - 108 mmol/L [facility] CO2 25 21 - 35 mmol/L [facility] BUN 11 6 - 19 mg/dL [facility] CREATININE 0.50 0.5 - 1.5 mg/dL [facility] GLUCOSE 83 70 - 99 mg/dL [facility] ALBUMIN 4.1 3.9 - 4.8 g/dL [facility] TOTAL PROTEIN 7.8 6.5 - 8.0 g/dL [facility] CALCIUM 9.1 8.4 - 10.3 mg/dL [facility] ALKALINE PHOSPHATASE 58 39 - 117 U/L [facility] TOTAL BILIRUBIN 0.2 0.0 - 1.2 mg/dL [facility] AST 12 0 - 37 U/L [facility] ALT 9 0 - 40 U/L [facility] GLOBULIN 3.7 1 - 4.8 g/dL [facility] EGFR >120 >59 mL/min/1.7 3m2 [facility] Comment:If patient is black, multiply result by 1.159. Estimated glomerular filtration rate calculated using the CKD-EPI equation. ANION GAP 17 10 - 20 mmol/L [facility] Blood 04/24/2018 12:2 7 PM EDT 04/24/2018 12:31 PM EDT Kala NIX LAB BLOOD ORDERABLES Final Resu lt [address] [address] documented in this encounter Visit Diagnoses Diagnosis Nausea- Primary Nausea alone Diarrhea, unspecified type Cloudy urine documented in this encounter Additional Health Concerns Infection Onset Date Last Indicated Resolved Time CoV-Risk 07/27/2021 07/27/2021 08/06/2021 1:22 AM EST CoV-Risk 10/04/2021 10/04/2021 10/14/2021 1:23 AM EST documented as of this encounter Care Teams Helpdesk Technician Relationship Specialty Start Date End Date Kailey Camacho MD [address] [place] [address] [email or web address] PCP - General Internal Medicine 07/20/17 Kailey Camacho MD [address] [place] [address] [email or web address] Historical LMR Provider 07/04/17 Pranav Gandhi MD [address] [place] [address] Historical LMR Provider 07/04/17 2 documented as of this encounter Additional Source Comments The information contained in this document represents components of the legal health record. It is not the complete legal health record[facility]
--- OUTSIDE RECORDS SUMMARY | 2025-06-04 09:19 | XMS_ITS | Encounter Summary ---
Author Organization [facility] Address [address] [place] [address] [place] [address] Phone Care Team Providers Care Turret Lathe Set Up Operator Name Role Phone Kailey Camacho MD Unavailable Pranav Gandhi MD Unavailable [phone] Kailey Camacho MD Primary Care Provider Encounter Details Date Type Department Care Team (Late st Contact Info) Description 07/20/2017 Transcribe Orders [facility] Phlebotomy [address] [place] [address] Kailey Camacho MD [address] [place] [address] [id number] [email or web address] Routine general medical examination at a health [...] AM EDT) WBC 50-100(A) NONE SEEN /hpf [facility] RBC 6-10(A) NONE SEEN /hpf [facility] URINE EPITHELIAL 11-20(A) NONE SEEN [facility] MUCUS 1+(A) NONE SEEN /hpf [facility] BACTERIA 1+(A) NONE SEEN [facility] CRYSTALS 3+ [facility] Comment:AMORPHOUS 07/20/2017 10:1 4 AM EDT 07/20/2017 10:18 AM EDT us Kaliey Camacho MD URINE ORDERABLES Final Resu lt Performing Organization Address City/State/[facility] Co de Phone Number [address] [phone] * (ABNORMAL) Urinalysis (07/20/2017 10:14 AM EDT) COLOR Yellow Yellow [facility] CLARITY TURBID [facility] GLUCOSE Negative Negative [facility] BILI Negative Negative [facility] KETONES Negative Negative [facility] SPECIFIC GRAVITY >1.030 1.005 - 1.030 [facility] BLOOD 3+(A) Negative [facility] PH 5.5 5.0 - 8.0 [facility] Protein-UA Negative Negative [facility] NITRITE Negative Negative [facility] Leukocyte esterase, ur 2+(A) Negative [facility] Urine (Urine) 07/20/2017 10: 14 AM EDT 07/20/2017 10:18 AM EDT us Kailey Camacho MD URINE ORDERABLES Final Resu lt Performing Organization Address City/[facility]/ZIP Co de Phone Number [address] [address] * TSH (07/20/2017 10:14 AM EDT) TSH 3.02 0.27 - 4.20 uIU/mL [facility] Blood 07/20/2017 10:1 4 AM EDT 07/20/2017 10:19 AM EDT Kailey Camacho MD LAB BLOOD ORDERABLES Final Result Performing Organization Address [facility] Co de Phone Number [address] [address] * (ABNORMAL) CBC (07/20/2017 10:14 AM EDT) WBC 8.91 3.40 - 11.20 K/uL [facility] RBC 4.77 3.80 - 4.80 M/uL [facility] HGB 13.1 12.0 - 15.0 g/dL [facility] HCT 38.8 36.0 - 46.0 % [facility] PLT 304 130 - 400 K/uL [facility] MCV 81.3 79.0 - 98.0 [facility] MCH 27.5 27.0 - 34.8 pg [facility] MCHC 33.8 31.5 - 36.0 g/dL [facility] RDW 14.0 10.8 - 14.6 % [facility] MPV 9.2(L) 9.4 - 12.4 [facility] NRBC 0.00 /100 WBCs [facility] ABSOLUTE NRBC 0.00 K/uL [facility] Blood 07/20/2017 10:1 4 AM EDT 07/20/2017 10:19 AM EDT us Kailey Camacho MD LAB BLOOD ORDERABLES Final Result Performing Organization Address [facility] Co de Phone Number [address] [address] * Lipid panel (07/20/2017 10:14 AM EDT) HDL 49 mg/dL [facility] Comment: Interpretation: Risk Level Females Decreased >55mg/dL Average 50-55 mg/dL Increased <50 mg/dL CHOLESTEROL 201 0 - 240 mg/dL [facility] Comment: Pediatric Reference Ranges for 2 to 18 years Acceptable: Less than 170 mg/dL Borderline: 170 - 199 mg/dL High: Greater than or equal to 200 mg/dL TRIGLYCERIDES 119 30 - 160 mg/dL [facility] LDL 128 50 - 129 mg/dL [facility] Comment: LDL levels in terms of risk for coronary heart disease: <100 mg/dL: Optimal 100-129 mg/dL: Near or above optimal 130-159 mg/dL: Borderline high 160-189 mg/dL: High >190 mg/dL: Very High CARDIAC RISK RATIO 4.1 3.3 - 4.4 C [facility] Blood 07/20/2017 10:1 4 AM EDT 07/20/2017 10:19 AM EDT us Kailey Camacho MD LAB BLOOD ORDERABLES Final Result Performing Organization Address [facility] Co de Phone Number [address] [address] documented in this encounter Visit Diagnoses Diagnosis Routine general medical examination at a health care facility- Primary Fatigue, unspecified type documented in this encounter Additional Health Concerns Infection Onset Date Last Indicated Resolved Time CoV-Risk 07/27/2021 07/27/2021 08/06/2021 1:22 AM EST CoV-Risk 10/04/2021 10/04/2021 10/14/2021 1:23 AM EST documented as of this encounter Care Teams Turret Lathe Set Up Operator Relationship Specialty Start Date End Date Kailey Camacho MD [address] [place] [address] [email or web address] PCP - General Internal Medicine 07/20/17 Kailey Camacho MD [address] [place] [address] [email or web address] Historical LMR Provider 07/04/17 Pranav Gandhi MD [address] [place] [address] Historical LMR Provider 07/04/17 2 documented as of this encounter Additional Source Comments The information contained in this document represents components of the legal health record. It is not the complete legal health record.[facility]
--- OUTSIDE RECORDS SUMMARY | 2025-06-04 09:19 | XMS_ITS | Encounter Summary ---
Author Organization [facility] Address [address] [place] [address] [place] [address] Phone Care Team Providers Care Cloth Folder Machine Name Role Phone Kailey Camacho MD Unavailable [phone] Pranav Gandhi MD Unavailable [phone] Kailey Camacho MD Primary Care Provider Encounter Details Date Type Department Care Team (Late st Contact Info) Description 08/05/2017 Procedure Pass [facility], [address] [address] Social History Tobacco Use Types Packs/Day Years [...] documented as of this encounter Care Teams Cloth Folder Machine Relationship Specialty Start Date End Date Kailey Camacho MD [address] [place] [address] [email or web address] PCP - General Internal Medicine 07/20/17 Kailey Camacho MD [address] [place] [address] [email or web address] Historical LMR Provider 07/04/17 Pranav Gandhi MD [address] [place] [address] Historical LMR Provider 07/04/17 2 documented as of this encounter Additional Source Comments The information contained in this document represents components of the legal health record. It is not the complete legal health record.[facility]
--- OUTSIDE RECORDS SUMMARY | 2025-06-04 09:19 | XMS_ITS | Encounter Summary ---
Author Organization [facility] Address [address] [place] [address] [place] [address] Phone Care Team Providers Care Lubrication Supervisor Name Role Phone Kailey Camacho MD Unavailable [phone] Kailey Camacho MD Primary Care Provider [phone] Encounter Details Date Type Department Care Team (Latest Contact Info) Description 02/28/2022 Transcribe Orders Virtual Department [address] [place] [address] Kala Jarrell PA [address] [place] [address] Pain and swelling of left ankle (Primary [...] Primary documented in this encounter Care Teams Lubrication Supervisor Relationship Specialty Start Date End Date Kailey Camacho MD [address] [place] [address] [email or web address] PCP - General Internal Medicine 07/20/17 Kailey Camacho MD [address] [place] [address] [email or web address] Historical LMR Provider 07/04/17 documented as of this encounter Additional Source Comments The information contained in this document represents components of the legal health record. It is not the complete legal health record.[facility]
--- OUTSIDE RECORDS SUMMARY | 2025-06-04 09:19 | XMS_ITS | Encounter Summary ---
Author Organization [facility] Address [address] [place] [address] [place] [address] Phone Care Team Providers Care Smokehouse Worker Name Role Phone Kailey Camacho MD Unavailable Pranav Gandhi MD Unavailable [phone] Kailey Camacho MD Primary Care Provider [phone] Encounter Details Date Type Department Care Team (Late st Contact Info) Description 07/26/2017 Transcribe Orders [facility] Laboratory [address] [place] [address] Kailey Camacho MD [address] [place] [address] [phone] [email or web address] Asymptomatic microscopic hematuria (Primary Dx) Social History [...] PM EST) WBC 5-10(A) NONE SEEN /hpf [facility] RBC 0-2(A) NONE SEEN /hpf [facility] URINE EPITHELIAL 5-10(A) NONE SEEN [facility] MUCUS NONE SEEN NONE SEEN /hpf [facility] BACTERIA 2+(A) NONE SEEN [facility] 07/26/2017 3:29 PM EST 07/26/2017 3:31 PM EST Kailey Camacho MD URINE ORDERABLES Final Resu lt Performing Organization Address [facility]/ZIP Co de Phone Number [address] [address] * Urine culture (07/26/2017 3:29 PM EST) Specimen Source/ Description URINE CLEAN CATCH URINE URINE [facility] Special Requests None [facility] GRAM STAIN Few GRAM POSITIVE RODS [facility] Culture/Test >100,000 colony forming units per ml MIXED CARLENE (3 OR MORE COLONY TYPES) Culture indicates contamination . Please resubmit if necessary. [facility] Report Status 07/27/2017 FINAL [facility] Urine (Urine) 07/26/2017 3:2 9 PM EST 07/26/2017 3:31 PM EST Kailey Camacho MD MICROBIOLOGY - GENERAL ORDE [facility] Final Result Performing Organization Address [facility]/ZIP Co de Phone Number [address] [address] * (ABNORMAL) Urinalysis (07/26/2017 3:29 PM EST) COLOR Yellow Yellow [facility] CLARITY Clear [facility] GLUCOSE Negative Negative [facility] BILI Negative Negative [facility] KETONES Negative Negative [facility] SPECIFIC GRAVITY >1.030 1.005 - 1.030 [facility] BLOOD Negative Negative [facility] PH 5.5 5.0 - 8.0 [facility] Protein-UA Negative Negative [facility] NITRITE Negative Negative [facility] Leukocyte esterase, ur Trace(A) Negative [facility] Urine (Urine) 07/26/2017 3:2 9 PM EST 07/26/2017 3:31 PM EST Kailey Camacho MD URINE ORDERABLES Final Resu lt [facility] [address] [place] [address] documented in this encounter Visit Diagnoses Diagnosis Asymptomatic microscopic hematuria- Primary documented in this encounter Additional Health Concerns Infection Onset Date Last Indicated Resolved Time CoV-Risk 07/27/2021 07/27/2021 08/06/2021 1:22 AM EST CoV-Risk 10/04/2021 10/04/2021 10/14/2021 1:23 AM EST documented as of this encounter Care Teams Smokehouse Worker Relationship Specialty Start Date End Date Kailey Camacho MD [address] [place] [address] [email or web address] PCP - General Internal Medicine 07/20/17 Kailey Camacho MD [address] [place] [address] [email or web address] Historical LMR Provider 07/04/17 Pranav Gandhi MD [address] [place] [address] Historical LMR Provider 07/04/17 2 documented as of this encounter Additional Source Comments The information contained in this document represents components of the legal health record. It is not the complete legal health record.[facility]
--- OUTSIDE RECORDS SUMMARY | 2025-06-04 09:19 | XMS_ITS | Encounter Summary ---
Author Organization [facility] Address [address] [place] [address] [place] [address] Phone Care Team Providers Care Vice President Of Customer Service Name Role Phone Kailey Camacho MD Unavailable Pranav Gandhi MD Unavailable [phone] Kailey Camacho MD Primary Care Provider Encounter Details Date Type Department Care Team (Latest Contact Info) Description 08/05/2017 Ancillary Orders Virtual Department [address] [place] [address] Kala Jarrell PA [address] [place], [place] [id number] [email or web address] Lumbar radiculopathy Social History Tobacco Use Types [...] paracentral disc protrusion at L1-L2. POS - [id number] Narrative 08/14/2017 12:36 PM EST HISTORY: Lower [...] paracentral disc protrusion at L1-L2. POS - [id number] Kala NIX [facility] MR XSPECIALTY Final Result documented in this [...] documented as of this encounter Care Teams Vice President Of Customer Service Relationship Specialty Start Date End Date Kailey Camacho MD [address] [place] [address] PCP - General Internal Medicine 07/20/17 Kailey Camacho MD [address] [place] [address] Historical LMR Provider 07/04/17 Pranav Gandhi MD [address] [place] [address] Historical LMR Provider 07/04/17 2 documented as of this encounter Additional Source Comments The information contained in this document represents components of the legal health record. It is not the complete legal health record.[facility]
--- OUTSIDE RECORDS SUMMARY | 2025-06-04 09:19 | XMS_ITS | Encounter Summary ---
Author Organization [facility] Address [address] [place] [address] [place] [address] Phone Care Team Providers Care Food Order Expediter Name Role Phone Kailey Camacho MD Unavailable [phone] Kailey Camacho MD Primary Care Provider [phone] Encounter Details Date Type Department Care Team (Late st Contact Info) Description 10/09/2021 Procedure Pass [facility] [address] [place] [address] Social History Tobacco Use Types Packs/Day Years [...] documented as of this encounter Care Teams Food Order Expediter Relationship Specialty Start Date End Date Kailey Camacho MD [address] [place] [address] [email or web address] PCP - General Internal Medicine 07/20/17 Kailey Camacho MD [address] [place] [address] [email or web address] Historical LMR Provider 07/04/17 documented as of this encounter Additional Source Comments The information contained in this document represents components of the legal health record. It is not the complete legal health record.[facility]
--- OUTSIDE RECORDS SUMMARY | 2025-06-04 09:19 | XMS_ITS | Encounter Summary ---
Author Organization [facility] Address [address] [facility] [address] [place] [address] Phone Care Team Providers Care Guitar Repairer Name Role Phone Kailey Camacho MD Unavailable [phone] Pranav Gandhi MD Unavailable [phone] Kailey Camacho MD Primary Care Provider Encounter Details Date Type Department Care Team (Late st Contact Info) Description 11/12/2020 Procedure Pass [facility], Ct Scan - [address] [address] Social History Tobacco Use Types Packs/Day Years [...] 11/12/2020 10:01 AM Brie Cox RN * [place] Suicide Severity Rating Scale (Screener/Recent Self-Report) Question [...] documented as of this encounter Care Teams Guitar Repairer Relationship Specialty Start Date End Date Kailey Camacho MD [address] [place] [address] [email or web address] PCP - General Internal Medicine 07/20/17 Kailey Camacho MD [address] [place] [address] [email or web address] Historical LMR Provider 07/04/17 Pranav Gandhi MD [address] [place] [address] Historical LMR Provider 07/04/17 2 documented as of this encounter Additional Source Comments The information contained in this document represents components of the legal health record. It is not the complete legal health record.[facility]
--- OUTSIDE RECORDS SUMMARY | 2025-06-04 09:19 | XMS_ITS | Encounter Summary ---
Author Organization [facility] Address [address] [place] [address] [place] [address] Phone Care Team Providers Care Glass Silverer Name Role Phone Kailey Camacho MD Unavailable Pranav Gandhi MD Unavailable [phone] Kailey Camacho MD Primary Care Provider Encounter Details Date Type Department Care Team (Latest Contact Info) Description 07/23/2017 Ancillary Orders [facility], X-Ray - [address] [address] Kala Jarrell PA [address] [place], [place] [id number] [email or web address] Lumbar radiculopathy Social History Tobacco Use Types [...] No source of pain detected. POS - [id number] Narrative 07/23/2017 4:17 PM EST Five view [...] No source of pain detected. POS - [id number] Kala NIX IMG XR SPINE Final Result [...] documented as of this encounter Care Teams Glass Silverer Relationship Specialty Start Date End Date Kailey Camacho MD [address] [place] [address] [email or web address] PCP - General Internal Medicine 07/20/17 Kailey Camacho MD [address] [place] [address] Historical LMR Provider 07/04/17 Pranav Gandhi MD [address] [place] [address] Historical LMR Provider 07/04/17 2 documented as of this encounter Additional Source Comments The information contained in this document represents components of the legal health record. It is not the complete legal health record.[facility]
== END 2025-06-04 10:31 | disposition home or self-care (01) ==
LOC: HO.HBST 08:44
PROVIDERS: PCP Nurse Practitioner Family; Visit Provider Counselor Mental Health
DX: F33.0 Major depressive disorder, recurrent, mild (principal); F41.1 Generalized anxiety disorder; F42.9 Obsessive-compulsive disorder, unspecified; Z71.89 Other specified counseling
CPT/HCPCS: 90837

== ENCOUNTER 2025-06-21 09:05 | Outpatient (AMB) | payer OTHER, SELFPAY ==
--- NOTE | 2025-06-21 09:04 | A.OFFWM_ITS ---
Intake Intake Visit Reasons: VIDEO BH F/U Allergies latex (LATEX) Allergy (Severe, Verified 06/23/25 12:04) SWELLING/HIVES banana (BANANA) Allergy (Intermediate, Verified 06/23/25 12:04) ANAPHYLAXIS cefuroxime (From CEFTIN) Allergy (Intermediate, Verified 06/23/25 12:04) HIVES Sulfa (Sulfonamide Antibiotics) (SULFA (SULFONAMIDE ANTIBIOTICS)) Allergy (Intermediate, Verified 06/23/25 12:04) HIVES sulfacetamide Allergy (Intermediate, Verified 06/23/25 12:04) Hives [facility] Medical History (Updated 06/23/25 @ 12:13 by Dar Paiz MD) BMI 39.0-39.9,adult Fatty liver Familial Mediterranean fever Asthma DJD (degenerative joint disease) Migraines Hypertension Morbid obesity GERD (gastroesophageal reflux disease) Depression OCD (obsessive compulsive disorder) Anxiety Costochondritis Vocal cord dysfunction Airway malacia Surgical History History of laparoscopic cholecystectomy History of back surgery Hx of colonoscopy History of esophagogastroduodenoscopy (EGD) H/O adenoidectomy History of tonsillectomy Family History Mother Hypoactive thyroid Hypertension High cholesterol Father Hypertension Blocked artery Social History Alcohol intake: current Alcohol intake frequency: holidays/special occasions only Patient Tobacco Use Status: Never used Tobacco Behavioral Health Assessment Weight Management Therapy Therapy Notes Details Subjective: Patient has been approved for surgery, which is scheduled for 06/29/25. She reports feeling emotionally better and notes that her father recently underwent the same surgery and is recovering well, which has been reassuring for her. The patient expresses a mix of excitement and anxiety regarding her upcoming procedure. She has decided to take six weeks off work, if possible, to allow for adequate recovery. Most recent weight: 239 lbs. Objective: Patient attended a pre-operative behavioral health appointment via telehealth. * Discussed current functioning, recent challenges, and progress since last session. * Supported the patient in identifying emotional triggers and typical responses. * Explored and reinforced healthier coping strategies, utilizing CBT-based interventions for emotional regulation and symptom management. * Focused on assessing and enhancing readiness for the upcoming surgery. Assessment/Response: * Mental status: Alert and oriented x3. Mood is described as ?better,? with some anticipatory anxiety noted. Affect is congruent with mood. Thought processes are logical and goal-directed. No evidence of psychosis or cognitive impairment. * Risk reported/identified: Alert and oriented x3. Mood is described as ?better,? with some anticipatory anxiety noted. Affect is congruent with mood. Thought processes are logical and goal-directed. No evidence of psychosis or cognitive impairment. Assessment & Plan Assessment & Plan (1) Depression: Code(s): F32.9 - Major depressive disorder, single episode, unspecified Qualifiers: Major depression recurrence: unspecified whether recurrent Major depression episode severity: unspecified (2) DARINEL (generalized anxiety disorder): Code(s): F41.1 - Generalized anxiety disorder (3) OCD (obsessive compulsive disorder): Code(s): F42.9 - Obsessive-compulsive disorder, unspecified Plan Patient remains cleared for surgery. She will return for follow-up 1?2 weeks post-operatively. * Next appointment scheduled for 07/08/2025 at 1:00 PM via telehealth. Telehealth Telehealth Telehealth Platform: [employer] Location of provider rendering services: other (Home office. [place], [place]) Location of patient: address on file Patient Identification confirmed using: Name, : Yes Telehealth method: video Patient verbally consented to treatment: Yes Patient verbally consented to billing insurance company: Yes Patient informed of any privacy concerns related to visit: Yes Minutes spent on Phone/Video with Pt.: 56 Coding Level of Care Code Established Pt Tele Psytx >53 mins ([id number]) Patient Type Established Diagnoses Depression F32.9 Major depression recurrence: unspecified whether recurrent Major depression episode severity: unspecified DARINEL (generalized anxiety disorder) F41.1 OCD (obsessive compulsive disorder) F42.9 Time Spent (min) 56
== END 2025-06-21 09:59 | disposition home or self-care (01) ==
LOC: HO.HBST 09:05
PROVIDERS: PCP Nurse Practitioner Family; Visit Provider Counselor Mental Health
DX: F32.9 Major depressive disorder, single episode, unspecified (principal); F41.1 Generalized anxiety disorder; F42.9 Obsessive-compulsive disorder, unspecified
CPT/HCPCS: 90837

== ENCOUNTER 2025-06-23 08:25 | Outpatient (AMB) | payer OTHER, SELFPAY ==
--- NOTE | 2025-06-23 12:03 | A.OFFVIS_ITS ---
VS Expanded 06/23/25 12:08 Height 5 ft 3 in Weight 238 lb 2 oz BMI 42.2 Body Fat % 50.7 Body Fat Mass 120.7 Fat Free Mass 117.5 Visceral Fat Rating 14.7 Body Water % 38.2 Body Water Mass 90.9 Basal Metabolic Rate/Score 1,791 Intake Visit Reasons: TV Pre Op LSG 06/29/25 Allergies latex (LATEX) Allergy (Severe, Verified 06/23/25 12:04) SWELLING/HIVES banana (BANANA) Allergy (Intermediate, Verified 06/23/25 12:04) ANAPHYLAXIS cefuroxime (From CEFTIN) Allergy (Intermediate, Verified 06/23/25 12:04) HIVES Sulfa (Sulfonamide Antibiotics) (SULFA (SULFONAMIDE ANTIBIOTICS)) Allergy (In termediate, Verified 06/23/25 12:04) HIVES sulfacetamide Allergy (Intermediate, Verified 06/23/25 12:04) Hives Medication List - Last Reconciled 06/23/25 by Dar Paiz MD albuterol sulfate 90 mcg/actuation 2 puffs inhalation Q4-6H PRN cholecalciferol (vitamin D3) 50 mcg PO DAILY colchicine 1.2 mg (2 x 0.6 mg) PO BID colesevelam 1,250 mg (2 x 625 mg) PO BID cyclobenzaprine 5 mg PO BEDTIME PRN duloxetine 90 mg PO DAILY fluticasone propionate 250 mcg/actuation (Flovent Diskus) 1 inh inhalation BID ketorolac 10 mg PO Q6H PRN morphine 15 mg PO Q6H PRN omeprazole 40 mg PO DAILY ondansetron 4 mg PO Q8H PRN ondansetron 4 mg PO Q12H pantoprazole 40 mg PO DAILY polyethylene glycol 3350 17 grams PO DAILY sucralfate 10 mL PO BID HPI HPI TV Pre Op LSG 06/29/25: Details: Start time: 11.55m, End time: 12.23pm ?I spent 23 minutes speaking with the patient on the phone plus an additional 5 minutes reviewing and updating records for a total of 28 minutes HPI Comments Details: Overall weight loss: 35.2lbs, or 12.9% TBWL Is on the liquid diet doing 5 Premier shakes with 8oz each PFSH Medical History (Updated 06/23/25 @ 12:13 by Dar Paiz MD) BMI 39.0-39.9,adult Fatty liver Familial Mediterranean fever Asthma DJD (degenerative joint disease) Migraines Hypertension Morbid obesity GERD (gastroesophageal reflux disease) Depression OCD (obsessive compulsive disorder) Anxiety Costochondritis Vocal cord dysfunction Airway malacia Surgical History History of laparoscopic cholecystectomy History of back surgery Hx of colonoscopy History of esophagogastroduodenoscopy (EGD) H/O adenoidectomy History of tonsillectomy Family History Mother Hypoactive thyroid Hypertension High cholesterol Father Hypertension Blocked artery Social History Alcohol intake: current Alcohol intake frequency: holidays/special occasions only Patient Tobacco Use Status: Never used Tobacco Telehealth Telehealth Telehealth Platform: Telephone Location of provider rendering services: practice address Location of patient: address on file Patient Identification confirmed using: Name, : Yes Telehealth method: voice only Patient verbally consented to treatment: Yes Patient verbally consented to billing insurance company: Yes Patient informed of any privacy concerns related to visit: Yes Minutes spent on Phone/Video with Pt.: 28 Assessment & Plan Assessment & Plan (1) Obesity: Code(s): E66.9 - Obesity, unspecified Category: Medical Qualifiers: Obesity type: due to excess calories Obesity classification: adult class 2 (BMI 35 - 39.9) Serious obesity comorbidity presence: with serious comorbidity Body mass index: BMI 39.0-39.9 Qualified Code(s): E66.812 - Obesity, class 2; Z68.39 - Body mass index [BMI] 39.0-39.9, adult Plan: 1. Plan for lap sleeve gastrectomy including upper GI endoscopy. All tests has been completed and reviewed and the patient is cleared for the surgery. ?If diaphragmatic or ventral hernias are present at time of surgery, these will be repaired laparoscopically as well. Risks and complications were discussed in detail including possible conversion to an open procedure, anastomotic leak, bleeding requiring transfusion, small bowel obstruction, , DVT and pulmonary embolism, cardiac, or pulmonary complications, as [facility] complications such as anastomotic ulcer, insufficient weight loss and vitamin deficiencies. I emphasized the importance of close follow-up, adherence to instructions and good communication. So far she has proven to be an excellent communicator and very compliant with all our directions accomplishing a great weight loss. I believe that she is an excellent candidate and she is ready. 2. Preop prescriptions were provided and explained the purpose of each one. Need to be purchased preop. Start Pantoprazole now as you get it from the pharmacy, 1 pill per day. Sucralfate and Zofran are for after surgery as needed. 3. Bowel prep: please do 7 packets ?of Miralax mixing each one with a an 8oz glass of water, crystal light, gatorade zero, or propel ?on 06/27/25 and the same amount on 06/28/25. The Miralax you begin with one packet at a time in 8oz water or crystal light, gatorade zero, or propel ?as early in the day as you can and you do them back to back until you finish them. Continue the protein shakes during ?the bowel prep. 4. Needs to purchase 1oz medicine cups . 5. Needs to purchase Children's liquid Tylenol for postop pain control. 6. She needs to stop as of tomorrow 06/24/25, the Cyclobenzaprine, the Ketorolac and Colesevelam. Avoid aspirin, motrin, Advil, Aleve, Meloxicam, Excedrin, Ibuprofen, Naproxyn. Tylenol is OK. 7. She needs to purchase the Celebrate multivitamins from the hospital's gift shop, chewable or pills whatever you prefer. 8. Will do basic preop blood work-up any day between 06/24/25 and Saturday06/25/25 fasting for 12 hours and is scheduled to see the Anesthesiologist prior to the day of surgery. 9. Importance of adherence to postop folllow-up and recommendations was underscored and she understands that. 10. Continue to avoid food and bars and do 4 liquid Premier protein shakes (8oz and NOT the whole bottle) at 8am-10am, 11am-1pm, 2pm-4pm, 5pm-7pm and at 8pm- 10pm 11. No soups, broths or V8 12. The patient's?medical?history has been reviewed and they are considered low risk for post op DVT and therefore DVT prophylaxis is not considered necessary. Travel after surgery was reviewed. The patient has not disclosed any travel plans during the first 30 days after surgery and they have been advised that within the first 30 days after surgery any bus, plane, train or car travel over 2 hours in duration is contraindicated due to the possibility of developing blood clots from immobility. Any travel, needs to include periods of ambulation of 10 minutes in duration every 2 hours.? Patient was instructed to discuss any plans for travel during this period with their bariatric surgeon.? 13. Please take at the day of surgery the following medications: NONE 14. Stop any control pills and don't use them for one month after surgery 15. Absolutely no smoking or vaping, or marijuana until the surgery and for at least the first 4 weeks. Only nicotine patches are allowed. 16. Send me weight measurements on Saturday06/29/25, the day of surgery before you go to the hospital. 17. Avoid any steroids by mouth for any reason. Let me know if someone prescribes them to you 18. These instructions supersede anything else you read in the handbook, anything you watched in videos or classes or you were told by any other provider. If there is any conflict, you follow the above instructions and nothi ng else. Orders: Orders Complete Blood Count Auto Diff Today E66.9 - Obesity, unspecified, Z68.39 - Body mass index [BMI] 39.0-39.9, adult Lipid Panel Today E66.9 - Obesity, unspecified, Z68.39 - Body mass index [BMI] 39.0-39.9, adult Comprehensive Met. Panel Today E66.9 - Obesity, unspecified, Z68.39 - Body mass index [BMI] 39.0-39.9, adult Ferritin Today E66.9 - Obesity, unspecified, Z68.39 - Body mass index [BMI] 39.0-39.9, adult Partial Thromboplastin Time Today E66.9 - Obesity, unspecified, Z68.39 - Body mass index [BMI] 39.0-39.9, adult Prothrombin Time INR Today E66.9 - Obesity, unspecified, Z68.39 - Body mass index [BMI] 39.0-39.9, adult TSH reflex Free T4 Today E66.9 - Obesity, unspecified, Z68.39 - Body mass index [BMI] 39.0-39.9, adult Insulin Today E66.9 - Obesity, unspecified, Z68.39 - Body mass index [BMI] 39.0-39.9, adult C Reactive Protein Today E66.9 - Obesity, unspecified, Z68.39 - Body mass index [BMI] 39.0-39.9, adult Hemoglobin A1c Today E66.9 - Obesity, unspecified, Z68.39 - Body mass index [BMI] 39.0-39.9, adult IRON PROFILE Today E66.9 - Obesity, unspecified, Z68.39 - Body mass index [BMI] 39.0-39.9, adult Type and Screen Today E66.9 - Obesity, unspecified, Z68.39 - Body mass index [BMI] 39.0-39.9, adult Medications: New ondansetron Only take one every 12 hours as needed if you have nausea 4 mg PO Q12H 20 tabs 0RF nausea and vomiting R11.0 - Nausea pantoprazole 40 mg PO DAILY 90 tabs 0RF K21.9 - Gastro-esophageal reflux disease without esophagitis sucralfate 10 mL PO BID 600 mL 2RF K21.9 - Gastro-esophageal reflux disease without esophagitis polyethylene glycol 3350 Mix each measuring cup with 8oz of water, Crystal light, or Gatorade zero, or Propel and do 7 measuring cups on 06/27/25 and another 7 measuring cups on 06/28/25 17 grams PO DAILY 238 grams 0RF Z01.818 - Encounter for other preprocedural examination
[2025-06-23 12:08] VITALS: BMI 42.2
== END 2025-06-23 12:24 | disposition home or self-care (01) ==
LOC: HO.HBS 08:25
PROVIDERS: PCP Nurse Practitioner Family; Visit Provider Surgery
DX: E66.812 Obesity, class 2 (principal); Z68.39 Body mass index [BMI] 39.0-39.9, adult
CPT/HCPCS: 99213

== ENCOUNTER 2025-06-29 07:43 | Day surgery (SDC) | payer OTHER, SELFPAY ==
[2025-06-25 09:15] LABS: MANUAL DIFF FLAG NO
[2025-06-25 09:49] LABS: Hematocrit 38.0 % (37.0-47.0); Hemoglobin 12.1 g/dl (12.0-16.0); Imm Gran Abs Auto 0.03 X10*3/uL (0.00-0.03); Imm Gran Pct Auto 0.3 % (0.0-0.4); Lymphocytes Absolute Auto 3.0 X10*3/uL (1.2-4.9); Mean Corpuscular HGB Conc 31.8 g/dl (31.0-35.0); Mean Corpuscular Hemoglobin 23.8 pg (27.0-33.0); Mean Corpuscular Volume 74.7 fL (80.0-98.0); NRBC Abs Auto 0.000 X10*3/uL (0.0-0.012); NRBC Pct Auto 0.0 /100WBC (0.0-0.2); Platelet Count 378 X10*3/uL (160-400); Red Blood Count 5.09 X10*6/uL (4.20-5.50); White Blood Count 9.4 X10*3/uL (4.8-10.8)
[2025-06-25 09:58] LABS: INTERNATIONAL NORM RATIO 1.2 (0.9-1.1); Prothrombin Time 14.1 SEC (10.9-12.4)
[2025-06-25 10:00] LABS: Partial Thromboplastin Time 34.8 SEC (26.7-34.1)
[2025-06-25 10:06] LABS: Hemoglobin A1C 117.1264 umol/L; Total Hemoglobin (HGBA1C) 3074.9860 umol/L
[2025-06-25 10:46] LABS: Alanine Aminotransferase 52 U/L (0-31); Albumin Level 4.5 g/dL (3.5-5.0); Alkaline Phosphatase 109 U/L (39-117); Anion Gap 13 (12-20); Aspartate Amino Transferase 38 U/L (5-31); Blood Urea Nitrogen 16 mg/dL (9-16); Calcium 9.8 mg/dL (8.4-10.2); Carbon Dioxide 25 mmol/L (22-29); Chloride 107 mmol/L (96-108); Cholesterol 174 mg/dL (<200); Estimated Glomerular Filt Rate > 60; HDL Cholesterol 26 mg/dL (>40); Iron 28 mcg/dL (30-160); Percent Iron Saturation 7 % (15-50); Potassium 3.6 mmol/L (3.3-5.1); Sodium 141 mmol/L (135-145); Total Iron Binding Capacity 402 mcg/dL (228-428); Total Protein 7.6 g/dL (6.5-8.0); Triglycerides 120 mg/dL (<150); Unsaturated Iron Binding 374 ug/dL
[2025-06-25 11:15] LABS: Ferritin 20 ng/mL (10-122)
[2025-06-25 13:00] VITALS: BMI 41.6
[2025-06-29] VITALS (15 sets, daily range): BP systolic 81–144; BP diastolic 34–94; PULSE 64–91; RESP 15–23; TEMP 36.1–36.7; O2SAT 94–100; BMI 41.5
[2025-06-29 08:08] LABS: UPreg QC Valid YES
[2025-06-29] MEDS: Lactated Ringers 1,000 ML 999 ML IV (08:34)
[2025-06-29] MEDS: Aprepitant 32 MG/4.4 ML VIAL IVPUSH (08:40)
--- NOTE | 2025-06-29 09:21 | HO.ANESPROP2 ---
Documented by User: Lizzette Parish NP 06/24/25 14:11 HPI - Anesthesia Eval Consult details Narrative: 25yo F for Gastrectomy Sleeve,EGD,possible Diaphragmatic Hernia,possible Ventral Hernia,possible Open Vocal cord dysfunction and airway malacia per hx. Pt reports 1 x hx of possible DI with tonsils at age 12. Easy ETT 2019 (ETT 7) and 2021 per anesthesia records from [facility] and [facility] BMI 44 PMFSH Active Problems Active Problems: All Active Problems Metabolic dysfunction-associated steatohepatitis (MASH) (Acute) Obesity (Acute) COVID-19 virus infection (Acute) Familial Mediterranean fever (Acute) Suprapubic pain (Acute) Liver lesion (Acute) Alkaline phosphatase raised (Acute) Crohn's disease (Acute) Diarrhea (Acute) Epigastric abdominal pain (Acute) BMI 39.0-39.9,adult (Acute) Asthma (Acute) DJD (degenerative joint disease) (Acute) Migraines (Acute) Depression (Acute) Anxiety (Acute) Hypertension (Acute) GERD (gastroesophageal reflux disease) (Acute) Morbid obesity (Acute) Past Medical History Medical History (Updated 06/29/25 @ 08:15 by Emma English RN) Nexplanon in place Difficult intubation Environmental and seasonal allergies PONV (postoperative nausea and vomiting) BMI 39.0-39.9,adult Fatty liver Familial Mediterranean fever Asthma DJD (degenerative joint disease) Migraines Hypertension Morbid obesity GERD (gastroesophageal reflux disease) Depression OCD (obsessive compulsive disorder) Anxiety Costochondritis Vocal cord dysfunction Airway malacia Family History Family History Mother Hypoactive thyroid Hypertension High cholesterol Father Hypertension Blocked artery Family history of problems with anesthesia: No Surgical History Surgical History (Updated 06/29/25 @ 08:15 by Emma English RN) History of bronchoscopy History of laparoscopic cholecystectomy (~2018) History of back surgery (2021) Hx of colonoscopy History of esophagogastroduodenoscopy (EGD) (05/13/25) H/O adenoidectomy (2011) History of tonsillectomy (2011) History of Problems with Anesthesia: No Social History Social History (Updated 06/25/25 @ 13:06 by Aislinn Hoyos RN) Household Members: Spouse Housing: Apartment Alcohol intake: current Alcohol intake frequency: holidays/special occasions only Patient Tobacco Use Status: Never used Tobacco e-Cigarette/Vaping Use: Never Used Use of substances other than those prescribed or required for medical reasons: No Have you been hit, kicked, punched, or otherwise hurt by someone within the past year? If so, by whom?: No Are you DNR?: No Advance Directives: No Advance Directives Information Provided: Yes Advance Directives on File: No FDLMP: 05/15/2025 : No Poor oral hygiene: No Meds Allergies Allergy/AdvReac Type Severity Reaction Status Date / Time banana (BANANA) Allergy Severe ANAPHYLAXIS Verified 06/25/25 13:07 cefuroxime (From CEFTIN) Allergy Severe HIVES Verified 06/25/25 13:07 latex (LATEX) Allergy Severe SWELLING/HI Verified 06/23/25 12:04 VES Sulfa (Sulfonamide Allergy Severe HIVES Verified 06/25/25 13:07 Antibiotics) (SULFA (SULFONAMIDE ANTIBIOTICS)) sulfacetamide Allergy Severe Hives Verified 06/25/25 13:07 tuberculin,PPD,multi-puncture Allergy Severe Hives Verified 06/25/25 13:07 Home Medications ?Medication ?Instructions ?Recorded ?Confirmed ?Last Taken ?Type cholecalciferol (vitamin D3) 50 50 mcg PO BEDTIME 06/12/21 06/25/25 06/28/25 History mcg (2,000 unit) capsule albuterol sulfate 90 mcg/actuation 2 puff inhalation Q4-6H PRN asthma 11/10/24 06/29/25 Unknown History aerosol inhaler cyclobenzaprine 5 mg tablet 5 mg PO BEDTIME PRN Spasms 02/16/25 06/29/25 Unknown History duloxetine 60 mg capsule,delayed 90 mg PO BEDTIME 02/16/25 06/25/25 06/28/25 History release fluticasone propionate 250 1 inh inhalation BID 02/16/25 06/25/25 06/28/25 History mcg/actuation blister powder for inhalation (Flovent Diskus) ketorolac 10 mg tablet 10 mg PO Q6H PRN Migraine Headache 02/16/25 06/29/25 Unknown History fexofenadine 180 mg tablet 360 mg PO BEDTIME 06/25/25 06/25/25 06/28/25 History pantoprazole 40 mg tablet,delayed 40 mg PO BEDTIME 06/25/25 06/29/25 06/28/25 History release ondansetron 4 mg disintegrating 4 mg PO Q6H PRN nausea and vomiting 06/29/25 06/29/25 Unknown History tablet Exam Narrative Narrative: EKG 04/2025 Vent. Rate : 86 BPM Atrial Rate : 86 BPM P-R Int : 134 ms QRS Dur : 82 ms QT Int : 358 ms P-R-T Axes : 35 18 15 degrees QTcB Int : 428 ms Normal sinus rhythm Normal ECG When compared with ECG of 10-Nov-2024 16:46, No significant change was found Assessment and Plan Assessment Anesthesia Assessment: Chart Reviewed Final Anesthetic Review Family History of Problems with Anesthesia: No History of Problems with Anesthesia: No Documented by User: Gretchen Joshi DO 06/29/25 09:23 HPI - Anesthesia Eval Consult details Narrative: 25yo F for Gastrectomy Sleeve,EGD,possible Diaphragmatic Hernia,possible Ventral Hernia,possible Open Vocal cord dysfunction and airway malacia per hx. Pt reports 1 x hx of possible DI with tonsils at age 12. Easy ETT 2019 (ETT 7) and 2021 per anesthesia records from [facility] and [facility] BMI 41.5 [facility] Past Medical History Medical History (Updated 06/29/25 @ 08:15 by Emma English RN) Nexplanon in place Difficult intubation Environmental and seasonal allergies PONV (postoperative nausea and vomiting) BMI 39.0-39.9,adult Fatty liver Familial Mediterranean fever Asthma DJD (degenerative joint disease) Migraines Hypertension Morbid obesity GERD (gastroesophageal reflux disease) Depression OCD (obsessive compulsive disorder) Anxiety Costochondritis Vocal cord dysfunction Airway malacia Family History Family History Mother Hypoactive thyroid Hypertension High cholesterol Father Hypertension Blocked artery Family history of problems with anesthesia: No Surgical History Surgical History (Updated 06/29/25 @ 08:15 by Emma English RN) History of bronchoscopy History of laparoscopic cholecystectomy (~2018) History of back surgery (2021) Hx of colonoscopy History of esophagogastroduodenoscopy (EGD) (05/13/25) H/O adenoidectomy (2011) History of tonsillectomy (2011) History of Problems with Anesthesia: Yes (PONV) Social History Social History (Updated 06/25/25 @ 13:06 by Aislinn Hoyos RN) Household Members: Spouse Housing: Apartment Alcohol intake: current Alcohol intake frequency: holidays/special occasions only Patient Tobacco Use Status: Never used Tobacco e-Cigarette/Vaping Use: Never Used Use of substances other than those prescribed or required for medical reasons: No Have you been hit, kicked, punched, or otherwise hurt by someone within the past year? If so, by whom?: No Are you DNR?: No Advance Directives: No Advance Directives Information Provided: Yes Advance Directives on File: No FDLMP: 05/15/2025 : No Poor oral hygiene: No Meds Allergies Allergy/AdvReac Type Severity Reaction Status Date / Time banana (BANANA) Allergy Severe ANAPHYLAXIS Verified 06/25/25 13:07 cefuroxime (From CEFTIN) Allergy Severe HIVES Verified 06/25/25 13:07 latex (LATEX) Allergy Severe SWELLING/HI Verified 06/23/25 12:04 VES Sulfa (Sulfonamide Allergy Severe HIVES Verified 06/25/25 13:07 Antibiotics) (SULFA (SULFONAMIDE ANTIBIOTICS)) sulfacetamide Allergy Severe Hives Verified 06/25/25 13:07 tuberculin,PPD,multi-puncture Allergy Severe Hives Verified 06/25/25 13:07 Home Medications ?Medication ?Instructions ?Recorded ?Confirmed ?Last Taken ?Type cholecalciferol (vitamin D3) 50 50 mcg PO BEDTIME 06/12/21 06/25/25 06/28/25 History mcg (2,000 unit) capsule albuterol sulfate 90 mcg/actuation 2 puff inhalation Q4-6H PRN asthma 11/10/24 06/29/25 Unknown History aerosol inhaler cyclobenzaprine 5 mg tablet 5 mg PO BEDTIME PRN Spasms 02/16/25 06/29/25 Unknown History duloxetine 60 mg capsule,delayed 90 mg PO BEDTIME 06/12/0806/25/25 06/28/25 History release fluticasone propionate 250 1 inh inhalation BID 02/16/25 06/25/25 06/28/25 History mcg/actuation blister powder for inhalation (Flovent Diskus) ketorolac 10 mg tablet 10 mg PO Q6H PRN Migraine Headache 02/16/25 06/29/25 Unknown History fexofenadine 180 mg tablet 360 mg PO BEDTIME 06/25/25 06/25/25 06/28/25 History pantoprazole 40 mg tablet,delayed 40 mg PO BEDTIME 06/25/25 06/29/25 06/28/25 History release ondansetron 4 mg disintegrating 4 mg PO Q6H PRN nausea and vomiting 06/29/25 06/29/25 Unknown History tablet Exam Exam Date and Time: 06/29/25 0929 Height,Weight and Vital Signs: Height 5 ft 3 in Weight 106.197 kg Vital Signs Temperature 97.4 F 06/29/25 08:27 Pulse Rate 88 06/29/25 08:27 Respiratory Rate 16 06/29/25 08:27 Blood Pressure 132/76 06/29/25 08:27 Pulse Oximetry 96 06/29/25 08:27 Oxygen Delivery Method Room Air 06/29/25 08:27 Temperature 97.4 F 06/29/25 08:27 Pulse Rate 88 06/29/25 08:27 Respiratory Rate 16 06/29/25 08:27 Blood Pressure 132/76 06/29/25 08:27 Pulse Oximetry 96 06/29/25 08:27 Oxygen Delivery Method Room Air 06/29/25 08:27 Airway Mallampati Class: II TM Dist: <=3cm Neck ROM: Full Loose/Missing/Broken Teeth: No (patient denies any loose or broken teeth) Heart: S1S2 Lungs: CTAB Assessment and Plan Assessment Anesthesia Assessment: Anesthesia Plan Discussed and Chart Reviewed Final Anesthetic Review Family History of Problems with Anesthesia: No History of Problems with Anesthesia: Yes (PONV) NPO: Yes ASA Class: III Final Preanesthetic Review: No Changes in Pt Med Stat, Meds/Allgs Chart Reviewed, Consent Obtained/Reviewed and Anes Risks/Benef Reviewed Patient Risk: Intermediate Procedure Risk: Intermediate Anesthetic Plan Anesthetic Plan: GA and Agree w/ Assess. and Plan Disposition: Standard PACU
--- NOTE | 2025-06-29 10:00 | MHC.SHP ---
Pre-Procedural Eval Section A - 24 Hr Update-Section A only Date of Service: 06/29/25 The patient is an INPATIENT: No The patient has been examined within 24 hours of the surgical procedure. The History & Physical has been completed within 30 days and I have reviewed it.: Yes Section B - Complete if H&P > 30 days Chief Complaint: obesity Relevant Family History (Specify if Yes): No Relevant Social History: None Present Medications: None Medical History: No relevant PMH History of Previous Operations: No relevant previous surgery Allergies: Allergies Allergy/AdvReac Type Severity Reaction Status Date / Time banana (BANANA) Allergy Severe ANAPHYLAXIS Verified 06/25/25 13:07 cefuroxime (From CEFTIN) Allergy Severe HIVES Verified 06/25/25 13:07 latex (LATEX) Allergy Severe SWELLING/HI Verified 06/23/25 12:04 VES Sulfa (Sulfonamide Allergy Severe HIVES Verified 06/25/25 13:07 Antibiotics) (SULFA (SULFONAMIDE ANTIBIOTICS)) sulfacetamide Allergy Severe Hives Verified 06/25/25 13:07 tuberculin,PPD,multi-puncture Allergy Severe Hives Verified 06/25/25 13:07 Review of Systems Sugical H&P ROS: Negative: Constitution, Cardiovascular, Respiratory, Neurological, Psychiatric, Hem-Onc, Allergic/Immunologic, Gastrointestinal, Genitourinary, Musculoskeletal, Integumentary, Endocrine and Eyes/Ears/Nose/Throat Exam Surgical H&P Exam: Normal: HEENT, Normal: Heart, Normal: Lungs, Normal: Extremities, Normal: Abdomen, Normal: Skin and Normal: Neurological Plan Diagnosis/Plan: Unchanged I have reviewed the history and physical and performed a pertinent physical examination on my patient. No changes have occurred unless specified. Time Spent With Patient Time: Total time managing care of this patient today ____ minutes.
--- NOTE | 2025-06-29 10:01 | PM.OP ---
Brief Operative Note Date of Service: 06/29/25 Pre-op diagnosis: Severe obesity with comorbidities (see below) Post-op diagnosis: same Procedure: INITIAL PATIENT BMI ON PRESENTATION AT OUR OFFICE: 48.4 kg/m2 LAST BMI BEFORE SURGERY: 39.7 kg/m2 COMORBIDITIES: hypertension, GERD, asthma, mediteranean fever, diarrhea, back pain, anxiety, migraines, liver steatosis ?The patient presented to the Weight Management Program with significant obesity that was negatively impacting the patient's comorbidities as listed above.? The program is a phased program with a special focus on preoperative medical weight management to promote substantial weight loss and prepare the patients for the second phase of the program: bariatric surgery. The patient participated in an intensive weekly lifestyle ?intervention and exercise program during which the patient ?has lost between the initial office visit and the last preoperative visit 35.2lbs, or 12.9% of initial actual body weight. It was deemed appropriate for the patient to now have bariatric surgery. In light of the current Covid-19 pandemic and the well documented strong association of obesity and increased risk of worse outcomes if infected with Covid-19 (REFERENCES:https://pubmed.ncbi.nlm.nih.gov/08567597/,?https://pubmed.ncbi.nlm.nih.gov/66651591/), any delay in undergoing bariatric surgery may lead to the patient's worsening health condition and increased?risk of more severe Covid-19 disease if infected. In addition a recent?study from [facility] published in [facility] on 09/11/2021 ([email or web address]) found that, among patients with obesity, substantial weight loss achieved with surgery was associated with improved outcomes of COVID-19 infection. The findings suggest that obesity can be a modifiable risk factor for the severity of COVID-19 infection. In addition, the patient met the BMI-criteria for bariatric surgery based on the BMI on initial presentation. The patient should not be penalized for achieving such weight loss because ?it is not sustainable long-term without surgical intervention and it was achieved in preparation for bariatric surgery ?under my direction and based on my published research ([email or web address] and?https://www.soard.org/article/[email or web address])11414-X/pdf) ?that a 10% preoperative weight loss improves long-term weight loss after surgery and reduces perioperative complications.? Insurance carriers such as [facility] have endorsed my recommendations ?and have included in their policies criteria to include a 10% preoperative weight loss requirement. PROCEDURE: Esophago-gastroscopy, laparoscopic lysis of adhesions, laparoscopic sleeve gastrectomy and laparoscopic gastropexy INDICATIONS: This is a 25 year-old female who was electively scheduled for laparoscopic, possibly open sleeve gastrectomy. The risks and complications of the procedure were discussed with the patient in advance, particularly the possibility of ; pulmonary embolism; staple line leak; bleeding; GERD; cardiac, pulmonary, or renal complications; as well as long-term problems such as insufficient weight loss, vitamin deficiency, strictures, or ulcers. The patient understood all the risks, and was in agreement to proceed with surgery. DESCRIPTION OF PROCEDURE: After informed consent was obtained from the patient, the patient was given preoperative antibiotics, and was transferred to the operating room. After successful induction of general anesthesia, pneumatic compression devices were placed on both lower extremities. An upper endoscopy was performed next. The oropharynx and esophagus appeared to be within normal limits. There was no diaphragmatic hernia present. The stomach was entered. Then after all fluid and air were suctioned and the stomach was fully decompressed, the scope was withdrawn and secured in the mid esophagus. The patient was then prepped and draped in the usual sterile manner, and abdominal access was established at the right upper quadrant with the Alanna technique. A 12 mm blunt port was inserted, and the abdomen was insufflated with CO2 to a pressure of 15 mmHg. Under direct visualization, additional ports were placed, specifically two 5 mm Versi-step ports to the left upper quadrant, and a 5 mm Versi-Step port to the right upper quadrant. 1% lidocaine plain was used to infiltrate all port sites as well as all fascia defects. Following that, the patient was placed in a steep reverse Trendelenburg position. An additional 5 mm port was placed to the right flank for the Mediflex retractor that was used to retract the left lobe of the liver. The gastro-esophageal fat pad was opened with the ultrasonic device ([employer], [employer]) and the anterior esophagus and hiatus were exposed. The angle of His was opened with the ultrasonic device the fundus of the stomach from any diaphragmatic and splenic attachments. I then opened the gastrocolic ligament between the transverse colon and the greater curvature of the stomach with the ultrasonic device to enter the lesser sac and facilitate the ligation of the short gastric vessels. I started at a mid-point along the greater curvature and using the Thunderbeat, all short gastric vessels were divided all the way to the angle of His until the left catalino was completely dissected at its entirety. I then divided the gastro-colic ligament distally to a distance of about 3-4 cm proximal to the pylorus. The stomach was then divided transversely with one Endo FROYLAN-45 purple and four Endo FROYLAN-60 articulating purple loads using the Angelantoni stapler and loads. Every effort was made that the gastric sleeve had a tubular shape and an even caliber throughout. Once the sleeve resection was completed, the staple line of the gastric sleeve was reinforced with Hemoclips. The resected stomach was retrieved without difficulty from the Alanna port. A gastropexy was then performed in order to prevent postoperative GERD and partial gastric volvulus. Several interrupted 2.0 Surgidac sutures were placed between the sleeve's staple line and the previously divided greater omentum and gastro-colic ligament using the Endo-Stitch device. ?An upper endoscopy was performed. There was no narrowing at the GE junction. The scope was easily advanced all the way to the pylorus which was clearly visualized. There was no narrowing anywhere and the sleeve's caliber was even throughout. The sleeve's staple line was inspected and there was no evidence of ischemia, bleeding or dehiscence. At that point the gastroscope was withdrawn from the patient?s mouth while we were decompressing the bowel and the stomach from any remaining air. I looked into the lesser sac to see how the sleeve was situating and it was situating well. There was no bleeding from the staple line, spleen, or short gastric vessels. The Mediflex retractor was removed, and the undersurface of the liver was inspected and there was no bleeding. The patient was placed in supine position. I closed the fascial defect of the 12 mm port site with a figure of eight #1 Polysorb suture. Then 30cc Ropivacaine plain with 10 mg of Dexamethasone were used to infiltrate the fascial closure as well as all skin incisions. At this point, the abdomen was deflated, all ports were removed under direct vision, and no bleeding was noted from any of the port sites. The skin incisions were irrigated with saline and were closed with 4-0 absorbable monofilament sutures. Steri-Strips and OpSites were used to cover all incisions. The patient was extubated and was transferred in stable condition to the recovery room for further care. I was present and performed all peralta parts of the procedure. Daisy Juancarlosvernell was the family services assistant. There were no residents to assist with this case. Hector Paiz MD, PhD, FACS Surgeon: Dar Paiz MD Anesthesia: local and other (TAP block) Was an Staff Auditor used for this Procedure?: No Staff Auditor: Edna Ortega Estimated blood loss (mL): 10 IV fluids (mL): 2,500 Urine output (mL): 0 (No [place]arrow to record output) Pathology: other (1) Stomach, 2) gastro-esophageal fat pad) Condition: stable Disposition: PACU
--- NOTE | 2025-06-29 10:04 | P.PNGS_ITS ---
Subjective Subjective Date of Service: 06/30/25 Interval history: Feels well. Mild incisional pain. She is tolerating phase 1 bariatric diet Physical Exam 2 Vital Signs: Vital Signs: Last Vital Signs Temp 97.4 F 06/29/25 08:27 Pulse 88 06/29/25 08:27 Resp 16 06/29/25 08:27 BP 132/76 06/29/25 08:27 Pulse Ox 96 06/29/25 08:27 O2 Del Method Room Air 06/29/25 08:27 BMI result Body Mass Index 41.5 GI: Inspection: Yes normal to inspection and Yes incision (clean, dry and intact) Palpation (GI): Soft to palpation Extrem: Right lower extremity: normal to inspection (no calf tenderness) L eft lower extremity: normal to inspection (no calf tenderness) Objective Data Active Medications Albuterol/Ipratropium (Albuterol/Iprat 2.5/0.5mg 3 Ml Ampul.Neb) 3 ml INHALE ONCE PRN PRN Reason: Bronchospasm/wheezing Stop: 06/29/25 15:24 Haloperidol Lactate (Haloperidol Lactate 5 Mg/Ml Vial) 1 mg IVPUSH ONCE PRN PRN Reason: intractable nausea Stop: 06/29/25 15:24 Hydromorphone HCl (Hydromorphone Hcl 0.5 Mg/0.5 Ml Syringe) 0.5 mg IVPUSH Q5M PRN PRN Reason: Pain, Moderate to Severe (Pain Scale 4-10) Stop: 06/29/25 15:24 Lactated Ringer's (Lr) 1,000 mls @ 100 mls/hr IVCONT .Q10H DULCE MARIA Stop: 06/29/25 11:59 Naloxone HCl (Naloxone Hcl 0.4 Mg/Ml Vial) 0.04 mg IVPUSH Q5M PRN PRN Reason: Excessive sedation or RR < 8 Labs 06/30/25 06:08 06/30/25 06:08 Labs: Laboratory Results - last 24 hr 06/29/25 07:57 Urine Test NEGATIVE Procedures Date of Service Date of Service: 06/30/25 Progress Note: A&P Assessment and plan (1) Obesity: Status: Acute Assessment and Plan: s/p laparoscopic sleeve gastrectomy, lysis of adhesions and gastropexy Doing well Will check am labs and if OK the patient will be discharged home (2) BMI 39.0-39.9,adult: Status: Acute (3) Hypertension: Status: Acute (4) Depression: Status: Acute (5) Anxiety: Status: Acute (6) GERD (gastroesophageal reflux disease): Status: Acute (7) Asthma: Status: Acute (8) Migraines: Status: Acute (9) DJD (degenerative joint disease): Status: Acute (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 Quality Stroke Does the patient have a stroke diagnosis?: No VTE Prior VTE?: No VTE Risk Level:: Surgical - moderate VTE Device Contraindication: N/A - Device Ordered VTE Drug Contraindication: Treatment Not Indicated
--- NOTE | 2025-06-29 12:38 | P.DS_ITS ---
DS: Providers Provider Date of Service: 06/30/25 Date of discharge: 06/30/25 Primary care physician: FERNANDO Espino DS: Diagnosis Discharge Diagnosis (1) Obesity: Status: Acute (2) BMI 39.0-39.9,adult: Status: Acute (3) Hypertension: Status: Acute (4) Depression: Status: Acute (5) Anxiety: Status: Acute (6) GERD (gastroesophageal reflux disease): Status: Acute (7) Asthma: Status: Acute (8) Migraines: Status: Acute (9) DJD (degenerative joint disease): Status: Acute (10) Fatty liver: Status: Acute (11) S/P laparoscopic sleeve gastrectomy: Status: Acute DS: Summary Hospital Course Hospital Course: ADMITTING DIAGNOSIS: morbid obesity, fatty liver, Crohn's disease, asthma, DJD, migraines, anxiety, depression, HTN, GERD DISCHARGE DIAGNOSIS: same, s/p laparoscopic sleeve gastrectomy and gastropexy PAST SURGICAL HISTORY:? History of laparoscopic cholecystectomy History of back surgery Hx of colonoscopy History of esophagogastroduodenoscopy (EGD) H/O adenoidectomy History of tonsillectomy PROCEDURE: upper endoscopy, laparoscopic sleeve gastrectomy and gastropexy DISCHARGE SUMMARY: History of Present Illness: The patient is a?25 year-old woman with a BMI of 41.5 kg/m2 and associated co- morbidities as described above. The patient had extensive work-up, lost?29.2 lbs preoperatively and was electively scheduled for laparoscopic, possible open sleeve gastrectomy and gastropexy. Risks and complications of the surgery were discussed with the patient in advance, particularly the possibility of , pulmonary embolism, anastomotic leak, bleeding, bowel injury, GERD, cardiac, renal or pulmonary complications. The patient understood all the risks and was in agreement with the surgical plan. Hospital Course: The patient underwent an uneventful laparoscopic sleeve gastrectomy with gastropexy on the day of admission. Postoperatively, the patient was transferred to the surgical floor. The patient received IV acetaminophen and IV Dilaudid for pain control. Patient was started on bariatric phase 1 diet POD #0. On postopera tive day one, the patient was feeling well without nausea, vomiting, fevers, or tachycardia. The patient had some mild incisional pain and the abdomen was soft.? ? On the morning of postoperative day one, the patient was continued on 1 ounce of water or ice every half hour. During the day, the patient did fairly well, having some incisional pain, but able to ambulate adequately and to tolerate liq uids well. Since the patient is doing well, we decided that the patient was ready to be discharged. The patient was given instructions to follow-up in office next week and to call the office for any fever over 101, persistent abdominal pain, nausea, vomiting, GERD, symptoms of DVT such as calf tenderness, or leg swelling, or pulmonary embolism such as chest pain or shortness of breath.? The patient was also instructed to drink 40-60 ounces of liquids per day using the 1-ounce cups. The patient had been given prescriptions for Tylenol for pain, Zofran prn for nausea, and pantoprazole and carafate previously. The patient was encouraged to ambulate and use the incentive spirometer. The patient was allowed to shower, but no baths, and encouraged to stay active at home. All of these instructions were given to the patient personally. All questions were answered and the patient understood all instructions, the instructions were also given to the patient in print. Time Attestation Discharge Coordination Time (in mins): 30 Quality: Safe Use of Opioids Does Pt have an Active Cancer Diagnosis on the Problem List?: No Quality: Stroke Does the patient have a stroke diagnosis?: No Physical Exam Vital Signs: Vital Signs: Last Vital Signs Temp 97.1 F 06/29/25 12:20 Pulse 85 06/29/25 12:35 Resp 20 06/29/25 12:35 BP 85/40 L 06/29/25 12:35 Pulse Ox 100 06/29/25 12:35 O2 Del Method Simple Mask 06/29/25 12:35 O2 Flow Rate 4 06/29/25 12:35 BMI result Body Mass Index 41.5 DS: Data Data Completed and Pending Pending studies at discharge: Pending at discharge 06/29/25 11:24 Surgical [PTH] Routine Labs on day of discharge: Laboratory Results - last 24 hr 06/29/25 07:57 Urine Test NEGATIVE Discharge Plan Discharge Patient Disposition: Home, Self-Care Referrals: Francine Cardona FNP [Primary Care Provider, Internal Medicine] - 1 Week Discharge Medications: Continued pantoprazole 40 mg tablet,delayed release (DR/EC) 40 mg PO BEDTIME ondansetron 4 mg tablet,disintegrating 4 mg PO Q6H PRN (Reason: nausea and vomiting) albuterol sulfate 90 mcg/actuation HFA aerosol inhaler 2 puff INHALATION Q4-6H PRN (Reason: asthma) duloxetine 60 mg capsule,delayed release(DR/EC) 90 mg PO BEDTIME sucralfate 100 mg/mL suspension 10 ml PO BID Qty: 600 2RF fluticasone propionate [Flovent Diskus] 250 mcg/actuation blister with device 1 inh inhalation BID Held colchicine 0.6 mg capsule 1.2 mg PO BID Qty: 360 0RF Hold Instructions: Resume on 07/06/25. colesevelam 625 mg tablet 1,250 mg PO BID Qty: 360 0RF Hold Instructions: Resume on 07/06/25. Do not resume taking until cleared to do so by Dr. Paiz fexofenadine 180 mg Tablet 360 mg PO BEDTIME Hold Instructions: Resume on 07/01/25. if needed only morphine 15 mg tablet 15 mg PO Q6H PRN (Reason: pain) Qty: 10 0RF Hold Instructions: Resume on 07/06/25. Rx Instructions: The patient may ask for partial fill; Partial Fill upon patient request. cyclobenzaprine 5 mg tablet 5 mg PO BEDTIME PRN (Reason: Spasms) Hold Instructions: Resume on 07/14/25. Discontinued omeprazole 40 mg capsule,delayed release(DR/EC) 40 mg PO DAILY Qty: 90 2RF cholecalciferol (vitamin D3) 50 mcg (2,000 unit) capsule 50 mcg PO BEDTIME ketorolac 10 mg tablet 10 mg PO Q6H PRN (Reason: Migraine Headache) Discharge Orders: Discharge Order (Routine); Ordered 06/30/25 Ordered By: Dar Paiz Activity on Discharge: No heavy lifting Activity Restrictions/Additional Instructions: No tub baths, sex or returning to work until discussed at first post op appointment. No alcohol, tobacco or illegal drug use. Continue to use incentive spirometer hourly while awake. Walk in home for 5- 10 minutes every 2 hours during the first week. Wear abdominal binder with activity. Follow all meal plan instructions from your bariatric surgeon. Review bariatric handbook and call with any questions. Discharge Instructions 1. Please call your doctor or come back to the emergency room should any new symptoms arise. 2. Activity: abstain from alcohol,? limited stair climbing, no bending, no driving, no exercise, no illicit substances, no lifting, no sex, no tub bath, no work. 4. Diet: follow your bariatric surgeon's recommendations for advancing diet. 5. Dressing Change/Wound Care: Your incisions are covered with waterproof dressings. You can shower with these and pat dry. Do not rub over dressings or incisions. If the area is tender, you may apply an ice pack for short intervals (no more than 20 minutes on, followed by at least 20 minutes off). Do not apply heat. Do not use creams, lotions, or topical antibiotics unless instructed to do so by your surgeon. 6. Call your doctor if: - Your temperature exceeds 101.5 F - You experience excessive pain or swelling - You have an unexpected reaction to medication - You have excessive bleeding - You experience continued vomiting/nausea - Your incision begins to separate - Your incision shows signs of infection such as increased redness, swelling, excessive pain, heat, or drainage (light blood or clear fluid is normal) General instructions: No lifting greater than 10 lbs for the next 6 weeks[address] driving within 24 hours of taking narcotic pain medications. If you do not move your bowels in the next 2 days, please take milk of magnesia over the counter. Please follow the post op diet and do not advance your diet until instructed by your surgeon or until you are seen in the office in about 1 week. Please walk around your home every hour or two to prevent blood clots from forming in your legs. You do not need to wake from sleeping to walk. Please sleep in a bed or couch to prevent kinking at the hips and knees. Please take your incentive spirometer (your lung supervisor microwave) home with you and use it for the next few days to prevent pneumonias. You may shower; no hot tubs, baths or swimming pools. Please make sure you are consuming 40-60 ounces of total fluids per day. Avoid all carbonation. Please call the office with any questions or concerns such as increasing abdominal pain, fever, chills, shortness of breath, chest pain, leg pain or swelling, or redness or drainage from your incisions. Do not hesitate to contact the office with any questions at . The patient's medical history has been reviewed and they are considered low risk for post op DVT and therefore DVT prophylaxis is not considered necessary. Travel after surgery was reviewed. The patient has not disclosed any travel plans during the first 30 days after surgery and they have been advised that within the first 30 days after surgery any bus, plane, train or car travel over 2 hours in duration is contraindicated due to the possibility of developing blood clots from immobility. Any travel, needs to include periods of ambulation of 10 minutes in duration every 2 hours.? The patient was instructed to discuss any plans for travel during this period with their bariatric surgeon. Print Language: Swedish Discharge Date/Time: 06/30/25 09:39
[2025-06-29 12:46] LABS: Hematocrit 35.3 % (37.0-47.0); Hemoglobin 11.1 g/dl (12.0-16.0)
[2025-06-29 13:07] LABS: Anion Gap 11 (12-20); Blood Urea Nitrogen 9 mg/dL (9-16); Calcium 8.5 mg/dL (8.4-10.2); Carbon Dioxide 22 mmol/L (22-29); Chloride 109 mmol/L (96-108); Creatinine Clr Calc Pharmacy 180.8; Estimated Glomerular Filt Rate > 60; Potassium 3.9 mmol/L (3.3-5.1); Sodium 138 mmol/L (135-145)
--- NOTE | 2025-06-29 13:17 | PHA.MEDREC ---
Pharmacy Consult ? Medication Reconciliation Pharmacy has reviewed the medication reconciliation completed by nursing. Pt takes a 30mg and 60mg Cymbalta for total daily dose of 90mg.
[2025-06-29] MEDS: Lactated Ringers 1,000 ML 100 ML IVCONT ×2 (13:53→23:07)
[2025-06-29] MEDS: 0.9 % Sodium Chloride Flush 3 ML SYRINGE IVFLUSH (19:25)
[2025-06-30 03:03] VITALS: BP 127/93; PULSE 87; RESP 18; TEMP 36.2; O2SAT 99
[2025-06-30 06:24] LABS: MANUAL DIFF FLAG NO
[2025-06-30 06:29] LABS: Hematocrit 39.0 % (37.0-47.0); Hemoglobin 12.7 g/dl (12.0-16.0); Imm Gran Abs Auto 0.06 X10*3/uL (0.00-0.03); Imm Gran Pct Auto 0.5 % (0.0-0.4); Lymphocytes Absolute Auto 2.1 X10*3/uL (1.2-4.9); Mean Corpuscular HGB Conc 32.6 g/dl (31.0-35.0); Mean Corpuscular Hemoglobin 24.1 pg (27.0-33.0); Mean Corpuscular Volume 73.9 fL (80.0-98.0); NRBC Abs Auto 0.000 X10*3/uL (0.0-0.012); NRBC Pct Auto 0.0 /100WBC (0.0-0.2); Platelet Count 374 X10*3/uL (160-400); Red Blood Count 5.28 X10*6/uL (4.20-5.50); White Blood Count 12.8 X10*3/uL (4.8-10.8)
[2025-06-30 06:45] LABS: Anion Gap 11 (12-20); Blood Urea Nitrogen 4 mg/dL (9-16); Calcium 9.5 mg/dL (8.4-10.2); Carbon Dioxide 29 mmol/L (22-29); Chloride 106 mmol/L (96-108); Creatinine Clr Calc Pharmacy 195.0; Estimated Glomerular Filt Rate > 60; Potassium 4.1 mmol/L (3.3-5.1); Sodium 142 mmol/L (135-145)
[2025-06-30 07:22] VITALS: BP 122/70; PULSE 97; RESP 18; TEMP 36.6; O2SAT 99
--- NOTE | 2025-06-30 09:18 | HO.POSTANES ---
Post Anesthesia Evaluation Post Anesthesia Evaluation Date of Service: 06/30/25 Vital Signs: Vital Signs Temp Pulse Resp BP Pulse Ox O2 Del Method 06/30/25 07:22 97.8 F 97 18 122/70 99 Room Air 06/30/25 03:03 97.1 F 87 18 127/93 H 99 Room Air 06/29/25 23:35 96.9 F 64 18 138/72 98 Room Air Anesthesia: General Mental Status: Awake Pain Control: Satisfactory Nausea/Vomiting: None Hydration: Adequate Anesthesia-Related Issues: No Anes. Related Issues
--- NOTE | 2025-06-30 09:26 | MHC.CM.PN ---
DP: PT LEFT WITHOUT BEING SEEN BY CM
== END 2025-06-30 09:39 | disposition home or self-care (01) ==
LOC: HO.SSS 12:35 → HO.S3 12:45
PROVIDERS: Nurse Practitioner; Physician Assistant Surgical; PCP Nurse Practitioner Family; Visit Provider Surgery
PROC: (CPT 43845; principal; 2025-06-29 10:20)
DX: E66.01 Morbid (severe) obesity due to excess calories (principal); Z68.39 Body mass index [BMI] 39.0-39.9, adult; K21.9 Gastro-esophageal reflux disease without esophagitis; K76.0 Fatty (change of) liver, not elsewhere classified; R59.0 Localized enlarged lymph nodes; R19.7 Diarrhea, unspecified; M04.1 Periodic fever syndromes; M19.90 Unspecified osteoarthritis, unspecified site; I10 Essential (primary) hypertension; J45.909 Unspecified asthma, uncomplicated; G43.909 Migraine, unspecified, not intractable, without status migrainosus; M54.9 Dorsalgia, unspecified; F32.9 Major depressive disorder, single episode, unspecified; F41.9 Anxiety disorder, unspecified; J38.5 Laryngeal spasm; Z79.51 Long term (current) use of inhaled steroids; Z79.899 Other long term (current) drug therapy; Z88.1 Allergy status to other antibiotic agents; Z88.2 Allergy status to sulfonamides; Z90.49 Acquired absence of other specified parts of digestive tract; Z98.890 Other specified postprocedural states; Z91.040 Latex allergy status
CPT/HCPCS: 43775; 43659; 36415; 80048; 80053; 80061; 81025; 82728; 83036; 83525; 83540; 84443; 85014; 85018; 85025; 85610; 85730; 86140; 86850; 86900; 86901; 88304; 88305; 88307; 88342; A4649; C9145; J0131; J1100; J1171; J1308; J1956; J2003; J2250; J2371; J2405; J2704; J2795; J3010; J7120

== ENCOUNTER → 2025-06-29 07:43 | Outpatient (BNV) | payer OTHER, SELFPAY | PROVIDERS: PCP Nurse Practitioner Family; Visit Provider Surgery | DX: E66.9 Obesity, unspecified (principal); Z68.39 Body mass index [BMI] 39.0-39.9, adult | CPT/HCPCS: 43659; 43775; 99024 ==

== ENCOUNTER 2025-07-07 08:36 | Outpatient (AMB) | payer OTHER, SELFPAY ==
--- NOTE | 2025-07-07 08:52 | A.OFFVIS_ITS ---
VS Expanded 07/07/25 09:36 BP 132/73 Blood Pressure Location Rt brachial Blood Pressure Position Sitting Pulse 101 H Pulse Source Pulse Oximeter Temp 97.1 F Temperature Source Temporal Artery Scan Pulse Oximetry 99 Oxygen Delivery Method Room Air Height 5 ft 3 in Weight 224 lb 3.2 oz BMI 39.7 Body Fat % 46.9 Body Fat Mass 105.2 Fat Free Mass 118.8 Visceral Fat Rating 11.0 Body Water % 38.2 Body Water Mass 85.6 Muscle Mass/Score 112.8 Basal Metabolic Rate/Score 1,727 Intake Visit Reasons: (OV) PO LSG 06/29/25 Allergies banana (BANANA) Allergy (Severe, Verified 06/25/25 13:07) ANAPHYLAXIS cefuroxime (From CEFTIN) Allergy (Severe, Verified 06/25/25 13:07) HIVES latex (LATEX) Allergy (Severe, Verified 06/23/25 12:04) SWELLING/HIVES Sulfa (Sulfonamide Antibiotics) (SULFA (SULFONAMIDE ANTIBIOTICS)) Allergy (Severe, Verified 06/25/25 13:07) HIVES sulfacetamide Allergy (Severe, Verified 06/25/25 13:07) Hives tuberculin,PPD,multi-puncture Allergy (Severe, Verified 06/25/25 13:07) Hives HPI Comments Details: Pt is s/p LSG 06/29/2025. No pain. No nausea. Tolerating 3 Premier shakes 2 whole bottles (over 3 hours) and 1 shake of 8oz Premier (over 2 hours). Hydration is adequate- 35-38oz. [facility] Medical History (Updated 07/03/25 @ 00:02 by Reji Luna) Familial Mediterranean fever Nexplanon in place Difficult intubation Environmental and seasonal allergies PONV (postoperative nausea and vomiting) BMI 39.0-39.9,adult Fatty liver Familial Mediterranean fever Asthma DJD (degenerative joint disease) Migraines Hypertension Morbid obesity GERD (gastroesophageal reflux disease) Depression OCD (obsessive compulsive disorder) Anxiety Costochondritis Vocal cord dysfunction Airway malacia Surgical History (Updated 07/07/25 @ 09:39 by Tori Rocha CMA) S/P gastric sleeve procedure History of bronchoscopy History of laparoscopic cholecystectomy (~2018) History of back surgery (2021) Hx of colonoscopy History of esophagogastroduodenoscopy (EGD) (05/13/25) H/O adenoidectomy (2011) History of tonsillectomy (2011) Family History Mother Hypoactive thyroid Hypertension High cholesterol Father Hypertension Blocked artery Social History (Updated 06/25/25 @ 13:06 by Aislinn Hoyos RN) Household Members: Spouse Housing: House Are you a primary primary care physician to a significant other at home: No Do you presently have visiting nurse or other home services: No 75 years or older and lives alone: No Alcohol intake: current Alcohol intake frequency: holidays/special occasions only Patient Tobacco Use Status: Never used Tobacco e-Cigarette/Vaping Use: Never Used Assessment & Plan Assessment & Plan (1) Obesity: Code(s): E66.9 - Obesity, unspecified Category: Medical Qualifiers: Obesity type: due to excess calories Obesity classification: adult class 2 (BMI 35 - 39.9) Serious obesity comorbidity presence: with serious comorbidity Body mass index: BMI 39.0-39.9 Qualified Code(s): E66.812 - Obesity, class 2; Z68.39 - Body mass index [BMI] 39.0-39.9, adult (2) S/P laparoscopic sleeve gastrectomy: Code(s): Z98.84 - Bariatric surgery status Category: Medical Plan May shower tomorrow but no bath or submersion of abdomen in water. May start exercise in 2 days.? No abdominal exercises x 6 weeks. Abdominal binder for the next 2 weeks with activity or exercise. Continue meal plan per Dr Gaffney until next f/u in 5 weeks. Reviewed pantoprazole and carafate dosing. Reminded of the pace of drinking 2 mL/min or 1oz per 15 min. Will be emailed link for post op video for review. Pt may restart colchicine and allergy pill.
[2025-07-07 09:36] VITALS: BP 132/73; PULSE 101; TEMP 36.2; O2SAT 99; BMI 39.7
== END 2025-07-07 09:56 | disposition home or self-care (01) ==
LOC: HO.HBS 08:36
PROVIDERS: PCP Nurse Practitioner Family; Visit Provider Physician Assistant Surgical
DX: E66.9 Obesity, unspecified (principal); Z68.39 Body mass index [BMI] 39.0-39.9, adult; Z90.3 Acquired absence of stomach [part of]; Z98.84 Bariatric surgery status
CPT/HCPCS: 99024

== ENCOUNTER 2025-07-08 13:13 | Outpatient (AMB) | payer OTHER, SELFPAY ==
--- NOTE | 2025-07-08 13:10 | A.OFFWM_ITS ---
Intake Intake Visit Reasons: VIDEO PO LSG 06/29/25 Allergies banana (BANANA) Allergy (Severe, Verified 06/25/25 13:07) ANAPHYLAXIS cefuroxime (From CEFTIN) Allergy (Severe, Verified 06/25/25 13:07) HIVES latex (LATEX) Allergy (Severe, Verified 06/23/25 12:04) SWELLING/HIVES Sulfa (Sulfonamide Antibiotics) (SULFA (SULFONAMIDE ANTIBIOTICS)) Allergy (Severe, Verified 06/25/25 13:07) HIVES sulfacetamide Allergy (Severe, Verified 06/25/25 13:07) Hives tuberculin,PPD,multi-puncture Allergy (Severe, Verified 06/25/25 13:07) Hives PFSH Medical History (Updated 07/03/25 @ 00:02 by Reji Luna) Familial Mediterranean fever Nexplanon in place Difficult intubation Environmental and seasonal allergies PONV (postoperative nausea and vomiting) BMI 39.0-39.9,adult Fatty liver Familial Mediterranean fever Asthma DJD (degenerative joint disease) Migraines Hypertension Morbid obesity GERD (gastroesophageal reflux disease) Depression OCD (obsessive compulsive disorder) Anxiety Costochondritis Vocal cord dysfunction Airway malacia Surgical History (Updated 07/07/25 @ 09:39 by Tori Rocha CMA) S/P gastric sleeve procedure History of bronchoscopy History of laparoscopic cholecystectomy (~2018) History of back surgery (2021) Hx of colonoscopy History of esophagogastroduodenoscopy (EGD) (05/13/25) H/O adenoidectomy (2011) History of tonsillectomy (2011) Family History Mother Hypoactive thyroid Hypertension High cholesterol Father Hypertension Blocked artery Social History (Updated 06/25/25 @ 13:06 by Aislinn Hoyos RN) Household Members: Spouse Housing: House Are you a primary medicare compliance auditor to a significant other at home: No Do you presently have visiting nurse or other home services: No 75 years or older and lives alone: No Alcohol intake: current Alcohol intake frequency: holidays/special occasions only Patient Tobacco Use Status: Never used Tobacco e-Cigarette/Vaping Use: Never Used Behavioral Health Assessment Weight Management Therapy Therapy Notes Details Subjective: Patient had weight loss surgery on 06/29/2025. Weight was 234 lbs on surgery day, now 225 lbs. Denies pain or recovery issues; tolerating liquid diet well. Mood is good. Supported by and mother. No significant hunger or food thoughts. Experienced mild emotional triggers when family ate favorite foods in front of her but managed well. Taking 6 weeks off work. Objective: Attended behavioral health post-op follow-up via Telehealth. Emotional check-in completed. Provided psychoeducation on post-bariatric adjustment, mindful eating, and family support strategies. Introduced CBT-based techniques to help identify and reframe unhelpful thoughts related to food triggers and post-op changes, and practiced coping skills for managing emotional responses. Reviewed adherence to WMP guidelines and shared program resources. Assessment/Response: * Mental status: WNL * Risk reported/identified: None Assessment & Plan Assessment & Plan (1) Depression: Code(s): F32.9 - Major depressive disorder, single episode, unspecified Qualifiers: Major depression episode severity: unspecified Major depression recurrence: unspecified whether recurrent (2) DARINEL (generalized anxiety disorder): Code(s): F41.1 - Generalized anxiety disorder (3) OCD (obsessive compulsive disorder): Code(s): F42.9 - Obsessive-compulsive disorder, unspecified (4) Status post bariatric surgery: Code(s): Z98.84 - Bariatric surgery status Plan PT will be seen again in 2 weeks for post-op support. Next george: 07/21/2025 at 11am, in person. Telehealth Telehealth Telehealth Platform: [facility] Location of provider rendering services: practice address Location of patient: address on file Patient Identification confirmed using: Name, : Yes Telehealth method: video Patient verbally consented to treatment: Yes Patient verbally consented to billing insurance company: Yes Patient informed of any privacy concerns related to visit: Yes Minutes spent on Phone/Video with Pt.: 45 Coding Level of Care Code Established Pt Tele Psytx 45 mins (69514) Patient Type Established Diagnoses Depression F32.9 Major depression episode severity: unspecified Major depression recurrence: unspecified whether recurrent DARINEL (generalized anxiety disorder) F41.1 OCD (obsessive compulsive disorder) F42.9 Status post bariatric surgery Z98.84 Time Spent (min) 45
== END 2025-07-08 13:53 | disposition home or self-care (01) ==
LOC: HO.HBST 13:13
PROVIDERS: PCP Nurse Practitioner Family; Visit Provider Counselor Mental Health
DX: F32.9 Major depressive disorder, single episode, unspecified (principal); F41.1 Generalized anxiety disorder; F42.9 Obsessive-compulsive disorder, unspecified; Z98.84 Bariatric surgery status
CPT/HCPCS: 90834

== ENCOUNTER 2025-07-21 11:49 | Outpatient (AMB) | payer OTHER, SELFPAY ==
--- NOTE | 2025-07-21 12:05 | A.OFFWM_ITS ---
Intake Intake Visit Reasons: OV PO LSG 06/29/25 Allergies banana (BANANA) Allergy (Severe, Verified 06/25/25 13:07) ANAPHYLAXIS cefuroxime (From CEFTIN) Allergy (Severe, Verified 06/25/25 13:07) HIVES latex (LATEX) Allergy (Severe, Verified 06/23/25 12:04) SWELLING/HIVES Sulfa (Sulfonamide Antibiotics) (SULFA (SULFONAMIDE ANTIBIOTICS)) Allergy (Severe, Verified 06/25/25 13:07) HIVES sulfacetamide Allergy (Severe, Verified 06/25/25 13:07) Hives tuberculin,PPD,multi-puncture Allergy (Severe, Verified 06/25/25 13:07) Hives PFSH Medical History (Updated 07/03/25 @ 00:02 by Reji Luna) Familial Mediterranean fever Nexplanon in place Difficult intubation Environmental and seasonal allergies PONV (postoperative nausea and vomiting) BMI 39.0-39.9,adult Fatty liver Familial Mediterranean fever Asthma DJD (degenerative joint disease) Migraines Hypertension Morbid obesity GERD (gastroesophageal reflux disease) Depression OCD (obsessive compulsive disorder) Anxiety Costochondritis Vocal cord dysfunction Airway malacia Surgical History (Updated 07/07/25 @ 09:39 by Tori Rocha CMA) S/P gastric sleeve procedure History of bronchoscopy History of laparoscopic cholecystectomy (~2018) History of back surgery (2021) Hx of colonoscopy History of esophagogastroduodenoscopy (EGD) (05/13/25) H/O adenoidectomy (2011) History of tonsillectomy (2011) Family History Mother Hypoactive thyroid Hypertension High cholesterol Father Hypertension Blocked artery Social History (Updated 06/25/25 @ 13:06 by Aislinn Hoyos RN) Household Members: Spouse Housing: House Are you a primary early breastfeeding care specialist to a significant other at home: No Do you presently have visiting nurse or other home services: No 75 years or older and lives alone: No Alcohol intake: current Alcohol intake frequency: holidays/special occasions only Patient Tobacco Use Status: Never used Tobacco e-Cigarette/Vaping Use: Never Used Behavioral Health Assessment Weight Management Therapy Therapy Notes Details Subjective: Patient had surgery on 06/29/2025. She is currently utilizing the bMenu george to assist with anxiety and management of obsessive-compulsive symptoms (OCD Dx). Current weight is 222 lbs. She is following a structured post-operative meal plan, which includes: one 8oz shake, one bar, one whole bottle shake, and three forkfuls of either scrambled eggs, cottage cheese, or Kinyarwanda yogurt. Patient expresses some anxiety related to post-operative recovery and adherence to dietary recommendations. Objective: Patient attended an in-person session, presenting as alert and cooperative. The session focused on addressing post-operative challenges, including physical recovery, dietary adjustments, and emotional responses to lifestyle changes. CBT-based interventions were utilized to help the patient identify and reframe cognitive distortions related to recovery and self-efficacy. Psychoeducation was provided on the relationship between anxiety, OCD symptoms, and post-surgical stress. The patient was guided through problem-solving strategies to manage daily routines and triggers, and encouraged to use the bMenu george as a tool for tracking progress and reinforcing positive behaviors. Mindfulness techniques were introduced to help manage acute anxiety, and behavioral activation strategies were discussed to support engagement in healthy routines during rec overy. The patient demonstrated understanding of interventions and was receptive to practicing these skills between sessions. Assessment/Response: * Mental status: Patient is oriented to person, place, and time. Mood is described as anxious but hopeful, with affect congruent to stated mood. Thought process is logical and coherent. No evidence of psychosis or christian. Insight and judgment are intact. * Risk reported/identified: Patient denies suicidal or homicidal ideation, intent, or plan. No acute safety concerns identified during the session. Assessment & Plan Assessment & Plan (1) Depression: Code(s): F32.9 - Major depressive disorder, single episode, unspecified Qualifiers: Major depression recurrence: unspecified whether recurrent Major depression episode severity: unspecified (2) DARINEL (generalized anxiety disorder): Code(s): F41.1 - Generalized anxiety disorder (3) OCD (obsessive compulsive disorder): Code(s): F42.9 - Obsessive-compulsive disorder, unspecified (4) Status post bariatric surgery: Code(s): Z98.84 - Bariatric surgery status Plan Follow-up scheduled in 3 weeks. Patient will continue to utilize the bMenu george, adhere to post-operative meal plan, and practice CBT and mindfulness strategies for symptom management. * Next george: 08/10/26, 12 - video [place] [address] Psytx >53 mins Patient Type Established Diagnoses Depression F32.9 Major depression recurrence: unspecified whether recurrent Major depression episode severity: unspecified DARINEL (generalized anxiety disorder) F41.1 OCD (obsessive compulsive disorder) F42.9 Status post bariatric surgery Z98.84 Time Spent (min) 55
--- OUTSIDE RECORDS SUMMARY | 2025-07-21 14:29 | XMS_ITS | Encounter Summary ---
Author Organization [facility] Address [address] [place] [address] [place] [address] Phone Care Team Providers Care Insurance Claims Processor Name Role Phone Kailey Camacho MD Unavailable [phone] Pranav Gandhi MD Unavailable [phone] Kailey Camacho MD Primary Care Provider Encounter Details Date Type Department Care Team (Latest Contact Info) Description 01/10/2019 Transcribe Orders [facility] Phleb Main [address] [place] [address] Leticia Hurtado PA [address] [place] [address] [place] [address] Screening for unspecified condition (Primary Dx) Social [...] EDT) Specimen Source/ Description STOOL STOOL STOOL [facility] Special Requests None [facility] DIRECT EXAM NO PARASITES FOUND BY DIRECT OR CONCENTRATION METHODS [facility] DIRECT EXAM No parasites found by Trichrome Stain [facility] Report Status 01/13/2019 FINAL [facility] Stool (Stool) 01/10/2019 9:5 9 AM EDT 01/10/2019 10:21 AM EDT us Leticia NIX LAB BODY FLUIDS AND S TOOL ORDERABLES Final Result Performing Organization Address City/State/[facility] Co de Phone Number [facility] [address] [place] [address] documented in this encounter Visit Diagnoses Diagnosis Screening for unspecified condition- Primary documented in this encounter Additional Health Concerns Infection Onset Date Last Indicated Resolved Time CoV-Risk 07/27/2021 07/27/2021 08/06/2021 1:22 AM EST CoV-Risk 10/04/2021 10/04/2021 10/14/2021 1:23 AM EST documented as of this encounter Care Teams Insurance Claims Processor Relationship Specialty Start Date End Date Kailey Camacho MD [address] [place] [address] [email or web address] PCP - General Internal Medicine 07/20/17 Kailey Camacho MD [address] [place] [address] [email or web address] Historical LMR Provider 07/04/17 Pranav Gandhi MD [address] [place] [address] Historical LMR Provider 07/04/17 2 documented as of this encounter Additional Source Comments The information contained in this document represents components of the legal health record. It is not the complete legal health record.[facility]
--- OUTSIDE RECORDS SUMMARY | 2025-07-21 14:30 | XMS_ITS | Encounter Summary ---
Author Organization [facility] Address [address] [facility] [address] [place] [address] Phone Care Team Providers Care Side Framer Name Role Phone Kailey Camacho MD Unavailable [phone] Pranav Gandhi MD Unavailable [phone] Kailey Camacho MD Primary Care Provider Encounter Details Date Type Department Care Team (Late st Contact Info) Description 11/17/2020 Procedure Pass [facility], Ct Scan - [address] [address] Social History Tobacco Use Types Packs/Day Years [...] 11/17/2020 9:43 PM Emelia Barksdale, ANNETTE * [place] Suicide Severity Rating Scale (Screener/Recent Self-Report) Question [...] documented as of this encounter Care Teams Side Framer Relationship Specialty Start Date End Date Kailey Camacho MD [address] [place] [address] [email or web address] PCP - General Internal Medicine 07/20/17 Kailey Camacho MD [address] [place] [address] [email or web address] Historical LMR Provider 07/04/17 Pranav Gandhi MD [address] [place] [address] Historical LMR Provider 07/04/17 2 documented as of this encounter Additional Source Comments The information contained in this document represents components of the legal health record. It is not the complete legal health record.[facility]
--- OUTSIDE RECORDS SUMMARY | 2025-07-21 14:30 | XMS_ITS | Encounter Summary ---
Author Organization [facility] Address [address] [facility] [address] [place] [address] Phone Care Team Providers Care Circulation Assistant Name Role Phone Kailey Camacho MD Unavailable [phone] Pranav Gandhi MD Unavailable [phone] Kailey Camacho MD Primary Care Provider Encounter Details Date Type Department Care Team (Late st Contact Info) Description 11/12/2020 Procedure Pass [facility], Ct Scan - [address] [address] Social History Tobacco Use Types Packs/Day Years [...] 11/12/2020 10:01 AM Brie Cox RN * [place] Suicide Severity Rating Scale (Screener/Recent Self-Report) Question [...] documented as of this encounter Care Teams Circulation Assistant Relationship Specialty Start Date End Date Kailey Camacho MD [address] [place] [address] [email or web address] PCP - General Internal Medicine 07/20/17 Kailey Camacho MD [address] [place] [address] [email or web address] Historical LMR Provider 07/04/17 Pranav Gandhi MD [address] [place] [address] Historical LMR Provider 07/04/17 2 documented as of this encounter Additional Source Comments The information contained in this document represents components of the legal health record. It is not the complete legal health record.[facility]
--- OUTSIDE RECORDS SUMMARY | 2025-07-21 14:30 | XMS_ITS | Encounter Summary ---
Author Organization [facility] Address [address] [place] [address] [place] [address] Phone Care Team Providers Care Turbine Mechanic Name Role Phone Kailey Camacho MD Unavailable Pranav Gandhi MD Unavailable [phone] Kailey Camacho MD Primary Care Provider Encounter Details Date Type Department Care Team (Latest Contact Info) Description 07/23/2017 Ancillary Orders [facility], X-Ray - [address] [address] Kala Jarrell PA [address] [place], [place] [id number] Lumbar radiculopathy Social History Tobacco Use Types [...] No source of pain detected. POS - [id number] Narrative 07/23/2017 4:17 PM EST Five view [...] No source of pain detected. POS - [id number] Kala NIX IMG XR SPINE Final Result [...] documented as of this encounter Care Teams Turbine Mechanic Relationship Specialty Start Date End Date Kailey Camacho MD [address] [place] [address] [email or web address] PCP - General Internal Medicine 07/20/17 Kailey Camacho MD [address] [place] [address] [email or web address] Historical LMR Provider 07/04/17 Pranav Gandhi MD [address] [place] [address] Historical LMR Provider 07/04/17 2 documented as of this encounter Additional Source Comments The information contained in this document represents components of the legal health record. It is not the complete legal health record.[facility]
--- OUTSIDE RECORDS SUMMARY | 2025-07-21 14:30 | XMS_ITS | Encounter Summary ---
Author Organization [facility] Address [address] [place] [address] [address] [place] [address] Phone Care Team Providers Care Booster Station Operator Name Role Phone Kailey Camacho MD Unavailable Pranav Gandhi MD Unavailable [phone] Kailey Camacho MD Primary Care Provider Encounter Details Date Type Department Care Team (Latest Contact Info) Description 04/24/2018 Transcribe Orders [facility] Phleb Main [address] [place] [address] Kala Jarrell PA [address] [place], [place] [id number] [email or web address] Nausea (Primary Dx); Diarrhea, unspecified type; Cloudy [...] PM EDT) WBC 0-4(A) NONE SEEN /hpf [facility] RBC NONE SEEN NONE SEEN /hpf [facility] URINE EPITHELIAL 0-4(A) NONE SEEN [facility] MUCUS NONE SEEN NONE SEEN /hpf [facility] BACTERIA Trace(A) NONE SEEN [facility] CRYSTALS 3+ [facility] Comment:AMORPHOUS COLOR Yellow Yellow [facility] CLARITY TURBID [facility] GLUCOSE Negative Negative [facility] BILI Negative Negative [facility] KETONES Negative Negative [facility] SPECIFIC GRAVITY 1.020 1.005 - 1.030 [facility] BLOOD Negative Negative [facility] PH 6.0 5.0 - 8.0 [facility] Protein-UA Negative Negative [facility] NITRITE Negative Negative [facility] Leukocyte esterase, ur 1+(A) Negative [facility] Urine (Urine) 04/24/2018 12: 27 PM EDT 04/24/2018 12:31 PM EDT us [facility] LAB URINE ORDERABLES Final Resu lt Performing Organization Address [facility]/ZIP Co de Phone Number [address] [address] * Urine culture (04/24/2018 12:27 PM EDT) Specimen Source/ Description URINE URINE URINE [facility] Special Requests None [facility] GRAM STAIN Rare GRAM POSITIVE RODS [facility] Culture/Test >100,000 colony forming units per ml MIXED CARLENE (3 OR MORE COLONY TYPES) Culture indicates contamination . Please resubmit if necessary. [facility] Report Status 04/25/2018 FINAL [facility] Urine (Urine) 04/24/2018 12: 27 PM EDT 04/24/2018 12:32 PM EDT us [facility] LAB MICROBIOLOGY CULTURE ORDERA BLES Final Result Performing Organization Address City/[facility]/ZIP Co de Phone Number [address] [address] * (ABNORMAL) CBC and differential (04/24/2018 12:27 PM EDT) WBC 9.34 3.40 - 11.20 K/uL [facility] RBC 5.21(H) 3.80 - 4.80 M/uL [facility] HGB 13.9 12.0 - 15.0 g/dL [facility] HCT 42.5 36.0 - 46.0 % [facility] PLT 376 130 - 400 K/uL [facility] MCV 81.6 79.0 - 98.0 fL [facility] MCH 26.7(L) 27.0 - 34.8 pg [facility] MCHC 32.7 31.5 - 36.0 g/dL [facility] RDW 13.8 10.8 - 14.6 % [facility] MPV 9.1(L) 9.4 - 12.4 fl [facility] NRBC 0.00 /100 WBCs [facility] ABSOLUTE NRBC 0.00 K/uL [facility] DIFF METHOD Auto [facility] NEUTS 58.6 45.30 - 77.70 % [facility] LYMPHS 32.5 12.30 - 39.70 % [facility] MONOS 7.3 4.10 - 12.80 % [facility] EOS 0.9 0 - 7.2 % [facility] BASOS 0.5 0 - 2.80 % [facility] Granulocytes, immature (%) 0.2 0.0 - 0.9 % [facility] ABSOLUTE NEUTS 5.47 1.40 - 7.70 K/uL [facility] ABSOLUTE LYMPHS 3.04 0.60 - 3.20 K/uL [facility] ABSOLUTE MONOS 0.68(H) 0.11 - 0.59 K/uL [facility] ABSOLUTE EOS 0.08 0.01 - 0.50 K/uL [facility] ABSOLUTE BASOS 0.05 0.00 - 0.08 K/uL [facility] Granulocytes, immature 0.02 0.00 - 0.05 K/uL [facility] Blood 04/24/2018 12:2 7 PM EDT 04/24/2018 12:31 PM EDT us [facility] BLOOD BKR ORDERABLES Final Result [address] [address] * Comprehensive metabolic panel (04/24/2018 12:27 PM EDT) SODIUM 139 133 - 146 mmol/L [facility] POTASSIUM 3.8 3.3 - 5.1 mmol/L [facility] CHLORIDE 101 96 - 108 mmol/L [facility] CO2 25 21 - 35 mmol/L [facility] BUN 11 6 - 19 mg/dL [facility] CREATININE 0.50 0.5 - 1.5 mg/dL [facility] GLUCOSE 83 70 - 99 mg/dL [facility] ALBUMIN 4.1 3.9 - 4.8 g/dL [facility] TOTAL PROTEIN 7.8 6.5 - 8.0 g/dL [facility] CALCIUM 9.1 8.4 - 10.3 mg/dL [facility] ALKALINE PHOSPHATASE 58 39 - 117 U/L [facility] TOTAL BILIRUBIN 0.2 0.0 - 1.2 mg/dL [facility] AST 12 0 - 37 U/L [facility] ALT 9 0 - 40 U/L [facility] GLOBULIN 3.7 1 - 4.8 g/dL [facility] EGFR >120 >59 mL/min/1.7 3m2 [facility] Comment:If patient is black, multiply result by 1.159. Estimated glomerular filtration rate calculated using the CKD-EPI equation. ANION GAP 17 10 - 20 mmol/L [facility] Blood 04/24/2018 12:2 7 PM EDT 04/24/2018 12:31 PM EDT [facility] BLOOD BKR ORDERABLES Final Result [address] [address] documented in this encounter Visit Diagnoses Diagnosis Nausea- Primary Nausea alone Diarrhea, unspecified type Cloudy urine documented in this encounter Additional Health Concerns Infection Onset Date Last Indicated Resolved Time CoV-Risk 07/27/2021 07/27/2021 08/06/2021 1:22 AM EST CoV-Risk 10/04/2021 10/04/2021 10/14/2021 1:23 AM EST documented as of this encounter Care Teams Booster Station Operator Relationship Specialty Start Date End Date Kailey Camacho MD [address] [place] [address] [email or web address] PCP - General Internal Medicine 07/20/17 Kailey Camacho MD [address] [place] [address] [email or web address] Historical LMR Provider 07/04/17 Pranav Gandhi MD [address] [place] [address] Historical LMR Provider 07/04/17 2 documented as of this encounter Additional Source Comments The information contained in this document represents components of the legal health record. It is not the complete legal health record.[facility]
--- OUTSIDE RECORDS SUMMARY | 2025-07-21 14:30 | XMS_ITS | Encounter Summary ---
Author Organization [facility] Address [address] [place] [address] Phone Care Team Providers Care Instructor Wastewater Treatment Plant Name Role Phone Kailey Camacho MD Unavailable Pranav Gandhi MD Unavailable [phone] Kailey Camacho MD Primary Care Provider Encounter Details Date Type Department Care Team (Late st Contact Info) Description 04/01/2019 Transcribe Orders [facility] Phleb Main [address] [place] [address] Kailey Camacho MD [address] [place] [phone] [email or web address] Delinquent immunization status (Primary Dx) Social [...] PM EDT) HBV SURFACE ANTIGEN Negative Negative [facility] Blood 04/01/2019 2:38 PM EDT 04/01/2019 2:42 PM EDT Kailey Camacho MD LAB BLOOD BKR ORDERABLES Fi nal Result Performing Organization Address [facility] Co de Phone Number [address] [address] * Hepatitis B surface antibody (04/01/2019 2:38 PM EDT) HBV SURFACE ANTIBODY Positive [facility] Comment: Unvaccinated: Negative Vaccinated: Positive Blood 04/01/2019 2:38 PM EDT 04/01/2019 2:42 PM EDT Kailey Camacho MD LAB BLOOD BKR ORDERABLES Fi nal Result Performing Organization Address [facility] Co de Phone Number [address] [address] documented in this encounter Visit Diagnoses Diagnosis Delinquent immunization status- Primary Personal history of underimmunization status documented in this encounter Additional Health Concerns Infection Onset Date Last Indicated Resolved Time CoV-Risk 07/27/2021 07/27/2021 08/06/2021 1:22 AM EST CoV-Risk 10/04/2021 10/04/2021 10/14/2021 1:23 AM EST documented as of this encounter Care Teams Instructor Wastewater Treatment [employer] Relationship Specialty Start Date End Date Kailey Camacho MD [address] [place] [address] [email or web address] PCP - General Internal Medicine 07/20/17 Kailey Camacho MD [address] [place] [address] Historical LMR Provider 07/04/17 Pranav Gandhi MD [address] [place] [address] Historical LMR Provider 07/04/17 2 documented as of this encounter Additional Source Comments The information contained in this document represents components of the legal health record. It is not the complete legal health record.[facility]
--- OUTSIDE RECORDS SUMMARY | 2025-07-21 14:30 | XMS_ITS | Encounter Summary ---
Author Organization [facility] Address [address] [place] [address] [place] [address] Phone Care Team Providers Care Grease Man Name Role Phone Kailey Camacho MD Unavailable Pranav Gandhi MD Unavailable [phone] Kailey Camacho MD Primary Care Provider Encounter Details Date Type Department Care Team (Late st Contact Info) Description 07/26/2017 Transcribe Orders [facility] Phleb Main [address] [place] [address] Kailey Camacho MD [address] [place] [address] [phone] [email or web address] Asymptomatic microscopic hematuria (Primary Dx) Social History [...] PM EST) WBC 5-10(A) NONE SEEN /hpf [facility] RBC 0-2(A) NONE SEEN /hpf [facility] URINE EPITHELIAL 5-10(A) NONE SEEN [facility] MUCUS NONE SEEN NONE SEEN /hpf [facility] BACTERIA 2+(A) NONE SEEN [facility] 07/26/2017 3:29 PM EST 07/26/2017 3:31 PM EST Kailey Camacho MD LAB URINE ORDERABLES Final Result Performing Organization Address [facility] Co de Phone Number [address] [address] * Urine culture (07/26/2017 3:29 PM EST) Specimen Source/ Description URINE CLEAN CATCH URINE URINE [facility] Special Requests None [facility] GRAM STAIN Few GRAM POSITIVE RODS [facility] Culture/Test >100,000 colony forming units per ml MIXED CARLENE (3 OR MORE COLONY TYPES) Culture indicates contamination . Please resubmit if necessary. [facility] Report Status 07/27/2017 FINAL [facility] Urine (Urine) 07/26/2017 3:2 9 PM EST 07/26/2017 3:31 PM EST us Kailey Camacho MD LAB MICROBIOLOGY CULTURE OR DERABLES Final Result Performing Organization Address City/[facility]/ZIP Co de Phone Number [address] [address] * (ABNORMAL) Urinalysis (07/26/2017 3:29 PM EST) COLOR Yellow Yellow [facility] CLARITY Clear [facility] GLUCOSE Negative Negative [facility] BILI Negative Negative [facility] KETONES Negative Negative [facility] SPECIFIC GRAVITY >1.030 1.005 - 1.030 [facility] BLOOD Negative Negative [facility] PH 5.5 5.0 - 8.0 [facility] Protein-UA Negative Negative [facility] NITRITE Negative Negative [facility] Leukocyte esterase, ur Trace(A) Negative [facility] Urine (Urine) 07/26/2017 3:2 9 PM EST 07/26/2017 3:31 PM EST Kailey Camacho MD LAB URINE ORDERABLES Final Result [facility] [address] [place] [address] documented in this encounter Visit Diagnoses Diagnosis Asymptomatic microscopic hematuria- Primary documented in this encounter Additional Health Concerns Infection Onset Date Last Indicated Resolved Time CoV-Risk 07/27/2021 07/27/2021 08/06/2021 1:22 AM EST CoV-Risk 10/04/2021 10/04/2021 10/14/2021 1:23 AM EST documented as of this encounter Care Teams Grease Man Relationship Specialty Start Date End Date Kailey Camacho MD [address] [place] [address] [email or web address] PCP - General Internal Medicine 07/20/17 Kailey Camacho MD [address] [place] [address] [email or web address] Historical LMR Provider 07/04/17 Pranav Gandhi MD [address] [place] [address] Historical LMR Provider 07/04/17 2 documented as of this encounter Additional Source Comments The information contained in this document represents components of the legal health record. It is not the complete legal health record.[facility]
--- OUTSIDE RECORDS SUMMARY | 2025-07-21 14:30 | XMS_ITS | Encounter Summary ---
Author Organization [facility] Address [address] [place] [address] [place] [address] Phone Care Team Providers Care Rural Mail Carrier Name Role Phone Kailey Camacho MD Unavailable [phone] Pranav Gandhi MD Unavailable [phone] Kailey Camacho MD Primary Care Provider Encounter Details Date Type Department Care Team (Late st Contact Info) Description 07/30/2017 Ancillary Orders [facility], X-Ray - [address] [address] Kala Jarrell PA [address] [place], [place] [id number] [email or web address] Right hip pain Social History Tobacco Use [...] EST No explanation for pain. POS - [id number] Narrative 07/30/2017 5:16 PM EST HISTORY: Pain [...] IMPRESSION: No explanation for pain. POS - [id number] [facility] IMG XR PELVIS Final Result [...] documented as of this encounter Care Teams Rural Mail Carrier Relationship Specialty Start Date End Date Kailey Camacho MD [address] [place] [address] [email or web address] PCP - General Internal Medicine 07/20/17 Kailey Camacho MD [address] [place] [address] [email or web address] Historical LMR Provider 07/04/17 Pranav Gandhi MD [address] [place] [address] Historical LMR Provider 07/04/17 2 documented as of this encounter Additional Source Comments The information contained in this document represents components of the legal health record. It is not the complete legal health record.[facility]
--- OUTSIDE RECORDS SUMMARY | 2025-07-21 14:30 | XMS_ITS | Encounter Summary ---
Author Organization [facility] Address [address] [facility] [facility] [place] [address] Phone Care Team Providers Care Cook Supervisor Name Role Phone Kailey Camacho MD Unavailable [phone] Pranav Gandhi MD Unavailable [phone] Kailey Camacho MD Primary Care Provider Encounter Details Date Type Department Care Team (Latest Contact Info) Description 01/10/2019 Transcribe Orders [facility] Phleb Main [address] [place] [address] Leticia Hurtado PA [address] [place] [address] [place] [address] Screening for unspecified condition (Primary Dx) Social [...] documented as of this encounter Care Teams Cook Supervisor Relationship Specialty Start Date End Date Kailey Camacho MD [address] [place] [address] [email or web address] PCP - General Internal Medicine 07/20/17 Kailey Camacho MD [address] [place] [address] [email or web address] Historical LMR Provider 07/04/17 Pranav Gandhi MD [address] [place] [address] Historical LMR Provider 07/04/17 2 documented as of this encounter Additional Source Comments The information contained in this document represents components of the legal health record. It is not the complete legal health record.[facility]
--- OUTSIDE RECORDS SUMMARY | 2025-07-21 14:30 | XMS_ITS | Encounter Summary ---
Author Organization [facility] Address [address] [place] [address] Phone Care Team Providers Care Car Conditioner Name Role Phone Kailey Camacho MD Unavailable [phone] Pranav Gandhi MD Unavailable [phone] Kailey Camacho MD Primary Care Provider Encounter Details Date Type Department Care Team (Latest Contact Info) Description 08/05/2017 Ancillary Orders Virtual Department [address] [place] [address] Kala Jarrell PA [address] [place], [place] [phone] [email or web address] Lumbar radiculopathy Social History Tobacco Use Types [...] paracentral disc protrusion at L1-L2. POS - [id number] Narrative 08/14/2017 12:36 PM EST HISTORY: Lower [...] paracentral disc protrusion at L1-L2. POS - [id number] [facility] G MR XSPECIALTY Final Result documented in this [...] documented as of this encounter Care Teams Car Conditioner Relationship Specialty Start Date End Date Kailey Camacho MD [address] [place] [address] PCP - General Internal Medicine 07/20/17 Kailey Camacho MD [address] [place] [address] Historical LMR Provider 07/04/17 Pranav Gandhi MD [address] [place] [address] Historical LMR Provider 07/04/17 2 documented as of this encounter Additional Source Comments The information contained in this document represents components of the legal health record. It is not the complete legal health record.[facility]
--- OUTSIDE RECORDS SUMMARY | 2025-07-21 14:30 | XMS_ITS | Encounter Summary ---
Author Organization [facility] Address [address] [facility] [address] [place] [address] Phone Care Team Providers Care Lard Refiner Name Role Phone Kailey Camacho MD Unavailable Pranav Gandhi MD Unavailable [phone] Kailey Camacho MD Primary Care Provider Encounter Details Date Type Department Care Team (Latest Contact Info) Description 12/09/2017 Transcribe Orders [facility] Phleb Main [address] [place] [address] Kala Jarrell PA [address] [place], [place] [phone] [email or web address] (Primary Dx) Social History Tobacco Use [...] Source/ Description URINE CLEAN CATCH URINE URINE [facility] Special Requests None [facility] GRAM STAIN NO ORGANISMS SEEN [facility] Culture/Test >100,000 colony forming units per ml MIXED CARLENE (3 OR MORE COLONY TYPES) Culture indicates contamination . Please resubmit if necessary. [facility] Report Status 12/10/2017 FINAL [facility] Urine (Urine) 12/09/2017 3:0 6 PM EDT 12/09/2017 3:12 PM EDT [facility] MICROBIOLOGY CULTURE ORDERA BLES Final Result Performing Organization Address [facility] Co de Phone Number [address] [address] * (ABNORMAL) Urinalysis with sediment (12/09/2017 3:06 PM EDT) WBC 0-4(A) NONE SEEN /hpf [facility] RBC NONE SEEN NONE SEEN /hpf [facility] URINE EPITHELIAL NONE SEEN NONE SEEN [facility] MUCUS NONE SEEN NONE SEEN /hpf [facility] BACTERIA Trace(A) NONE SEEN [facility] COLOR Yellow Yellow [facility] CLARITY Clear [facility] GLUCOSE Negative Negative [facility] BILI Negative Negative [facility] KETONES Negative Negative [facility] SPECIFIC GRAVITY 1.015 1.005 - 1.030 [facility] BLOOD Negative Negative [facility] PH 5.5 5.0 - 8.0 [facility] Protein-UA Negative Negative [facility] NITRITE Negative Negative [facility] Leukocyte esterase, ur Negative Negative [facility] Urine (Urine) 12/09/2017 3:0 6 PM EDT 12/09/2017 3:11 PM EDT [facility] URINE ORDERABLES Final Resu lt Performing Organization Address [facility] Co de Phone Number [address] [address] * (ABNORMAL) CBC and differential (12/09/2017 3:06 PM EDT) WBC 8.19 3.40 - 11.20 K/uL [facility] RBC 4.95(H) 3.80 - 4.80 M/uL [facility] HGB 13.7 12.0 - 15.0 g/dL [facility] HCT 40.1 36.0 - 46.0 % [facility] PLT 295 130 - 400 K/uL [facility] MCV 81.0 79.0 - 98.0 fL [facility] MCH 27.7 27.0 - 34.8 pg [facility] MCHC 34.2 31.5 - 36.0 g/dL [facility] RDW 14.1 10.8 - 14.6 % [facility] MPV 9.8 9.4 - 12.4 fl [facility] NRBC 0.00 /100 WBCs [facility] ABSOLUTE NRBC 0.00 K/uL [facility] DIFF METHOD Auto [facility] NEUTS 51.3 45.30 - 77.70 % [facility] LYMPHS 41.0(H) 12.30 - 39.70 % [facility] MONOS 6.6 4.10 - 12.80 % [facility] EOS 0.5 0 - 7.2 % [facility] BASOS 0.4 0 - 2.80 % [facility] Granulocytes, immature (%) 0.2 0.0 - 0.9 % [facility] ABSOLUTE NEUTS 4.20 1.40 - 7.70 K/uL [facility] ABSOLUTE LYMPHS 3.36(H) 0.60 - 3.20 K/uL [facility] ABSOLUTE MONOS 0.54 0.11 - 0.59 K/uL [facility] ABSOLUTE EOS 0.04 0.01 - 0.50 K/uL [facility] ABSOLUTE BASOS 0.03 0.00 - 0.08 K/uL [facility] Granulocytes, immature 0.02 0.00 - 0.05 K/uL [facility] Blood 12/09/2017 3:06 PM EDT 12/09/2017 3:11 PM EDT us [facility] LAB BLOOD BKR ORDERABLES Final Result [address] [address] * TSH with reflex (12/09/2017 3:06 PM EDT) TSH 2.42 0.27 - 4.20 uIU/mL [facility] Blood 12/09/2017 3:06 PM EDT 12/09/2017 3:11 PM EDT us [facility] LAB BLOOD BKR ORDERABLES Final Result [facility] [address] [place] [address] * Comprehensive metabolic panel (12/09/2017 3:06 PM EDT) SODIUM 140 133 - 146 mmol/L [facility] POTASSIUM 3.7 3.3 - 5.1 mmol/L [facility] CHLORIDE 102 96 - 108 mmol/L [facility] CO2 22 21 - 35 mmol/L [facility] BUN 11 6 - 19 mg/dL [facility] CREATININE 0.60 0.5 - 1.5 mg/dL [facility] GLUCOSE 82 70 - 99 mg/dL [facility] ALBUMIN 4.1 3.9 - 4.8 g/dL [facility] TOTAL PROTEIN 7.6 6.5 - 8.0 g/dL [facility] CALCIUM 9.5 8.4 - 10.3 mg/dL [facility] ALKALINE PHOSPHATASE 54 39 - 117 U/L [facility] TOTAL BILIRUBIN 0.3 0.0 - 1.2 mg/dL [facility] AST 21 0 - 37 U/L [facility] ALT 35 0 - 40 U/L [facility] GLOBULIN 3.5 1 - 4.8 g/dL [facility] EGFR >120 >59 mL/min/1.7 3m2 [facility] Comment:If patient is black, multiply result by 1.159. The eGFR calculation has changed from the MDRD equation to the CKD-EPI equation as of November 19, 2017. ANION GAP 20 10 - 20 mmol/L [facility] Blood 12/09/2017 3:06 PM EDT 12/09/2017 3:11 PM EDT us [facility] LAB BLOOD BKR ORDERABLES Final Result [facility] [address] [place] [address] documented in this encounter Visit Diagnoses Diagnosis Dizziness- Primary Dizziness and giddiness documented in this encounter Additional Health Concerns Infection Onset Date Last Indicated Resolved Time CoV-Risk 07/27/2021 07/27/2021 08/06/2021 1:22 AM EST CoV-Risk 10/04/2021 10/04/2021 10/14/2021 1:23 AM EST documented as of this encounter Care Teams Lard Refiner Relationship Specialty Start Date End Date Kailey Camacho MD [address] [place] [address] PCP - General Internal Medicine 07/20/17 Kailey Camacho MD [address] [place] [address] Historical LMR Provider 07/04/17 Pranav Gandhi MD [address] [place] [address] Historical LMR Provider 07/04/17 2 documented as of this encounter Additional Source Comments The information contained in this document represents components of the legal health record. It is not the complete legal health record.[facility]
--- OUTSIDE RECORDS SUMMARY | 2025-07-21 14:30 | XMS_ITS | Encounter Summary ---
Author Organization [facility] Address [address] [place] [address] [place] [address] Phone Care Team Providers Care Dial Refinisher Name Role Phone Kailey Camacho MD Unavailable Pranav Gandhi MD Unavailable [phone] Kailey Camacho MD Primary Care Provider Encounter Details Date Type Department Care Team (Latest Contact Info) Description 07/27/2021 Transcribe Orders Virtual Department 30 [place] [address] Kala Jarrell PA [address] [place], [place] [id number] [email or web address] Encounter for laboratory testing for COVID-19 virus [...] be available within 24 to 48 hrs. [facility] Symptomatic? YES [facility] Other 07/27/2021 12:5 7 PM EST 07/27/2021 5:45 PM EST Kailey Camacho MD LAB GENERAL ORDERABLES Xi [email or web address] Result [facility] [address] [place] [address] [facility] [address] [place] [address] documented in this encounter Visit Diagnoses Diagnosis Encounter for laboratory testing for COVID-19 virus- Primary documented in this encounter Additional Health Concerns Infection Onset Date Last Indicated Resolved Time CoV-Risk 07/27/2021 07/27/2021 08/06/2021 1:22 AM EST CoV-Risk 10/04/2021 10/04/2021 10/14/2021 1:23 AM EST documented as of this encounter Care Teams Dial Refinisher Relationship Specialty Start Date End Date Kailey Camacho MD 15 [place] [address] [email or web address] PCP - General Internal Medicine 07/20/17 Kailey Camacho MD [address] [place] [address] Historical LMR Provider 07/04/17 Pranav Gandhi MD [address] [place] [address] Historical LMR Provider 07/04/1709/23/2 2 documented as of this encounter Additional Source Comments The information contained in this document represents components of the legal health record. It is not the complete legal health record.[facility]
--- OUTSIDE RECORDS SUMMARY | 2025-07-21 14:30 | XMS_ITS | Encounter Summary ---
Author Organization [facility] Address [address] [place] [address] [place] [address] Phone Care Team Providers Care Payroll Officer Name Role Phone Kailey Camacho MD Unavailable [phone] Kailey Camacho MD Primary Care Provider [phone] Encounter Details Date Type Department Care Team (Latest Contact Info) Description 02/28/2022 Transcribe Orders Virtual Department 30 [place] [address] Kala Jarrell PA [address] [place] [address] [email or web address] and swelling of left ankle (Primary [...] Primary documented in this encounter Care Teams Payroll Officer Relationship Specialty Start Date End Date Kailey Camacho MD 15 [place] [address] [email or web address] PCP - General Internal Medicine 07/20/17 Kailey Camacho MD 15 [place] [address] [email or web address] Historical LMR Provider 07/04/17 documented as of this encounter Additional Source Comments The information contained in this document represents components of the legal health record. It is not the complete legal health record.[facility]
--- OUTSIDE RECORDS SUMMARY | 2025-07-21 14:30 | XMS_ITS | Encounter Summary ---
Author Organization [facility] Address [address] [place] [address] Phone Care Team Providers Care Delivery Driver Assistant Name Role Phone Kailey Camacho MD Unavailable [phone] Kailey Camacho MD Primary Care Provider [phone] Reason for Referral * - Closed Specialty Diagnoses / Procedures Referred By Contsma t Referred To Contact Diagnoses Palpitations Procedures MCT (Mobile Cardiac Telemetry) En Winn MD Phone: tel: fax: mailto:[email or web address] Referral ID Status Reason Start Date Expiration Date Visits Re quested Visits Authorized [id number] Closed 10/17/2021 10/17/2022 1 1 Encounter Details Date Type Department Care Team (Late st Contact Info) Description 10/17/2021 Ancillary Orders [facility] [address], [address] [place] [address] En Winn MD [address] [facility] [address] [place] [address] [email or web address] Palpitations Social History Tobacco Use Types [...] Palpitations documented in this encounter Care Teams Delivery Driver Assistant Relationship Specialty Start Date End Date Kailey Camacho MD [address] [place] [address] PCP - General Internal Medicine 07/20/17 Kailey Camacho MD [address] [place] [address] [email or web address] Historical LMR Provider 07/04/17 documented as of this encounter Additional Source Comments The information contained in this document represents components of the legal health record. It is not the complete legal health record.[facility]
--- OUTSIDE RECORDS SUMMARY | 2025-07-21 14:30 | XMS_ITS | Encounter Summary ---
Author Organization [facility] Address [address] [place] [address] [place] [address] Phone Care Team Providers Care Corporate Health Consultant Name Role Phone Kailey Camacho MD Unavailable [phone] Kailey Camacho MD Primary Care Provider [phone] Encounter Details Date Type Department Care Team (Late st Contact Info) Description 10/09/2021 Procedure Pass [facility] [address] [place] [address] Social History Tobacco Use Types Packs/Day Years [...] documented as of this encounter Care Teams Corporate Health Consultant Relationship Specialty Start Date End Date Kailey Camacho MD 15 [place] [address] [email or web address] PCP - General Internal Medicine 07/20/17 Kailey Camacho MD 15 [place] [address] [email or web address] Historical LMR Provider 07/04/17 documented as of this encounter Additional Source Comments The information contained in this document represents components of the legal health record. It is not the complete legal health record.[facility]
--- OUTSIDE RECORDS SUMMARY | 2025-07-21 14:30 | XMS_ITS | Encounter Summary ---
Author Organization [facility] Address [address] [facility] [address] [place] [address] Phone Care Team Providers Care Occupational Health Manager Name Role Phone Kailey Camacho MD Unavailable [phone] Pranav Gandhi MD Unavailable [phone] Kailey Camacho MD Primary Care Provider Encounter Details Date Type Department Care Team (Late st Contact Info) Description 02/12/2018 Procedure Pass OR Admitting Dept - Virtual Department [address] [place] [address] Social History Tobacco Use Types Packs/Day Years [...] documented as of this encounter Care Teams Occupational Health Manager Relationship Specialty Start Date End Date Kailey Camacho MD 15 [place] [address] [email or web address] PCP - General Internal Medicine 07/20/17 Kailey Camacho MD 15 [place] [address] [email or web address] Historical LMR Provider 07/04/17 Pranav Gandhi MD [address] [place] [address] Historical LMR Provider 07/04/17 2 documented as of this encounter Additional Source Comments The information contained in this document represents components of the legal health record. It is not the complete legal health record.[facility]
--- OUTSIDE RECORDS SUMMARY | 2025-07-21 14:30 | XMS_ITS | Encounter Summary ---
Author Organization [facility] Address [address] [facility] [address] [place] [address] Phone Care Team Providers Care Climatology Professor Name Role Phone Kailey Camacho MD Unavailable [phone] Pranav Gandhi MD Unavailable [phone] Kailey Camacho MD Primary Care Provider Encounter Details Date Type Department Care Team (Late st Contact Info) Description 11/12/2020 Procedure Pass [facility], Ct Scan - [address] [address] Social History Tobacco Use Types Packs/Day Years [...] 11/12/2020 10:01 AM Brie Cox RN * [place] Suicide Severity Rating Scale (Screener/Recent Self-Report) Question [...] documented as of this encounter Care Teams Climatology Professor Relationship Specialty Start Date End Date Kailey Camacho MD 15 [place] [address] [email or web address] PCP - General Internal Medicine 07/20/17 Kailey Camacho MD 15 [place] [address] Historical LMR Provider 07/04/17 Pranav Gandhi MD [address] [place] [address] Historical LMR Provider 07/04/17 2 documented as of this encounter Additional Source Comments The information contained in this document represents components of the legal health record. It is not the complete legal health record.[facility]
--- OUTSIDE RECORDS SUMMARY | 2025-07-21 14:30 | XMS_ITS | Encounter Summary ---
Author Organization [facility] Address [address] [place] [address] [place] [address] Phone Care Team Providers Care Customer Sales Distributor Name Role Phone Kailey Camacho MD Unavailable [phone] Pranav Gandhi MD Unavailable [phone] Kailey Camacho MD Primary Care Provider [phone] Encounter Details Date Type Department Care Team (Late st Contact Info) Description 08/05/2017 Procedure Pass [facility], [address] [address] Social History Tobacco Use Types Packs/Day Years [...] documented as of this encounter Care Teams Customer Sales Distributor Relationship Specialty Start Date End Date Kailey Camacho MD 15 [place] [address] [email or web address] PCP - General Internal Medicine 07/20/17 Kailey Camacho MD [address] [place] [address] [email or web address] Historical LMR Provider 07/04/17 Pranav Gandhi MD [address] [place] [address] Historical LMR Provider 07/04/17 2 documented as of this encounter Additional Source Comments The information contained in this document represents components of the legal health record. It is not the complete legal health record.[facility]
--- OUTSIDE RECORDS SUMMARY | 2025-07-21 14:30 | XMS_ITS | Encounter Summary ---
Author Organization [facility] Address [address] [place] [address] [place] [address] Phone Care Team Providers Care Manufacturers Service Representative Name Role Phone Kailey Camacho MD Unavailable Pranav Gandhi MD Unavailable [phone] Kailey Camacho MD Primary Care Provider Encounter Details Date Type Department Care Team (Late st Contact Info) Description 07/20/2017 Transcribe Orders [facility]le[facility] [address] [place] [address] Kailey Camacho MD [address] [place] [id number] [email or web address] Routine general medical examination [...] EDT Routine [facility] Fatigue, unspecified type THYROID STIMULATING HORMONE (TSH) Routine 07/20/2017 10:14 AM EDT Routine general medical examination at a [facility] Fatigue, unspecified type LIPID PANEL Routine 07/20/2017 10:14 AM EDT Routine general medical examination at a [facility] Fatigue, unspecified type documented in this encounter Results * (ABNORMAL) Urine sediment (07/20/2017 10:14 AM EDT) WBC 50-100(A) NONE SEEN /hpf [facility] RBC 6-10(A) NONE SEEN /hpf [facility] URINE EPITHELIAL 11-20(A) NONE SEEN [facility] MUCUS 1+(A) NONE SEEN /hpf [facility] BACTERIA 1+(A) NONE SEEN [facility] CRYSTALS 3+ [facility] Comment:AMORPHOUS 07/20/2017 10:1 4 AM EDT 07/20/2017 10:18 AM EDT Kailey Camacho MD LAB URINE ORDERABLES Final Result Performing Organization Address City/State/[facility] Co de Phone Number [address] [address] * (ABNORMAL) Urinalysis (07/20/2017 10:14 AM EDT) COLOR Yellow Yellow [facility] CLARITY TURBID [facility] GLUCOSE Negative Negative [facility] BILI Negative Negative [facility] KETONES Negative Negative [facility] SPECIFIC GRAVITY >1.030 1.005 - 1.030 [facility] BLOOD 3+(A) Negative [facility] PH 5.5 5.0 - 8.0 [facility] Protein-UA Negative Negative [facility] NITRITE Negative Negative [facility] Leukocyte esterase, ur 2+(A) Negative [facility] Urine (Urine) 07/20/2017 10: 14 AM EDT 07/20/2017 10:18 AM EDT Kailey Camacho MD LAB URINE ORDERABLES Final Result Performing Organization Address [facility] Co de Phone Number [address] [address] * TSH (07/20/2017 10:14 AM EDT) TSH 3.02 0.27 - 4.20 uIU/mL [facility] Blood 07/20/2017 10:1 4 AM EDT 07/20/2017 10:19 AM EDT Kailey Camacho MD LAB BLOOD BKR ORDERABLES Fi nal Result Performing Organization Address [facility] de Phone Number [address] [address] * (ABNORMAL) CBC (07/20/2017 10:14 AM EDT) WBC 8.91 3.40 - 11.20 K/uL [facility] RBC 4.77 3.80 - 4.80 M/uL [facility] HGB 13.1 12.0 - 15.0 g/dL [facility] HCT 38.8 36.0 - 46.0 % [facility] PLT 304 130 - 400 K/uL [facility] MCV 81.3 79.0 - 98.0 [facility] MCH 27.5 27.0 - 34.8 pg [facility] MCHC 33.8 31.5 - 36.0 g/dL [facility] RDW 14.0 10.8 - 14.6 % [facility] MPV 9.2(L) 9.4 - 12.4 [facility] NRBC 0.00 /100 WBCs [facility] ABSOLUTE NRBC 0.00 K/uL [facility] Blood 07/20/2017 10:1 4 AM EDT 07/20/2017 10:19 AM EDT us Kailey Camacho MD LAB BLOOD BKR ORDERABLES Fi nal Result Performing Organization Address [facility] Co de Phone Number [address] [address] * Lipid panel (07/20/2017 10:14 AM EDT) HDL 49 mg/dL [facility] Comment: Interpretation: Risk Level Females Decreased >55mg/dL Average 50-55 mg/dL Increased <50 mg/dL CHOLESTEROL 201 0 - 240 mg/dL [facility] Comment: Pediatric Reference Ranges for 2 to 18 years Acceptable: Less than 170 mg/dL Borderline: 170 - 199 mg/dL High: Greater than or equal to 200 mg/dL TRIGLYCERIDES 119 30 - 160 mg/dL [facility] LDL 128 50 - 129 mg/dL [facility] Comment: LDL levels in terms of risk for coronary heart disease: <100 mg/dL: Optimal 100-129 mg/dL: Near or above optimal 130-159 mg/dL: Borderline high 160-189 mg/dL: High >190 mg/dL: Very High CARDIAC RISK RATIO 4.1 3.3 - 4.4 C [facility] Blood 07/20/2017 10:1 4 AM EDT 07/20/2017 10:19 AM EDT us Kailey Camacho MD LAB BLOOD BKR ORDERABLES Fi nal Result Performing Organization Address [facility] Co de Phone Number [address] [address] documented in this encounter Visit Diagnoses Diagnosis Routine general medical examination at a health care facility- Primary Fatigue, unspecified type documented in this encounter Additional Health Concerns Infection Onset Date Last Indicated Resolved Time CoV-Risk 07/27/2021 07/27/2021 08/06/2021 1:22 AM EST CoV-Risk 10/04/2021 10/04/2021 10/14/2021 1:23 AM EST documented as of this encounter Care Teams Manufacturers Service Representative Relationship Specialty Start Date End Date Kailey Camacho MD 15 [place] [address] [email or web address] PCP - General Internal Medicine 07/20/17 Kailey Camacho MD [address] [place] [address] [email or web address] Historical LMR Provider 07/04/17 Pranav Gandhi MD [address] [place] [address] Historical LMR Provider 07/04/17 2 documented as of this encounter Additional Source Comments The information contained in this document represents components of the legal health record. It is not the complete legal health record.[facility]
--- OUTSIDE RECORDS SUMMARY | 2025-07-21 14:30 | XMS_ITS | Clinical Summary ---
Author Organization [facility] Address [address] [place] [address] Phone Care Team Providers Care Lime Kiln And Recausticizing Operator Name Role Phone Kailey Camacho MD Unavailable [phone] Kailey Camacho MD Primary Care Provider Allergies [...] Office Visit [facility] [address] [place] [address] [place] [address] Eliel Valles MD Negative test (Primary Dx); Nexplanon insertion from Last 3 Months Immunizations Immunization Administration Dates Next Due DTaP 03/26/2003, 0,1999,07/11,1999 [id number] FORMULATION 07/20/2009 HPV,quadrivalent 07/21/2014,07/03/2013 HPV9 08/26/2015 Hepatitis [...] ecorded Are you denied basic needs s [facility] as food, clothing, or medical care? No 06/10/2023 In the past 12 months have y ou been in a relationship with a person who hurts, threatens, or tries to control you? No 06/10/2023 Are you denied basic needs s [facility] as food, clothing, or medical care? No [...] 01/16/2024 12:00 AM EDT BASIC METABOLIC PANEL (BMP) STAT 06/10/2023 7:28 PM EDT from Last 3 Months or Most Recently Relevant to Health Maintenance Results * Poct Urine HCG (04/26/2025 5:36 PM EDT) HCG, urine Negative, Internal QCs acceptable Negative [facility] Other 04/26/2025 5:36 PM EDT Eleil Valles MD LAB POCT ENTER/EDIT ORDERABLES F inal Result Performing Organization Address City/State/[facility] Co de Phone Number [address] [address], [facility] * Pap Test (01/16/2024 12:00 AM EDT) [place] [address] Control Systems Engineer: Elli Best MD FOOD SERVICE CLERK Cytology Report FINAL DIAGNOSIS A. PAP SMEAR [...] : 2000 (Age: 23) Sex: F Institution: [facility] Location: [facility] Date of Collection: 01/16/2024 Date of Reported: 01/23/2024 16:57 Results to: Eliel Valles MD [facility] Final Diagnosis A. PAP SMEAR (THIN PREP) CE: SPECIMEN ADEQUACY: Satisfactory for evaluation; transformation zone present. Limited by blood INTERPRETATION: NEGATIVE FOR INTRAEPITHELIAL LESION OR MALIGNANCY. [facility] Conversion Type (Conversion Source) 01/16/2024 01/20/2024 11:40 AM EDT us Eliel Valles MD CYTOLOGY ORDERABLES Edited Resul t - Final [facility] [address] [place] [address] * (ABNORMAL) Basic metabolic panel (06/10/2023 7:28 PM EDT) SODIUM 138 133 - 146 mmol/L [facility] CHLORIDE 102 96 - 108 mmol/L [facility] POTASSIUM 3.9 3.3 - 5.1 mmol/L [facility] CO2 23 21 - 35 mmol/L [facility] BUN 8 6 - 19 mg/dL [facility] CREATININE 0.60 0.5 - 1.5 mg/dL [facility] GLUCOSE 110(H) 70 - 99 mg/dL [facility] CALCIUM 9.6 8.4 - 10.3 mg/dL [facility] EGFR >120 >59 mL/min/1.7 3m2 [facility] Comment:Estimated glomerular filtration rate calculated using the CKD-EPI refit equation. ANION GAP 17 10 - 20 mmol/L [facility] Blood 06/10/2023 7:28 PM EDT 06/10/2023 7:30 PM EDT us Clayton Mitchell MD LAB BLOOD BKR ORDERABLES Fi nal Result [address] [address] from Last 3 Months or Most Recently Relevant to Health Maintenance Insurance [address] [place], [place] [address] [place], [place] [address]S Advance Directives For more information, please contact: [phone] (9AM - 5PM [facility], Saturday-Saturday) Documents on File Type Date Recorded Patient Doughmaker Expl anation Healthcare Proxy 02/14/2018 12:07 PM * Full Code (Presumed) (Latest Code Status on File) Date Activated Date Inactivated Comments 02/12/2018 3:21 PM 02/13/2018 1:38 PM Care Teams Lime Kiln And Recausticizing Operator Relationship Specialty Start Date End Date Kailey Camacho MD [address] [place] [address] [email or web address] PCP - General Internal Medicine 07/20/17 Kailey Camacho MD [address] [place] [address] [email or web address] Historical LMR Provider 07/04/17 Additional Source Comments The information contained in this document represents components of the legal health record. It is not the complete legal health record.[facility]
== END 2025-07-21 13:12 | disposition home or self-care (01) ==
LOC: HO.HBST 11:49
PROVIDERS: PCP Nurse Practitioner Family; Visit Provider Counselor Mental Health
DX: F32.9 Major depressive disorder, single episode, unspecified (principal); F41.1 Generalized anxiety disorder; F42.9 Obsessive-compulsive disorder, unspecified; Z98.84 Bariatric surgery status
CPT/HCPCS: 90837

== ENCOUNTER 2025-08-10 12:17 | Outpatient (AMB) | payer OTHER, SELFPAY ==
--- NOTE | 2025-08-10 12:00 | MHC.WMTHER ---
Intake Intake Visit Reasons: VIDEO PO LSG 06/29/25 Allergies banana (BANANA) Allergy (Severe, Verified 06/25/25 13:07) ANAPHYLAXIS cefuroxime (From CEFTIN) Allergy (Severe, Verified 06/25/25 13:07) HIVES latex (LATEX) Allergy (Severe, Verified 06/23/25 12:04) SWELLING/HIVES Sulfa (Sulfonamide Antibiotics) (SULFA (SULFONAMIDE ANTIBIOTICS)) Allergy (Severe, Verified 06/25/25 13:07) HIVES sulfacetamide Allergy (Severe, Verified 06/25/25 13:07) Hives tuberculin,PPD,multi-puncture Allergy (Severe, Verified 06/25/25 13:07) Hives PFSH Medical History (Updated 07/03/25 @ 00:02 by Reji Luna) Familial Mediterranean fever Nexplanon in place Difficult intubation Environmental and seasonal allergies PONV (postoperative nausea and vomiting) BMI 39.0-39.9,adult Fatty liver Familial Mediterranean fever Asthma DJD (degenerative joint disease) Migraines Hypertension Morbid obesity GERD (gastroesophageal reflux disease) Depression OCD (obsessive compulsive disorder) Anxiety Costochondritis Vocal cord dysfunction Airway malacia Surgical History (Updated 07/07/25 @ 09:39 by Tori Rocha CMA) S/P gastric sleeve procedure History of bronchoscopy History of laparoscopic cholecystectomy (~2018) History of back surgery (2021) Hx of colonoscopy History of esophagogastroduodenoscopy (EGD) (05/13/25) H/O adenoidectomy (2011) History of tonsillectomy (2011) Family History Mother Hypoactive thyroid Hypertension High cholesterol Father Hypertension Blocked artery Social History (Updated 06/25/25 @ 13:06 by Aislinn Hoyos RN) Household Members: Spouse Housing: House Are you a primary aged or disabled carer to a significant other at home: No Do you presently have visiting nurse or other home services: No 75 years or older and lives alone: No Alcohol intake: current Alcohol intake frequency: holidays/special occasions only Patient Tobacco Use Status: Never used Tobacco e-Cigarette/Vaping Use: Never Used Behavioral Health Assessment Weight Management Therapy Therapy Notes Details Subjective: The patient reports feeling disappointed about slow weight loss progress this week. She describes the week as stressful and emotionally challenging, primarily due to ongoing financial concerns. She also notes an increase in obsessive-compulsive symptoms (OCD Sx), which she recognizes as a seasonal pattern?her symptoms typically worsen during this time of year. She identifies that seeing Ashleigh decorations before Thanksgiving acts as a trigger, leading to increased fixation on order and routine. Objective: Patient attended the session via telehealth, appearing alert and engaged throughout. Interventions focused on cognitive-behavioral therapy (CBT) techniques for symptom management. Psychoeducation was provided regarding the OCD cycle, including identification of intrusive thoughts, compulsive responses, and the impact of avoidance or freeze/alisia coping mechanisms. The cycle of control exercise was introduced and practiced, helping the patient differentiate between controllable and uncontrollable factors, and reinforcing adaptive coping strategies. Two mindfulness-based thought-stopping exercises were completed to interrupt ruminative thought patterns, and the patient was guided through intentional junk journaling as a tool for externalizing anxiety and reducing cognitive overload. Cognitive restructuring techniques were used to challenge maladaptive beliefs related to weight loss and holiday triggers. The patient demonstrated understanding and active participation in all interventions. Assessment/Response: Mental status: Patient is oriented to person, place, and time. Mood is described as anxious and mildly dysphoric, with congruent affect. Thought process is linear and goal-directed. No evidence of psychosis or christian. Insight and judgment are intact. Risk reported/identified: Patient denies suicidal or homicidal ideation, intent, or plan. No acute safety concerns identified during the session. Assessment & Plan Assessment & Plan (1) Depression: Code(s): F32.9 - Major depressive disorder, single episode, unspecified Qualifiers: Major depression recurrence: unspecified whether recurrent Major depression episode severity: unspecified (2) DARINEL (generalized anxiety disorder): Code(s): F41.1 - Generalized anxiety disorder (3) OCD (obsessive compulsive disorder): Code(s): F42.9 - Obsessive-compulsive disorder, unspecified (4) Status post bariatric surgery: Code(s): Z98.84 - Bariatric surgery status Plan Follow-up scheduled in 2 months. Next appointment is set for 10/05/2025 at 11:00 AM via telehealth. Patient encouraged to continue practicing CBT and mindfulness techniques between sessions, and to monitor for any escalation in OCD symptoms or mood changes. Telehealth Telehealth Telehealth Platform: [facility] Location of provider rendering services: other (Home office. [place], [place]) Location of patient: address on file Patient Identification confirmed using: Name, : Yes Telehealth method: video Patient verbally consented to treatment: Yes Patient verbally consented to billing insurance company: Yes Patient informed of any privacy concerns related to visit: Yes Minutes spent on Phone/Video with Pt.: 60 [place] [address] Tele Psytx >53 mins Patient Type Established Diagnoses Depression F32.9 Major depression recurrence: unspecified whether recurrent Major depression episode severity: unspecified DARINEL (generalized anxiety disorder) F41.1 OCD (obsessive compulsive disorder) F42.9 Status post bariatric surgery Z98.84 Time Spent (min) 60
--- OUTSIDE RECORDS SUMMARY | 2025-08-10 15:58 | XMS_ITS | Encounter Summary ---
Author Organization [facility] Address [address] [place] [address] [place] [address] Phone Care Team Providers Care Machine Shorthand Teacher Name Role Phone Kailey Camacho MD Unavailable [phone] Pranav Gandhi MD Unavailable [phone] Kailey Camacho MD Primary Care Provider Encounter Details Date Type Department Care Team (Late st Contact Info) Description 07/30/2017 Ancillary Orders [facility], X-Ray - [address] [address] Kala Jarrell PA [address] [place], [place] [id number] [email or web address] Right hip pain Social History Tobacco Use [...] EST No explanation for pain. POS - [id number] Narrative 07/30/2017 5:16 PM EST HISTORY: Pain [...] IMPRESSION: No explanation for pain. POS - [id number] Kala NIX IMG XR PELVIS Final Result [...] documented as of this encounter Care Teams Machine Shorthand Teacher Relationship Specialty Start Date End Date Kailey Camacho MD [address] [place] [address] PCP - General Internal Medicine 07/20/17 Kailey Camacho MD [address] [place] [email or web address] Historical LMR Provider 07/04/17 Pranav Gandhi MD [address] [place] [address] Historical LMR Provider 07/04/17 2 documented as of this encounter Additional Source Comments The information contained in this document represents components of the legal health record. It is not the complete legal health record.[facility]
--- OUTSIDE RECORDS SUMMARY | 2025-08-10 15:58 | XMS_ITS | Encounter Summary ---
Author Organization [facility] Address [address] [facility] [address] [place] [address] Phone Care Team Providers Care Nurse Quality Name Role Phone Kailey Camacho MD Unavailable [phone] Pranav Gandhi MD Unavailable [phone] Kailey Camacho MD Primary Care Provider Encounter Details Date Type Department Care Team (Late st Contact Info) Description 11/17/2020 Procedure Pass [facility], Ct Scan - [address] [address] Social History Tobacco Use Types Packs/Day Years [...] 11/17/2020 9:43 PM Emelia Barksdale, ANNETTE * [place] Suicide Severity Rating Scale (Screener/Recent Self-Report) Question [...] documented as of this encounter Care Teams Nurse Quality Relationship Specialty Start Date End Date Kailey Camacho MD [address] [place] [address] [email or web address] PCP - General Internal Medicine 07/20/17 Kailey Camacho MD [address] [place] [address] [email or web address] Historical LMR Provider 07/04/17 Pranav Gandhi MD [address] [place] [address] Historical LMR Provider 07/04/17 2 documented as of this encounter Additional Source Comments The information contained in this document represents components of the legal health record. It is not the complete legal health record.[facility]
--- OUTSIDE RECORDS SUMMARY | 2025-08-10 15:58 | XMS_ITS | Encounter Summary ---
Author Organization [facility] Address [address] [facility] [address] [place] [address] Phone Care Team Providers Care Production Assistant Name Role Phone Kailey Camacho MD Unavailable Pranav Gandhi MD Unavailable [phone] Kailey Camacho MD Primary Care Provider [phone] Encounter Details Date Type Department Care Team (Late st Contact Info) Description 04/01/2019 Transcribe Orders [facility] Phleb Main [address] [place] [address] Kailey Camacho MD [address] [place] [id number] [email or web address] Delinquent immunization status (Primary Dx) Social History [...] PM EDT) HBV SURFACE ANTIGEN Negative Negative [facility] Blood 04/01/2019 2:38 PM EDT 04/01/2019 2:42 PM EDT Kailey Camacho MD LAB BLOOD BKR ORDERABLES Fi nal Result Performing Organization Address [facility] Co de Phone Number [address] [address] * Hepatitis B surface antibody (04/01/2019 2:38 PM EDT) HBV SURFACE ANTIBODY Positive [facility] Comment: Unvaccinated: Negative Vaccinated: Positive Blood 04/01/2019 2:38 PM EDT 04/01/2019 2:42 PM EDT Kailey Camacho MD LAB BLOOD BKR ORDERABLES Fi nal Result Performing Organization Address [facility] Co de Phone Number [address] [address] documented in this encounter Visit Diagnoses Diagnosis Delinquent immunization status- Primary Personal history of underimmunization status documented in this encounter Additional Health Concerns Infection Onset Date Last Indicated Resolved Time CoV-Risk 07/27/2021 07/27/2021 08/06/2021 1:22 AM EST CoV-Risk 10/04/2021 10/04/2021 10/14/2021 1:23 AM EST documented as of this encounter Care Teams Production Assistant Relationship Specialty Start Date End Date Kailey Camacho MD [address] [place] [address] [email or web address] PCP - General Internal Medicine 07/20/17 Kailey Camacho MD [address] [place] [address] Historical LMR Provider 07/04/17 Pranav Gandhi MD [address] [place] [address] Historical LMR Provider 07/04/17 2 documented as of this encounter Additional Source Comments The information contained in this document represents components of the legal health record. It is not the complete legal health record.[facility]
--- OUTSIDE RECORDS SUMMARY | 2025-08-10 15:58 | XMS_ITS | Encounter Summary ---
Author Organization [facility] Address [address] [facility] [address] [place] [address] Phone Care Team Providers Care Field Sales Representative Name Role Phone Kailey Camacho MD Unavailable [phone] Pranav Gandhi MD Unavailable [phone] Kailey Camacho MD Primary Care Provider Encounter Details Date Type Department Care Team (Latest Contact Info) Description 01/10/2019 Transcribe Orders [facility] Phleb Main [address] [place] [address] Leticia Hurtado PA [address] [place] [address] [place] [address] Screening for unspecified condition (Primary Dx) Social [...] documented as of this encounter Care Teams Field Sales Representative Relationship Specialty Start Date End Date Kailey Camacho MD [address] [place] [address] [email or web address] PCP - General Internal Medicine 07/20/17 Kailey Camacho MD [address] [place] [address] [email or web address] Historical LMR Provider 07/04/17 Pranav Gandhi MD [address] [place] [address] Historical LMR Provider 07/04/17 2 documented as of this encounter Additional Source Comments The information contained in this document represents components of the legal health record. It is not the complete legal health record.[facility]
--- OUTSIDE RECORDS SUMMARY | 2025-08-10 15:58 | XMS_ITS | Encounter Summary ---
Author Organization [facility] Address [address] [place] [address] [place] [address] Phone Care Team Providers Care Organic Gardening Teacher Name Role Phone Kailey Camacho MD Unavailable [phone] Pranav Gandhi MD Unavailable [phone] Kailey Camacho MD Primary Care Provider Encounter Details Date Type Department Care Team (Latest Contact Info) Description 07/27/2021 Transcribe Orders Virtual Department [address] [place] [address] Kala Jarrell PA [address] [place], [place] [id number] [email or web address] Encounter for laboratory testing for COVID-19 virus [...] be available within 24 to 48 hrs. [facility] Symptomatic? YES [facility] Other 07/27/2021 12:5 7 PM EST 07/27/2021 5:45 PM EST Kailey Camacho MD LAB GENERAL ORDERABLES Xi lerner Result [facility] [address] [place] [address] [facility] [address] [place] [address] documented in this encounter Visit Diagnoses Diagnosis Encounter for laboratory testing for COVID-19 virus- Primary documented in this encounter Additional Health Concerns Infection Onset Date Last Indicated Resolved Time CoV-Risk 07/27/2021 07/27/2021 08/06/2021 1:22 AM EST CoV-Risk 10/04/2021 10/04/2021 10/14/2021 1:23 AM EST documented as of this encounter Care Teams Organic Gardening Teacher Relationship Specialty Start Date End Date Kailey Camacho MD [address] [place] [address] [email or web address] PCP - General Internal Medicine 07/20/17 Kailey Camacho MD [address] [place] [address] Historical LMR Provider 07/04/17 Pranav Gandhi MD [address] [place] [address] Historical LMR Provider 07/04/1709/23/2 2 documented as of this encounter Additional Source Comments The information contained in this document represents components of the legal health record. It is not the complete legal health record.[facility]
--- OUTSIDE RECORDS SUMMARY | 2025-08-10 15:58 | XMS_ITS | Encounter Summary ---
Author Organization [facility] Address [address] [place] [address] [place] [address] Phone Care Team Providers Care Regional Forester Name Role Phone Kailey Camacho MD Unavailable [phone] Kailey Camacho MD Primary Care Provider [phone] Encounter Details Date Type Department Care Team (Latest Contact Info) Description 02/28/2022 Transcribe Orders Virtual Department [address] [place] [address] Kala Jarrell PA [address] [place] [address] [email or web address] Pain and swelling of left ankle (Primary [...] Primary documented in this encounter Care Teams Regional Forester Relationship Specialty Start Date End Date Kailey Camacho MD [address] [place] [address] [email or web address] PCP - General Internal Medicine 07/20/17 Kailey Camacho MD [address] [place] [address] [email or web address] Historical LMR Provider 07/04/17 documented as of this encounter Additional Source Comments The information contained in this document represents components of the legal health record. It is not the complete legal health record.[facility]
--- OUTSIDE RECORDS SUMMARY | 2025-08-10 15:58 | XMS_ITS | Encounter Summary ---
Author Organization [facility] Address [address] [place] [address] [place] [address] Phone Care Team Providers Care Wildlife Conservationist Name Role Phone Kailey Camacho MD Unavailable [phone] Pranav Gandhi MD Unavailable [phone] Kailey Camacho MD Primary Care Provider Encounter Details Date Type Department Care Team (Late st Contact Info) Description 08/05/2017 Procedure Pass [facility], [address] [address] Social History Tobacco Use Types Packs/Day Years [...] documented as of this encounter Care Teams Wildlife Conservationist Relationship Specialty Start Date End Date Kailey Camacho MD [address] [place] [address] [email or web address] PCP - General Internal Medicine 07/20/17 Kailey Camacho MD [address] [place] [address] [email or web address] Historical LMR Provider 07/04/17 Pranav Gandhi MD [address] [place] [address] Historical LMR Provider 07/04/17 2 documented as of this encounter Additional Source Comments The information contained in this document represents components of the legal health record. It is not the complete legal health record.[facility]
--- OUTSIDE RECORDS SUMMARY | 2025-08-10 15:58 | XMS_ITS | Encounter Summary ---
Author Organization [facility] Address [address] [place] [address] Phone Care Team Providers Care Load Dispatcher Local Name Role Phone Kailey Camacho MD Unavailable Pranav Gandhi MD Unavailable [phone] Kailey Camacho MD Primary Care Provider Encounter Details Date Type Department Care Team (Latest Contact Info) Description 08/05/2017 Ancillary Orders Virtual Department 30 [place] [address] Kala Jarrell PA [address] [place], [place] [phone] [email or web address] Lumbar radiculopathy Social History Tobacco Use Types [...] paracentral disc protrusion at L1-L2. POS - [id number] Narrative 08/14/2017 12:36 PM EST HISTORY: Lower [...] paracentral disc protrusion at L1-L2. POS - [id number] Kala NIX G MR XSPECIALTY Final Result [...] documented as of this encounter Care Teams Load Dispatcher Local Relationship Specialty Start Date End Date Kailey Camacho MD [address] [place] [address] PCP - General Internal Medicine 07/20/17 Kailey Camacho MD [address] [place] [address] Historical LMR Provider 07/04/17 Pranav Gandhi MD [address] [place] [address] Historical LMR Provider 07/04/17 2 documented as of this encounter Additional Source Comments The information contained in this document represents components of the legal health record. It is not the complete legal health record.[facility]
--- OUTSIDE RECORDS SUMMARY | 2025-08-10 15:58 | XMS_ITS | Encounter Summary ---
Author Organization [facility] Address [address] [facility] [address] [place] [address] Phone Care Team Providers Care Byproducts Operator Name Role Phone Kailey Camacho MD Unavailable [phone] Pranav Gandhi MD Unavailable [phone] Kailey Camacho MD Primary Care Provider [phone] Encounter Details Date Type Department Care Team (Late st Contact Info) Description 11/12/2020 Procedure Pass [facility], Ct Scan - [address] [address] Social History Tobacco Use Types Packs/Day Years [...] 11/12/2020 10:01 AM Brie Cox RN * [place] Suicide Severity Rating Scale (Screener/Recent Self-Report) Question [...] documented as of this encounter Care Teams Byproducts Operator Relationship Specialty Start Date End Date Kailey Camacho MD [address] [place] [address] [email or web address] PCP - General Internal Medicine 07/20/17 Kailey Camacho MD [address] [place] [address] Historical LMR Provider 07/04/17 Pranav Gandhi MD [address] [place] [address] Historical LMR Provider 07/04/17 2 documented as of this encounter Additional Source Comments The information contained in this document represents components of the legal health record. It is not the complete legal health record.[facility]
--- OUTSIDE RECORDS SUMMARY | 2025-08-10 15:58 | XMS_ITS | Encounter Summary ---
Author Organization [facility] Address [address] [place] [address] [place] [address] Phone Care Team Providers Care Pressroom Foreman Name Role Phone Kailey Camacho MD Unavailable [phone] Kailey Camacho MD Primary Care Provider [phone] Encounter Details Date Type Department Care Team (Late st Contact Info) Description 10/09/2021 Procedure Pass [facility] [place] [address] [place] [address] Social History Tobacco Use Types Packs/Day Years [...] documented as of this encounter Care Teams Pressroom Foreman Relationship Specialty Start Date End Date Kailey Camacho MD [address] [place] [address] [email or web address] PCP - General Internal Medicine 07/20/17 Kailey Camacho MD [address] [place] [address] [email or web address] Historical LMR Provider 07/04/17 documented as of this encounter Additional Source Comments The information contained in this document represents components of the legal health record. It is not the complete legal health record.[facility]
--- OUTSIDE RECORDS SUMMARY | 2025-08-10 15:58 | XMS_ITS | Encounter Summary ---
Author Organization [facility] Address [address] [place] [address] [place] [address] Phone Care Team Providers Care Senior Cognos Developer Name Role Phone Kailey Camacho MD Unavailable [phone] Pranav Gandhi MD Unavailable [phone] Kailey Camacho MD Primary Care Provider Encounter Details Date Type Department Care Team (Latest Contact Info) Description 01/10/2019 Transcribe Orders [facility] Phleb Main [address] [place] [address] Leticia Hurtado PA [address] [place] [address] [place] [address] Screening for unspecified condition (Primary Dx) Social [...] EDT) Specimen Source/ Description STOOL STOOL STOOL [facility] Special Requests None [facility] DIRECT EXAM NO PARASITES FOUND BY DIRECT OR CONCENTRATION METHODS [facility] DIRECT EXAM No parasites found by Trichrome Stain [facility] Report Status 01/13/2019 FINAL [facility] Stool (Stool) 01/10/2019 9:5 9 AM EDT 01/10/2019 10:21 AM EDT us Leticia NIX LAB BODY FLUIDS AND S TOOL ORDERABLES Final Result Performing Organization Address City/State/[facility] Co de Phone Number [facility] [address] [place] [address] documented in this encounter Visit Diagnoses Diagnosis Screening for unspecified condition- Primary documented in this encounter Additional Health Concerns Infection Onset Date Last Indicated Resolved Time CoV-Risk 07/27/2021 07/27/2021 08/06/2021 1:22 AM EST CoV-Risk 10/04/2021 10/04/2021 10/14/2021 1:23 AM EST documented as of this encounter Care Teams Senior Cognos Developer Relationship Specialty Start Date End Date Kailey Camacho MD [address] [place] [address] [email or web address] PCP - General Internal Medicine 07/20/17 Kailey Camacho MD [address] [place] [address] [email or web address] Historical LMR Provider 07/04/17 Pranav Gandhi MD [address] [place] [address] Historical LMR Provider 07/04/17 2 documented as of this encounter Additional Source Comments The information contained in this document represents components of the legal health record. It is not the complete legal health record.[facility]
--- OUTSIDE RECORDS SUMMARY | 2025-08-10 15:58 | XMS_ITS | Encounter Summary ---
Author Organization [facility] Address [address] [place] [address] [place] [address] Phone Care Team Providers Care Aircraft Steel Fabricator Name Role Phone Kailey Camacho MD Unavailable Pranav Gandhi MD Unavailable [phone] Kailey Camacho MD Primary Care Provider Encounter Details Date Type Department Care Team (Late st Contact Info) Description 07/26/2017 Transcribe Orders [facility] Phleb Main [address] [place] [address] Kailey Camacho MD [address] [place] [address] [email or web address] Asymptomatic microscopic hematuria (Primary Dx) [...] PM EST) WBC 5-10(A) NONE SEEN /hpf [facility] RBC 0-2(A) NONE SEEN /hpf [facility] URINE EPITHELIAL 5-10(A) NONE SEEN [facility] MUCUS NONE SEEN NONE SEEN /hpf [facility] BACTERIA 2+(A) NONE SEEN [facility] 07/26/2017 3:29 PM EST 07/26/2017 3:31 PM EST Kailey Camacho MD LAB URINE ORDERABLES Final Result Performing Organization Address [facility] Co de Phone Number [address] [address] * Urine culture (07/26/2017 3:29 PM EST) Specimen Source/ Description URINE CLEAN CATCH URINE URINE [facility] Special Requests None [facility] GRAM STAIN Few GRAM POSITIVE RODS [facility] Culture/Test >100,000 colony forming units per ml MIXED CARLENE (3 OR MORE COLONY TYPES) Culture indicates contamination . Please resubmit if necessary. [facility] Report Status 07/27/2017 FINAL [facility] Urine (Urine) 07/26/2017 3:2 9 PM EST 07/26/2017 3:31 PM EST us Kailey Camacho MD LAB MICROBIOLOGY CULTURE OR DERABLES Final Result Performing Organization Address City/[facility]/ZIP Co de Phone Number [address] [address] * (ABNORMAL) Urinalysis (07/26/2017 3:29 PM EST) COLOR Yellow Yellow [facility] CLARITY Clear [facility] GLUCOSE Negative Negative [facility] BILI Negative Negative [facility] KETONES Negative Negative [facility] SPECIFIC GRAVITY >1.030 1.005 - 1.030 [facility] BLOOD Negative Negative [facility] PH 5.5 5.0 - 8.0 [facility] Protein-UA Negative Negative [facility] NITRITE Negative Negative [facility] Leukocyte esterase, ur Trace(A) Negative [facility] Urine (Urine) 07/26/2017 3:2 9 PM EST 07/26/2017 3:31 PM EST Kailey Camacho MD LAB URINE ORDERABLES Final Result [facility] [address] [place] [address] documented in this encounter Visit Diagnoses Diagnosis Asymptomatic microscopic hematuria- Primary documented in this encounter Additional Health Concerns Infection Onset Date Last Indicated Resolved Time CoV-Risk 07/27/2021 07/27/2021 08/06/2021 1:22 AM EST CoV-Risk 10/04/2021 10/04/2021 10/14/2021 1:23 AM EST documented as of this encounter Care Teams Aircraft Steel Fabricator Relationship Specialty Start Date End Date Kailey Camacho MD [address] [place] [address] [email or web address] PCP - General Internal Medicine 07/20/17 Kailey Camacho MD [address] [place] [address] [email or web address] Historical LMR Provider 07/04/17 Pranav Gandhi MD [address] [place] [address] Historical LMR Provider 07/04/17 2 documented as of this encounter Additional Source Comments The information contained in this document represents components of the legal health record. It is not the complete legal health record.[facility]
--- OUTSIDE RECORDS SUMMARY | 2025-08-10 15:58 | XMS_ITS | Clinical Summary ---
Author Organization [facility] Address [address] [place] [address] Phone Care Team Providers Care Profiling Machine Set Up Operator Name Role Phone Kailey Camacho MD Unavailable [phone] Kailey Camacho MD Primary Care Provider Allergies [...] Herniated nucleus pulposus, lumbar 02/13/2018 Radiculopathy 02/12/2018 Immunizations Immunization Administration Dates Next Due DTaP 03/26/2003, 0,1999,07/11,1999 [id number] FORMULATION 07/20/2009 HPV,quadrivalent 07/21/2014,07/03/2013 HPV9 08/26/2015 Hepatitis [...] Date Last Done Comments DEPRESSION SCREENING 2011 HIV ONE-TIME SCREENING (18-65 YEARS) 2017 CREATININE [...] on patient's age to complete this topic HEPATITIS C SCREENING Completed 04/01/2019 SMOKING STATUS SCREENING (Once After 26 Yrs) Completed 04/22/2025 HEPATITIS A VACCINES Aged Out No long er eligible based on patient's age to complete this topic MENINGOCOCCAL VACCINES (B) Aged Out N o longer eligible based on patient's age to complete this topic Medical Devices Not on file Procedures Procedure Name Priority Date/Time Associated Diagnosis Comments PAP TEST Routine 01/16/2024 12:00 AM EDT BASIC METABOLIC PANEL (BMP) STAT 06/10/2023 7:28 PM EDT HEPATITIS B SURFACE ANTIGEN Routine 04/01/2019 2:38 PM EDT Delinquent immunization status from Last 3 Months or Most Recently Relevant to Health Maintenance Results * Pap Test (01/16/2024 12:00 AM EDT) [place] [address] Administrative Support Manager: Elli Best MD DEVOPS ARCHITECT Cytology Report FINAL DIAGNOSIS A. PAP SMEAR [...] : 2000 (Age: 23) Sex: F Institution: [facility] Location: [facility] Date of Collection: 01/16/2024 Date of Reported: 01/23/2024 16:57 Results to: Eliel Valles MD [facility] Final Diagnosis A. PAP SMEAR (THIN PREP) CE: SPECIMEN ADEQUACY: Satisfactory for evaluation; transformation zone present. Limited by blood INTERPRETATION: NEGATIVE FOR INTRAEPITHELIAL LESION OR MALIGNANCY. [facility] Conversion Type (Conversion Source) 01/16/2024 01/20/2024 11:40 AM EDT Eliel Valles MD CYTOLOGY ORDERABLES Edited Resul t - Final Performing Organization Address [facility] Co de Phone Number [address] [address] * (ABNORMAL) Basic metabolic panel (06/10/2023 7:28 PM EDT) SODIUM 138 133 - 146 mmol/L [facility] CHLORIDE 102 96 - 108 mmol/L [facility] POTASSIUM 3.9 3.3 - 5.1 mmol/L [facility] CO2 23 21 - 35 mmol/L [facility] BUN 8 6 - 19 mg/dL [facility] CREATININE 0.60 0.5 - 1.5 mg/dL [facility] GLUCOSE 110(H) 70 - 99 mg/dL [facility] CALCIUM 9.6 8.4 - 10.3 mg/dL [facility] EGFR >120 >59 mL/min/1.7 3m2 [facility] Comment:Estimated glomerular filtration rate calculated using the CKD-EPI refit equation. ANION GAP 17 10 - 20 mmol/L [facility] Blood 06/10/2023 7:28 PM EDT 06/10/2023 7:30 PM EDT Clayton Mitchell MD LAB BLOOD BKR ORDERABLES Fi nal Result Performing Organization Address [facility] Co de Phone Number [address] [address] * Hepatitis B surface antigen (04/01/2019 2:38 PM EDT) HBV SURFACE ANTIGEN Negative Negative [facility] Blood 04/01/2019 2:38 PM EDT 04/01/2019 2:42 PM EDT Kailey Camacho MD LAB BLOOD BKR ORDERABLES Fi nal Result [address] [address] from Last 3 Months or Most Recently Relevant to Health Maintenance Insurance [address] [place], [place] [address]S [facility] Advance Directives For more information, please contact: [phone] (9AM - 5PM [facility], Saturday-Saturday) Documents on File Type Date Recorded Patient Beef Grader Expl anation Healthcare Proxy 02/14/2018 12:07 PM * Full Code (Presumed) (Latest Code Status on File) Date Activated Date Inactivated Comments 02/12/2018 3:21 PM 02/13/2018 1:38 PM Care Teams Profiling Machine Set Up Operator Relationship Specialty Start Date End Date Kailey Camacho MD [address] [place] [address] PCP - General Internal Medicine 07/20/17 Kailey Camacho MD [address] [place] [address] Historical LMR Provider 07/04/17 Additional Source Comments The information contained in this document represents components of the legal health record. It is not the complete legal health record.[facility]
--- OUTSIDE RECORDS SUMMARY | 2025-08-10 15:58 | XMS_ITS | Encounter Summary ---
Author Organization [facility] Address [address] [facility] [place] [address] Phone Care Team Providers Care Inspector Watch Assembly Name Role Phone Kailey Camacho MD Unavailable [phone] Kailey Camacho MD Primary Care Provider [phone] Reason for Referral * - Closed Specialty Diagnoses / Procedures Referred By Contsam t Referred To Contact Diagnoses Palpitations Procedures MCT (Mobile Cardiac Telemetry) En Winn MD Phone: tel: fax: [email or web address] Referral ID Status Reason Start Date Expiration Date Visits Re quested Visits Authorized [id number] Closed 10/17/2021 10/17/2022 1 1 Encounter Details Date Type Department Care Team (Late st Contact Info) Description 10/17/2021 Ancillary Orders [facility] [address], [address] [place] [address] En Winn MD [address] [facility] [address] [place] [address] [email or web address] Palpitations Social History Tobacco Use Types [...] Palpitations documented in this encounter Care Teams Inspector Watch Assembly Relationship Specialty Start Date End Date Kailey Camacho MD [address] [place] [address] PCP - General Internal Medicine 07/20/17 Kailey Camacho MD [address] [place] [address] [email or web address] Historical LMR Provider 07/04/17 documented as of this encounter Additional Source Comments The information contained in this document represents components of the legal health record. It is not the complete legal health record.[facility]
--- OUTSIDE RECORDS SUMMARY | 2025-08-10 15:59 | XMS_ITS | Encounter Summary ---
Author Organization [facility] Address [address] [place] [address] [place] [address] Phone Care Team Providers Care Solutions Development Analyst Name Role Phone Kailey Camacho MD Unavailable [phone] Pranav Gandhi MD Unavailable [phone] Kailey Camacho MD Primary Care Provider Encounter Details Date Type Department Care Team (Late st Contact Info) Description 07/20/2017 Transcribe Orders [facility] Phlebotomy [address] [place] [address] Kailey Camacho MD [address] [place] [address] [phone] [email or web address] Routine general medical examination at a health [...] EDT Routine general medical examination at a [facility] care facility Fatigue, unspecified type THYROID STIMULATING HORMONE (TSH) Routine 07/20/2017 10:14 AM EDT Routine general medical examination at a [facility] care facility Fatigue, unspecified type LIPID PANEL Routine 07/20/2017 10:14 AM EDT Routine general medical examination at a [facility] care facility Fatigue, unspecified type documented in this encounter Results * (ABNORMAL) Urine sediment (07/20/2017 10:14 AM EDT) WBC 50-100(A) NONE SEEN /hpf [facility] RBC 6-10(A) NONE SEEN /hpf [facility] URINE EPITHELIAL 11-20(A) NONE SEEN [facility] MUCUS 1+(A) NONE SEEN /hpf [facility] BACTERIA 1+(A) NONE SEEN [facility] CRYSTALS 3+ [facility] Comment:AMORPHOUS 07/20/2017 10:1 4 AM EDT 07/20/2017 10:18 AM EDT Kailey Camacho MD LAB URINE ORDERABLES Final Result Performing Organization Address City/State/[facility] Co de Phone Number [address] [address] * (ABNORMAL) Urinalysis (07/20/2017 10:14 AM EDT) COLOR Yellow Yellow [facility] CLARITY TURBID [facility] GLUCOSE Negative Negative [facility] BILI Negative Negative [facility] KETONES Negative Negative [facility] SPECIFIC GRAVITY >1.030 1.005 - 1.030 [facility] BLOOD 3+(A) Negative [facility] PH 5.5 5.0 - 8.0 [facility] Protein-UA Negative Negative [facility] NITRITE Negative Negative [facility] Leukocyte esterase, ur 2+(A) Negative [facility] Urine (Urine) 07/20/2017 10: 14 AM EDT 07/20/2017 10:18 AM EDT Kailey Camacho MD LAB URINE ORDERABLES Final Result Performing Organization Address [facility] Co de Phone Number [address] [address] * TSH (07/20/2017 10:14 AM EDT) TSH 3.02 0.27 - 4.20 uIU/mL [facility] Blood 07/20/2017 10:1 4 AM EDT 07/20/2017 10:19 AM EDT Kailey Camacho MD LAB BLOOD BKR ORDERABLES Fi nal Result Performing Organization Address [facility] de Phone Number [address] [address] * (ABNORMAL) CBC (07/20/2017 10:14 AM EDT) WBC 8.91 3.40 - 11.20 K/uL [facility] RBC 4.77 3.80 - 4.80 M/uL [facility] HGB 13.1 12.0 - 15.0 g/dL [facility] HCT 38.8 36.0 - 46.0 % [facility] PLT 304 130 - 400 K/uL [facility] MCV 81.3 79.0 - 98.0 [facility] MCH 27.5 27.0 - 34.8 pg [facility] MCHC 33.8 31.5 - 36.0 g/dL [facility] RDW 14.0 10.8 - 14.6 % [facility] MPV 9.2(L) 9.4 - 12.4 [facility] NRBC 0.00 /100 WBCs [facility] ABSOLUTE NRBC 0.00 K/uL [facility] Blood 07/20/2017 10:1 4 AM EDT 07/20/2017 10:19 AM EDT us Kailey Camacho MD LAB BLOOD BKR ORDERABLES Fi nal Result Performing Organization Address [facility] Co de Phone Number [address] [address] * Lipid panel (07/20/2017 10:14 AM EDT) HDL 49 mg/dL [facility] Comment: Interpretation: Risk Level Females Decreased >55mg/dL Average 50-55 mg/dL Increased <50 mg/dL CHOLESTEROL 201 0 - 240 mg/dL [facility] Comment: Pediatric Reference Ranges for 2 to 18 years Acceptable: Less than 170 mg/dL Borderline: 170 - 199 mg/dL High: Greater than or equal to 200 mg/dL TRIGLYCERIDES 119 30 - 160 mg/dL [facility] LDL 128 50 - 129 mg/dL [facility] Comment: LDL levels in terms of risk for coronary heart disease: <100 mg/dL: Optimal 100-129 mg/dL: Near or above optimal 130-159 mg/dL: Borderline high 160-189 mg/dL: High >190 mg/dL: Very High CARDIAC RISK RATIO 4.1 3.3 - 4.4 [facility] Blood 07/20/2017 10:1 4 AM EDT 07/20/2017 10:19 AM EDT us Kailey Camacho MD LAB BLOOD BKR ORDERABLES Fi nal Result Performing Organization Address [facility] Co de Phone Number [address] [address] documented in this encounter Visit Diagnoses Diagnosis Routine general medical examination at a health care facility- Primary Fatigue, unspecified type documented in this encounter Additional Health Concerns Infection Onset Date Last Indicated Resolved Time CoV-Risk 07/27/2021 07/27/2021 08/06/2021 1:22 AM EST CoV-Risk 10/04/2021 10/04/2021 10/14/2021 1:23 AM EST documented as of this encounter Care Teams Solutions Development Analyst Relationship Specialty Start Date End Date Kailey Camacho MD [address] [place] [address] [email or web address] PCP - General Internal Medicine 07/20/17 Kailey Camacho MD [address] [place] [address] [email or web address] Historical LMR Provider 07/04/17 Pranav Gandhi MD [address] [place] [address] Historical LMR Provider 07/04/17 2 documented as of this encounter Additional Source Comments The information contained in this document represents components of the legal health record. It is not the complete legal health record.[facility]
--- OUTSIDE RECORDS SUMMARY | 2025-08-10 15:59 | XMS_ITS | Encounter Summary ---
Author Organization [facility] Address [address] [place] [address] [place] [address] Phone Care Team Providers Care Ticket Worker Name Role Phone Kailey Camacho MD Unavailable Pranav Gandhi MD Unavailable [phone] Kailey Camacho MD Primary Care Provider Encounter Details Date Type Department Care Team (Latest Contact Info) Description 07/23/2017 Ancillary Orders [facility], X-Ray - [address] [address] Kala Jarrell PA [address] [place], [place] [id number] [email or web address] Lumbar radiculopathy Social History Tobacco Use Types [...] No source of pain detected. POS - [id number] Narrative 07/23/2017 4:17 PM EST Five view [...] No source of pain detected. POS - [id number] Kala NIX IMG XR SPINE Final Result [...] documented as of this encounter Care Teams Ticket Worker Relationship Specialty Start Date End Date Kailey Camacho MD [address] [place] [address] [email or web address] PCP - General Internal Medicine 07/20/17 Kailey Camacho MD [address] [place] [address] [email or web address] Historical LMR Provider 07/04/17 Pranav Gandhi MD [address] [place] [address] Historical LMR Provider 07/04/17 2 documented as of this encounter Additional Source Comments The information contained in this document represents components of the legal health record. It is not the complete legal health record.[facility]
--- OUTSIDE RECORDS SUMMARY | 2025-08-10 15:59 | XMS_ITS | Encounter Summary ---
Author Organization [facility] Address [address] [place] [address] Phone Care Team Providers Care Coat Cutter Name Role Phone Kailey Camacho MD Unavailable Pranav Gandhi MD Unavailable [phone] Kailey Caamcho MD Primary Care Provider Encounter Details Date Type Department Care Team (Latest Contact Info) Description 12/09/2017 Transcribe Orders [facility] Phleb Main [address] [place] [address] Kala Jarrell PA [address] [place], [place] [id number] [email or web address] Dizziness (Primary Dx) Social History Tobacco Use [...] Source/ Description URINE CLEAN CATCH URINE URINE [facility] Special Requests None [facility] GRAM STAIN NO ORGANISMS SEEN [facility] Culture/Test >100,000 colony forming units per ml MIXED CARLENE (3 OR MORE COLONY TYPES) Culture indicates contamination . Please resubmit if necessary. [facility] Report Status 12/10/2017 FINAL [facility] Urine (Urine) 12/09/2017 3:0 6 PM EDT 12/09/2017 3:12 PM EDT [facility] MICROBIOLOGY CULTURE ORDERA BLES Final Result Performing Organization Address [facility] Co de Phone Number [address] [address] * (ABNORMAL) Urinalysis with sediment (12/09/2017 3:06 PM EDT) WBC 0-4(A) NONE SEEN /hpf [facility] RBC NONE SEEN NONE SEEN /hpf [facility] URINE EPITHELIAL NONE SEEN NONE SEEN [facility] MUCUS NONE SEEN NONE SEEN /hpf [facility] BACTERIA Trace(A) NONE SEEN [facility] COLOR Yellow Yellow [facility] CLARITY Clear [facility] GLUCOSE Negative Negative [facility] BILI Negative Negative [facility] KETONES Negative Negative [facility] SPECIFIC GRAVITY 1.015 1.005 - 1.030 [facility] BLOOD Negative Negative [facility] PH 5.5 5.0 - 8.0 [facility] Protein-UA Negative Negative [facility] NITRITE Negative Negative [facility] Leukocyte esterase, ur Negative Negative [facility] Urine (Urine) 12/09/2017 3:0 6 PM EDT 12/09/2017 3:11 PM EDT [facility] URINE ORDERABLES Final Resu lt Performing Organization Address [facility] Co de Phone Number [address] [address] * (ABNORMAL) CBC and differential (12/09/2017 3:06 PM EDT) WBC 8.19 3.40 - 11.20 K/uL [facility] RBC 4.95(H) 3.80 - 4.80 M/uL [facility] HGB 13.7 12.0 - 15.0 g/dL [facility] HCT 40.1 36.0 - 46.0 % [facility] PLT 295 130 - 400 K/uL [facility] MCV 81.0 79.0 - 98.0 fL [facility] MCH 27.7 27.0 - 34.8 pg [facility] MCHC 34.2 31.5 - 36.0 g/dL [facility] RDW 14.1 10.8 - 14.6 % [facility] MPV 9.8 9.4 - 12.4 fl [facility] NRBC 0.00 /100 WBCs [facility] ABSOLUTE NRBC 0.00 K/uL [facility] DIFF METHOD Auto [facility] NEUTS 51.3 45.30 - 77.70 % [facility] LYMPHS 41.0(H) 12.30 - 39.70 % [facility] MONOS 6.6 4.10 - 12.80 % [facility] EOS 0.5 0 - 7.2 % [facility] BASOS 0.4 0 - 2.80 % [facility] Granulocytes, immature (%) 0.2 0.0 - 0.9 % [facility] ABSOLUTE NEUTS 4.20 1.40 - 7.70 K/uL [facility] ABSOLUTE LYMPHS 3.36(H) 0.60 - 3.20 K/uL [facility] ABSOLUTE MONOS 0.54 0.11 - 0.59 K/uL [facility] ABSOLUTE EOS 0.04 0.01 - 0.50 K/uL [facility] ABSOLUTE BASOS 0.03 0.00 - 0.08 K/uL [facility] Granulocytes, immature 0.02 0.00 - 0.05 K/uL [facility] Blood 12/09/2017 3:06 PM EDT 12/09/2017 3:11 PM EDT us [facility] BLOOD BKR ORDERABLES Final Result [address] [address] * TSH with reflex (12/09/2017 3:06 PM EDT) TSH 2.42 0.27 - 4.20 uIU/mL [facility] Blood 12/09/2017 3:06 PM EDT 12/09/2017 3:11 PM EDT us [facility] BLOOD BKR ORDERABLES Final Result [facility] [address] [place] [address] * Comprehensive metabolic panel (12/09/2017 3:06 PM EDT) SODIUM 140 133 - 146 mmol/L [facility] POTASSIUM 3.7 3.3 - 5.1 mmol/L [facility] CHLORIDE 102 96 - 108 mmol/L [facility] CO2 22 21 - 35 mmol/L [facility] BUN 11 6 - 19 mg/dL [facility] CREATININE 0.60 0.5 - 1.5 mg/dL [facility] GLUCOSE 82 70 - 99 mg/dL [facility] ALBUMIN 4.1 3.9 - 4.8 g/dL [facility] TOTAL PROTEIN 7.6 6.5 - 8.0 g/dL [facility] CALCIUM 9.5 8.4 - 10.3 mg/dL [facility] ALKALINE PHOSPHATASE 54 39 - 117 U/L [facility] TOTAL BILIRUBIN 0.3 0.0 - 1.2 mg/dL [facility] AST 21 0 - 37 U/L [facility] ALT 35 0 - 40 U/L [facility] GLOBULIN 3.5 1 - 4.8 g/dL [facility] EGFR >120 >59 mL/min/1.7 3m2 [facility] Comment:If patient is black, multiply result by 1.159. The eGFR calculation has changed from the MDRD equation to the CKD-EPI equation as of November 19, 2017. ANION GAP 20 10 - 20 mmol/L [facility] Blood 12/09/2017 3:06 PM EDT 12/09/2017 3:11 PM EDT us [facility] BLOOD BKR ORDERABLES Final Result [facility] [address] [place] [address] documented in this encounter Visit Diagnoses Diagnosis Dizziness- Primary Dizziness and giddiness documented in this encounter Additional Health Concerns Infection Onset Date Last Indicated Resolved Time CoV-Risk 07/27/2021 07/27/2021 08/06/2021 1:22 AM EST CoV-Risk 10/04/2021 10/04/2021 10/14/2021 1:23 AM EST documented as of this encounter Care Teams Coat Cutter Relationship Specialty Start Date End Date Kailey Camacho MD [address] [place] [address] PCP - General Internal Medicine 07/20/17 Kailey Camacho MD [address] [place] [address] [email or web address] Historical LMR Provider 07/04/17 Pranav Gandhi MD [address] [place] [address] Historical LMR Provider 07/04/17 2 documented as of this encounter Additional Source Comments The information contained in this document represents components of the legal health record. It is not the complete legal health record.[facility]
--- OUTSIDE RECORDS SUMMARY | 2025-08-10 15:59 | XMS_ITS | Encounter Summary ---
Author Organization [facility] Address [address] [place] [address] Phone Care Team Providers Care Roll Plugger Machine Operator Name Role Phone Kailey Camacho MD Unavailable [phone] Pranav Gandhi MD Unavailable [phone] Kailey Camacho MD Primary Care Provider [phone] Encounter Details Date Type Department Care Team (Late st Contact Info) Description 11/12/2020 Procedure Pass [facility], Ct Scan - [address] [address] Social History Tobacco Use Types Packs/Day Years [...] 11/12/2020 10:01 AM Brie Cox RN * [place] Suicide Severity Rating Scale (Screener/Recent Self-Report) Question [...] documented as of this encounter Care Teams Roll Plugger Machine Operator Relationship Specialty Start Date End Date Kailey Camacho MD [address] [place] [address] [email or web address] PCP - General Internal Medicine 07/20/17 Kailey Camacho MD [address] [place] [address] Historical LMR Provider 07/04/17 Pranav Gandhi MD [address] [place] [address] Historical LMR Provider 07/04/17 2 documented as of this encounter Additional Source Comments The information contained in this document represents components of the legal health record. It is not the complete legal health record.[facility]
--- OUTSIDE RECORDS SUMMARY | 2025-08-10 15:59 | XMS_ITS | Encounter Summary ---
Author Organization [facility] Address [address] [place] [address] [address] [place] [address] Phone Care Team Providers Care Supervisor Fertilizer Name Role Phone Kailey Camacho MD Unavailable [phone] Pranav Gandhi MD Unavailable [phone] Kailey Camacho MD Primary Care Provider [phone] Encounter Details Date Type Department Care Team (Latest Contact Info) Description 04/24/2018 Transcribe Orders [facility] Phleb Main [address] [place] [address] Kala Jarrell PA [address] [place], [place] [id number] [email or web address] Nausea (Primary Dx); Diarrhea, unspecified type; Cloudy [...] PM EDT) WBC 0-4(A) NONE SEEN /hpf [facility] RBC NONE SEEN NONE SEEN /hpf [facility] URINE EPITHELIAL 0-4(A) NONE SEEN [facility] MUCUS NONE SEEN NONE SEEN /hpf [facility] BACTERIA Trace(A) NONE SEEN [facility] CRYSTALS 3+ [facility] Comment:AMORPHOUS COLOR Yellow Yellow [facility] CLARITY TURBID [facility] GLUCOSE Negative Negative [facility] BILI Negative Negative [facility] KETONES Negative Negative [facility] SPECIFIC GRAVITY 1.020 1.005 - 1.030 [facility] BLOOD Negative Negative [facility] PH 6.0 5.0 - 8.0 [facility] Protein-UA Negative Negative [facility] NITRITE Negative Negative [facility] Leukocyte esterase, ur 1+(A) Negative [facility] Urine (Urine) 04/24/2018 12: 27 PM EDT 04/24/2018 12:31 PM EDT us Kala [facility] URINE ORDERABLES Final Resu lt Performing Organization Address [facility]/ZIP Co de Phone Number [address] [address] * Urine culture (04/24/2018 12:27 PM EDT) Specimen Source/ Description URINE URINE URINE [facility] Special Requests None [facility] GRAM STAIN Rare GRAM POSITIVE RODS [facility] Culture/Test >100,000 colony forming units per ml MIXED CARLENE (3 OR MORE COLONY TYPES) Culture indicates contamination . Please resubmit if necessary. [facility] Report Status 04/25/2018 FINAL [facility] Urine (Urine) 04/24/2018 12: 27 PM EDT 04/24/2018 12:32 PM EDT us Kala [facility] MICROBIOLOGY CULTURE ORDERA BLES Final Result Performing Organization Address City/[facility]/ZIP Co de Phone Number [address] [address] * (ABNORMAL) CBC and differential (04/24/2018 12:27 PM EDT) WBC 9.34 3.40 - 11.20 K/uL [facility] RBC 5.21(H) 3.80 - 4.80 M/uL [facility] HGB 13.9 12.0 - 15.0 g/dL [facility] HCT 42.5 36.0 - 46.0 % [facility] PLT 376 130 - 400 K/uL [facility] MCV 81.6 79.0 - 98.0 fL [facility] MCH 26.7(L) 27.0 - 34.8 pg [facility] MCHC 32.7 31.5 - 36.0 g/dL [facility] RDW 13.8 10.8 - 14.6 % [facility] MPV 9.1(L) 9.4 - 12.4 fl [facility] NRBC 0.00 /100 WBCs [facility] ABSOLUTE NRBC 0.00 K/uL [facility] DIFF METHOD Auto [facility] NEUTS 58.6 45.30 - 77.70 % [facility] LYMPHS 32.5 12.30 - 39.70 % [facility] MONOS 7.3 4.10 - 12.80 % [facility] EOS 0.9 0 - 7.2 % [facility] BASOS 0.5 0 - 2.80 % [facility] Granulocytes, immature (%) 0.2 0.0 - 0.9 % [facility] ABSOLUTE NEUTS 5.47 1.40 - 7.70 K/uL [facility] ABSOLUTE LYMPHS 3.04 0.60 - 3.20 K/uL [facility] ABSOLUTE MONOS 0.68(H) 0.11 - 0.59 K/uL [facility] ABSOLUTE EOS 0.08 0.01 - 0.50 K/uL [facility] ABSOLUTE BASOS 0.05 0.00 - 0.08 K/uL [facility] Granulocytes, immature 0.02 0.00 - 0.05 K/uL [facility] Blood 04/24/2018 12:2 7 PM EDT 04/24/2018 12:31 PM EDT us [facility] BLOOD BKR ORDERABLES Final Result [address] [address] * Comprehensive metabolic panel (04/24/2018 12:27 PM EDT) SODIUM 139 133 - 146 mmol/L [facility] POTASSIUM 3.8 3.3 - 5.1 mmol/L [facility] CHLORIDE 101 96 - 108 mmol/L [facility] CO2 25 21 - 35 mmol/L [facility] BUN 11 6 - 19 mg/dL [facility] CREATININE 0.50 0.5 - 1.5 mg/dL [facility] GLUCOSE 83 70 - 99 mg/dL [facility] ALBUMIN 4.1 3.9 - 4.8 g/dL [facility] TOTAL PROTEIN 7.8 6.5 - 8.0 g/dL [facility] CALCIUM 9.1 8.4 - 10.3 mg/dL [facility] ALKALINE PHOSPHATASE 58 39 - 117 U/L [facility] TOTAL BILIRUBIN 0.2 0.0 - 1.2 mg/dL [facility] AST 12 0 - 37 U/L [facility] ALT 9 0 - 40 U/L [facility] GLOBULIN 3.7 1 - 4.8 g/dL [facility] EGFR >120 >59 mL/min/1.7 3m2 [facility] Comment:If patient is black, multiply result by 1.159. Estimated glomerular filtration rate calculated using the CKD-EPI equation. ANION GAP 17 10 - 20 mmol/L [facility] Blood 04/24/2018 12:2 7 PM EDT 04/24/2018 12:31 PM EDT [facility] BLOOD BKR ORDERABLES Final Result [address] [address] documented in this encounter Visit Diagnoses Diagnosis Nausea- Primary Nausea alone Diarrhea, unspecified type Cloudy urine documented in this encounter Additional Health Concerns Infection Onset Date Last Indicated Resolved Time CoV-Risk 07/27/2021 07/27/2021 08/06/2021 1:22 AM EST CoV-Risk 10/04/2021 10/04/2021 10/14/2021 1:23 AM EST documented as of this encounter Care Teams Supervisor Fertilizer Relationship Specialty Start Date End Date Kailey Camacho MD [address] [place] [address] [email or web address] PCP - General Internal Medicine 07/20/17 Kailey Camacho MD [address] [place] [address] [email or web address] Historical LMR Provider 07/04/17 Pranav Gandhi MD [address] [place] [address] Historical LMR Provider 07/04/17 2 documented as of this encounter Additional Source Comments The information contained in this document represents components of the legal health record. It is not the complete legal health record.[facility]
--- OUTSIDE RECORDS SUMMARY | 2025-08-10 15:59 | XMS_ITS | Encounter Summary ---
Author Organization [facility] Address [address] [place] [address] [place] [address] Phone Care Team Providers Care Store Gift Wrap Associate Name Role Phone Kailey Camacho MD Unavailable [phone] Pranav Gandhi MD Unavailable [phone] Kailey Camacho MD Primary Care Provider [phone] Encounter Details Date Type Department Care Team (Late st Contact Info) Description 02/12/2018 Procedure Pass OR Admitting Dept - Virtual Department [address] [place] [address] Social History Tobacco Use Types Packs/Day Years [...] documented as of this encounter Care Teams Store Gift Wrap Associate Relationship Specialty Start Date End Date Kailey Camacho MD [address] [place] [address] [email or web address] PCP - General Internal Medicine 07/20/17 Kailey Camacho MD [address] [place] [address] [email or web address] Historical LMR Provider 07/04/17 Pranav Gandhi MD [address] [place] [address] Historical LMR Provider 07/04/17 2 documented as of this encounter Additional Source Comments The information contained in this document represents components of the legal health record. It is not the complete legal health record.[facility]
== END 2025-08-10 13:17 | disposition home or self-care (01) ==
LOC: HO.HBST 12:17
PROVIDERS: PCP Nurse Practitioner Family; Visit Provider Counselor Mental Health
DX: F32.9 Major depressive disorder, single episode, unspecified (principal); F41.1 Generalized anxiety disorder; F42.9 Obsessive-compulsive disorder, unspecified; Z98.84 Bariatric surgery status
CPT/HCPCS: 90837

== ENCOUNTER 2025-08-18 08:54 | Outpatient (REF) | payer OTHER, SELFPAY ==
[2025-08-18 09:05] LABS: MANUAL DIFF FLAG NO
--- OUTSIDE RECORDS SUMMARY | 2025-08-18 09:19 | XMS_ITS | Encounter Summary ---
Author Organization [facility] Address [address] [place] [address] [place] [address] Phone Care Team Providers Care Tool Mechanic Name Role Phone Kailey Camacho MD Unavailable Pranav Gandhi MD Unavailable [phone] Kailey Camacho MD Primary Care Provider Encounter Details Date Type Department Care Team (Latest Contact Info) Description 07/27/2021 Transcribe Orders Virtual Department [address] [place] [address] Kala Jarrell PA [address] [place], [place] [phone] [email or web address] Encounter for laboratory testing for COVID-19 virus [...] be available within 24 to 48 hrs. [facility] Symptomatic? YES [facility] Other 07/27/2021 12:5 7 PM EST 07/27/2021 5:45 PM EST Kailey Camacho MD LAB GENERAL ORDERABLES Xi [email or web address] Result [facility] [address] [place] [address] [facility] [address] [place] [address] documented in this encounter Visit Diagnoses Diagnosis Encounter for laboratory testing for COVID-19 virus- Primary documented in this encounter Additional Health Concerns Infection Onset Date Last Indicated Resolved Time CoV-Risk 07/27/2021 07/27/2021 08/06/2021 1:22 AM EST CoV-Risk 10/04/2021 10/04/2021 10/14/2021 1:23 AM EST documented as of this encounter Care Teams Tool Mechanic Relationship Specialty Start Date End Date Kailey Camacho MD [address] [place] [address] [email or web address] PCP - General Internal Medicine 07/20/17 Kailey Camacho MD [address] [place] [email or web address] Historical LMR Provider 07/04/17 Pranav Gandhi MD [address] [place] [address] Historical LMR Provider 07/04/1709/23/2 2 documented as of this encounter Additional Source Comments The information contained in this document represents components of the legal health record. It is not the complete legal health record.[facility]
--- OUTSIDE RECORDS SUMMARY | 2025-08-18 09:19 | XMS_ITS | Encounter Summary ---
Author Organization [facility] Address [address] [place] [address] [place] [address] Phone Care Team Providers Care Licensed Retail Supervisor Name Role Phone Kailey Camacho MD Unavailable Pranav Gandhi MD Unavailable [phone] Kailey Camacho MD Primary Care Provider Encounter Details Date Type Department Care Team (Late st Contact Info) Description 07/26/2017 Transcribe Orders [facility] Phleb Main [address] [place] [address] Kailey Camacho MD [address] [place] [email or web address] Asymptomatic microscopic hematuria (Primary Dx) [...] PM EST) WBC 5-10(A) NONE SEEN /hpf [facility] RBC 0-2(A) NONE SEEN /hpf [facility] URINE EPITHELIAL 5-10(A) NONE SEEN [facility] MUCUS NONE SEEN NONE SEEN /hpf [facility] BACTERIA 2+(A) NONE SEEN [facility] 07/26/2017 3:29 PM EST 07/26/2017 3:31 PM EST Kailey Camacho MD LAB URINE ORDERABLES Final Result Performing Organization Address [facility] Co de Phone Number [address] [address] * Urine culture (07/26/2017 3:29 PM EST) Specimen Source/ Description URINE CLEAN CATCH URINE URINE [facility] Special Requests None [facility] GRAM STAIN Few GRAM POSITIVE RODS [facility] Culture/Test >100,000 colony forming units per ml MIXED CARLENE (3 OR MORE COLONY TYPES) Culture indicates contamination . Please resubmit if necessary. [facility] Report Status 07/27/2017 FINAL [facility] Urine (Urine) 07/26/2017 3:2 9 PM EST 07/26/2017 3:31 PM EST us Kailey Camacho MD LAB MICROBIOLOGY CULTURE OR DERABLES Final Result Performing Organization Address City/[facility]/ZIP Co de Phone Number [address] [address] * (ABNORMAL) Urinalysis (07/26/2017 3:29 PM EST) COLOR Yellow Yellow [facility] CLARITY Clear [facility] GLUCOSE Negative Negative [facility] BILI Negative Negative [facility] KETONES Negative Negative [facility] SPECIFIC GRAVITY >1.030 1.005 - 1.030 [facility] BLOOD Negative Negative [facility] PH 5.5 5.0 - 8.0 [facility] Protein-UA Negative Negative [facility] NITRITE Negative Negative [facility] Leukocyte esterase, ur Trace(A) Negative [facility] Urine (Urine) 07/26/2017 3:2 9 PM EST 07/26/2017 3:31 PM EST Kailey Camacho MD LAB URINE ORDERABLES Final Result [facility] [address] [place] [address] documented in this encounter Visit Diagnoses Diagnosis Asymptomatic microscopic hematuria- Primary documented in this encounter Additional Health Concerns Infection Onset Date Last Indicated Resolved Time CoV-Risk 07/27/2021 07/27/2021 08/06/2021 1:22 AM EST CoV-Risk 10/04/2021 10/04/2021 10/14/2021 1:23 AM EST documented as of this encounter Care Teams Licensed Retail Supervisor Relationship Specialty Start Date End Date Kailey Camacho MD [address] [place] [address] [email or web address] PCP - General Internal Medicine 07/20/17 Kailey Camacho MD [address] [place] [address] [email or web address] Historical LMR Provider 07/04/17 Pranav Gandhi MD [address] [place] [address] Historical LMR Provider 07/04/17 2 documented as of this encounter Additional Source Comments The information contained in this document represents components of the legal health record. It is not the complete legal health record.[facility]
--- OUTSIDE RECORDS SUMMARY | 2025-08-18 09:19 | XMS_ITS | Encounter Summary ---
Author Organization [facility] Address [address] [place] [address] [place] [address] Phone Care Team Providers Care Steel Fitter Name Role Phone Kailey Camacho MD Unavailable [phone] Kailey Camacho MD Primary Care Provider [phone] Encounter Details Date Type Department Care Team (Late st Contact Info) Description 10/09/2021 Procedure Pass [facility] [address] [place] [address] Social History Tobacco Use Types Packs/Day Years [...] documented as of this encounter Care Teams Steel Fitter Relationship Specialty Start Date End Date Kailey Camacho MD [address] [place] [address] [email or web address] PCP - General Internal Medicine 07/20/17 Kailey Camacho MD [address] [place] [address] [email or web address] Historical LMR Provider 07/04/17 documented as of this encounter Additional Source Comments The information contained in this document represents components of the legal health record. It is not the complete legal health record.[facility]
--- OUTSIDE RECORDS SUMMARY | 2025-08-18 09:19 | XMS_ITS | Clinical Summary ---
Author Organization [facility] Address [address] [place] [address] Phone Care Team Providers Care Air Cargo Ground Operations Supervisor Name Role Phone Kailey Camacho MD Unavailable [phone] Kailey Camacho MD Primary Care Provider [phone] Allergies Active Allergy Reactions Criticality Noted Date [...] Administration Dates Next Due DTaP 03/26/2003, 0,1999,07/11,1999 [id number] FORMULATION 07/20/2009 HPV,quadrivalent 07/21/2014,07/03/2013 HPV9 08/26/2015 Hepatitis [...] Pap Test (01/16/2024 12:00 AM EDT) [place] [address] Roller Varnisher: Elli Best MD TALENT ACQUISITION ADMINISTRATOR Cytology Report FINAL DIAGNOSIS A. PAP SMEAR [...] : 2000 (Age: 23) Sex: F Institution: [facility] Location: [facility] Date of Collection: 01/16/2024 Date of Reported: 01/23/2024 16:57 Results to: Eliel Valles MD [facility] Final Diagnosis A. PAP SMEAR (THIN PREP) CE: SPECIMEN ADEQUACY: Satisfactory for evaluation; transformation zone present. Limited by blood INTERPRETATION: NEGATIVE FOR INTRAEPITHELIAL LESION OR MALIGNANCY. [facility] Conversion Type (Conversion Source) 01/16/2024 01/20/2024 11:40 AM EDT Eliel Valles MD CYTOLOGY ORDERABLES Edited Resul t - Final Performing Organization Address [facility] Co de Phone Number [address] [address] * (ABNORMAL) Basic metabolic panel (06/10/2023 7:28 PM EDT) SODIUM 138 133 - 146 mmol/L [facility] CHLORIDE 102 96 - 108 mmol/L [facility] POTASSIUM 3.9 3.3 - 5.1 mmol/L [facility] CO2 23 21 - 35 mmol/L [facility] BUN 8 6 - 19 mg/dL [facility] CREATININE 0.60 0.5 - 1.5 mg/dL [facility] GLUCOSE 110(H) 70 - 99 mg/dL [facility] CALCIUM 9.6 8.4 - 10.3 mg/dL [facility] EGFR >120 >59 mL/min/1.7 3m2 [facility] Comment:Estimated glomerular filtration rate calculated using the CKD-EPI refit equation. ANION GAP 17 10 - 20 mmol/L [facility] Blood 06/10/2023 7:28 PM EDT 06/10/2023 7:30 PM EDT Clayton Mitchell MD LAB BLOOD BKR ORDERABLES Fi nal Result Performing Organization Address [facility] Co de Phone Number [address] [address] * Hepatitis B surface antigen (04/01/2019 2:38 PM EDT) HBV SURFACE ANTIGEN Negative Negative [facility] Blood 04/01/2019 2:38 PM EDT 04/01/2019 2:42 PM EDT Kailey Camacho MD LAB BLOOD BKR ORDERABLES Fi nal Result [address] [address] from Last 3 Months or Most Recently Relevant to Health Maintenance Insurance [address] [place], [place] [id number] [facility] Advance Directives For more information, please contact: [phone] (9AM - 5PM [facility], Saturday-Saturday) Documents on File Type Date Recorded Patient Department Store Manager Expl anation Healthcare Proxy 02/14/2018 12:07 PM * Full Code (Presumed) (Latest Code Status on File) Date Activated Date Inactivated Comments 02/12/2018 3:21 PM 02/13/2018 1:38 PM Care Teams Air Cargo Ground Operations Supervisor Relationship Specialty Start Date End Date Kailey Camacho MD [address] [place] [address] PCP - General Internal Medicine 07/20/17 Kailey Camacho MD [address] [place] [address] Historical LMR Provider 07/04/17 Additional Source Comments The information contained in this document represents components of the legal health record. It is not the complete legal health record.[facility]
--- OUTSIDE RECORDS SUMMARY | 2025-08-18 09:19 | XMS_ITS | Encounter Summary ---
Author Organization [facility] Address [address] [place] [address] [place] [address] Phone Care Team Providers Care Bus Dispatcher Interstate Name Role Phone Kailey Camacho MD Unavailable Pranav Gandhi MD Unavailable [phone] Kailey Camacho MD Primary Care Provider Encounter Details Date Type Department Care Team (Late st Contact Info) Description 07/30/2017 Ancillary Orders [facility], X-Ray - [address] [address] Kala Jarrell PA [address] [place], [place] [id number] [email or web address] Right hip pain Social History Tobacco Use [...] EST No explanation for pain. POS - [id number] Narrative 07/30/2017 5:16 PM EST HISTORY: Pain [...] IMPRESSION: No explanation for pain. POS - [id number] Kala NIX IMG XR PELVIS Final Result [...] as of this encounter Care Teams Bus Dispatcher Interstate Relationship Specialty Start Date End Date Kailey Camacho MD [address] [place] [address] [email or web address] PCP - General Internal Medicine 07/20/17 Kailey Camacho MD [address] [place] [address] [email or web address] Historical LMR Provider 07/04/17 Pranav Gandhi MD [address] [place] [address] Historical LMR Provider 07/04/17 2 documented as of this encounter Additional Source Comments The information contained in this document represents components of the legal health record. It is not the complete legal health record.[facility]
--- OUTSIDE RECORDS SUMMARY | 2025-08-18 09:19 | XMS_ITS | Encounter Summary ---
Author Organization [facility] Address [address] [place] [address] [place] [address] Phone Care Team Providers Care Network Announcer Name Role Phone Kailey Camacho MD Unavailable [phone] Kailey Camacho MD Primary Care Provider [phone] Encounter Details Date Type Department Care Team (Latest Contact Info) Description 02/28/2022 Transcribe Orders Virtual Department [address] [place] [address] Kala Jarrell PA [address] [place] [address] [email or web address] Pain and swelling of left ankle (Primary [...] Primary documented in this encounter Care Teams Network Announcer Relationship Specialty Start Date End Date Kailey Camacho MD [address] [place] [address] [email or web address] PCP - General Internal Medicine 07/20/17 Kailey Camacho MD [address] [place] [address] [email or web address] Historical LMR Provider 07/04/17 documented as of this encounter Additional Source Comments The information contained in this document represents components of the legal health record. It is not the complete legal health record.[facility]
--- OUTSIDE RECORDS SUMMARY | 2025-08-18 09:19 | XMS_ITS | Encounter Summary ---
Author Organization [facility] Address [address] [facility] [address] [place] [address] Phone Care Team Providers Care Electrolytic Etcher Name Role Phone Kailey Camacho MD Unavailable Pranav Gandhi MD Unavailable [phone] Kailey Camacho MD Primary Care Provider [phone] Encounter Details Date Type Department Care Team (Late st Contact Info) Description 04/01/2019 Transcribe Orders [facility] Main [address] [place] [address] Kailey Camacho MD [address] [place] [address] [email or web address] Delinquent immunization status (Primary Dx) Social History [...] PM EDT) HBV SURFACE ANTIGEN Negative Negative [facility] Blood 04/01/2019 2:38 PM EDT 04/01/2019 2:42 PM EDT Kailey Camacho MD LAB BLOOD BKR ORDERABLES Fi nal Result Performing Organization Address [facility] Co de Phone Number [address] [address] * Hepatitis B surface antibody (04/01/2019 2:38 PM EDT) HBV SURFACE ANTIBODY Positive [facility] Comment: Unvaccinated: Negative Vaccinated: Positive Blood 04/01/2019 2:38 PM EDT 04/01/2019 2:42 PM EDT Kailey Camacho MD LAB BLOOD BKR ORDERABLES Fi nal Result Performing Organization Address [facility] Co de Phone Number [address] [address] documented in this encounter Visit Diagnoses Diagnosis Delinquent immunization status- Primary Personal history of underimmunization status documented in this encounter Additional Health Concerns Infection Onset Date Last Indicated Resolved Time CoV-Risk 07/27/2021 07/27/2021 08/06/2021 1:22 AM EST CoV-Risk 10/04/2021 10/04/2021 10/14/2021 1:23 AM EST documented as of this encounter Care Teams Electrolytic Etcher Relationship Specialty Start Date End Date Kailey Camacho MD [address] [place] [address] [email or web address] PCP - General Internal Medicine 07/20/17 Kailey Camacho MD [address] [place] [address] [email or web address] Historical LMR Provider 07/04/17 Pranav Gandhi MD [address] [place] [address] Historical LMR Provider 07/04/17 2 documented as of this encounter Additional Source Comments The information contained in this document represents components of the legal health record. It is not the complete legal health record.[facility]
--- OUTSIDE RECORDS SUMMARY | 2025-08-18 09:19 | XMS_ITS | Encounter Summary ---
Author Organization [facility] Address [address] [place] [address] [place] [address] Phone Care Team Providers Care Cloth Laminating Supervisor Name Role Phone Kailey Camacho MD Unavailable [phone] Pranav Gandhi MD Unavailable [phone] Kailey Camacho MD Primary Care Provider [phone] Encounter Details Date Type Department Care Team (Latest Contact Info) Description 01/10/2019 Transcribe Orders [facility] Main [address] [place] [address] Leticia Hurtado PA [address] [place] [address] [place] [address] Screening for unspecified condition (Primary Dx) Social [...] EDT) Specimen Source/ Description STOOL STOOL STOOL [facility] Special Requests None [facility] DIRECT EXAM NO PARASITES FOUND BY DIRECT OR CONCENTRATION METHODS [facility] DIRECT EXAM No parasites found by Trichrome Stain [facility] Report Status 01/13/2019 FINAL [facility] Stool (Stool) 01/10/2019 9:5 9 AM EDT 01/10/2019 10:21 AM EDT us Leticia NIX LAB BODY FLUIDS AND S TOOL ORDERABLES Final Result Performing Organization Address City/State/[facility] Co de Phone Number [facility] [address] [place] [address] documented in this encounter Visit Diagnoses Diagnosis Screening for unspecified condition- Primary documented in this encounter Additional Health Concerns Infection Onset Date Last Indicated Resolved Time CoV-Risk 07/27/2021 07/27/2021 08/06/2021 1:22 AM EST CoV-Risk 10/04/2021 10/04/2021 10/14/2021 1:23 AM EST documented as of this encounter Care Teams Cloth Laminating Supervisor Relationship Specialty Start Date End Date Kailey Camacho MD [address] [place] [address] [email or web address] PCP - General Internal Medicine 07/20/17 Kailey Camacho MD [address] [place] [address] [email or web address] Historical LMR Provider 07/04/17 Pranav Gandhi MD [address] [place] [address] Historical LMR Provider 07/04/17 2 documented as of this encounter Additional Source Comments The information contained in this document represents components of the legal health record. It is not the complete legal health record.[facility]
--- OUTSIDE RECORDS SUMMARY | 2025-08-18 09:20 | XMS_ITS | Encounter Summary ---
Author Organization [facility] Address [address] [facility] [address] [place] [address] Phone Care Team Providers Care Material Crew Supervisor Name Role Phone Kailey Camacho MD Unavailable [phone] Pranav Gandhi MD Unavailable [phone] Kailey Camacho MD Primary Care Provider Encounter Details Date Type Department Care Team (Latest Contact Info) Description 01/10/2019 Transcribe Orders [facility]le[facility] Main [address] [place] [address] Leticia Hurtado PA [address] [place] [address] [place] [address] Screening for unspecified condition (Primary Dx) Social [...] documented as of this encounter Care Teams Material Crew Supervisor Relationship Specialty Start Date End Date Kailey Camacho MD [address] [place] [address] [email or web address] PCP - General Internal Medicine 07/20/17 Kailey Camacho MD [address] [place] [address] [email or web address] Historical LMR Provider 07/04/17 Pranav Gandhi MD [address] [place] [address] Historical LMR Provider 07/04/17 2 documented as of this encounter Additional Source Comments The information contained in this document represents components of the legal health record. It is not the complete legal health record.[facility]
--- OUTSIDE RECORDS SUMMARY | 2025-08-18 09:20 | XMS_ITS | Encounter Summary ---
Author Organization [facility] Address [address] [facility] [address] [place] [address] Phone Care Team Providers Care Plate Maker Zinc Name Role Phone Kailey Camacho MD Unavailable [phone] Kailey Camacho MD Primary Care Provider [phone] Reason for Referral * - Closed Specialty Diagnoses / Procedures Referred By Contsam t Referred To Contact Diagnoses Palpitations Procedures MCT (Mobile Cardiac Telemetry) En Winn MD Phone: tel: fax: [email or web address]:[email or web address] Referral ID Status Reason Start Date Expiration Date Visits Re quested Visits Authorized [id number] Closed 10/17/2021 10/17/2022 1 1 Encounter Details Date Type Department Care Team (Late st Contact Info) Description 10/17/2021 Ancillary Orders [facility] [address] Floor, [address] [place] [address] En Winn MD [address] [facility] [address] [place] [address] [email or web address] Palpitations Social History Tobacco Use [...] Palpitations documented in this encounter Care Teams Plate Maker Zinc Relationship Specialty Start Date End Date Kailey Camacho MD [address] [place] [address] PCP - General Internal Medicine 07/20/17 Kailey Camacho MD [address] [place] [address] [email or web address] Historical LMR Provider 07/04/17 documented as of this encounter Additional Source Comments The information contained in this document represents components of the legal health record. It is not the complete legal health record.[facility]
--- OUTSIDE RECORDS SUMMARY | 2025-08-18 09:20 | XMS_ITS | Encounter Summary ---
Author Organization [facility] Address [address] [place] [address] Phone Care Team Providers Care Grants Director Name Role Phone Kailey Camacho MD Unavailable Pranav Gandhi MD Unavailable [phone] Kailey Camacho MD Primary Care Provider [phone] Encounter Details Date Type Department Care Team (Latest Contact Info) Description 08/05/2017 Ancillary Orders Virtual Department [address] [place] [address] Kala Jarrell PA [address] [place], [place] [id number] [email or web address] Social History Tobacco Use Types [...] paracentral disc protrusion at L1-L2. POS - [id number] Narrative 08/14/2017 12:36 PM EST HISTORY: Lower [...] paracentral disc protrusion at L1-L2. POS - [id number] Kala NIX G MR XSPECIALTY Final Result [...] documented as of this encounter Care Teams Grants Director Relationship Specialty Start Date End Date Kailey Camacho MD [address] [place] [address] PCP - General Internal Medicine 07/20/17 Kailey Camacho MD [address] [place] [address] Historical LMR Provider 07/04/17 Pranav Gandhi MD [address] [place] [address] Historical LMR Provider 07/04/17 2 documented as of this encounter Additional Source Comments The information contained in this document represents components of the legal health record. It is not the complete legal health record.[facility]
--- OUTSIDE RECORDS SUMMARY | 2025-08-18 09:20 | XMS_ITS | Encounter Summary ---
Author Organization [facility] Address [address] [facility] [address] [place] [address] Phone Care Team Providers Care Community Health Specialist Name Role Phone Kailey Camacho MD Unavailable [phone] Pranav Gandhi MD Unavailable [phone] Kailey Camacho MD Primary Care Provider Encounter Details Date Type Department Care Team (Late st Contact Info) Description 11/17/2020 Procedure Pass [facility], Ct Scan - [address] [address] Social History Tobacco Use Types Packs/Day Years [...] 11/17/2020 9:43 PM Emelia Barksdale, ANNETTE * [place] Suicide Severity Rating Scale (Screener/Recent Self-Report) Question [...] documented as of this encounter Care Teams Community Health Specialist Relationship Specialty Start Date End Date Kailey Camacho MD [address] [place] [address] [email or web address] PCP - General Internal Medicine 07/20/17 Kailey Camacho MD [address] [place] [address] [email or web address] Historical LMR Provider 07/04/17 Pranav Gandhi MD [address] [place] [address] Historical LMR Provider 07/04/17 2 documented as of this encounter Additional Source Comments The information contained in this document represents components of the legal health record. It is not the complete legal health record.[facility]
--- OUTSIDE RECORDS SUMMARY | 2025-08-18 09:20 | XMS_ITS | Encounter Summary ---
Author Organization [facility] Address [address] [place] [address] [place] [address] Phone Care Team Providers Care Meat Processing Center Manager Name Role Phone Kailey Camacho MD Unavailable Pranav Gandhi MD Unavailable [phone] Kailey Camacho MD Primary Care Provider Encounter Details Date Type Department Care Team (Latest Contact Info) Description 07/23/2017 Ancillary Orders [facility], X-Ray - [address] [address] Kala Jarrell PA [address] [place], [place] [address] [email or web address] Social History Tobacco Use Types [...] No source of pain detected. POS - [id number] Narrative 07/23/2017 4:17 PM EST Five view [...] No source of pain detected. POS - [id number] Kala NIX IMG XR SPINE Final Result [...] documented as of this encounter Care Teams Meat Processing Center Manager Relationship Specialty Start Date End Date Kailey Camacho MD [address] [place] [address] [email or web address] PCP - General Internal Medicine 07/20/17 Kailey Camacho MD [address] [place] [address] [email or web address] Historical LMR Provider 07/04/17 Pranav Gandhi MD [address] [place] [address] Historical LMR Provider 07/04/17 2 documented as of this encounter Additional Source Comments The information contained in this document represents components of the legal health record. It is not the complete legal health record.[facility]
--- OUTSIDE RECORDS SUMMARY | 2025-08-18 09:20 | XMS_ITS | Encounter Summary ---
Author Organization [facility] Address [address] [address] [place] [address] Phone Care Team Providers Care Heel Room Supervisor Name Role Phone Kailey Camacho MD Unavailable Pranav Gandhi MD Unavailable [phone] Kailey Camacho MD Primary Care Provider [phone] Encounter Details Date Type Department Care Team (Latest Contact Info) Description 12/09/2017 Transcribe Orders [facility] Phleb Main [address] [place] [address] Kala Jarrell PA [address] [place], [place] [id number] [email or web address] (Primary Dx) Social History Tobacco Use [...] Source/ Description URINE CLEAN CATCH URINE URINE [facility] Special Requests None [facility] GRAM STAIN NO ORGANISMS SEEN [facility] Culture/Test >100,000 colony forming units per ml MIXED CARLENE (3 OR MORE COLONY TYPES) Culture indicates contamination . Please resubmit if necessary. [facility] Report Status 12/10/2017 FINAL [facility] Urine (Urine) 12/09/2017 3:0 6 PM EDT 12/09/2017 3:12 PM EDT [facility] MICROBIOLOGY CULTURE ORDERA BLES Final Result Performing Organization Address [facility] Co de Phone Number [address] [address] * (ABNORMAL) Urinalysis with sediment (12/09/2017 3:06 PM EDT) WBC 0-4(A) NONE SEEN /hpf [facility] RBC NONE SEEN NONE SEEN /hpf [facility] URINE EPITHELIAL NONE SEEN NONE SEEN [facility] MUCUS NONE SEEN NONE SEEN /hpf [facility] BACTERIA Trace(A) NONE SEEN [facility] COLOR Yellow Yellow [facility] CLARITY Clear [facility] GLUCOSE Negative Negative [facility] BILI Negative Negative [facility] KETONES Negative Negative [facility] SPECIFIC GRAVITY 1.015 1.005 - 1.030 [facility] BLOOD Negative Negative [facility] PH 5.5 5.0 - 8.0 [facility] Protein-UA Negative Negative [facility] NITRITE Negative Negative [facility] Leukocyte esterase, ur Negative Negative [facility] Urine (Urine) 12/09/2017 3:0 6 PM EDT 12/09/2017 3:11 PM EDT [facility] URINE ORDERABLES Final Resu lt Performing Organization Address [facility] Co de Phone Number [address] [address] * (ABNORMAL) CBC and differential (12/09/2017 3:06 PM EDT) WBC 8.19 3.40 - 11.20 K/uL [facility] RBC 4.95(H) 3.80 - 4.80 M/uL [facility] HGB 13.7 12.0 - 15.0 g/dL [facility] HCT 40.1 36.0 - 46.0 % [facility] PLT 295 130 - 400 K/uL [facility] MCV 81.0 79.0 - 98.0 fL [facility] MCH 27.7 27.0 - 34.8 pg [facility] MCHC 34.2 31.5 - 36.0 g/dL [facility] RDW 14.1 10.8 - 14.6 % [facility] MPV 9.8 9.4 - 12.4 fl [facility] NRBC 0.00 /100 WBCs [facility] ABSOLUTE NRBC 0.00 K/uL [facility] DIFF METHOD Auto [facility] NEUTS 51.3 45.30 - 77.70 % [facility] LYMPHS 41.0(H) 12.30 - 39.70 % [facility] MONOS 6.6 4.10 - 12.80 % [facility] EOS 0.5 0 - 7.2 % [facility] BASOS 0.4 0 - 2.80 % [facility] Granulocytes, immature (%) 0.2 0.0 - 0.9 % [facility] ABSOLUTE NEUTS 4.20 1.40 - 7.70 K/uL [facility] ABSOLUTE LYMPHS 3.36(H) 0.60 - 3.20 K/uL [facility] ABSOLUTE MONOS 0.54 0.11 - 0.59 K/uL [facility] ABSOLUTE EOS 0.04 0.01 - 0.50 K/uL [facility] ABSOLUTE BASOS 0.03 0.00 - 0.08 K/uL [facility] Granulocytes, immature 0.02 0.00 - 0.05 K/uL [facility] Blood 12/09/2017 3:06 PM EDT 12/09/2017 3:11 PM EDT us Kala [facility] BLOOD BKR ORDERABLES Final Result [address] [address] * TSH with reflex (12/09/2017 3:06 PM EDT) TSH 2.42 0.27 - 4.20 uIU/mL [facility] Blood 12/09/2017 3:06 PM EDT 12/09/2017 3:11 PM EDT us Kala [facility] BLOOD BKR ORDERABLES Final Result [facility] [address] [place] [address] * Comprehensive metabolic panel (12/09/2017 3:06 PM EDT) SODIUM 140 133 - 146 mmol/L [facility] POTASSIUM 3.7 3.3 - 5.1 mmol/L [facility] CHLORIDE 102 96 - 108 mmol/L [facility] CO2 22 21 - 35 mmol/L [facility] BUN 11 6 - 19 mg/dL [facility] CREATININE 0.60 0.5 - 1.5 mg/dL [facility] GLUCOSE 82 70 - 99 mg/dL [facility] ALBUMIN 4.1 3.9 - 4.8 g/dL [facility] TOTAL PROTEIN 7.6 6.5 - 8.0 g/dL [facility] CALCIUM 9.5 8.4 - 10.3 mg/dL [facility] ALKALINE PHOSPHATASE 54 39 - 117 U/L [facility] TOTAL BILIRUBIN 0.3 0.0 - 1.2 mg/dL [facility] AST 21 0 - 37 U/L [facility] ALT 35 0 - 40 U/L [facility] GLOBULIN 3.5 1 - 4.8 g/dL [facility] EGFR >120 >59 mL/min/1.7 3m2 [facility] Comment:If patient is black, multiply result by 1.159. The eGFR calculation has changed from the MDRD equation to the CKD-EPI equation as of November 19, 2017. ANION GAP 20 10 - 20 mmol/L [facility] Blood 12/09/2017 3:06 PM EDT 12/09/2017 3:11 PM EDT us Kala [facility] BLOOD BKR ORDERABLES Final Result [facility] [address] [place] [address] documented in this encounter Visit Diagnoses Diagnosis Dizziness- Primary Dizziness and giddiness documented in this encounter Additional Health Concerns Infection Onset Date Last Indicated Resolved Time CoV-Risk 07/27/2021 07/27/2021 08/06/2021 1:22 AM EST CoV-Risk 10/04/2021 10/04/2021 10/14/2021 1:23 AM EST documented as of this encounter Care Teams Heel Room Supervisor Relationship Specialty Start Date End Date Kailey Camacho MD [address] [place] [address] PCP - General Internal Medicine 07/20/17 Kailey Camacho MD [address] [place] [address] Historical LMR Provider 07/04/17 Pranav Gandhi MD [address] [place] [address] Historical LMR Provider 07/04/17 2 documented as of this encounter Additional Source Comments The information contained in this document represents components of the legal health record. It is not the complete legal health record.[facility]
--- OUTSIDE RECORDS SUMMARY | 2025-08-18 09:20 | XMS_ITS | Encounter Summary ---
Author Organization [facility] Address [address] [facility] [address] [place] [address] Phone Care Team Providers Care Wall Cleaner Name Role Phone Kailey Camacho MD Unavailable [phone] Pranav Gandhi MD Unavailable [phone] Kailey Camacho MD Primary Care Provider Encounter Details Date Type Department Care Team (Late st Contact Info) Description 11/12/2020 Procedure Pass [facility], Ct Scan - [address] [address] Social History Tobacco Use Types Packs/Day Years [...] 11/12/2020 10:01 AM Brie Cox RN * [place] Suicide Severity Rating Scale (Screener/Recent Self-Report) Question [...] documented as of this encounter Care Teams Wall Cleaner Relationship Specialty Start Date End Date Kailey Camacho MD [address] [place] [address] [email or web address] PCP - General Internal Medicine 07/20/17 Kailey Camacho MD [address] [place] [address] Historical LMR Provider 07/04/17 Pranav Gandhi MD [address] [place] [address] Historical LMR Provider 07/04/17 2 documented as of this encounter Additional Source Comments The information contained in this document represents components of the legal health record. It is not the complete legal health record.[facility]
--- OUTSIDE RECORDS SUMMARY | 2025-08-18 09:20 | XMS_ITS | Encounter Summary ---
Author Organization [facility] Address [address] [place] [address] [place] [address] Phone Care Team Providers Care Landing Scaler Name Role Phone Kailey Camacho MD Unavailable [phone] Pranav Gandhi MD Unavailable [phone] Kailey Camacho MD Primary Care Provider Encounter Details Date Type Department Care Team (Late st Contact Info) Description 07/20/2017 Transcribe Orders [facility] Phlebotomy [address] [place] [address] Kailey Camacho MD [address] [place] [phone] [email or web address] Routine general medical examination at a health [...] EDT Routine general medical examination at [facility] Fatigue, unspecified type THYROID STIMULATING HORMONE (TSH) Routine 07/20/2017 10:14 AM EDT Routine general medical examination at a [facility] Fatigue, unspecified type LIPID PANEL Routine 07/20/2017 10:14 AM EDT Routine general medical examination at a [facility] Fatigue, unspecified type documented in this encounter Results * (ABNORMAL) Urine sediment (07/20/2017 10:14 AM EDT) WBC 50-100(A) NONE SEEN /hpf [facility] RBC 6-10(A) NONE SEEN /hpf [facility] URINE EPITHELIAL 11-20(A) NONE SEEN [facility] MUCUS 1+(A) NONE SEEN /hpf [facility] BACTERIA 1+(A) NONE SEEN [facility] CRYSTALS 3+ [facility] Comment:AMORPHOUS 07/20/2017 10:1 4 AM EDT 07/20/2017 10:18 AM EDT Kailey Camacho MD LAB URINE ORDERABLES Final Result Performing Organization Address City/State/[facility] Co de Phone Number [address] [address] * (ABNORMAL) Urinalysis (07/20/2017 10:14 AM EDT) COLOR Yellow Yellow [facility] CLARITY TURBID [facility] GLUCOSE Negative Negative [facility] BILI Negative Negative [facility] KETONES Negative Negative [facility] SPECIFIC GRAVITY >1.030 1.005 - 1.030 [facility] BLOOD 3+(A) Negative [facility] PH 5.5 5.0 - 8.0 [facility] Protein-UA Negative Negative [facility] NITRITE Negative Negative [facility] Leukocyte esterase, ur 2+(A) Negative [facility] Urine (Urine) 07/20/2017 10: 14 AM EDT 07/20/2017 10:18 AM EDT Kailey Camacho MD LAB URINE ORDERABLES Final Result Performing Organization Address [facility] Co de Phone Number [address] [address] * TSH (07/20/2017 10:14 AM EDT) TSH 3.02 0.27 - 4.20 uIU/mL [facility] Blood 07/20/2017 10:1 4 AM EDT 07/20/2017 10:19 AM EDT Kailey Camacho MD LAB BLOOD BKR ORDERABLES Fi nal Result Performing Organization Address [facility] de Phone Number [address] [address] * (ABNORMAL) CBC (07/20/2017 10:14 AM EDT) WBC 8.91 3.40 - 11.20 K/uL [facility] RBC 4.77 3.80 - 4.80 M/uL [facility] HGB 13.1 12.0 - 15.0 g/dL [facility] HCT 38.8 36.0 - 46.0 % [facility] PLT 304 130 - 400 K/uL [facility] MCV 81.3 79.0 - 98.0 [facility] MCH 27.5 27.0 - 34.8 pg [facility] MCHC 33.8 31.5 - 36.0 g/dL [facility] RDW 14.0 10.8 - 14.6 % [facility] MPV 9.2(L) 9.4 - 12.4 [facility] NRBC 0.00 /100 WBCs [facility] ABSOLUTE NRBC 0.00 K/uL [facility] Blood 07/20/2017 10:1 4 AM EDT 07/20/2017 10:19 AM EDT us Kailey Camacho MD LAB BLOOD BKR ORDERABLES Fi nal Result Performing Organization Address [facility] Co de Phone Number [address] [address] * Lipid panel (07/20/2017 10:14 AM EDT) HDL 49 mg/dL [facility] Comment: Interpretation: Risk Level Females Decreased >55mg/dL Average 50-55 mg/dL Increased <50 mg/dL CHOLESTEROL 201 0 - 240 mg/dL [facility] Comment: Pediatric Reference Ranges for 2 to 18 years Acceptable: Less than 170 mg/dL Borderline: 170 - 199 mg/dL High: Greater than or equal to 200 mg/dL TRIGLYCERIDES 119 30 - 160 mg/dL [facility] LDL 128 50 - 129 mg/dL [facility] Comment: LDL levels in terms of risk for coronary heart disease: <100 mg/dL: Optimal 100-129 mg/dL: Near or above optimal 130-159 mg/dL: Borderline high 160-189 mg/dL: High >190 mg/dL: Very High CARDIAC RISK RATIO 4.1 3.3 - 4.4 C [facility] Blood 07/20/2017 10:1 4 AM EDT 07/20/2017 10:19 AM EDT us Kailey Camacho MD LAB BLOOD BKR ORDERABLES Fi nal Result Performing Organization Address [facility] Co de Phone Number [address] [address] documented in this encounter Visit Diagnoses Diagnosis Routine general medical examination at a health care facility- Primary Fatigue, unspecified type documented in this encounter Additional Health Concerns Infection Onset Date Last Indicated Resolved Time CoV-Risk 07/27/2021 07/27/2021 08/06/2021 1:22 AM EST CoV-Risk 10/04/2021 10/04/2021 10/14/2021 1:23 AM EST documented as of this encounter Care Teams Landing Scaler Relationship Specialty Start Date End Date Kailey Camacho MD [address] [place] [address] [email or web address] PCP - General Internal Medicine 07/20/17 Kailey Camacho MD [address] [place] [address] [email or web address] Historical LMR Provider 07/04/17 Pranav Gandhi MD [address] [place] [address] Historical LMR Provider 07/04/17 2 documented as of this encounter Additional Source Comments The information contained in this document represents components of the legal health record. It is not the complete legal health record.[facility]
--- OUTSIDE RECORDS SUMMARY | 2025-08-18 09:20 | XMS_ITS | Encounter Summary ---
Author Organization [facility] Address [address] [place] [address] [place] [address] Phone Care Team Providers Care Instrument Lens Grinder Name Role Phone Kailey Camacho MD Unavailable Pranav Gandhi MD Unavailable [phone] Kailey Camacho MD Primary Care Provider Encounter Details Date Type Department Care Team (Latest Contact Info) Description 04/24/2018 Transcribe Orders [facility] Phleb Main [address] [place] [address] Kala Jarrell PA [address] [place], [place] [phone] [email or web address] [email or web address] (Primary Dx); Diarrhea, unspecified type; Cloudy [...] PM EDT) WBC 0-4(A) NONE SEEN /hpf [facility] RBC NONE SEEN NONE SEEN /hpf [facility] URINE EPITHELIAL 0-4(A) NONE SEEN [facility] MUCUS NONE SEEN NONE SEEN /hpf [facility] BACTERIA Trace(A) NONE SEEN [facility] CRYSTALS 3+ [facility] Comment:AMORPHOUS COLOR Yellow Yellow [facility] CLARITY TURBID [facility] GLUCOSE Negative Negative [facility] BILI Negative Negative [facility] KETONES Negative Negative [facility] SPECIFIC GRAVITY 1.020 1.005 - 1.030 [facility] BLOOD Negative Negative [facility] PH 6.0 5.0 - 8.0 [facility] Protein-UA Negative Negative [facility] NITRITE Negative Negative [facility] Leukocyte esterase, ur 1+(A) Negative [facility] Urine (Urine) 04/24/2018 12: 27 PM EDT 04/24/2018 12:31 PM EDT us Kala [facility] URINE ORDERABLES Final Resu lt Performing Organization Address [facility]/ZIP Co de Phone Number [address] [address] * Urine culture (04/24/2018 12:27 PM EDT) Specimen Source/ Description URINE URINE URINE [facility] Special Requests None [facility] GRAM STAIN Rare GRAM POSITIVE RODS [facility] Culture/Test >100,000 colony forming units per ml MIXED CARLENE (3 OR MORE COLONY TYPES) Culture indicates contamination . Please resubmit if necessary. [facility] Report Status 04/25/2018 FINAL [facility] Urine (Urine) 04/24/2018 12: 27 PM EDT 04/24/2018 12:32 PM EDT us Kala [facility] MICROBIOLOGY CULTURE ORDERA BLES Final Result Performing Organization Address City/[facility]/ZIP Co de Phone Number [address] [address] * (ABNORMAL) CBC and differential (04/24/2018 12:27 PM EDT) WBC 9.34 3.40 - 11.20 K/uL [facility] RBC 5.21(H) 3.80 - 4.80 M/uL [facility] HGB 13.9 12.0 - 15.0 g/dL [facility] HCT 42.5 36.0 - 46.0 % [facility] PLT 376 130 - 400 K/uL [facility] MCV 81.6 79.0 - 98.0 fL [facility] MCH 26.7(L) 27.0 - 34.8 pg [facility] MCHC 32.7 31.5 - 36.0 g/dL [facility] RDW 13.8 10.8 - 14.6 % [facility] MPV 9.1(L) 9.4 - 12.4 fl [facility] NRBC 0.00 /100 WBCs [facility] ABSOLUTE NRBC 0.00 K/uL [facility] DIFF METHOD Auto [facility] NEUTS 58.6 45.30 - 77.70 % [facility] LYMPHS 32.5 12.30 - 39.70 % [facility] MONOS 7.3 4.10 - 12.80 % [facility] EOS 0.9 0 - 7.2 % [facility] BASOS 0.5 0 - 2.80 % [facility] Granulocytes, immature (%) 0.2 0.0 - 0.9 % [facility] ABSOLUTE NEUTS 5.47 1.40 - 7.70 K/uL [facility] ABSOLUTE LYMPHS 3.04 0.60 - 3.20 K/uL [facility] ABSOLUTE MONOS 0.68(H) 0.11 - 0.59 K/uL [facility] ABSOLUTE EOS 0.08 0.01 - 0.50 K/uL [facility] ABSOLUTE BASOS 0.05 0.00 - 0.08 K/uL [facility] Granulocytes, immature 0.02 0.00 - 0.05 K/uL [facility] Blood 04/24/2018 12:2 7 PM EDT 04/24/2018 12:31 PM EDT us Kala [facility] BLOOD BKR ORDERABLES Final Result [address] [address] * Comprehensive metabolic panel (04/24/2018 12:27 PM EDT) SODIUM 139 133 - 146 mmol/L [facility] POTASSIUM 3.8 3.3 - 5.1 mmol/L [facility] CHLORIDE 101 96 - 108 mmol/L [facility] CO2 25 21 - 35 mmol/L [facility] BUN 11 6 - 19 mg/dL [facility] CREATININE 0.50 0.5 - 1.5 mg/dL [facility] GLUCOSE 83 70 - 99 mg/dL [facility] ALBUMIN 4.1 3.9 - 4.8 g/dL [facility] TOTAL PROTEIN 7.8 6.5 - 8.0 g/dL [facility] CALCIUM 9.1 8.4 - 10.3 mg/dL [facility] ALKALINE PHOSPHATASE 58 39 - 117 U/L [facility] TOTAL BILIRUBIN 0.2 0.0 - 1.2 mg/dL [facility] AST 12 0 - 37 U/L [facility] ALT 9 0 - 40 U/L [facility] GLOBULIN 3.7 1 - 4.8 g/dL [facility] EGFR >120 >59 mL/min/1.7 3m2 [facility] Comment:If patient is black, multiply result by 1.159. Estimated glomerular filtration rate calculated using the CKD-EPI equation. ANION GAP 17 10 - 20 mmol/L [facility] Blood 04/24/2018 12:2 7 PM EDT 04/24/2018 12:31 PM EDT [facility] BLOOD BKR ORDERABLES Final Result [address] [address] documented in this encounter Visit Diagnoses Diagnosis Nausea- Primary Nausea alone Diarrhea, unspecified type Cloudy urine documented in this encounter Additional Health Concerns Infection Onset Date Last Indicated Resolved Time CoV-Risk 07/27/2021 07/27/2021 08/06/2021 1:22 AM EST CoV-Risk 10/04/2021 10/04/2021 10/14/2021 1:23 AM EST documented as of this encounter Care Teams Instrument Lens Grinder Relationship Specialty Start Date End Date Kailey Camacho MD [address] [place] [address] [email or web address] PCP - General Internal Medicine 07/20/17 Kailey Camacho MD [address] [place] [address] [email or web address] Historical LMR Provider 07/04/17 Pranav Gandhi MD [address] [place] [address] Historical LMR Provider 07/04/17 2 documented as of this encounter Additional Source Comments The information contained in this document represents components of the legal health record. It is not the complete legal health record.[facility]
--- OUTSIDE RECORDS SUMMARY | 2025-08-18 09:20 | XMS_ITS | Encounter Summary ---
Author Organization [facility] Address [address] [place] [address] [place] [address] Phone Care Team Providers Care Chain Maker Hand Name Role Phone Kailey Camacho MD Unavailable [phone] Pranav Gandhi MD Unavailable [phone] Kailey Camacho MD Primary Care Provider Encounter Details Date Type Department Care Team (Late st Contact Info) Description 08/05/2017 Procedure Pass [facility], [address] [address] Social History Tobacco Use Types Packs/Day Years [...] documented as of this encounter Care Teams Chain Maker Hand Relationship Specialty Start Date End Date Kailey Camacho MD [address] [place] [address] [email or web address] PCP - General Internal Medicine 07/20/17 Kailey Camacho MD [address] [place] [address] [email or web address] Historical LMR Provider 07/04/17 Pranav Gandhi MD [address] [place] [address] Historical LMR Provider 07/04/17 2 documented as of this encounter Additional Source Comments The information contained in this document represents components of the legal health record. It is not the complete legal health record.[facility]
--- OUTSIDE RECORDS SUMMARY | 2025-08-18 09:20 | XMS_ITS | Encounter Summary ---
Author Organization [facility] Address [address] [facility] [address] [place] [address] Phone Care Team Providers Care Fox Farmer Name Role Phone Kailey Camacho MD Unavailable [phone] Pranav Gandhi MD Unavailable [phone] Kailey Camacho MD Primary Care Provider [phone] Encounter Details Date Type Department Care Team (Late st Contact Info) Description 11/12/2020 Procedure Pass [facility], Ct Scan - [address] [address] Social History Tobacco Use Types Packs/Day Years [...] 11/12/2020 10:01 AM Brie Cox RN * [place] Suicide Severity Rating Scale (Screener/Recent Self-Report) Question [...] documented as of this encounter Care Teams Fox Farmer Relationship Specialty Start Date End Date Kailey Camacho MD [address] [place] [address] [email or web address] PCP - General Internal Medicine 07/20/17 Kailey Camacho MD [address] [place] [address] Historical LMR Provider 07/04/17 Pranav Gandhi MD [address] [place] [address] Historical LMR Provider 07/04/17 2 documented as of this encounter Additional Source Comments The information contained in this document represents components of the legal health record. It is not the complete legal health record.[facility]
--- OUTSIDE RECORDS SUMMARY | 2025-08-18 09:20 | XMS_ITS | Encounter Summary ---
Author Organization [facility] Address [address] [place] [address] [place] [phone] Phone Care Team Providers Care Mortuary Operations Manager Name Role Phone Kailey Camacho MD Unavailable [phone] Pranav Gandhi MD Unavailable [phone] Kailey Camacho MD Primary Care Provider Encounter Details Date Type Department Care Team (Late st Contact Info) Description 02/12/2018 Procedure Pass OR Admitting Dept - Virtual Department [address] [place] [id number] Social History Tobacco Use Types Packs/Day Years [...] documented as of this encounter Care Teams Mortuary Operations Manager Relationship Specialty Start Date End Date Kailey Camacho MD [address] [place] [address] [email or web address] PCP - General Internal Medicine 07/20/17 Kailey Camacho MD [address] [place] [address] [email or web address] Historical LMR Provider 07/04/17 Pranav Gandhi MD [address] [place] [phone] Historical LMR Provider 07/04/17 2 documented as of this encounter Additional Source Comments The information contained in this document represents components of the legal health record. It is not the complete legal health record.[facility]
[2025-08-18 09:44] LABS: Hematocrit 40.2 % (37.0-47.0); Hemoglobin 12.6 g/dl (12.0-16.0); Imm Gran Abs Auto 0.02 X10*3/uL (0.00-0.03); Imm Gran Pct Auto 0.2 % (0.0-0.4); Lymphocytes Absolute Auto 3.3 X10*3/uL (1.2-4.9); Mean Corpuscular HGB Conc 31.3 g/dl (31.0-35.0); Mean Corpuscular Hemoglobin 23.9 pg (27.0-33.0); Mean Corpuscular Volume 76.1 fL (80.0-98.0); NRBC Abs Auto 0.000 X10*3/uL (0.0-0.012); NRBC Pct Auto 0.0 /100WBC (0.0-0.2); Platelet Count 391 X10*3/uL (160-400); Red Blood Count 5.28 X10*6/uL (4.20-5.50); White Blood Count 8.8 X10*3/uL (4.8-10.8)
[2025-08-18 10:51] LABS: Iron 29 mcg/dL (30-160); Percent Iron Saturation 9 % (15-50); Total Iron Binding Capacity 338 mcg/dL (228-428); Unsaturated Iron Binding 309 ug/dL
[2025-08-18 11:13] LABS: Ferritin 16 ng/mL (10-122)
== END 2025-08-18 08:55 | disposition home or self-care (01) ==
LOC: HO.LAB 08:54
PROVIDERS: Visit Provider Surgery
DX: D64.9 Anemia, unspecified (principal)
CPT/HCPCS: 36415; 82728; 83540; 85025